=== PATIENT | male | born 1975 | race Caucasian/White ===

== ENCOUNTER → 2020-07-28 08:23 | Outpatient (BNVA) | payer OTHER, SELFPAY | PROVIDERS: Visit Provider Physician Assistant | DX: K21.9 Gastro-esophageal reflux disease without esophagitis (principal) | CPT/HCPCS: Q3014 ==

== ENCOUNTER → 2020-09-01 10:16 | Outpatient (BNVA) | payer OTHER, SELFPAY | PROVIDERS: Visit Provider Physician Assistant | DX: Z13.89 Encounter for screening for other disorder (principal) | CPT/HCPCS: Q3014 ==

== ENCOUNTER → 2020-11-10 12:40 | Outpatient (BNVA) | payer OTHER, SELFPAY | PROVIDERS: PCP Internal Medicine; Visit Provider Physician Assistant | DX: Z13.89 Encounter for screening for other disorder (principal) | CPT/HCPCS: Q3014 ==

== ENCOUNTER 2021-12-26 11:49 | Emergency (ER) | payer OTHER, SELFPAY ==
--- NOTE | ~2021-12-26 | CT_ITS ---
EXAMINATION: CT CHEST, ABDOMEN AND PELVIS WITH CONTRAST CLINICAL INFORMATION: Reason for Exam rib fx with lung contusion?? s/p fall COMPARISON: No pertinent prior studies are available for comparison TECHNIQUE: Multidetector volumetric imaging was performed from the thoracic inlet through the pubic symphysis following the administration of: Oral contrast: No Intravenous contrast: 85 mL Omnipaque 350 No contrast reaction reported Sagittal and coronal reformatted images were obtained on the technologist workstation. This CT examination was performed using dose optimization techniques as appropriate, variously including the following: *Automated exposure control. *Adjustment of mA and/or kV according to patient size (this includes techniques or standardized protocols for targeted exams where dose is matched to indication/reason for exam; i.e. extremities or head). *Use of iterative reconstruction technique. Total exam dose-length product 688 mGy-cm FINDINGS: LUNG: There are 3 sub-5 mm lung nodules identified within the right hemithorax, at right lung apex, right upper lobe posteromedially and at the Olga-fissural region (see the fontanez images). The remainder of the lung hernandez bilaterally appear clear. The tracheobronchial tree is patent. No evidence of any lung contusion present. PLEURA: No pleural effusion or pneumothorax. MEDIASTINUM: Normal heart size. No pericardial effusion. No hilar or mediastinal lymphadenopathy. VASCULAR: No thoracic aortic aneurysm or dissection. CHEST WALL/AXILLA: Solitary 1.2 cm left axillary lymph node is present (1:30: 7), of indeterminate etiology. Morphologically normal-appearing intramammary and right axillary lymph nodes are noted. LIVER, GALLBLADDER, AND BILIARY TREE: The liver is enlarged, measures 22 cm at its maximum craniocaudal dimension, shows diffuse hepatic hypodensity consistent with hepatic steatosis, and without any superimposed focal liver lesion. The gallbladder is unremarkable with no evidence of radiopaque gallstones, gallbladder wall thickening, or obvious pericholecystic inflammatory changes. PANCREAS: Normal; no mass or surrounding fluid. SPLEEN: Normal size. No focal lesion. ADRENAL GLANDS: Normal; no mass. KIDNEYS AND URETERS: The kidneys are normal in size, shape, and attenuation. No hydronephrosis, hydroureter, or calculi. GASTROINTESTINAL TRACT: Stomach and small bowel non-dilated. No colonic wall thickening or pericolonic inflammatory changes. Normal appendix. ABDOMINAL WALL: No significant hernia is appreciated. LYMPHOVASCULAR STRUCTURES: No lymphadenopathy. The aorta is unremarkable. BLADDER: Suboptimally distended, shows apparent diffuse wall thickening, may represent changes secondary to physiologic suboptimal distention versus outlet obstruction, superimposed infection, or combination thereof. PELVIC VISCERA: There is no pelvic mass present. No evidence of any free fluid and/or free air. OSSEOUS STRUCTURES: No acute or suspicious osseous abnormality. CT/CT abdomen pelvis w con IMPRESSION: 1. No CT evidence of any acute intrathoracic and intra-abdominal and/or intrapelvic pathology is present. 2. Incidental note is made of 3 sub-5 mm lung nodules within the right hemithorax. There are no prior studies available for comparison. 3. Note is also made of 1.2 cm left axillary lymph node, of indeterminate etiology. 4. Hepatomegaly with underlying diffuse hepatic steatosis. 5. Apparent mural thickening is present involving the bladder, may represent changes secondary to physiologic suboptimal distention versus outlet obstruction, superimposed infection, or combination thereof. 6. No CT evidence of any displaced rib fracture identified.
[2021-12-26 12:12] VITALS: BP 155/94; PULSE 76; O2SAT 95
[2021-12-26 12:13] VITALS: BP 163/103; PULSE 70; RESP 18; TEMP 36.6; O2SAT 97; BMI 31.9
--- NOTE | 2021-12-26 12:28 | ED_ITS ---
HPI - General Adult General Chief complaint: General Medical Stated complaint: RIB PAIN S/P SLIP&FALL SAT,FROM URGENT CARE Time Seen by Provider: 12/26/21 12:28 Source: patient Mode of arrival: ambulatory Limitations: no limitations History of Present Illness HPI narrative: History of depression anxiety psychotic disorder apparently slipped and fell in the bathroom hitting his left lower ribs to the edge of the bathtub 2 days ago since then having pain while taking deep breath since yesterday patient been coughing blood right feels increased short of breath when taking a deep breath and with pain also has some bruising on the abdomen no other injuries patient is saturating 95% at room air Related Data Home Medications Medication Instructions Recorded Confirmed albuterol sulfate 90 mcg/actuation 2 puff INHALATION Q6H PRN 07/28/20 07/28/20 aerosol inhaler cariprazine 3 mg capsule (Vraylar) 3 mg PO DAILY 07/28/20 09/01/20 hydroxyzine HCl 50 mg tablet 50 mg PO BID 07/28/20 07/28/20 lorazepam 0.5 mg tablet 0.5 mg PO BID PRN 07/28/20 09/01/20 omeprazole 20 mg capsule,delayed 20 mg PO DAILY 07/28/20 09/01/20 release Previous Rx's Medication Instructions Recorded omeprazole 20 mg capsule,delayed 20 mg PO BID #60 cap 07/28/20 release sucralfate 100 mg/mL oral 10 ml PO BID #420 ml 07/28/20 suspension (Carafate) benzonatate 200 mg capsule 200 mg PO TID PRN #30 cap 12/26/21 oxycodone-acetaminophen 5 mg-325 1 tab PO Q6H PRN #20 tab 12/26/21 mg tablet (Percocet) Allergies Allergy/AdvReac Type Severity Reaction Status Date / Time No Known Allergies Allergy Verified 11/10/20 12:40 Review of Systems Review of Systems: Yes all other systems are reviewed and are negative FOR[facility]LY [facility] Past Medical History Medical History Acid reflux Alcoholic liver disease Anxiety Depression Schizo affective schizophrenia Family History Family History Mother No problems noted. Father No problems noted. Mother No problems noted. 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 Oriented X3. In moderate distress Eyes: No pallor or icterus ENT: Pharynx normal. Oral Mucosa moist Neck: Normal inspection. Neck supple. CVS: Normal heart rate and rhythm. Pulses normal. Respiratory: No respiratory distress. Equal air entry bilateral, no whe ezing/rales/rhonchi no crepitus tender to touch left lower ribs in the front Abdomen: Soft and nontender. Bowel sounds are present, no mass palpable, no CVA tenderness Skin: Skin warm and dry. Normal skin color. Normal skin turgor. Extremities: No lower extremity edema. No calf tenderness Neuro: Oriented X 3. No motor deficit. Medical Decision Making MDM Narrative Medical decision making narrative: Patient's CT chest and abdomen negative for any rib fracture or lung contusion no hemoptysis seen in the ER will discharge patient home on tests lawn and pain medication Lab Data Lab results reviewed: Yes I reviewed the patient's lab results. Result diagrams: 12/26/21 12:48 12/26/21 12:48 Labs: Lab Results 12/26/21 12/26/21 12/26/21 Range/Units 12:48 12:48 12:48 WBC 13.6 H (4.8-10.8) X10*3/uL RBC 4.19 L (4.60-5.80) X10*6/uL Hgb 13.3 L (14.0-18.0) g/dl Hct 39.1 L (42.0-52.0) % MCV 93.3 (80.0-98.0) fL MCH 31.7 (27.0-33.0) pg MCHC 34.0 (31.0-36.0) g/dl RDW 13.0 (11.0-16.0) % Plt Count 276 (160-400) X10*3/uL MPV 10.2 (9.4-12.4) fL Immature Gran % (Auto) 0.3 (0.0-0.4) % Neut % (Auto) 84.9 H (45-73) % Lymph % (Auto) 9.2 L (20-40) % Christian % (Auto) 4.5 (2-11) % Eos % (Auto) 0.6 (0-4) % Baso % (Auto) 0.5 (0-2) % Lymph # (Auto) 1.3 (1.2-4.9) X10*3/uL Christian # (Auto) 0.6 (0.1-1.2) X10*3/uL Eos # (Auto) 0.1 (0.0-0.4) X10*3/uL Baso # (Auto) 0.1 (0.0-0.2) X10*3/uL Abs Immat Gran (auto) 0.04 H (0.00-0.03) X10*3/uL Absolute Neuts (auto) 11.6 H (2.0-8.3) x10*3/uL Absolute Nucleated RBC 0.000 (0.0-0.012) X10*3/uL Nucleated RBC % (auto) 0.0 (0.0-0.2) /100WBC PT 14.9 H (9.9-13.0) SEC INR 1.3 H (0.9-1.1) APTT 34.5 (24.1-38.0) SEC Sodium 139 (135-145) mmol/L Potassium 3.7 (3.3-5.1) mmol/L Chloride 100 (96-108) mmol/L Carbon Dioxide 27 (22-29) mmol/L Anion Gap 16 (12-20) BUN 5 L (9-16) mg/dL Creatinine 0.66 (0.5-1.4) mg/dL Estim Creat Clear Calc 168.3 Estimated GFR > 60 Random Glucose 89 (60-115) mg/dL Calcium 9.0 (8.4-10.2) mg/dL Magnesium 1.3 L* (1.6-2.6) mg/dL Total Bilirubin 1.1 H (0.0-1.0) mg/dL AST 108 H (5-37) U/L ALT 99 H (0-40) U/L Alkaline Phosphatase 121 H (39-117) U/L Total Protein 7.8 (6.5-8.0) g/dL Albumin 4.1 (3.5-5.0) g/dL COVID-19 (NIKOLAS) (Negative) COVID-19 Clin Com 12/26/21 Range/Units 12:48 WBC (4.8-10.8) X10*3/uL RBC (4.60-5.80) X10*6/uL Hgb (14.0-18.0) g/dl Hct (42.0-52.0) % MCV (80.0-98.0) fL MCH (27.0-33.0) pg MCHC (31.0-36.0) g/dl RDW (11.0-16.0) % Plt Count (160-400) X10*3/uL MPV (9.4-12.4) fL Immature Gran % (Auto) (0.0-0.4) % Neut % (Auto) (45-73) % Lymph % (Auto) (20-40) % Christian % (Auto) (2-11) % Eos % (Auto) (0-4) % Baso % (Auto) (0-2) % Lymph # (Auto) (1.2-4.9) X10*3/uL Christian # (Auto) (0.1-1.2) X10*3/uL Eos # (Auto) (0.0-0.4) X10*3/uL Baso # (Auto) (0.0-0.2) X10*3/uL Abs Immat Gran (auto) (0.00-0.03) X10*3/uL Absolute Neuts (auto) (2.0-8.3) x10*3/uL Absolute Nucleated RBC (0.0-0.012) X10*3/uL Nucleated RBC % (auto) (0.0-0.2) /100WBC PT (9.9-13.0) SEC INR (0.9-1.1) APTT (24.1-38.0) SEC Sodium (135-145) mmol/L Potassium (3.3-5.1) mmol/L Chloride (96-108) mmol/L Carbon Dioxide (22-29) mmol/L Anion Gap (12-20) BUN (9-16) mg/dL Creatinine (0.5-1.4) mg/dL Estim Creat Clear Calc Estimated GFR Random Glucose (60-115) mg/dL Calcium (8.4-10.2) mg/dL Magnesium (1.6-2.6) mg/dL Total Bilirubin (0.0-1.0) mg/dL AST (5-37) U/L ALT (0-40) U/L Alkaline Phosphatase (39-117) U/L Total Protein (6.5-8.0) g/dL Albumin (3.5-5.0) g/dL COVID-19 (NIKOLAS) Negative (Negative) COVID-19 Clin Com See Note Discharge Plan Discharge Clinical Impression: Contusion of rib on left side Patient Disposition: Home, Self-Care Instructions: Rib Contusion (ED) Additional Instructions: No clear-cut rib fracture was seen Take pain medication and cough suppressant as advised Follow with PCP if any concerns Prescriptions: New benzonatate 200 mg capsule 200 mg PO TID PRN (Reason: cough) Qty: 30 0RF oxycodone-acetaminophen [Percocet] 5-325 mg tablet 1 tab PO Q6H PRN (Reason: pain) Qty: 20 0RF No Action Vraylar 3 mg capsule 3 mg PO DAILY 0RF omeprazole 20 mg capsule,delayed release(DR/EC) 20 mg PO DAILY 0RF lorazepam 0.5 mg tablet 0.5 mg PO BID PRN0RF hydroxyzine HCl 50 mg tablet 50 mg PO BID 0RF albuterol sulfate 90 mcg/actuation HFA aerosol inhaler 2 puff inhalation Q6H PRN0RF omeprazole 20 mg capsule,delayed release(DR/EC) 20 mg PO BID Qty: 60 5RF sucralfate [Carafate] 100 mg/mL suspension 10 ml PO BID Qty: 420 0RF
[2021-12-26 12:54] LABS: MANUAL DIFF FLAG NO
[2021-12-26] MEDS: ondansetron HCL 4 MG/2 ML VIAL IVPUSH (12:56)
[2021-12-26] MEDS: Morphine Sulfate 4 MG/ML CARTRIDGE IVPUSH (12:56)
[2021-12-26] MEDS: guaiFEN/Codeine SF 200/20/10ML 10 ML LIQUID PO (12:56)
[2021-12-26 12:57] VITALS: BP 152/89; PULSE 76; PULSE 77; RESP 18; O2SAT 97
--- NOTE | 2021-12-26 13:01 | PC.NURSE ---
Mechanical fall with worsening pain today. Painful to move, deep breathing. Unable to fully assess LS d/t pain with inhalation. Breathing is non labored, sat 97% on room air. Skin flushed, warm to touch. VSS. Medicated as charted
[2021-12-26 13:04] LABS: Basophils Absolute Auto 0.1 X10*3/uL (0.0-0.2); Basophils Percent Auto 0.5 % (0-2); Eosinophils Absolute Auto 0.1 X10*3/uL (0.0-0.4); Eosinophils Percent Auto 0.6 % (0-4); Hematocrit 39.1 % (42.0-52.0); Hemoglobin 13.3 g/dl (14.0-18.0); Imm Gran Abs Auto 0.04 X10*3/uL (0.00-0.03); Imm Gran Pct Auto 0.3 % (0.0-0.4); Lymphocytes Absolute Auto 1.3 X10*3/uL (1.2-4.9); Lymphocytes Percent Auto 9.2 % (20-40); Mean Corpuscular Hemoglobin 31.7 pg (27.0-33.0); Mean Corpuscular Volume 93.3 fL (80.0-98.0); Mean Platelet Volume 10.2 fL (9.4-12.4); Monocytes Absolute Auto 0.6 X10*3/uL (0.1-1.2); Monocytes Percent Auto 4.5 % (2-11); Neutrophils Absolute Auto 11.6 x10*3/uL (2.0-8.3); Neutrophils Percent Auto 84.9 % (45-73); Platelet Count 276 X10*3/uL (160-400); Red Blood Count 4.19 X10*6/uL (4.60-5.80); White Blood Count 13.6 X10*3/uL (4.8-10.8)
[2021-12-26 13:10] LABS: INTERNATIONAL NORM RATIO 1.3 (0.9-1.1); Prothrombin Time 14.9 SEC (9.9-13.0)
[2021-12-26 13:13] LABS: Partial Thromboplastin Time 34.5 SEC (24.1-38.0)
[2021-12-26 13:24] LABS: Alanine Aminotransferase 99 U/L (0-40); Albumin Level 4.1 g/dL (3.5-5.0); Alkaline Phosphatase 121 U/L (39-117); Anion Gap 16 (12-20); Aspartate Amino Transferase 108 U/L (5-37); Bilirubin Total 1.1 mg/dL (0.0-1.0); Blood Urea Nitrogen 5 mg/dL (9-16); Carbon Dioxide 27 mmol/L (22-29); Chloride 100 mmol/L (96-108); Creatinine Clr Calc Pharmacy 168.3; Estimated Glomerular Filt Rate > 60; Glucose Random 89 mg/dL (60-115); Magnesium 1.3 mg/dL (1.6-2.6); Potassium 3.7 mmol/L (3.3-5.1); Sodium 139 mmol/L (135-145); Total Protein 7.8 g/dL (6.5-8.0)
[2021-12-26 13:39] LABS: COVID-19 Test Negative (Negative); IDNOW Serial# 16C4AD1C
[2021-12-26] MEDS: iohexoL 350 MG/ML 100 ML INFUS..BTL IV (13:43)
[2021-12-26] MEDS: Magnesium Sulfate/H2O 2 GM/50 ML PIGGYBACK IV (14:06)
[2021-12-26 14:09] VITALS: BP 156/93; PULSE 69; RESP 16; O2SAT 96
[2021-12-26] MEDS: oxyCODONE HCl Immed Release 5 MG TABLET 10 MG PO (15:14)
[2021-12-26] MEDS: Benzonatate 100 MG CAPSULE 200 MG PO (15:14)
== END 2021-12-26 15:21 | disposition home or self-care (01) ==
PROVIDERS: Emergency Provider Internal Medicine; PCP Internal Medicine
DX: S20.212A Contusion of left front wall of thorax, initial encounter (principal); R07.89 Other chest pain; R04.2 Hemoptysis; M54.6 Pain in thoracic spine; R06.02 Shortness of breath; R10.2 Pelvic and perineal pain; W01.0XXA Fall on same level from slipping, tripping and stumbling without subsequent striking against object, initial encounter; Y93.9 Activity, unspecified; Y92.002 Bathroom of unspecified non-institutional (private) residence as the place of occurrence of the external cause; Y99.9 Unspecified external cause status; Z20.822 Contact with and (suspected) exposure to COVID-19; Z79.899 Other long term (current) drug therapy
CPT/HCPCS: 71260; 74177; 80053; 83735; 85025; 85610; 85730; 87635; 96365; 96375; 99285; J2270; J2405; J3475; Q9967

== ENCOUNTER 2022-06-27 09:34 | Emergency (ER) | payer OTHER, SELFPAY ==
--- NOTE | ~2022-06-27 | CT_ITS ---
EXAMINATION: CT HEAD WITHOUT CONTRAST CLINICAL INFORMATION: Status post fall, rule out intracranial abnormality. COMPARISON: None TECHNIQUE: Contiguous axial imaging was performed from the skull base to vertex without intravenous administration of contrast. Coronal and sagittal reformatted images were obtained. This CT examination was performed using dose optimization techniques as appropriate, variously including the following: *Automated exposure control *Adjustment of mA and/or kV according to patient size (this includes techniques or standardized protocols for targeted exams where dose is matched to indication/reason for exam; i.e. extremities or head) *Use of iterative reconstruction technique DLP: 872 mGy-cm FINDINGS: There is mild widening of the cortical sulci and associated ventriculomegaly. The lateral ventricles are symmetrical. The third and fourth ventricles are in their normal midline position. The basilar and prepontine cisterns are unremarkable. There is no acute intra or extracerebral abnormality. There is no mass effect or midline shift. Sections through the bony calvarium are unremarkable. The orbits are intact. The paranasal sinuses are clear. The mastoid air cells are clear. CT/CT head/brain wo IV con IMPRESSION: No acute intracranial pathology.
[2022-06-27 09:37] VITALS: BP 136/82; BP 140/100; PULSE 67; PULSE 70; RESP 18; TEMP 36.8; O2SAT 97; BMI 36.1
--- NOTE | 2022-06-27 09:50 | ECG_ITS ---
Test Reason : vomiting Blood Pressure : / mmHG Vent. Rate : 061 BPM Atrial Rate : 061 BPM P-R Int : 162 ms QRS Dur : 090 ms QT Int : 466 ms P-R-T Axes : 022 044 011 degrees QTc Int : 469 ms Normal sinus rhythm Normal ECG No previous ECGs available Referred By: Demi Heredia Electronically Signed By:VERNA BOWDEN MD
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
--- OUTSIDE RECORDS SUMMARY | 2022-06-27 10:00 | XMS_ITS | Continuity of Care Document ---
:1975 Author Organization [facility] Address [address] [place] [id number]- Care Team Providers Name Role Phone Pastor CHANG, Cody Primary Care Physician Encounter [facility] [place] Date(s): 03/31/21 - 04/02/[address] [address] Discharge Disposition: A-D/C Home Attending Physician: Daija Ayala MD Admitting Physician: Temo Alexander MD Referring Physician: Not on Staff, Referring MD Allergies, Adverse Reactions, Alerts Substance Reaction Severity Status NKA Active Immunizations Given and Recorded Vaccine Date Status Refusal Reason tetanus/diphtheria/pertussis, acel(Tdap) 01/05/19 Given Medications Acetaminophen Tablet 650 mg, Tablet, By Mouth, Every 4 hours, PRN for Pain , Mild, Temperature Greater than 100.5, Routine, 03/31/21 19:12:00 EDT Start Date: 03/31/21 Stop Date: 04/02/21 Status: DiscontinuedclonazePAM 0.5 mg oral tablet 1 tablet = 0.5 mg, By Mouth, Every 12 hours, # 15 tablet, 0 Refills, Maintenance, 04/02/21 8:44:00 EDT, Tablet, [email or web address] #[id number], Partial fill upon patient request if the prescription is fora schedule II opioid drug., 176, cm, 04/01/21 15:... Start Date: 04/02/21 Status: Orderedfolic acid 1 mg oral tablet 1 mg, 1, tablet, By Mouth, Daily, # 30 tablet, Refills 0, Tot. Refills 0, Maintenance, 04/02/21 8:44:00 EDT, Route to Pharmacy Electronically, [email or web address] #[id number], Partial fill upon patient request if the prescription is for a schedule II opio... Start Date: 04/02/21 Status: Orderedthiamine 100 mg oral tablet 100 mg, 1, tablet, By Mouth, Daily, # 30 tablet, Refills 0, Tot. Refills 0, Acute 04/03/21 8:44:00 EDT, 04/02/21 8:44:00 EDT, Route to Pharmacy Electronically, [email or web address] #[id number], Partial fillupon patient request if the prescription is for a... Start Date: 04/02/21 Stop Date: 04/03/21 Status: OrderedVraylar 4.5 mg oral capsule TAKE 1 CAPSULE BY MOUTH EVERY DAY Start Date: 03/31/21 Status: Ordered Results Radiology Reports Exam Date Time Procedure Performing Provider Status 03/31/21 7:11 PM Chest Portable Terry Carbajal; Marvel (Verified) Notes:(Chest Portable) Reason For Exam: Shortness of BreathRESULT: Chest Portable Examination: Portable chest performed on 03/31/2021. History: Shortness of breath. Findings: A frontal view of the chest is compared to a prior study dated 11/19/2020. The cardiac and mediastinal silhouettes are within normal limits. The lungs are clear. The osseous and soft tissue structures are unremarkable. IMPRESSION: There is no acute cardiopulmonary disease. WSN: [id number] Ordering Physician: Anna Powers Dictated By: Krystal James MD Dictated Date/Time: 03/31/21 7:14 pm Reviewed By: Krystal James MD Signed By: Krystal James MD Signed Date/Time: 03/31/21 7:14 pm Transcribed By: KARI Transcribed Date/Time: 03/31/21 7:13 pm Vital Signs Most recent to oldest [Reference 1 2 3 Range]: Height 176 cm 176 cm 176 cm (04/01/21 3:46 PM) (04/01/21 2:48 PM) (04/01/21 4:44 A M) Weight 95 kg 94.5 kg (03/31/21 10:47 PM) (03/31/21 9:54 PM) Oxygen Saturation [94-100 %] 96 % 96 % 95 % (04/02/21 5:00 AM) (04/01/21 8:00 PM) (04/01/21 2:48 P M) Pulse Rate [55-90 bpm] 70 bpm 58 bpm 42 bpm (04/02/21 5:00 AM) (04/01/21 8:00 PM) *L* (04/01/21 3:46 PM) Body Mass Index [18.5-24.99] 30.67 30.51 *>HHI* *>HHI* (03/31/21 10:47 PM) (03/31/21 9:54 PM) Blood Pressure [90-138/55-84 mm 139/94 mm Hg 134/89 mm Hg 140/88 mm Hg Hg] *H* (04/01/21 8:00 PM) *H* (04/02/21 5:00 AM) (04/01/21 3:46 PM ) Respiratory Rate [16-30 br/min] 18 br/min 16 br/min 18 br/min (04/02/21 5:00 AM) (04/01/21 8:00 PM) (04/01/21 7:34 P M) Temperature [96.8-100.4 DegF] 99.1 DegF 99.4 DegF 98 .5 DegF (04/02/21 5:00 AM) (04/01/21 8:00 PM) (04/01/21 2:48 P M) Mode of Delivery (Oxygen) Room air Room air Room a ir (04/02/21 5:00 AM) (04/01/21 8:00 PM) (04/01/21 2:48 P M) Blood pressure sites Arm, right Arm, right Arm, right (04/02/21 5:00 AM) (04/01/21 8:00 PM) (04/01/21 3:46 P M) Temperature Route Oral Oral Oral (04/02/21 5:00 AM) (04/01/21 8:00 PM) (04/01/21 2:48 P M) Dry Weight 95 kg (03/31/21 10:47 PM) Weight Obtained Via Bed scale (03/31/21 9:54 PM) Social History Social History Type Response Smoking Status Never (less than 100 in life time) entered on: 01/05/19 Sex
--- OUTSIDE RECORDS SUMMARY | 2022-06-27 10:00 | XMS_ITS | Continuity of Care Document ---
:1975 Author Organization [facility] Address [address] [place] [id number]- Care Team Providers Name Role Phone Pastor CHANG, Cody Primary Care Physician Encounter [facility] [place] Date(s): 04/20/21 - 04/22/[address] [address] Discharge Disposition: A-D/C Home Attending Physician: Echo Mckeon MD Admitting Physician: Ishmael CHANG, Maribeth Jasso Referring Physician: Not on Staff, Referring MD Allergies, Adverse Reactions, Alerts Substance Reaction Severity Status NKA Active Immunizations Given and Recorded Vaccine Date Status Refusal Reason tetanus/diphtheria/pertussis, acel(Tdap) 01/05/19 Given Medications baclofen 10 mg oral tablet TAKE 1 OR 2 TABLETS BY MOUTH AT BEDTIME Start Date: 04/20/21 Status: OrderedclonazePAM 0.5 mg oral tablet 1 tablet = 0.5 mg, By Mouth, Every 12 hours, # 15 tablet, 0 Refills, Maintenance, 04/02/21 8:44:00 EDT, Tablet, [facility] #[id number], Partial fill upon patient request if the prescription is fora schedule II opioid drug., 176, cm, 04/01/21 15:... Start Date: 04/02/21 Status: Orderedfolic acid 1 mg oral tablet 1 mg, 1, tablet, By Mouth, Daily, # 30 tablet, Refills 0, Tot. Refills 0, Maintenance, 04/02/21 8:44:00 EDT, Route to Pharmacy Electronically, [facility] #[id number], Partial fill upon patient request if the prescription is for a schedule II opio... Start Date: 04/02/21 Status: Orderedpantoprazole 40 mg oral delayed release tablet 1 tablet = 40 mg, By Mouth, Daily, # 30 tablet, 0 Refills, Maintenance, 04/22/21 9:48:00 EDT, EC Tablet, 175, cm, 04/22/21 4:44:00 EDT, Height, 95, kg, 03/31/21 22:47:00 EDT, Dry Weight Start Date: 04/22/21 Stop Date: 05/22/21 Status: OrderedVraylar 4.5 mg oral capsule TAKE 1 CAPSULE BY MOUTH EVERY DAY Start Date: 03/31/21 Status: Ordered Problem List Condition Effective Dates Status Health Status Informant Bipolar disorder(Confirmed) Active Chronic alcohol use(Confirmed) Active Hepatic steatosis(Confirmed) Active Results Radiology Reports Exam Date Time Procedure Performing Provider Status 04/19/21 9:01 PM Chest Portable Jorje Hankins; Auth (Verified) Notes:(Chest Portable) Reason For Exam: AnginaRESULT: Chest Portable Chest Portable Hx of Present Illness: patient comes in after being exposed to Covid + person and having si thoughtsafter being exposed to Covid + person and having this pain and breathing issues; Reason: Angina; Clinical Question(s): CHF COMPARISON: 03/31/2021. FINDINGS: LINES AND TUBES: None. LUNGS AND PLEURA: Clear lungs. Normal pulmonary vascularity. No pleural effusion. No pneumothorax. HEART, MEDIASTINUM AND ADEOLA: Heart is normal in size. Normal upper mediastinal and hilar contour. BONES AND SOFT TISSUES: No acute abnormality. IMPRESSION: No acute abnormality. WSN: [id number] Ordering Physician: Regina Walls Dictated By: Ethel John MD Dictated Date/Time: 04/19/21 9:16 pm Reviewed By: Ethel John MD Signed By: Ethel John MD Signed Date/Time: 04/19/21 9:16 pm Transcribed By: KARI Transcribed Date/Time: 04/19/21 9:15 pm Vital Signs Most recent to oldest 1 2 3 [Reference Range]: Height 175 cm 175 cm 175 cm (04/22/21 4:44 AM) (04/21/21 9:15 PM) (04/21/21 4:5 0 AM) Weight 84.5 kg (04/20/21 7:29 PM) Oxygen Saturation [94-100 %] 96 % 96 % 95 % (04/22/21 4:44 AM) (04/21/21 9:15 PM) (04/21/21 2:0 0 PM) Pulse Rate [55-90 bpm] 81 bpm 80 bpm 90 bpm (04/22/21 4:44 AM) (04/21/21 9:15 PM) (04/21/21 4:0 8 PM) Body Mass Index [18.5-24.99] 27.59 *H* (04/20/21 7:29 PM) Blood Pressure [90-138/55-84 mm 144/96 mm Hg 144/96 mm Hg 130/80 mm Hg Hg] *H* *H* (04/21/21 4:08 PM ) (04/22/21 4:44 AM) (04/21/21 9:15 PM) Respiratory Rate [16-30 br/min] 18 br/min 18 br/min 22 br/min (04/22/21 4:44 AM) (04/21/21 9:15 PM) (04/21/21 4:0 8 PM) Temperature [96.8-100.4 DegF] 97.9 DegF 98.7 DegF 98 .1 DegF (04/22/21 4:44 AM) (04/21/21 9:15 PM) (04/21/21 2:0 0 PM) Mode of Delivery (Oxygen) Room air Room air Room a ir (04/22/21 4:44 AM) (04/21/21 9:15 PM) (04/21/21 2:0 0 PM) Blood pressure sites Arm, left Arm, left Arm, right (04/22/21 4:44 AM) (04/21/21 9:15 PM) (04/21/21 2:0 0 PM) Temperature Route Oral Oral Oral (04/22/21 4:44 AM) (04/21/21 9:15 PM) (04/21/21 2:0 0 PM) Weight Obtained Via Bed scale (04/20/21 7:29 PM) Social History Social History Type Response Smoking Status Never (less than 100 in life time) entered on: 01/05/19 Sex
--- OUTSIDE RECORDS SUMMARY | 2022-06-27 10:00 | XMS_ITS | Continuity of Care Document ---
:1975 Author Organization [facility] Address [address] [place] [id number]- Care Team Providers Name Role Phone Lorraine Moseley MD Primary Care Physician Encounter [facility] [place] Date(s): 02/10/22 - 02/10/[address] [address]- Encounter Diagnosis Alcohol intoxication (Final) - 02/10/22 Discharge Disposition: A-D/C Home Attending Physician: Isac Ruelas MD Admitting Physician: Isac Ruelas MD Referring Physician: Not on Staff, Referring MD Allergies, Adverse Reactions, Alerts No Known Allergies Immunizations Given and Recorded Vaccine Date Status Refusal Reason tetanus/diphtheria/pertussis, acel(Tdap) 01/05/19 Given Medications acamprosate 333 mg oral delayed release tablet 1 tablet = 333 mg, By Mouth, 3 times a day, # 270 tablet, 0 Refills, Maintenance, 01/11/22 8:09:00 EDT, EC Tablet, Partial fill upon patient request if the prescription is for a schedule II opioid drug. Start Date: 01/11/22 Status: OrderedclonazePAM 0.5 mg oral tablet 1 tablet = 0.5 mg, By Mouth, Every 12 hours, # 15 tablet, 0 Refills, Maintenance, 04/02/21 8:44:00 EDT, Tablet, [facility] #[id number], Partial fill upon patient request if the prescription is fora schedule II opioid drug., 176, cm, 04/01/21 15:... Start Date: 04/02/21 Status: OrderedDaily Tiffanie oral tablet 1 tablet, By Mouth, Daily Start Date: 07/14/21 Status: Orderedfolic acid 1 mg oral tablet 1 mg, 1, tablet, By Mouth, Daily, # 30 tablet, Refills 0, Tot. Refills 0, Maintenance, 04/02/21 8:44:00 EDT, Route to Pharmacy Electronically, [facility][id number], Partial fill upon patient request if the prescription is for a schedule II opio... Start Date: 04/02/21 Status: OrderedVraylar 6 mg oral capsule 1 capsule = 6 mg, By Mouth, Daily, 0 Refills, Maintenance, 07/14/21 17:43:00 EST, Partial fill upon patient request if the prescription is for a schedule II opioid drug. Start Date: 07/14/21 Status: OrderedZofran 4 mg oral tablet 1 tablet = 4 mg, By Mouth, Every 8 hours, 0 Refills, Maintenance, 01/04/22 9:39:00 EDT, Partial fillupon patient request if the prescription is for a schedule II opioid drug. Start Date: 01/04/22 Status: Ordered Problem List Condition Effective Dates Status Health Status Informant Bipolar disorder(Confirmed) Active Chronic alcohol use(Confirmed) Active Obese class I(Confirmed) Active Hepatic steatosis(Confirmed) Active Results Radiology Reports Exam Date Time Procedure Performing Provider Status 02/10/22 2:37 PM Chest Portable Marilyn Cruz (Verif ied) Notes:(Chest Portable) Reason For Exam: Shortness of BreathRESULT: Chest Portable Chest Portable HX OF PRESENT ILLNESS: ETOH abuse - found on side of the road; Reason: Shortness of Breath; Clinical Question(s): CHF COMPARISON: 01/11/2022 and multiple priors. FINDINGS: LINES AND TUBES: None. LUNGS AND PLEURA: Low lung volumes with mild basilar atelectasis. Lungs are otherwise clear with no consolidation. No pleural effusion. No pneumothorax. HEART, MEDIASTINUM AND ADEOLA: Heart is normal in size. Normal upper mediastinal and hilar contour. BONES AND SOFT TISSUES: No acute abnormality. IMPRESSION: Low lung volumes but no acute cardiopulmonary process. I have personally reviewed the images and I agree with this report. WSN: [id number] Ordering Physician: Jack Davila MD Dictated By: Ronald Godlen MD Dictated Date/Time: 02/10/22 2:52 pm Reviewed By: Zia Silva MD Signed By: Zia Silva MD Signed Date/Time: 02/10/22 2:57 pm Transcribed By: KARI Transcribed Date/Time: 02/10/22 2:45 pm Vital Signs Most recent to oldest 1 2 3 [Reference Range]: Oxygen Saturation [94-100 %] 98 % 95 % 96 % (02/10/22 6:04 PM) (02/10/22 3:33 PM) (02/10/22 1:1 9 PM) Pulse Rate [55-90 bpm] 80 bpm 85 bpm 90 bpm (02/10/22 6:04 PM) (02/10/22 3:33 PM) (02/10/22 2:1 0 PM) Blood Pressure [90-138/55-84 mm 136/86 mm Hg 100/48 mm Hg 113/58 mm Hg Hg] (02/10/22 6:04 PM) (02/10/22 3:33 PM) (02/10/22 1:1 9 PM) Respiratory Rate [16-30 br/min] 16 br/min 16 br/min 18 br/min (02/10/22 6:04 PM) (02/10/22 3:33 PM) (02/10/22 2:1 0 PM) Temperature [96.8-100.4 DegF] 97.6 DegF (02/10/22 1:19 PM) Mode of Delivery (Oxygen) Room air Room air Room a ir (02/10/22 6:04 PM) (02/10/22 3:33 PM) (02/10/22 1:1 9 PM) Blood pressure sites Arm, left Arm, left Arm, right (02/10/22 6:04 PM) (02/10/22 3:33 PM) (02/10/22 1:1 9 PM) Temperature Route Oral (02/10/22 1:19 PM) Social History Social History Type Response Smoking Status Never (less than 100 in life time) entered on: 01/28/22 Sex
--- OUTSIDE RECORDS SUMMARY | 2022-06-27 10:00 | XMS_ITS | Continuity of Care Document ---
:1975 Author Organization [address], [address] [place] [address]- Care Team Providers Name Role Phone Lorraine Moseley MD Primary Care Physician Encounter [facility] [place] Date(s): 07/25/21 - 08/24/[address], [address] [place] [address]- Allergies, Adverse Reactions, Alerts Substance Reaction Severity Status NKA Active Immunizations Given and Recorded Vaccine Date Status Refusal Reason tetanus/diphtheria/pertussis, acel(Tdap) 01/05/19 Given Medications acamprosate 333 mg oral delayed release tablet TAKE 1 TABLET BY MOUTH TWICE DAILY ON DAY 1 THEN 1 TABLET THREE TIMES DAILY FOR 2 TO 3 DAYS THEN 2 TABLETS THREE TIMES DAILY Start Date: 07/14/21 Status: OrderedclonazePAM 0.5 mg oral tablet 1 tablet = 0.5 mg, By Mouth, Every 12 hours, # 15 tablet, 0 Refills, Maintenance, 04/02/21 8:44:00 EDT, Tablet, [facility] #[id number], Partial fill upon patient request if the prescription is fora schedule II opioid drug., 176, cm, 04/01/21 15:... Start Date: 04/02/21 Status: OrderedDaily Tiffanie oral tablet TAKE 1 TABLET BY MOUTH EVERY DAY WITH FOOD (( VITAMIN)) Start Date: 07/14/21 Status: Orderedfolic acid 1 mg oral tablet 1 mg, 1, tablet, By Mouth, Daily, # 30 tablet, Refills 0, Tot. Refills 0, Maintenance, 04/02/21 8:44:00 EDT, Route to Pharmacy Electronically, [facility] #[id number], Partial fill upon patient request if the [...] Start Date: 04/22/21 Stop Date: 05/22/21 Status: OrderedVitamin B1 100 mg oral tablet TAKE 1 TABLET BY MOUTH EVERY DAY Start Date: 07/14/21 Status: OrderedVraylar 6 mg oral capsule 0 Refills, Maintenance, 07/14/21 17:43:00 EST, Partial fill upon patient request if the prescriptionis for a schedule II opioid drug. Start Date: 07/14/21 Status: Ordered Problem List Condition Effective Dates Status Health Status Informant Bipolar disorder(Confirmed) Active Chronic alcohol use(Confirmed) Active Hepatic steatosis(Confirmed) Active Social History Social History Type Response Smoking Status Never (less than 100 in life time) entered on: 01/05/19 Sex
--- OUTSIDE RECORDS SUMMARY | 2022-06-27 10:00 | XMS_ITS | Continuity of Care Document ---
:1975 Author Organization [facility] Address [address] [place] [address]- Care Team Providers Name Role Phone Lorraine Moseley MD Primary Care Physician Encounter [facility] [place] Date(s): 11/18/20 - 11/19/[address] [address]- Encounter Diagnosis ETOH abuse (Final) - 11/19/20 Discharge Disposition: A-D/C Home Attending Physician: Yo Felix MD Admitting Physician: Yo Felix MD Referring Physician: Not on Staff, Referring MD Allergies, Adverse Reactions, Alerts Substance Reaction Severity Status NKA Active Immunizations Given and Recorded Vaccine Date Status Refusal Reason tetanus/diphtheria/pertussis, acel(Tdap) 01/05/19 Given Medications MorPHINE Inj 4 mg, Injection, IV Push Slowly, Once, STAT, 11/19/20 2:01:00 EDT, Stop date 11/19/20 2:01:00 EDT Start Date: 11/19/20 Stop Date: 11/19/20 Status: Completed Results Radiology Reports Exam Date Time Procedure Performing Provider Status 11/19/20 1:47 AM Chest Portable Rebecca Rivas; Marvel ([facility] ed) Notes:(Chest Portable) Reason For Exam: Chest Pain;Other:RESULT: Chest Portable Chest Portable HX OF PRESENT ILLNESS: Presents to the ER with EMS for cp for last 3 days. Pt also reports drinking today. A and O x4. Pt VSS.; Reason: Chest Pain; Clinical Question(s): CHF / CHF COMPARISON: 11/08/2020 FINDINGS: LINES AND TUBES: None. LUNGS AND PLEURA: Clear lungs. Normal pulmonary vascularity. No pleural effusion. No pneumothorax. HEART, MEDIASTINUM AND ADEOLA: Heart is normal in size. Normal mediastinal and hilar contour. BONES AND SOFT TISSUES: No acute abnormality. IMPRESSION: No evidence of acute abnormality. WSN: [id number] Ordering Physician: Alfredo Webster Dictated By: Temo Zaidi MD Dictated Date/Time: 11/19/20 8:02 am Reviewed By: Temo Zaidi MD Signed By: Temo Zaidi MD Signed Date/Time: 11/19/20 8:02 am Transcribed By: KARI Transcribed Date/Time: 11/19/20 8:01 am Vital Signs Most recent to oldest 1 2 3 [Reference Range]: Oxygen Saturation [94-100 %] 99 % 97 % 94 % (11/19/20 9:04 AM) (11/19/20 6:36 AM) (11/19/20 1:1 1 AM) Pulse Rate [55-90 bpm] 64 bpm 55 bpm 70 bpm (11/19/20 9:04 AM) (11/19/20 6:36 AM) (11/19/20 1:0 6 AM) Blood Pressure [90-138/55-84 133/90 mm Hg 121/79 mm Hg 108 /61 mm Hg mm Hg] (11/19/20 9:04 AM) (11/19/20 6:36 AM) (11/19/20 1:1 1 AM) Respiratory Rate [16-30 18 br/min 20 br/min 20 br/mi n br/min] (11/19/20 9:04 AM) (11/19/20 6:36 AM) (11/19/20 2:3 6 AM) Temperature [96.8-100.4 DegF] 98.1 DegF (11/19/20 1:06 AM) Liters per Minute 2 L/min 2 L/min 2 L/min (11/19/20 6:36 AM) (11/19/20 1:11 AM) (11/19/20 12: 00 AM) Mode of Delivery (Oxygen) Nasal cannula Nasal cannula Room a ir (11/19/20 6:36 AM) (11/19/20 1:11 AM) (11/19/20 12: 07 AM) Temperature Route Oral (11/19/20 1:06 AM) Social History Social History Type Response Smoking Status Never (less than 100 in life time) entered on: 01/05/19 Sex
--- OUTSIDE RECORDS SUMMARY | 2022-06-27 10:00 | XMS_ITS | Continuity of Care Document ---
:1975 Author Organization [address], [address] [place] [address]- Care Team Providers Name Role Phone Lorraine Moseley MD Primary Care Physician Encounter [facility] [place] Date(s): 08/22/21 - 08/29/[address], [address] [place] [address]- Attending Physician: Boo Carter MD Referring Physician: Martha Ayala Allergies, Adverse Reactions, Alerts Substance Reaction Severity [...] 0 Refills, Maintenance, 04/02/21 8:44:00 EDT, Tablet, [facility] #[id number], Partial fill upon patient request if the [...] 04/02/21 8:44:00 EDT, Route to Pharmacy Electronically, [facility] #[id number], Partial fill upon patient request if the [...] Chronic alcohol use(Confirmed) Active Hepatic steatosis(Confirmed) Active Vital Signs Most recent to oldest [Reference Range]: 1 Height 175 cm (08/22/21 3:20 PM) Weight 90.1 kg (08/22/21 3:20 PM) Body Mass Index [18.5-24.99] 29.42 *H* (08/22/21 3:20 PM) Social History Social History Type Response Smoking Status Never (less than 100 in life time) entered on: 01/05/19 Sex
--- OUTSIDE RECORDS SUMMARY | 2022-06-27 10:00 | XMS_ITS | Continuity of Care Document ---
:1975 Author Organization [facility] Address [address] [place] [address]- Care Team Providers Name Role Phone Lorraine Moseley MD Primary Care Physician Encounter [facility] [place] Date(s): 01/30/22 - 01/31/[address] [address]- Encounter Diagnosis Alcohol intoxication (Final) - 01/31/22 Alcohol addiction (Final) - 01/31/22 Discharge Disposition: Disch/Trans to IP Rehab or unit w/in Hos Attending Physician: David Cifuentes MD Admitting Physician: David Cifuentes MD Referring Physician: Not on Staff, Referring [...] II opioid drug. Start Date: 01/11/22 Status: OrderedAcetaminophen Tablet 975 mg, Tablet, By Mouth, Once, STAT, 01/31/22 8:30:00 EDT, Stop date 01/31/22 8:30:00 EDT Start Date: 01/31/22 Stop Date: 01/31/22 Status: CompletedclonazePAM 0.5 mg oral tablet 1 tablet = 0.5 mg, By Mouth, Every 12 hours, # 15 tablet, 0 Refills, Maintenance, 04/02/21 8:44:00 EDT, Tablet, [facility] #[id number], Partial fill upon patient request if the [...] 04/02/21 8:44:00 EDT, Route to Pharmacy Electronically, [facility] #[id number], Partial fill upon patient request if the prescription is for a schedule II opio... Start Date: 04/02/21 Status: OrderedMotrin Tablet 600 mg, Tablet, By Mouth, Once, STAT, 01/31/22 8:30:00 EDT, Stop date 01/31/22 8:30:00 EDT Start Date: 01/31/22 Stop Date: 01/31/22 Status: CompletedVraylar 6 mg oral capsule 1 capsule = [...] Obese class I(Confirmed) Active Hepatic steatosis(Confirmed) Active Vital Signs Most recent to oldest 1 2 3 4 [Reference Range]: Oxygen Saturation 97 % 97 % 97 % [94-100 %] (01/31/22 2:53 PM) (01/31/22 12:21 PM) (01/31/22 8:11 AM) Pulse Rate [55-90 bpm] 80 bpm 80 bpm 90 bpm (01/31/22 2:53 PM) (01/31/22 12:21 PM) (01/31/22 8:11 AM) Blood Pressure 157/100 mm Hg 149/99 mm Hg 141/82 mm Hg [90-138/55-84 mm Hg] *H* *H* *H* (01/31/22 2:53 PM) (01/31/22 12:21 PM) (01/31/22 8:11 AM) Respiratory Rate [16-30 20 br/min 20 br/min 18 br/min 18 b r/min br/min] (01/31/22 2:53 PM) (01/31/22 12:21 PM) (01/31/22 9:38 AM) ( 9:38 AM) Temperature [96.8-100.4 98.2 DegF 97.9 DegF 98.6 DegF DegF] (01/31/22 2:53 PM) (01/31/22 8:11 AM) (01/31/22 1:08 AM) Mode of Delivery Room air Room air Room air (Oxygen) (01/31/22 2:53 PM) (01/31/22 12:21 PM) (01/31/22 8:11 AM) Blood pressure sites Arm, right Arm, right Arm, right (01/31/22 2:53 PM) (01/31/22 12:21 PM) (01/31/22 8:11 AM) Temperature Route Oral Oral Oral (01/31/22 2:53 PM) (01/31/22 8:11 AM) (01/31/22 1:08 AM) Social History Social History Type Response Smoking Status Never (less than 100 in life time) entered on: 01/28/22 Sex
--- OUTSIDE RECORDS SUMMARY | 2022-06-27 10:01 | XMS_ITS | Continuity of Care Document ---
:1975 Author Organization [address], [address] [place] [address]- Care Team Providers Name Role Phone Lorraine Moseley MD Primary Care Physician [place] [facility] [place] [id number] Date(s): 08/22/21 - 09/21/[address], [address] [place], [place] [address] Attending Physician: Juany Whitlock Admitting Physician: AdmtrJuany Referring Physician: AdmtrJuany Allergies, Adverse Reactions, Alerts No Known Allergies [...] 0 Refills, Maintenance, 04/02/21 8:44:00 EDT, Tablet, [facility] #[id number], Partial fill upon patient request if the prescription is fora schedule II opioid drug., 176, cm, 04/01/21 15:... Start Date: 04/02/21 Status: OrderedDaily Itffanie oral tablet TAKE 1 TABLET BY MOUTH EVERY DAY WITH FOOD (( VITAMIN)) Start Date: 07/14/21 Status: Orderedfolic acid 1 mg oral tablet 1 mg, 1, tablet, By Mouth, Daily, # 30 tablet, Refills 0, Tot. Refills 0, Maintenance, 04/02/21 8:44:00 EDT, Route to Pharmacy Electronically, [facility] #[id number], Partial fill upon patient request if the [...]
--- OUTSIDE RECORDS SUMMARY | 2022-06-27 10:01 | XMS_ITS | Continuity of Care Document ---
:1975 Author Organization [facility] Address [address] [place] [phone]- Care Team Providers Name Role Phone Cody Baumann MD Primary Care Phys[id number] Date(s): 05/03/21 - 05/04/[address] [address]- Discharge Disposition: A-D/C Home Attending Physician: Rafita Wade MD Admitting Physician: Rafita Wade MD Referring Physician: Not on Staff, Referring [...] 0 Refills, Maintenance, 04/02/21 8:44:00 EDT, Tablet, [id number], Partial fill upon patient request if the prescription is fora schedule II opioid drug., 176, cm, 04/01/21 15:... Start Date: 04/02/21 Status: Orderedfolic acid 1 mg oral tablet 1 mg, 1, tablet, By Mouth, Daily, # 30 tablet, Refills 0, Tot. Refills 0, Maintenance, 04/02/21 8:44:00 EDT, Route to Pharmacy Electronically, [facility] #[id number], Partial fill upon patient request if the [...] Most recent to oldest [Reference Range]: 1 2 Oxygen Saturation [94-100 %] 95 % 96 % (05/04/21 1:01 AM) (05/03/21 7:38 PM) Pulse Rate [55-90 bpm] 79 bpm 71 bpm (05/04/21 1:01 AM) (05/03/21 7:38 PM) Blood Pressure [90-138/55-84 mm Hg] 125/83 mm Hg 119/ 71 mm Hg (05/04/21 1:01 AM) (05/03/21 7:38 PM) Respiratory Rate [16-30 br/min] 16 br/min 18 br/mi n (05/04/21 1:01 AM) (05/03/21 7:38 PM) Temperature [96.8-100.4 DegF] 98.6 DegF 98.3 DegF (05/04/21 1:01 AM) (05/03/21 7:38 PM) Mode of Delivery (Oxygen) Room air Room air (05/04/21 1:01 AM) (05/03/21 7:38 PM) Blood pressure sites Arm, right Arm, right (05/04/21 1:01 AM) (05/03/21 7:38 PM) Temperature Route Oral Oral (05/04/21 1:01 AM) (05/03/21 7:38 PM) Social History Social History Type Response Smoking Status Never (less than 100 in life time) entered on: 01/05/19 Sex
--- OUTSIDE RECORDS SUMMARY | 2022-06-27 10:01 | XMS_ITS | Continuity of Care Document ---
:1975 Author Organization [facility] Address [address] [place] [phone]- Care Team Providers Name Role Phone Lorraine Moseley MD Primary Care Physician [place] [facility] [place] 12/06/[address] [address]- Encounter Diagnosis Abdominal pain (Final) - 12/05/21 Benzodiazepine withdrawal (Final) - 12/05/21 Paranoia (Final) - 12/05/21 Hematemesis (Final) - 12/06/21 Discharge Disposition: A-D/C AMA Attending Physician: Jean Coronado MD Admitting Physician: Dayo Funez MD Referring Physician: Not on Staff, Referring [...] 0 Refills, Maintenance, 04/02/21 8:44:00 EDT, Tablet, [facility] #[id number], Partial fill upon patient request if the [...] 04/02/21 8:44:00 EDT, Route to Pharmacy Electronically, [facility] #[id number], Partial fill upon patient request if the [...] Exam Date Time Procedure Performing Provider Status 12/05/21 8:47 AM Chest 2 Views Frontal and Lat Alex , Nicky; Au th (Verified) Notes:(Chest 2 Views Frontal and Lat) Reason For Exam: Abdominal PainRESULT: Chest 2 Views Frontal and Lat Examination: Chest performed on 12/05/2021. History: Abdominal pain. Evaluate for free air. Findings: Frontal and lateral views of the chest are compared to a prior study dated 12/04/2021. The cardiac and mediastinal silhouettes are within normal limits. The lungs are clear. The osseous and soft tissue structures are unremarkable. No free air is seen beneath the hemidiaphragms. Impression: There is no acute cardiopulmonary disease. WSN: [id number] Ordering Physician: Maynor Osman Dictated By: Krystal James MD Dictated Date/Time: 12/05/21 8:56 am Reviewed By: Krystal James MD Signed By: Krystal James MD Signed Date/Time: 12/05/21 8:56 am Transcribed By: KARI Transcribed Date/Time: 12/05/21 8:55 am Vital Signs Most recent to oldest 1 2 3 [Reference Range]: Oxygen Saturation [94-100 %] 98 % 99 % 96 % (12/06/21 11:33 AM) (12/06/21 9:41 AM) (12/06/21 7: 51 AM) Pulse Rate [55-90 bpm] 82 bpm 88 bpm 60 bpm (12/06/21 11:54 AM) (12/06/21 11:33 AM) (12/06/21 9 :41 AM) Blood Pressure [90-138/55-84 136/98 mm Hg 142/102 mm Hg 130 /84 mm Hg mm Hg] (12/06/21 11:54 AM) *H* (12/06/21 9:41 AM) (12/06/21 11:33 AM) Respiratory Rate [16-30 18 br/min 18 br/min 18 br/mi n br/min] (12/06/21 11:54 AM) (12/06/21 11:33 AM) (12/06/21 9 :41 AM) Temperature [96.8-100.4 DegF] 98.0 DegF 98.3 DegF 98 .8 DegF (12/06/21 11:54 AM) (12/06/21 7:51 AM) (12/06/21 4: 44 AM) Mode of Delivery (Oxygen) Room air Room air Room a ir (12/06/21 11:33 AM) (12/06/21 9:41 AM) (12/06/21 7: 51 AM) Blood pressure sites Arm, right Arm, right Leg, right (12/06/21 11:54 AM) (12/06/21 11:33 AM) (12/06/21 9 :41 AM) Temperature Route Oral Oral Oral (12/06/21 11:54 AM) (12/06/21 7:51 AM) (12/06/21 4: 44 AM) Social History Social History Type Response Smoking Status Never (less than 100 in life time) entered on: 01/05/19 Sex
--- OUTSIDE RECORDS SUMMARY | 2022-06-27 10:01 | XMS_ITS | Continuity of Care Document ---
:1975 Author Organization [facility] Address [address] [place] [address]- Care Team Providers Name Role Phone Lorraine Moseley MD Primary Care Physician Encounter [facility] [place] Date(s): 12/11/21 - 12/16/[address] [address] Discharge Disposition: A-D/C Home Attending Physician: Steve CHANG, Alie Kumar Admitting Physician: Yoana Florian MD Referring Physician: Not on Staff, Referring MD Allergies, Adverse Reactions, Alerts No Known Allergies Immunizations Given and Recorded Vaccine Date Status Refusal Reason tetanus/diphtheria/pertussis, acel(Tdap) 01/05/19 Given Medications clonazePAM 0.5 mg oral tablet 1 tablet = 0.5 mg, By Mouth, Every 12 hours, # 15 tablet, 0 Refills, Maintenance, 04/02/21 8:44:00 EDT, Tablet, [facility] #[id number], Partial fill upon patient request if the [...] 04/02/21 8:44:00 EDT, Route to Pharmacy Electronically, [facility] #[id number], Partial fill upon patient request if the prescription is for a schedule II opio... Start Date: 04/02/21 Status: OrderedoxyCODONE 5 mg oral tablet 5 mg, Tablet, By Mouth, Once, PRN for Pain , Moderate, MICHELLE, 12/16/21 0:15:00 EDT Start Date: 12/16/21 Stop Date: 12/16/21 Status: Completedpantoprazole 40 mg oral delayed release tablet 1 tablet = 40 mg, By Mouth, Daily, # 30 tablet, 0 Refills, Maintenance, 04/22/21 9:48:00 EDT, EC Tablet, 175, cm, 04/22/21 4:44:00 EDT, Height, 95, kg, 03/31/21 22:47:00 EDT, Dry Weight Start Date: 04/22/21 Stop Date: 05/22/21 Status: Orderedthiamine 100 mg oral tablet 100 mg, 1, tablet, By Mouth, Daily, for 30 days, # 30 tablet, Refills 0, Tot. Refills 0, Acute 01/15/22 11:41:00 EDT, 12/16/21 11:41:00 EDT, Route to Pharmacy Electronically, [facility], Partial fill upon patient request if the prescript... Start Date: 12/16/21 Stop Date: 01/15/22 Status: OrderedVitamin B1 100 mg oral tablet 100 mg, 1, tablet, By Mouth, Daily Start Date: 07/14/21 Status: OrderedVraylar 6 mg oral capsule 1 [...] Exam Date Time Procedure Performing Provider Status 12/11/21 11:07 AM Chest Portable Yuki Slade; Auth (Dale hernandez) Notes:(Chest Portable) Reason For Exam: Shortness of BreathRESULT: Chest Portable Chest Portable Hx of Present Illness: wtihdrawal; Reason: Shortness of Breath; Clinical Question(s): CHF COMPARISON: 12/04/2021 FINDINGS: LINES AND TUBES: None. LUNGS AND PLEURA: Clear lungs. Normal pulmonary vascularity. No pleural effusion. No large pneumothorax. HEART, MEDIASTINUM AND ADEOLA: Heart is normal in size. Normal upper mediastinal and hilar contour. BONES AND SOFT TISSUES: No acute abnormality. IMPRESSION: No radiographic evidence of acute cardiopulmonary process. WSN: [id number] Ordering Physician: Jae Aden Dictated By: Barrie Mahajan MD Dictated Date/Time: 12/11/21 11:32 a Reviewed By: Barrie Mahajan MD Signed By: Barrie Mahajan MD Signed Date/Time: 12/11/21 11:32 am Transcribed By: KARI Transcribed Date/Time: 12/11/21 11:32 am Vital Signs Most recent to oldest 1 2 3 [Reference Range]: Height 175 cm 175 cm 175 cm (12/16/21 5:31 AM) (12/16/21 1:33 AM) (12/16/21 1:0 7 AM) Weight 94.3 kg (12/12/21 5:09 PM) Oxygen Saturation [94-100 %] 100 % 98 % 98 % (12/16/21 5:31 AM) (12/16/21 1:33 AM) (12/16/21 1:0 7 AM) Pulse Rate [55-90 bpm] 57 bpm 61 bpm 63 bpm (12/16/21 5:31 AM) (12/16/21 1:33 AM) (12/16/21 1:0 7 AM) Body Mass Index [18.5-24.99] 30.79 *>HHI* (12/12/21 5:09 PM) Blood Pressure [90-138/55-84 mm 126/80 mm Hg 144/92 mm Hg 134/85 mm Hg Hg] (12/16/21 5:31 AM) *H* (12/16/21 1:07 AM) (12/16/21 1:33 AM) Respiratory Rate [16-30 br/min] 18 br/min 18 br/min 20 br/min (12/16/21 5:31 AM) (12/16/21 1:34 AM) (12/16/21 1:3 3 AM) Temperature [96.8-100.4 DegF] 98.3 DegF 98.8 DegF 98 .8 DegF (12/16/21 5:31 AM) (12/16/21 1:33 AM) (12/16/21 1:0 7 AM) Mode of Delivery (Oxygen) Room air Room air Room a ir (12/16/21 5:31 AM) (12/16/21 1:33 AM) (12/16/21 1:0 7 AM) Blood pressure sites Arm, right Arm, left Arm, left (12/16/21 5:31 AM) (12/16/21 1:33 AM) (12/16/21 1:0 7 AM) Temperature Route Oral Oral Oral (12/16/21 5:31 AM) (12/16/21 1:33 AM) (12/16/21 1:0 7 AM) Dry Weight 91 kg (12/12/21 5:09 PM) Social History Social History Type Response Smoking Status Never (less than 100 in life time) entered on: 01/05/19 Sex
--- OUTSIDE RECORDS SUMMARY | 2022-06-27 10:01 | XMS_ITS | Continuity of Care Document ---
:1975 Author Organization [facility] Address [address] [place] [address]- Care Team Providers Name Role Phone Lorraine Moseley MD Primary Care Physician [place] [facility] [place](s): 12/04/21 - 12/04/[address] [address]- Discharge Disposition: A-D/C Home Attending Physician: Shea Coleman MD Admitting Physician: Shea Coleman MD Referring Physician: Not on Staff, Referring [...] 0 Refills, Maintenance, 04/02/21 8:44:00 EDT, Tablet, [facility] #[id number], Partial fill upon patient request if the [...] 04/02/21 8:44:00 EDT, Route to Pharmacy Electronically, [facility][id number], Partial fill upon patient request if the [...] Exam Date Time Procedure Performing Provider Status 12/04/21 7:11 AM Chest Portable Balnk Guerrero (Verified ) Notes:(Chest Portable) Reason For Exam: Shortness of BreathRESULT: Chest Portable Chest Portable HX OF PRESENT ILLNESS: Multi-complaint; Reason: Shortness of Breath; Clinical Question(s): CHF / CHF COMPARISON: 04/19/2021 FINDINGS: LINES AND TUBES: None. LUNGS AND PLEURA: Clear lungs. Normal pulmonary vascularity. No pleural effusion. No pneumothorax. HEART, MEDIASTINUM AND ADEOLA: Heart is normal in size. Normal mediastinal and hilar contour. BONES AND SOFT TISSUES: No acute abnormality. IMPRESSION: No evidence of acute abnormality. WSN: [id number] Ordering Physician: Dick Wiley Dictated By: Temo Zaidi MD Dictated Date/Time: 12/04/21 7:27 am Reviewed By: Temo Zaidi MD Signed By: Temo Zaidi MD Signed Date/Time: 12/04/21 7:27 am Transcribed By: KARI Transcribed Date/Time: 12/04/21 7:26 am Vital Signs Most recent to oldest [Reference Range]: 1 2 Oxygen Saturation [94-100 %] 98 % 98 % (12/04/21 8:25 AM) (12/04/21 5:01 AM) Pulse Rate [55-90 bpm] 88 bpm 86 bpm (12/04/21 8:25 AM) (12/04/21 5:01 AM) Blood Pressure [90-138/55-84 mm Hg] 132/98 mm Hg 163/ 107 mm Hg (12/04/21 8:25 AM) *H* (12/04/21 5:01 AM) Respiratory Rate [16-30 br/min] 16 br/min (12/04/21 5:01 AM) Temperature [96.8-100.4 DegF] 97.6 DegF 98.1 DegF (12/04/21 8:25 AM) (12/04/21 5:01 AM) Mode of Delivery (Oxygen) Room air Room air (12/04/21 8:25 AM) (12/04/21 5:01 AM) Temperature Route Oral Oral (12/04/21 8:25 AM) (12/04/21 5:01 AM) Social History Social History Type Response Smoking Status Never (less than 100 in life time) entered on: 01/05/19 Sex
--- OUTSIDE RECORDS SUMMARY | 2022-06-27 10:01 | XMS_ITS | Continuity of Care Document ---
:1975 Author Organization [facility] Address Unavailable , Care Team Providers Name Role Phone Lorraine Moseley MD Primary Care Physician En[place] [facility] [place] Date(s): 01/09/22 - 02/08/22 [facility] Attending Physician: Juany Whitlock Admitting Physician: Juany Whitlock Referring Physician: Juany Whitlock Allergies, Adverse Reactions, Alerts No Known Allergies [...] 0 Refills, Maintenance, 04/02/21 8:44:00 EDT, Tablet, [facility] #[id number], Partial fill upon patient request if the [...] 04/02/21 8:44:00 EDT, Route to Pharmacy Electronically, [facility] #[id number], Partial fill upon patient request if the [...] Obese class I(Confirmed) Active Hepatic steatosis(Confirmed) Active Social History Social History Type Response Smoking Status Never (less than 100 in life time) entered on: 01/28/22 Sex
--- OUTSIDE RECORDS SUMMARY | 2022-06-27 10:01 | XMS_ITS | Continuity of Care Document ---
:1975 Author Organization [facility] Address Unavailable , Care Team Providers Name Role Phone Lorraine Moseley MD Primary Care Physician [place] [facility] [place]22 [facility] Attending Physician: Lorraine Moseley MD Admitting Physician: Lorraine Moseley MD Allergies, Adverse Reactions, Alerts No Known [...] 0 Refills, Maintenance, 04/02/21 8:44:00 EDT, Tablet, [facility] #[id number], Partial fill upon patient request if the [...] 04/02/21 8:44:00 EDT, Route to Pharmacy Electronically, [facility] #[id number], Partial fill upon patient request if the [...]
--- OUTSIDE RECORDS SUMMARY | 2022-06-27 10:01 | XMS_ITS | Continuity of Care Document ---
:1975 Author Organization [facility] Address [address] [place] [address]- Care Team Providers Name Role Phone Lorraine Moseley MD Primary Care Physician [place] [facility] [place] - 12/31/[address] [address]- Encounter Diagnosis Alcohol intoxication (Final) - 12/31/21 Rib fracture (Final) - 12/31/21 Rib fracture (Final) - 12/31/21 Alcohol intoxication (Final) - 12/31/21 Discharge Disposition: A-D/C Home Attending Physician: Kay Molina MD Admitting Physician: Kay Molina MD Referring Physician: Not on Staff, Referring MD Allergies, Adverse Reactions, Alerts No Known Allergies Immunizations Given and Recorded Vaccine Date Status Refusal Reason tetanus/diphtheria/pertussis, acel(Tdap) 01/05/19 Given Medications clonazePAM 0.5 mg oral tablet 1 tablet = 0.5 mg, By Mouth, Every 12 hours, # 15 tablet, 0 Refills, Maintenance, 04/02/21 8:44:00 EDT, Tablet, [facility] #[id number], Partial fill upon patient request if the [...] 04/02/21 8:44:00 EDT, Route to Pharmacy Electronically, [facility] #[id number], Partial fill upon patient request if the [...] 12/16/21 11:41:00 EDT, Route to Pharmacy Electronically, [facility], Partial fill upon patient request if [...] Exam Date Time Procedure Performing Provider Status 12/31/21 1:53 PM Chest 2 Views Frontal and Lat Casandra Schilling [facility] (Verified) Notes:(Chest 2 Views Frontal and Lat) Reason For Exam: CoughRESULT: Chest 2 Views Frontal and Lat AP and lateral chest x-ray dated January 10, 2022. Comparison films are from December 11, 2021. HISTORY: Cough. FINDINGS: The cardiac silhouette is at the upper limits of normal limits for size. Hilar and mediastinal structures are unremarkable. No airspace infiltrate or pleural effusion is identified. Visualized osseous structures are unremarkable. IMPRESSION: No evidence of acute pulmonary disease. No significant interval change. Examination [address]. Thank you for allowing me to participate in the care of this patient. WSN: [id number] Ordering Physician: Armaan Crooks Dictated By: Manjeet Sullivan MD Dictated Date/Time: 12/31/21 1:55 pm Reviewed By: Manjeet Sullivan MD Signed By: Manjeet Sullivan MD Signed Date/Time: 12/31/21 1:55 pm Transcribed By: KARI Transcribed Date/Time: 12/31/21 1:55 pm Vital Signs Most recent to oldest [Reference 1 2 3 Range]: Oxygen Saturation [94-100 %] 97 % 97 % 95 % (12/31/21:59 PM) (12/31/21 4:50 PM) (12/31/21 2:23 P M) Pulse Rate [55-90 bpm] 68 bpm 70 bpm 67 bpm (12/31/21 6:59 PM) (12/31/21 4:50 PM) (12/31/21 2:23 P M) Blood Pressure [90-138/55-84 mm 122/70 mm Hg 112/64 mm Hg 109/68 mm Hg Hg] (12/31/21 6:59 PM) (12/31/21 4:50 PM) (12/31/21 2:23 P M) Respiratory Rate [16-30 br/min] 18 br/min 18 br/min 17 br/min (12/31/21 6:59 PM) (12/31/21 4:50 PM) (12/31/21 2:23 P M) Temperature [96.8-100.4 DegF] 98.1 DegF 98.2 DegF 98 .4 DegF (12/31/21 6:59 PM) (12/31/21 4:50 PM) (12/31/21 2:23 P M) Mode of Delivery (Oxygen) Room air Room air Room a ir (12/31/21 6:59 PM) (12/31/21 4:50 PM) (12/31/21 2:23 P M) Temperature Route Oral Oral Oral (12/31/21 6:59 PM) (12/31/21 4:50 PM) (12/31/21 2:23 P M) Social History Social History Type Response Smoking Status Never (less than 100 in life time) entered on: 01/05/19 Sex
--- OUTSIDE RECORDS SUMMARY | 2022-06-27 10:01 | XMS_ITS | Continuity of Care Document ---
:1975 Author Organization [address], [address] [place] [address]- Care Team Providers Name Role Phone Lorraine Moseley MD Primary Care Physician Encounter [facility] [place] [facility] [id number] Date(s): 07/25/21 - 09/09/[address], [address] [place] [address]- Attending Physician: Boo Carter MD Referring Physician: Martha Ayala Allergies, Adverse Reactions, Alerts No Known Allergies [...] 0 Refills, Maintenance, 04/02/21 8:44:00 EDT, Tablet, [facility] #[id number], Partial fill upon patient request if the [...] 04/02/21 8:44:00 EDT, Route to Pharmacy Electronically, [facility] #[id number], Partial fill upon patient request if the [...]
[2022-06-27] MEDS: ondansetron HCL 4 MG/2 ML VIAL IVPUSH (10:03)
[2022-06-27] MEDS: Pantoprazole Sodium 40 MG/10 ML VIAL IVPUSH (10:03)
[2022-06-27] MEDS: 0.9 % Sodium Chloride 1,000 ML 999 ML IVCONT ×2 (10:04→11:28)
[2022-06-27 10:05] LABS: MANUAL DIFF FLAG NO
[2022-06-27] MEDS: Thiamine HCL 200 MG in 0.9 % Sodium Chloride 100 ML 204 MG IV (10:06)
[2022-06-27 10:07] LABS: Basophils Absolute Auto 0.1 X10*3/uL (0.0-0.2); Basophils Percent Auto 0.7 % (0-2); Eosinophils Percent Auto 0.4 % (0-4); Hematocrit 44.1 % (42.0-52.0); Hemoglobin 15.1 g/dl (14.0-18.0); Imm Gran Abs Auto 0.03 X10*3/uL (0.00-0.03); Imm Gran Pct Auto 0.3 % (0.0-0.4); Lymphocytes Absolute Auto 1.1 X10*3/uL (1.2-4.9); Lymphocytes Percent Auto 12.5 % (20-40); Mean Corpuscular HGB Conc 34.2 g/dl (31.0-36.0); Mean Corpuscular Hemoglobin 30.8 pg (27.0-33.0); Mean Corpuscular Volume 89.8 fL (80.0-98.0); Mean Platelet Volume 10.3 fL (9.4-12.4); Monocytes Absolute Auto 0.7 X10*3/uL (0.1-1.2); Monocytes Percent Auto 7.6 % (2-11); Neutrophils Absolute Auto 7.1 x10*3/uL (2.0-8.3); Neutrophils Percent Auto 78.5 % (45-73); Platelet Count 162 X10*3/uL (160-400); Red Blood Count 4.91 X10*6/uL (4.60-5.80); Red Cell Distribution Width 12.7 % (11.0-16.0)
[2022-06-27 10:21] LABS: INTERNATIONAL NORM RATIO 1.2 (0.9-1.1); Prothrombin Time 13.4 SEC (10.0-13.1)
[2022-06-27 10:22] LABS: COVID-19 Test Negative (Negative); IDNOW Serial# 16C4AD1C
[2022-06-27 10:23] LABS: Partial Thromboplastin Time 29.5 SEC (26.0-36.4)
[2022-06-27 10:43] LABS: Troponin-I High Sensitivity 39.2 ng/L (<3.5-35.0)
[2022-06-27 10:44] LABS: Alanine Aminotransferase 106 U/L (0-40); Albumin Level 4.7 g/dL (3.5-5.0); Alkaline Phosphatase 99 U/L (39-117); Anion Gap 21 (12-20); Aspartate Amino Transferase 182 U/L (5-37); Bilirubin Direct 0.8 mg/dL (0.0-0.5); Bilirubin Total 1.8 mg/dL (0.0-1.0); Blood Urea Nitrogen 9 mg/dL (9-16); Calcium 9.7 mg/dL (8.4-10.2); Carbon Dioxide 25 mmol/L (22-29); Chloride 98 mmol/L (96-108); Creatinine Clr Calc Pharmacy 150.9; Estimated Glomerular Filt Rate > 60; Glucose Random 99 mg/dL (60-115); Lipase 21 U/L (8-78); Magnesium 1.5 mg/dL (1.6-2.6); Sodium 140 mmol/L (135-145); Total Protein 8.4 g/dL (6.5-8.0)
[2022-06-27 11:08] VITALS: BP 151/98; PULSE 77; RESP 18; TEMP 37.2; O2SAT 95
[2022-06-27] MEDS: Magnesium Sulfate/H2O 2 GM/50 ML PIGGYBACK IV (11:30)
[2022-06-27] MEDS: PHENobarbitaL sodium 130 MG/ML VIAL IM (11:31)
[2022-06-27 11:32] LABS: Ethanol < 10 mg/dL
[2022-06-27 13:03] LABS: Troponin-I High Sensitivity 37.8 ng/L (<3.5-35.0)
[2022-06-27 15:26] LABS: Appearance Urine Clear; Color Urine Yellow; Glucose Urine UA Negative (Negative); Leukocyte Esterase Urine Negative (Negative); Nitrite Urine Negative (Negative); Specific Gravity - Urine 1.015 (1.005-1.025); Urine Blood Negative (Negative); Urine Ketones 15 mg/dL (Negative); Urine Protein Negative (Neg-Trace)
[2022-06-27 15:58] LABS: Amphetamine Screen Urine Not Detected (Not Detect); Barbiturates, Urine POSITIVE (Not Detect); Benzodiazepines Screen Urine Not Detected (Not Detect); Cannabinoid Screen Urine POSITIVE (Not Detect); Cocaine Screen Urine Not Detected (Not Detect); Fentanyl, urine Not Detected (Not Detect); Opiate Screen Urine Not Detected (Not Detect); Phencyclidine Screen Urine Not Detected (Not Detect)
[2022-06-27 17:10] VITALS: BP 164/92; PULSE 76; RESP 20; TEMP 36.8; O2SAT 96
[2022-06-27] MEDS: chlordiazePOXIDE HCl 25 MG CAPSULE 50 MG PO (17:22)
--- NOTE | 2022-06-27 19:41 | PC.NURSE ---
report received from jorge MCCABE. assumed care of patient at 1900. CARE team in room assessing patient now.
--- NOTE | 2022-06-28 06:12 | PC.NURSE ---
pt slept comfortably throughout the night - respirations even and unlabored. no apparent distress.
[2022-06-28 06:44] VITALS: BP 137/105; PULSE 79; RESP 16; TEMP 36.8; O2SAT 96
[2022-06-28 09:56] VITALS: BP 108/66; PULSE 65; RESP 14; TEMP 36.6; O2SAT 96
--- NOTE | 2022-06-28 11:28 | PHA.MEDREC ---
Pharmacy Consult ? Medication Reconciliation Pharmacy has completed the medication reconciliation.
[2022-06-28 11:43] VITALS: PULSE 65
--- NOTE | 2022-06-28 15:06 | MHC.RECOVRN ---
Met with pt in [facility] to discuss alcohol use. Pt awake, alert, sitting in bed, does not appear to be experiencing withdrawal. Pt reports drinking 1 beer plus 3 shots daily x 1 month, last drink over 1 week ago. Pt reports increased use in the past but has been trying to taper. Reports 1 [facility] admission, however, left prior to completing detox in order to pay rent. Pt has many outpatient supports including friends, recovery room nurse, and providers. Pt is currently prescribed Campral but has not been taking it. Pt plans to resume once discharged from the hospital. Pt quite tangential during conversation, however, is not looking for other recovery supports at this time. Pt very focused on paying bills that are due tomorrow. 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 Discussed with CARE Team as well as provider.
== END 2022-06-28 17:08 | disposition home or self-care (01) ==
PROVIDERS: Emergency Provider Emergency Medicine; PCP Internal Medicine Geriatric Medicine
DX: E83.42 Hypomagnesemia (principal); F60.0 Paranoid personality disorder; R79.89 Other specified abnormal findings of blood chemistry; Z79.899 Other long term (current) drug therapy; Z20.822 Contact with and (suspected) exposure to COVID-19
CPT/HCPCS: 36415; 70450; 80048; 80076; 80307; 81003; 82077; 82550; 83690; 83735; 84484; 85025; 85610; 85730; 87635; 93005; 96361; 96372; 96374; 96375; 99285; J2405; J2560; J3411; J3475

== ENCOUNTER 2023-05-24 15:33 | Emergency (ER) | payer OTHER, SELFPAY ==
--- NOTE | ~2023-05-24 | CT_ITS ---
EXAMINATION: CT ABDOMEN AND PELVIS WITH CONTRAST CLINICAL INFORMATION: Abdominal pain. COMPARISON: None available. TECHNIQUE: Multidetector volumetric images were obtained from the superior aspect of the liver through the pubic symphysis following administration 85 mL of Omnipaque 350 intravenous contrast. Sagittal and coronal reformatted images were obtained on the technologist's workstation. Oral contrast: No This CT examination was performed using dose optimization techniques as appropriate, variously including the following: *Automated exposure control *Adjustment of mA and/or kV according to patient size (this includes techniques or standardized protocols for targeted exams where dose is matched to indication/reason for exam; i.e. extremities or head) *Use of iterative reconstruction technique DLP: 851 mGy-cm FINDINGS: LUNG BASES: The visualized lung bases are unremarkable. LIVER, GALLBLADDER, AND BILIARY TREE: The liver is normal in size, shape, and attenuation. No focal hepatic lesion or biliary ductal dilatation is present. The gallbladder is unremarkable with no evidence of radiopaque gallstones, gallbladder wall thickening, or obvious pericholecystic inflammatory changes. PANCREAS: Unremarkable. SPLEEN: Unremarkable. ADRENAL GLANDS: Unremarkable. KIDNEYS AND URETERS: The kidneys are normal in size, shape, and attenuation. No hydronephrosis, hydroureter, or calculi seen. No perinephric stranding. BLADDER: Unremarkable. GASTROINTESTINAL TRACT: The small and large bowel are unremarkable. There are multiple small radiopaque structures within distal small bowel measuring up to 1 cm probably ingested material. The appendix is unremarkable. ABDOMINAL WALL: There is minimal umbilical hernia containing fat. LYMPH NODES: Normal. VASCULAR: Unremarkable. PELVIC VISCERA: Unremarkable. OSSEOUS STRUCTURES: Unremarkable. CT/CT abdomen pelvis w IV con IMPRESSION: No acute intra-abdominal process. Small radiopaque structures within distal small bowel probably ingested material. Fleischner guidelines were followed.
--- NOTE | ~2023-05-24 | XR_ITS ---
EXAMINATION: XR CHEST CLINICAL INFORMATION: Chest pain. COMPARISON: None available. TECHNIQUE: Frontal view of the chest was obtained. FINDINGS: The lung volumes are low. The cardiomediastinal silhouette is within normal limits. There is no focal lung consolidation or pleural effusion. The bony structures and soft tissues are unremarkable. XR/XR chest 1V IMPRESSION: Low lung volumes and AP portable technique limits evaluation. There is no evidence for active cardiopulmonary disease.
--- NOTE | ~2023-05-24 | CT_ITS ---
EXAMINATION: CT cervical spine wo IV con, CT head/brain wo IV con INDICATION INFORMATION: Altered mental status, fall COMPARISON: CT head without contrast 06/27/2022 TECHNIQUE: Separate noncontrast CT examinations of the head and cervical spine were performed. Coronal and sagittal images were created for each examination at the technologist workstation. This CT examination was performed using dose optimization techniques as appropriate, variously including the following: *Automated exposure control *Adjustment of mA and/or kV according to patient size (this includes techniques or standardized protocols for targeted exams where dose is matched to indication/reason for exam; i.e. extremities or head) *Use of iterative reconstruction technique DLP: 2126.64 mGy-cm FINDINGS: Head: No acute osseous or soft tissue abnormality. The mastoids are clear. Mild ethmoid and maxillary sinus mucosal thickening. There is no evidence of acute intracranial hemorrhage or territorial infarction. No abnormal mass effect or midline shift is seen. Herbert to white matter differentiation is well preserved. No extra-axial fluid collections are identified. No hydrocephalus. Proportional prominence of the ventricles and sulcal spaces is consistent with mild volume loss. There is no abnormal attenuation within the brain parenchyma. Cervical spine: There is no evidence of acute cervical spine fracture. Vertebral bodies remain normal in height. Cervical straightening. Degenerative disc disease and endplate spurring at C6-C7. No pre- or paravertebral soft tissue abnormality is identified. Visualized portions of the lung apices are unremarkable. The thyroid gland is unremarkable. CT/CT cervical spine wo IV con IMPRESSION: 1. No acute intracranial abnormality. 2. No cervical spine fracture or traumatic malalignment.
--- NOTE | ~2023-05-24 | CT_ITS ---
EXAMINATION: CT cervical spine wo IV con, CT head/brain wo IV con INDICATION INFORMATION: Altered mental status, fall COMPARISON: CT head without contrast 06/27/2022 TECHNIQUE: Separate noncontrast CT examinations of the head and cervical spine were performed. Coronal and sagittal images were created for each examination at the technologist workstation. This CT examination was performed using dose optimization techniques as appropriate, variously including the following: *Automated exposure control *Adjustment of mA and/or kV according to patient size (this includes techniques or standardized protocols for targeted exams where dose is matched to indication/reason for exam; i.e. extremities or head) *Use of iterative reconstruction technique DLP: 2126.64 mGy-cm FINDINGS: Head: No acute osseous or soft tissue abnormality. The mastoids are clear. Mild ethmoid and maxillary sinus mucosal thickening. There is no evidence of acute intracranial hemorrhage or territorial infarction. No abnormal mass effect or midline shift is seen. Herbert to white matter differentiation is well preserved. No extra-axial fluid collections are identified. No hydrocephalus. Proportional prominence of the ventricles and sulcal spaces is consistent with mild volume loss. There is no abnormal attenuation within the brain parenchyma. Cervical spine: There is no evidence of acute cervical spine fracture. Vertebral bodies remain normal in height. Cervical straightening. Degenerative disc disease and endplate spurring at C6-C7. No pre- or paravertebral soft tissue abnormality is identified. Visualized portions of the lung apices are unremarkable. The thyroid gland is unremarkable. CT/CT head/brain wo IV con IMPRESSION: 1. No acute intracranial abnormality. 2. No cervical spine fracture or traumatic malalignment.
[2023-05-24 15:39] VITALS: BP 111/65; PULSE 85; O2SAT 99
[2023-05-24 15:41] VITALS: BMI 31.7
[2023-05-24 16:08] VITALS: BP 115/66; PULSE 75; RESP 14; O2SAT 94
--- NOTE | 2023-05-24 16:12 | PC.NURSE ---
Patient alma has been trying to cut back on his drinking and took ativan and zofran this morning. States had a little to drink this morning- nable to say what a little is. Alma was on his way to the [facility] to see his dr when he dropped. Per patient has seizure disorder but doesn't take any medication. reports last seizure was about a week ago. Reports his friend about a week ago and he has been sad every since. Denies SI/HI. Repeatedly stating he doesnt know why he dropped. reports had a vaccine awhole ago and his arm still hurtsd.
[2023-05-24 16:17] VITALS: BP 115/66; PULSE 81; RESP 16; TEMP 36.8; O2SAT 98
--- NOTE | 2023-05-24 16:38 | ECG_ITS ---
Test Reason : cp Blood Pressure : / mmHG Vent. Rate : 067 BPM Atrial Rate : 067 BPM P-R Int : 176 ms QRS Dur : 100 ms QT Int : 450 ms P-R-T Axes : 009 012 009 degrees QTc Int : 475 ms Normal sinus rhythm Normal ECG When compared with ECG of 27-JUN-2022 10:10, No significant change was found Referred By: Hien Hicks Electronically Signed By:ADRIANA THRASHER
--- NOTE | 2023-05-24 16:42 | ED.GENADULT ---
HPI - General Adult General Chief complaint: Seizure Stated complaint: found confused, post ictal hx of seizures, per ems Time Seen by Provider: 05/24/23 15:35 History of Present Illness HPI narrative: Patient is a 47-year-old male with a long history of alcohol abuse. History of seizures in the past. Patient admits to drinking alcohol this morning and also 2 days ago. Was [place] next to the [employer] on all fours trying to crawl on the street. As no evidence for hypoglycemia. Claims he is in withdrawal from alcohol. Was sent in by EMS for further evaluation. He denies any chest pain. Feels weakness generalized. Claims he had not had large amount alcohol for 2 days. No chest pain. Positive abdominal pain. No neck pain. Question fall. Patient unable to give details. Denies any new medications. History of being on medications for depression and anxiety. Question compliance. Denies any cocaine or heroin use. Related Data Home Medications Medication Instructions Recorded Confirmed cariprazine 6 mg capsule (Vraylar) 1 cap PO DAILY 06/28/22 06/28/22 clonazepam 0.5 mg tablet 0.5 tab PO Q12H PRN Anxiety 06/28/22 06/28/22 folic acid 1 mg tablet 1 tab PO DAILY 06/28/22 06/28/22 multivitamin 1 tab PO DAILY 06/28/22 06/28/22 ondansetron 4 mg disintegrating 8 mg PO Q12H PRN Nausea And 06/28/22 06/28/22 tablet Vomiting thiamine HCl (vitamin B1) 100 mg 1 tab PO DAILY 06/28/22 06/28/22 tablet Allergies Allergy/AdvReac Type Severity Reaction Status Date / Time No Known Allergies Allergy Verified 11/10/20 12:40 Review of Systems Review of Systems: Positive generalized malaise Yes all other systems are reviewed and are negative PMFSH Past Medical History Attestation statement: The following information was validated with the patient. Medical History Alcoholic liver disease Schizo affective schizophrenia Anxiety Acid reflux Depression Family History Family History Mother No problems noted. Father No problems noted. Mother No problems noted. 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 Oriented X3. No acute distress. Eyes: Pupils equal, round and reactive to light. ENT: Pharynx normal. Neck: Normal inspection. Neck supple. No lymph nodes noted. No crepitus CVS: Normal heart rate and rhythm. Pulses normal. Normal S1 and S2 Respiratory: No respiratory distress. Breath sounds normal. No Wheezing. No rales Abdomen: Soft and nontender. No rigidity. No distention. good BS x4 Skin: Skin warm and dry. Normal skin color. Normal skin turgor. Extremities: No lower extremity edema. Neurovascular intact to all extremities. No Lacerations. No Rash Neuro: Oriented X 3. No motor deficit. No sensory deficit. Moving all extermities. No slurred speech Medications Administered Discontinued Medications Generic Name Dose Route Start Last Admin Trade Name Freq PRN Reason Stop Dose Admin Sodium Chloride 1,000 mls @ 999 mls/hr 05/24/23 16:45 05/24/23 20:06 Ns IV 05/24/23 17:45 Infused .Q1H1M RACHEL Infusion Iohexol 100 ml 05/24/23 18:40 05/24/23 18:41 Iohexol 350 Mg/Ml 100 Ml Infus..Btl IV 05/24/23 18:41 85 ml ONCE ONE Administration Medical Decision Making Medical Decision Making MDM Narrative: Patient grossly neurologically intact. Moving all extremity without any distress. Patient was crawling to the fire station on all fours. With nonspecific complaints. Generalized malaise weakness. Claiming that he is in alcohol withdrawal. Patient claims he last drink was this morning but only a small amount but drank heavily 2 days ago. It turns out patient's alcohol level is over 300. IV fluid was given. My interpretation of patient's EKG showed a sinus rhythm heart rate is 70 AL QRS QTC within normal limits is no acute ST segment elevation. My review of patient's CT scan of the head was grossly negative for any acute evidence of bleeding. I review radiology's reading of the CT scan head, cervical spine, abdominal pelvis. They were all grossly negative. I reviewed patient's chest x-ray which was grossly negative for any acute infiltrate. Patient over the next 4-5 hours patient became more awake alert. Now clinically sober. Awake alert ambulatory. In no distress. Patient wants to leave. In stable condition will discharge patient home. Differential Diagnosis Differential Diagnoses: The differential diagnosis associated with the presentation includes Intracranial bleed, mass Admission/Observation Consideration of admission/observation: Escalation of care including admission/observation considered Lab Data [facility] Lab Attestation statement: I reviewed the patient's lab results. 05/24/23 17:31 05/24/23 17:31 Labs: Lab Results 05/24/23 05/24/23 05/24/23 Range/Units 17:10 17:31 19:04 WBC 8.0 (4.8-10.8) X10*3/uL RBC 4.05 L (4.60-5.80) X10*6/uL Hgb 12.9 L (14.0-18.0) g/dl Hct 38.2 L (42.0-52.0) % MCV 94.3 (80.0-98.0) fL MCH 31.9 (27.0-33.0) pg MCHC 33.8 (31.0-36.0) g/dl RDW 12.6 (11.0-16.0) % Plt Count 309 D (160-400) X10*3/uL MPV 9.8 (9.4-12.4) fL Immature Gran % (Auto) 0.4 (0.0-0.4) % Neut % (Auto) 54.5 (45-73) % Lymph % (Auto) 34.7 (20-40) % Lamar % (Auto) 7.5 (2-11) % Eos % (Auto) 1.9 (0-4) % Baso % (Auto) 1.0 (0-2) % Lymph # (Auto) 2.8 (1.2-4.9) X10*3/uL Lamar # (Auto) 0.6 (0.1-1.2) X10*3/uL Eos # (Auto) 0.2 (0.0-0.4) X10*3/uL Baso # (Auto) 0.1 (0.0-0.2) X10*3/uL Abs Immat Gran (auto) 0.03 (0.00-0.03) X10*3/uL Absolute Neuts (auto) 4.4 (2.0-8.3) x10*3/uL Absolute Nucleated RBC 0.000 (0.0-0.012) X10*3/uL Nucleated RBC % (auto) 0.0 (0.0-0.2) /100WBC Sodium 147 H (135-145) mmol/L Potassium 3.3 (3.3-5.1) mmol/L Chloride 111 H (96-108) mmol/L Carbon Dioxide 22 (22-29) mmol/L Anion Gap 17 (12-20) BUN 12 (9-16) mg/dL Creatinine 0.72 (0.5-1.4) mg/dL Estim Creat Clear Calc 147.6 Estimated GFR > 60 Random Glucose 115 (60-115) mg/dL Calcium 8.3 L D 8.1 L (8.4-10.2) mg/dL Magnesium 1.8 (1.6-2.6) mg/dL Total Bilirubin 0.2 (0.0-1.0) mg/dL Direct Bilirubin < 0.2 (0.0-0.5) mg/dL AST 64 H (5-37) U/L ALT 40 (0-40) U/L Alkaline Phosphatase 102 (39-117) U/L Troponin I High Sens 31.5 (<3.5-35.0) ng/L Total Protein 7.5 (6.5-8.0) g/dL Albumin 3.8 (3.5-5.0) g/dL Urine Color Yellow Urine Appearance Clear Urine pH 6.0 (5.0-9.0) Ur Specific [place] >= 1.030 H (1.005-1.025) Urine Protein Trace (Neg-Trace) mg/dL Urine Glucose (UA) Negative (Negative) mg/dL Urine Ketones Trace (Negative) mg/dL Urine Blood Negative (Negative) Urine Nitrite Negative (Negative) Ur Leukocyte Esterase Negative (Negative) Urine RBC 0-2 (0-2) /HPF Urine WBC 0-5 (0-5) /HPF Ur Squamous Epith Cells 0-2 (0-2) /HPF Urine Bacteria None Seen (None Seen) Hyaline Casts 0-2 (0-2) /LPF Urine Opiates Screen Not Detected (Not Detect) Urine Fentanyl Screen Not Detected (Not Detect) Ur Barbiturates Screen POSITIVE H (Not Detect) Ur Phencyclidine Scrn Not Detected (Not Detect) Ur Amphetamines Screen Not Detected (Not Detect) U Benzodiazepines Scrn POSITIVE H (Not Detect) Urine Cocaine Screen Not Detected (Not Detect) U Marijuana (THC) Screen POSITIVE H (Not Detect) Ethyl Alcohol 322 H* mg/dL COVID-19 (NIKOLAS) Negative (Negative) COVID-19 Clin Com See Note Independent Interpretation I performed an independent interpretation of an: EKG (Sinus heart rate is 60 AL QRS QTC within normal limits is no acute ST segment elevation.) and CT Scan (CT scan of the head was grossly negative for any acute evidence of bleeding) Radiology Impression Discussion of test interpretation with radiology: I have reviewed the radiologist's reading. Independent Historian Clinical information obtained from an independent historian. History obtained from or confirmed by: EMS Social Determinants Patient?s care significantly limited by Social Determinants of Health including: Alcoholism and drug addiction in family Discharge Plan Discharge Clinical Impression: Alcohol abuse Patient Disposition: Home, Self-Care Instructions: Abuse of Alcohol (DC) Prescriptions: No Action multivitamin Tablet 1 tab PO DAILY clonazepam 0.5 mg tablet 0.5 tab PO Q12H PRN (Reason: Anxiety) thiamine HCl (vitamin B1) 100 mg tablet 1 tab PO DAILY folic acid 1 mg tablet 1 tab PO DAILY ondansetron 4 mg tablet,disintegrating 8 mg PO Q12H PRN (Reason: Nausea And Vomiting) Vraylar 6 mg capsule 1 cap PO DAILY Referrals: Name,MD Harman [Primary Care Provider] - 05/28/23 (Please go to detox. Please stop drinking alcohol.)
[2023-05-24] MEDS: 0.9 % Sodium Chloride 1,000 ML 999 ML IV (16:49)
[2023-05-24 17:28] LABS: Calcium 8.3 mg/dL (8.4-10.2); Ethanol 322 mg/dL
[2023-05-24 17:30] LABS: COVID-19 Test Negative (Negative); IDNOW Serial# BCCEAD1C
[2023-05-24 17:35] LABS: Troponin-I High Sensitivity 31.5 ng/L (<3.5-35.0)
--- NOTE | 2023-05-24 17:35 | PC.NURSE ---
Patient alert but difficult to obtain information from. Repeatedly stating I can`t believe I dropped, I was going to my Dr`s. apt . Fluids running per order.
[2023-05-24 17:38] LABS: MANUAL DIFF FLAG NO
[2023-05-24 17:40] LABS: Basophils Absolute Auto 0.1 X10*3/uL (0.0-0.2); Eosinophils Absolute Auto 0.2 X10*3/uL (0.0-0.4); Eosinophils Percent Auto 1.9 % (0-4); Hematocrit 38.2 % (42.0-52.0); Hemoglobin 12.9 g/dl (14.0-18.0); Imm Gran Abs Auto 0.03 X10*3/uL (0.00-0.03); Imm Gran Pct Auto 0.4 % (0.0-0.4); Lymphocytes Absolute Auto 2.8 X10*3/uL (1.2-4.9); Lymphocytes Percent Auto 34.7 % (20-40); Mean Corpuscular HGB Conc 33.8 g/dl (31.0-36.0); Mean Corpuscular Hemoglobin 31.9 pg (27.0-33.0); Mean Corpuscular Volume 94.3 fL (80.0-98.0); Mean Platelet Volume 9.8 fL (9.4-12.4); Monocytes Absolute Auto 0.6 X10*3/uL (0.1-1.2); Monocytes Percent Auto 7.5 % (2-11); Neutrophils Absolute Auto 4.4 x10*3/uL (2.0-8.3); Neutrophils Percent Auto 54.5 % (45-73); Platelet Count 309 X10*3/uL (160-400); Red Blood Count 4.05 X10*6/uL (4.60-5.80); Red Cell Distribution Width 12.6 % (11.0-16.0)
--- NOTE | 2023-05-24 17:58 | PC.NURSE ---
Patient removed ring and two silver bracelets, per patient request placed in velcro pants in tacticle pants pockets
[2023-05-24 18:00] VITALS: BP 115/66; PULSE 75; RESP 18; O2SAT 97
[2023-05-24 18:03] LABS: Alanine Aminotransferase 40 U/L (0-40); Albumin Level 3.8 g/dL (3.5-5.0); Alkaline Phosphatase 102 U/L (39-117); Anion Gap 17 (12-20); Aspartate Amino Transferase 64 U/L (5-37); Bilirubin Direct < 0.2 mg/dL (0.0-0.5); Bilirubin Total 0.2 mg/dL (0.0-1.0); Blood Urea Nitrogen 12 mg/dL (9-16); Calcium 8.1 mg/dL (8.4-10.2); Carbon Dioxide 22 mmol/L (22-29); Chloride 111 mmol/L (96-108); Creatinine Clr Calc Pharmacy 147.6; Estimated Glomerular Filt Rate > 60; Glucose Random 115 mg/dL (60-115); Magnesium 1.8 mg/dL (1.6-2.6); Potassium 3.3 mmol/L (3.3-5.1); Sodium 147 mmol/L (135-145); Total Protein 7.5 g/dL (6.5-8.0)
--- NOTE | 2023-05-24 18:31 | PC.NURSE ---
Patient at CT at this time
[2023-05-24] MEDS: iohexoL 350 MG/ML 100 ML INFUS..BTL IV (18:41)
[2023-05-24 19:17] LABS: Appearance Urine Clear; Color Urine Yellow; Glucose Urine UA Negative (Negative); Leukocyte Esterase Urine Negative (Negative); Nitrite Urine Negative (Negative); Specific Gravity - Urine >= 1.030 (1.005-1.025); Urine Blood Negative (Negative); Urine Ketones Trace mg/dL (Negative); Urine Protein Trace mg/dL (Neg-Trace)
[2023-05-24 19:22] LABS: Bacteria Urine None Seen (None Seen); Hyaline Casts Urine 0-2 /LPF (0-2); RBC Urine 0-2 /HPF (0-2); Squamous Epithelial Cell Urine 0-2 /HPF (0-2); WBC Urine 0-5 /HPF (0-5)
[2023-05-24 19:30] LABS: Amphetamine Screen Urine Not Detected (Not Detect); Barbiturates, Urine POSITIVE (Not Detect); Benzodiazepines Screen Urine POSITIVE (Not Detect); Cannabinoid Screen Urine POSITIVE (Not Detect); Cocaine Screen Urine Not Detected (Not Detect); Fentanyl, urine Not Detected (Not Detect); Opiate Screen Urine Not Detected (Not Detect); Phencyclidine Screen Urine Not Detected (Not Detect)
--- NOTE | 2023-05-24 20:06 | PC.NURSE ---
Assumed care of pt. Pt sitting in chair in room, requesting to leave. Pt AxO x4, speech clear, articulating clear thoughts. States has appt tomorrow with PCP prescriber, plan to adjust home medications for withdrawal. Trial ambulation, pt demonstrating steady gait, no listing. Notified provider of pt desire to leave, provider to assess.
[2023-05-24 20:37] VITALS: BP 138/93; PULSE 75; RESP 17; TEMP 37; O2SAT 95
--- NOTE | 2023-05-24 21:23 | PC.NURSE ---
Pt continuing to demonstrate steady gait and AxO x4. Initially refusing discharge questioning possible withdrawal seizures. per MD at bedside, pt safe for DC with plan to return home and take home medications.
== END 2023-05-24 21:25 | disposition home or self-care (01) ==
PROVIDERS: Emergency Provider Emergency Medicine Emergency Medical Services; PCP Internal Medicine Geriatric Medicine
DX: F10.120 Alcohol abuse with intoxication, uncomplicated (principal); Y90.8 Blood alcohol level of 240 mg/100 ml or more; Z20.822 Contact with and (suspected) exposure to COVID-19; F32.A Depression, unspecified; F41.9 Anxiety disorder, unspecified; F25.9 Schizoaffective disorder, unspecified; F12.90 Cannabis use, unspecified, uncomplicated; Z79.899 Other long term (current) drug therapy
CPT/HCPCS: 36415; 70450; 71045; 72125; 74177; 80048; 80076; 80307; 81001; 82310; 83735; 84484; 85025; 87635; 93005; 96360; 96361; 99285; Q9967

== ENCOUNTER 2023-07-02 13:53 | Emergency (ER) | payer OTHER, SELFPAY ==
[2023-07-02 14:06] VITALS: BP 140/90; PULSE 83; O2SAT 94
[2023-07-02 14:14] VITALS: BP 114/71; PULSE 74; RESP 20; TEMP 36.7; O2SAT 94
[2023-07-02 14:21] VITALS: BMI 31.7
[2023-07-02 15:15] LABS: MANUAL DIFF FLAG NO
[2023-07-02 15:16] LABS: Basophils Absolute Auto 0.1 X10*3/uL (0.0-0.2); Basophils Percent Auto 1.5 % (0-2); Eosinophils Absolute Auto 0.1 X10*3/uL (0.0-0.4); Eosinophils Percent Auto 1.8 % (0-4); Hematocrit 36.3 % (42.0-52.0); Hemoglobin 12.7 g/dl (14.0-18.0); Imm Gran Abs Auto 0.01 X10*3/uL (0.00-0.03); Imm Gran Pct Auto 0.1 % (0.0-0.4); Lymphocytes Absolute Auto 3.1 X10*3/uL (1.2-4.9); Lymphocytes Percent Auto 42.9 % (20-40); Mean Corpuscular Hemoglobin 32.3 pg (27.0-33.0); Mean Corpuscular Volume 92.4 fL (80.0-98.0); Mean Platelet Volume 9.3 fL (9.4-12.4); Monocytes Absolute Auto 0.5 X10*3/uL (0.1-1.2); Monocytes Percent Auto 7.3 % (2-11); Neutrophils Absolute Auto 3.4 x10*3/uL (2.0-8.3); Neutrophils Percent Auto 46.4 % (45-73); Platelet Count 257 X10*3/uL (160-400); Red Blood Count 3.93 X10*6/uL (4.60-5.80); Red Cell Distribution Width 12.9 % (11.0-16.0); White Blood Count 7.2 X10*3/uL (4.8-10.8)
--- NOTE | 2023-07-02 15:18 | ED.ALCOHOL ---
HPI - Alcohol General Chief Complaint: ETOH/Substance Use Stated Complaint: ETOH WITHDRAWAL,DIFF BREATHING Time Seen by Provider: 07/02/23 14:39 Source: patient Mode of arrival: EMS History of Present Illness HPI narrative: 47-year-old male known alcohol dependency is brought in by EMS with reports of difficulty breathing, patient states that he has been trying to avoid drinking alcohol and so states that he took several of his a camper state tablet but was unsuccessful in deterring his urge and had a in couple of nips and states that he does have a history of seizure. There is no triage note listed Related Data Home Medications Medication Instructions Recorded Confirmed cariprazine 6 mg capsule (Vraylar) 1 cap PO DAILY 06/28/22 07/02/23 clonazepam 0.5 mg tablet 0.5 tab PO Q12H PRN Anxiety 06/28/22 07/02/23 folic acid 1 mg tablet 1 tab PO DAILY 06/28/22 07/02/23 ondansetron 4 mg disintegrating 8 mg PO Q12H PRN Nausea And 06/28/22 07/02/23 tablet Vomiting acamprosate 333 mg tablet,delayed 666 mg PO TID 07/02/23 07/02/23 release ascorbic acid (vitamin C) 500 mg 500 mg PO DAILY 07/02/23 07/02/23 tablet (Vitamin C) multivitamin-iron 9 mg-folic acid 1 tab PO DAILY 07/02/23 07/02/23 400 mcg-calcium and minerals tablet (High Potency Multivitamin (w-iron)) Allergies Allergy/AdvReac Type Severity Reaction Status Date / Time No Known Allergies Allergy Verified 11/10/20 12:40 Review of Systems Review of Systems: Pertinent positives and negatives as stated in HPI PMFSH Past Medical History Source: nursing notes reviewed Medical History Alcoholic liver disease Schizo affective schizophrenia Anxiety Acid reflux Depression Family History Family History Mother No problems noted. Father No problems noted. Mother No problems noted. 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 GENERAL: Well developed, well nourished, in no acute distress, smells of alcohol. HEAD: Normocephalic/atraumatic EYES: PERRLA, EOMI EARS: Ext canals without abnormality NOSE: Nares patent bilateral OROPHARYNX: no oral lesions noted, posterior pharynx clear NECK: Supple, no adenopathy LUNGS: Normal breath sounds. No adventitious sounds or accessory muscle use. SpO2<96> CARDIOVASCULAR: Regular rate and rhythm without noted murmurs ABDOMEN: Soft, non-tender, non-distended with bowel sounds. MUSCULOSKELETAL: No tenderness, deformities, or effusions noted on gross inspection. EXTREMITIES: No cyanosis, clubbing or edema. SKIN: Inspection of the skin reveals no rashes NEUROLOGIC: Drowsy but easily aroused and oriented x 3. Strength and sensation to light touch were grossly intact x 4. Medical Decision Making Medical Decision Making MDM Narrative: 47-year-old male with history and clinical presentation, DDX: Alcohol intoxication but concerns regarding alcohol withdrawal as nursing has determined the CIWA-26. Patient placed on CIWA, started on a phenobarbital protocol. I reviewed all investigations and hematologic indices are stable without evidence of leukocytosis or left shift and no thrombocytopenia but a stable normocytic anemia. Chemistry indices do not demonstrate an JANES and otherwise electrolytes and liver enzymes are grossly within normal limits, lipase is within normal limits. Urinalysis is likely false positives with the exception of the marijuana. [id number] Patient received initial dose of phenobarb and will otherwise be monitored for alcohol withdrawal. Patient was evaluated by the swimming coach or instructor. Patient will remain on a CIWA protocol and be observed overnight and re-evaluated in the morning by the swimming coach or instructor for possible inpatient placement. Although patient reports significant withdrawal symptoms, none have been observed at this time. Patient is medically cleared for placement in an inpatient alcohol detox facility. Patient placed in physician observation because the patient needed more time for clinical sobriety and likely inpatient placement for alcohol detox. At the time observation was started the patient's vital signs were stable, patient is alert and oriented, neuro: Nonfocal, CV RRR, lungs clear Differential Diagnosis Differential Diagnoses: The differential diagnosis associated with the presentation includes Please see the discussion above Admission/Observation Consideration of admission/observation: Escalation of care including admission/observation considered Please see the discussion above Lab Data MDM Lab Attestation statement: I reviewed the patient's lab results. Please see the discussion above 07/02/23 15:08 07/02/23 15:08 Labs: Lab Results 07/02/23 Range/Units 15:08 WBC 7.2 (4.8-10.8) X10*3/uL RBC 3.93 L (4.60-5.80) X10*6/uL Hgb 12.7 L (14.0-18.0) g/dl Hct 36.3 L (42.0-52.0) % MCV 92.4 (80.0-98.0) fL MCH 32.3 (27.0-33.0) pg MCHC 35.0 (31.0-36.0) g/dl RDW 12.9 (11.0-16.0) % Plt Count 257 (160-400) X10*3/uL MPV 9.3 L (9.4-12.4) fL Immature Gran % (Auto) 0.1 (0.0-0.4) % Neut % (Auto) 46.4 (45-73) % Lymph % (Auto) 42.9 H (20-40) % [place] % (Auto) 7.3 (2-11) % Eos % (Auto) 1.8 (0-4) % Baso % (Auto) 1.5 (0-2) % Lymph # (Auto) 3.1 (1.2-4.9) X10*3/uL [place] # (Auto) 0.5 (0.1-1.2) X10*3/uL Eos # (Auto) 0.1 (0.0-0.4) X10*3/uL Baso # (Auto) 0.1 (0.0-0.2) X10*3/uL Abs Immat Gran (auto) 0.01 (0.00-0.03) X10*3/uL Absolute Neuts (auto) 3.4 (2.0-8.3) x10*3/uL Absolute Nucleated RBC 0.000 (0.0-0.012) X10*3/uL Nucleated RBC % (auto) 0.0 (0.0-0.2) /100WBC Sodium 144 (135-145) mmol/L Potassium 3.3 (3.3-5.1) mmol/L Chloride 105 (96-108) mmol/L Carbon Dioxide 31 H (22-29) mmol/L Anion Gap 11 L (12-20) BUN 7 L (9-16) mg/dL Creatinine 0.77 (0.5-1.4) mg/dL Estim Creat Clear Calc 138.0 Estimated GFR > 60 Random Glucose 102 (60-115) mg/dL Calcium 8.5 (8.4-10.2) mg/dL Total Bilirubin 0.4 (0.0-1.0) mg/dL AST 40 H (5-37) U/L ALT 33 (0-40) U/L Alkaline Phosphatase 88 (39-117) U/L Total Protein 7.5 (6.5-8.0) g/dL Albumin 4.1 (3.5-5.0) g/dL Lipase 37 (8-78) U/L Urine Opiates Screen Not Detected (Not Detect) Urine Fentanyl Screen Not Detected (Not Detect) Ur Barbiturates Screen POSITIVE H (Not Detect) Ur Phencyclidine Scrn Not Detected (Not Detect) Ur Amphetamines Screen Not Detected (Not Detect) U Benzodiazepines Scrn Not Detected (Not Detect) Urine Cocaine Screen Not Detected (Not Detect) U Marijuana (THC) Screen POSITIVE H (Not Detect) Ethyl Alcohol 361 H* mg/dL External Record Review External record reviewed: Outpatient record, Prior outpatient labs and Prior outpatient radiology Chronic Conditions Patient?s care impacted by: Other Alcohol abuse disorder Medications Administered Discontinued Medications Generic Name Dose Route Start Last Admin Trade Name Freq PRN Reason Stop Dose Admin Sodium Chloride 1,000 mls @ 999 mls/hr 07/02/23 20:00 07/02/23 21:04 Ns IV 07/02/23 21:00 Infused .Q1H1M RACHEL Infusion Ondansetron HCl 4 mg 07/02/23 19:56 07/02/23 20:03 Ondansetron Hcl 4 Mg/2 Ml Vial IVPUSH 07/02/23 19:57 4 mg ONCE ONE Administration Phenobarbital Sodium 425.1 mg 07/02/23 15:30 07/02/23 15:33 Phenobarbital Sodium 130 Mg/Ml Im Once IM 07/02/23 15:31 425.1 mg ONCE ONE Administration Protocol Phenobarbital Sodium 315.9 mg 07/02/23 18:30 07/02/23 19:11 Phenobarbital Sodium 130 Mg/Ml Vial Im Q3hx2 IM 07/02/23 21:31 315.9 mg Q3H RACHEL Administration Protocol Critical Care Time Critical Care Time Critical Care Time: Yes Total Critical Care Time: 30 Attestation: I personally attest to this time spent taking care of the patient. Discharge Plan Discharge Clinical Impression: Alcohol intoxication, Polysubstance use disorder Patient Disposition: Still a Patient Prescriptions: No Action clonazepam 0.5 mg tablet 0.5 tab PO Q12H PRN (Reason: Anxiety) folic acid 1 mg tablet 1 tab PO DAILY ondansetron 4 mg tablet,disintegrating 8 mg PO Q12H PRN (Reason: Nausea And Vomiting) Vraylar 6 mg capsule 1 cap PO DAILY ascorbic acid (vitamin C) [Vitamin C] 500 mg tablet 500 mg PO DAILY acamprosate 333 mg tablet,delayed release (DR/EC) 666 mg PO TID High Potency Multivit (w-iron) 9 mg iron-400 mcg tablet 1 tab PO DAILY
--- NOTE | 2023-07-02 15:24 | PC.NURSE ---
pt alert but not oriented. cannot tell me his name or birthday but when stated him he sts I think I know that lloyd . pt hx of alcohol withdrawal with seizure. seizure pads in place for pt safety. pt changed over to hospital attire. placed on monitor. 20G IV placed to LAC, labs drawn. U tox obtained and sent. CIWA score 26. Dr. Chacon aware. pt vague SI. sts he just wants to but has no plan and has never attempted. pt currently resting quietly on stretcher. rr even/unlabored. plan of care ongoing.
[2023-07-02 15:27] LABS: Amphetamine Screen Urine Not Detected (Not Detect); Barbiturates, Urine POSITIVE (Not Detect); Benzodiazepines Screen Urine Not Detected (Not Detect); Cannabinoid Screen Urine POSITIVE (Not Detect); Cocaine Screen Urine Not Detected (Not Detect); Fentanyl, urine Not Detected (Not Detect); Opiate Screen Urine Not Detected (Not Detect); Phencyclidine Screen Urine Not Detected (Not Detect)
--- NOTE | 2023-07-02 15:30 | PHA.MEDREC ---
Pharmacy Consult ? Medication Reconciliation Pharmacy has completed the medication reconciliation. Patient is alerted, unable to answer questions. Med rec completed by claim history. Minal Guillermo, AlfredD
[2023-07-02] MEDS: PHENobarbitaL sodium 130 MG/ML IM ONCE 425.1 MG IM (15:33)
[2023-07-02 15:36] LABS: Ethanol 361 mg/dL
[2023-07-02 15:39] LABS: Alanine Aminotransferase 33 U/L (0-40); Albumin Level 4.1 g/dL (3.5-5.0); Alkaline Phosphatase 88 U/L (39-117); Anion Gap 11 (12-20); Aspartate Amino Transferase 40 U/L (5-37); Bilirubin Total 0.4 mg/dL (0.0-1.0); Blood Urea Nitrogen 7 mg/dL (9-16); Calcium 8.5 mg/dL (8.4-10.2); Carbon Dioxide 31 mmol/L (22-29); Chloride 105 mmol/L (96-108); Estimated Glomerular Filt Rate > 60; Glucose Random 102 mg/dL (60-115); Lipase 37 U/L (8-78); Potassium 3.3 mmol/L (3.3-5.1); Sodium 144 mmol/L (135-145); Total Protein 7.5 g/dL (6.5-8.0)
--- OUTSIDE RECORDS SUMMARY | 2023-07-02 16:07 | XMS_ITS | Continuity of Care Document ---
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 Name Role Phone Name Harman CHANG Primary Care Physician Encounter [facility] [place] Date(s): 05/31/23 - 05/31/23 [facility] [address] [place] [id number] Encounter Diagnosis Trauma(Final) - 05/31/23 Fall(Final) - 05/31/23 Laceration of head(Final) - 05/31/23 Alcohol intoxication(Final) - 05/31/23 Discharge Disposition: A-D/C Home Attending Physician: Ej Sethi MD Admitting Physician: Ej Sethi MD Referring Physician: Not on Staff, Referring MD Problem List Condition Confirmation Course Effective Dates Status [facility] Informant COVID-19 1 Confirmed 05/31/23 Active 1Problem added by Discern Expert Results Radiology Reports * Exam Date Time Procedure Performing Provider Status 05/31/23 4:[address] Cervical Spine W/O Contrast Gayla Engel; Marvel (Verified) Notes: (CT Cervical Spine W/O Contrast) Reason For Exam: Neck trauma, dangerous injury mechanism;Other: RESULT: CT Cervical Spine W/O Contrast CT Head/Brain W/O Contrast, CT Cervical Spine W/O Contrast INDICATION: Reason: Other:; Head trauma, mod-severe; Clinical Question(s): Hematoma TECHNIQUE: Noncontrast head CT using axial technique was reconstructed in axial and coronal planes.Noncontrast spiral CT through the cervical spine was formatted in 3 planes. Automatic tube modulation was used for the cervical spine and iterative dose reconstruction was used for both the head and cervical spine to optimize scan parameters and image quality. COMPARISON: None. FINDINGS: Master Planner View Findings, Lines and Tubes: None. BRAIN AND EXTRA-AXIAL SPACES: Subtle, scattered linear hyperdensities in bilateral occipital region (302, 77), is most likely related to artifact from the overlying surgical ce. No evidence of subarachnoid hemorrhage. No parenchymal hemorrhage, midline shift, or mass effect. Herbert-white matter differentiation is wellpreserved. No acute infarct. Negative insular ribbon and hyperdense vessel signs. Ventricles, sulci, and basilar cisterns are normal. No white matter lesions. No subdural or epidural collection. CALVARIUM, SKULL BASE, AND SOFT TISSUES: No fractures or suspicious bony lesions. Mucosal thickening of bilateral maxillary and ethmoidal sinuses. Visualized orbits and globes are intact. Laceration, contusion and a 1 cm hematoma at the right occipital region. CERVICAL SPINE: No fracture. No acute osseous abnormalities. Normal alignment. No locked or perched facet. Intervertebral disc spaces and vertebral body heightsare preserved. OTHER BONES: No acute abnormality. CERVICAL SOFT TISSUES AND LUNG APICES: Normal soft tissues. Visualized lung apices are clear. Normal thyroid. IMPRESSION: Laceration, contusion and a 1 cm scalp hematoma at the right occipital region. No acute hemorrhage identified. I have personally reviewed the images and I agree with this report. WSN: [id number] Ordering Physician: Oscar Ramirez Dictated By: Jamal Rousseau MD Dictated Date/Time: 05/31/23 5:27 pm Reviewed By: Quintin Delgado MD Signed By: Quintin Delgado MD Signed Date/Time: 05/31/23 5:32 pm Transcribed By: KARI Transcribed Date/Time: 05/31/23 5:10 pm * Exam Date Time Procedure Performing Provider Status 05/31/23 4:[address] Head/Brain W/O Contrast Jaydon Engel; Marvel (Verified) Notes: (CT Head/Brain W/O Contrast) Reason For Exam: Head trauma, mod-severe;Other: RESULT: CT Head/Brain W/O Contrast CT Head/Brain W/O Contrast, CT Cervical Spine W/O Contrast INDICATION: Reason: Other:; Head trauma, mod-severe; Clinical Question(s): Hematoma TECHNIQUE: Noncontrast head CT using axial technique was reconstructed in axial and coronal planes.Noncontrast spiral CT through the cervical spine was formatted in 3 planes. Automatic tube modulation was used for the cervical spine and iterative dose reconstruction was used for both the head and cervical spine to optimize scan parameters and image quality. COMPARISON: None. FINDINGS: Master Planner View Findings, Lines and Tubes: None. BRAIN AND EXTRA-AXIAL SPACES: Subtle, scattered linear hyperdensities in bilateral occipital region (302, 77), is most likely related to artifact from the overlying surgical ce. No evidence of subarachnoid hemorrhage. No parenchymal hemorrhage, midline shift, or mass effect. Herbert-white matter differentiation is wellpreserved. No acute infarct. Negative insular ribbon and hyperdense vessel signs. Ventricles, sulci, and basilar cisterns are normal. No white matter lesions. No subdural or epidural collection. CALVARIUM, SKULL BASE, AND SOFT TISSUES: No fractures or suspicious bony lesions. Mucosal thickening of bilateral maxillary and ethmoidal sinuses. Visualized orbits and globes are intact. Laceration, contusion and a 1 cm hematoma at the right occipital region. CERVICAL SPINE: No fracture. No acute osseous abnormalities. Normal alignment. No locked or perched facet. Intervertebral disc spaces and vertebral body heightsare preserved. OTHER BONES: No acute abnormality. CERVICAL SOFT TISSUES AND LUNG APICES: Normal soft tissues. Visualized lung apices are clear. Normal thyroid. IMPRESSION: Laceration, contusion and a 1 cm scalp hematoma at the right occipital region. No acute hemorrhage identified. I have personally reviewed the images and I agree with this report. WSN: [id number] Ordering Physician: Oscar Ramirez Dictated By: Jamal Rousseau MD Dictated Date/Time: 05/31/23 5:27 pm Reviewed By: Quintin Delgado MD Signed By: Quintin Delgado MD Signed Date/Time: 05/31/23 5:32 pm Transcribed By: KARI Transcribed Date/Time: 05/31/23 5:10 pm * Exam Date Time Procedure Performing Provider Status 05/31/23 4:[address] Abd/Pelvis W/ IV Contrast Only Mate o , Gayla; Auth (Verified) Notes: (CT Abd/Pelvis W/ IV Contrast Only) Reason For Exam: Abd trauma, blunt;Other: RESULT: CT Abd/Pelvis W/ IV Contrast Only CT Chest W/ Contrast, CT Abd/Pelvis W/ IV Contrast Only INDICATION: Reason: Other:; Chest trauma, blunt; Clinical Question(s): Other:; Aortic hilar injury TECHNIQUE: Helical CT scan of the chest, abdomen, and pelvis with IV contrast, formatted in 3 planes. 100 cc of Omnipaque 300 was administered intravenously. This study was performed without oral contrast. Weight-based protocol was performed using automatic exposure control. COMPARISON: None. FINDINGS: Master Planner view findings, lines and tubes: None. Trachea and airways: Patent without evidence of tracheal or endobronchial lesion. Lungs and pleura: Mild dependent atelectasis. Clear lungs. No effusion or pneumothorax. Mediastinum and chito: No mass or hematoma. No mediastinal or hilar lymphadenopathy. No esophageal abnormality. Normal thyroid. Heart: Heart is normal in size. No pericardial effusion. Mild coronary artery calcification. Aorta: No aortic aneurysm. Common origin of the brachiocephalic and left common carotid artery. Pulmonary arteries: Normal caliber. No evidence of pulmonary embolism on this study performed without angiographic technique. Chest wall soft tissues: No acute abnormality. Diaphragm: Intact. Liver: Normal in attenuation and morphology. No suspicious lesion. Gallbladder: No CT evidence of gallbladder pathology. Bile ducts: No biliary ductal dilation. Spleen: Normal in size. Pancreas: No suspicious lesion or ductal dilatation. Adrenal glands: No nodule. Kidneys and ureters: No hydronephrosis, stone, or suspicious lesion. Bladder: No wall thickening or surrounding stranding. Reproductive organs: Unremarkable. Stomach, small bowel, and large bowel: Normal caliber stomach and bowel loops. No surrounding inflammatory changes. Appendix: Not seen, but no evidence of acute appendicitis. Peritoneum and retroperitoneum: No ascites or pneumoperitoneum. No omental or mesenteric lesions. Lymph nodes: No enlarged lymph nodes. Blood vessels: No vascular calcifications or aneurysm. No evidence of venous thrombosis. Abdominal and pelvic wall soft tissues: Small fat-containing bilateral inguinal and umbilical hernia. Bones: No acute abnormality. Multiple likely chronic bilateral anterior rib fractures. IMPRESSION: No acute traumatic injury in the chest, abdomen and pelvis. I have personally reviewed the images and I agree with this report. WSN: [id number] Ordering Physician: Oscar Ramirez Dictated By: Jamal Rousseau MD Dictated Date/Time: 05/31/23 5:24 pm Reviewed By: Quintin Delgado MD Signed By: Quintin Delgado MD Signed Date/Time: 05/31/23 5:29 pm Transcribed By: KARI Transcribed Date/Time: 05/31/23 5:00 pm * Exam Date Time Procedure Performing Provider Status 05/31/23 4:[address] Chest W/ Contrast Gayla Engel; Auth (Verified) Notes: (CT Chest W/ Contrast) Reason For Exam: Chest trauma, blunt;Other: RESULT: CT Chest W/ Contrast CT Chest W/ Contrast, CT Abd/Pelvis W/ IV Contrast Only INDICATION: Reason: Other:; Chest trauma, blunt; Clinical Question(s): Other:; Aortic hilar injury TECHNIQUE: Helical CT scan of the chest, abdomen, and pelvis with IV contrast, formatted in 3 planes. 100 cc of Omnipaque 300 was administered intravenously. This study was performed without oral contrast. Weight-based protocol was performed using automatic exposure control. COMPARISON: None. FINDINGS: Master Planner view findings, lines and tubes: None. Trachea and airways: Patent without evidence of tracheal or endobronchial lesion. Lungs and pleura: Mild dependent atelectasis. Clear lungs. No effusion or pneumothorax. Mediastinum and chito: No mass or hematoma. No mediastinal or hilar lymphadenopathy. No esophageal abnormality. Normal thyroid. Heart: Heart is normal in size. No pericardial effusion. Mild coronary artery calcification. Aorta: No aortic aneurysm. Common origin of the brachiocephalic and left common carotid artery. Pulmonary arteries: Normal caliber. No evidence of pulmonary embolism on this study performed without angiographic technique. Chest wall soft tissues: No acute abnormality. Diaphragm: Intact. Liver: Normal in attenuation and morphology. No suspicious lesion. Gallbladder: No CT evidence of gallbladder pathology. Bile ducts: No biliary ductal dilation. Spleen: Normal in size. Pancreas: No suspicious lesion or ductal dilatation. Adrenal glands: No nodule. Kidneys and ureters: No hydronephrosis, stone, or suspicious lesion. Bladder: No wall thickening or surrounding stranding. Reproductive organs: Unremarkable. Stomach, small bowel, and large bowel: Normal caliber stomach and bowel loops. No surrounding inflammatory changes. Appendix: Not seen, but no evidence of acute appendicitis. Peritoneum and retroperitoneum: No ascites or pneumoperitoneum. No omental or mesenteric lesions. Lymph nodes: No enlarged lymph nodes. Blood vessels: No vascular calcifications or aneurysm. No evidence of venous thrombosis. Abdominal and pelvic wall soft tissues: Small fat-containing bilateral inguinal and umbilical hernia. Bones: No acute abnormality. Multiple likely chronic bilateral anterior rib fractures. IMPRESSION: No acute traumatic injury in the chest, abdomen and pelvis. I have personally reviewed the images and I agree with this report. WSN: [id number] Ordering Physician: Oscar Ramirez Dictated By: Jamal Rousseau MD Dictated Date/Time: 05/31/23 5:24 pm Reviewed By: Quintin Delgado MD Signed By: Quintin Delgado MD Signed Date/Time: 05/31/23 5:29 pm Transcribed By: KARI Transcribed Date/Time: 05/31/23 5:00 pm * Exam Date Time Procedure Performing Provider Status 05/31/23 4:26 PM Chest Portable Andria Rivas; Aut h (Verified) Notes: (Chest Portable) Reason For Exam: Other: RESULT: Chest Portable Chest Portable REASON: Trauma COMPARISON: None. FINDINGS: LINES AND TUBES: None. LUNGS AND PLEURA: Clear lungs. Normal pulmonary vascularity. No pleural effusion. No pneumothorax. HEART, MEDIASTINUM AND CHITO: Heart is normal in size. Normal mediastinal and hilar contour. BONES AND SOFT TISSUES: No acute abnormality. Cervical collar in place. IMPRESSION: No acute abnormality. I have personally reviewed the images and I agree with this report. WSN: [id number] Ordering Physician: Oscar Ramirez Dictated By: Roshan Atkinson MD Dictated Date/Time: 05/31/23 4:42 pm Reviewed By: Manjeet Sullivan MD Signed By: Manjeet Sullivan MD Signed Date/Time: 05/31/23 4:47 pm Transcribed By: KARI Transcribed Date/Time: 05/31/23 4:28 pm Vital Signs Most recent to oldest [Reference Range]: 1 2 Oxygen Saturation [94-100 %] 94 % (05/31/23 5:05 PM) Pulse Rate [55-90 bpm] 90 bpm (05/31/23 5:05 PM) Blood Pressure [90-138/55-84 mm Hg] 114/ 62mm Hg (05/31/23 5:05 PM) Respiratory Rate [16-30 br/min] 18 br/mi n (05/31/23 10:58 PM) 15 br/min *L* (05/31/23 5:05 PM) Temperature [96.8-100.4 DegF] 98.3 DegF (05/31/23 5:05 PM) Mode of Delivery (Oxygen) Room air (05/31/23 5:05 PM) Blood pressure sites Arm, right (05/31/23 5:05 PM) Temperature Route Oral (05/31/23 5:05 PM) Note * Roula Felix MD: PERFORM Event Display: Patient Education Leaflets Authored Date: [id number] After a Fall ?? [id number] After a Fall You have had a fall today. That means that you slipped, tripped, or lost your balance. If your fallwas because of fainting or a seizure,??you might need other??tests. It is normal to feel sore and tight in your muscles and back the next day, and not just the musclesyou injured. Remember, all the parts of your body are connected, so while one area hurts now, the next day another may hurt. Also, when you injure yourself, it causes inflammation. This then causes the muscles to tighten up and hurt more. After the initial worsening symptoms, they should slowly improve over the next few days. Tell your healthcare provider if you have more severe pain. Even without a definite head injury, you can still get a concussion from your head suddenly jerkingforward, backward, or sideways when you fall. This is especially true if you have had concussions in the past. Concussions and even bleeding can still happen, especially if you had a recent injury ortake blood thinner medicine. It is not unusual to have a mild headache and feel tired and even nauseous or dizzy.?? Home care ??? Rest today and return to your normal activities when you are feeling back to normal. ??? If you were injured during the fall, follow the advice from your healthcare provider about how to care for your injury. ??? At first, don't try to stretch out the sore spots. If there is a strain,stretching may make it worse. Massage may help relax the muscles without stretching them. ??? Use an ice pack or cold compress on and off at the sore spots for 10 to 20 minutes at a time, as often asyou feel comfortable. This may help reduce the inflammation, swelling, and pain. ??? Know that if you have any scrapes (abrasions), they often heal within??10 days. Keep the scrapes clean while they start to heal. But an infection may happen even with correct care. So watch for early signs of infection (such as warmth, redness, or swelling). ?? Medicines ??? Talk with your healthcare provider before taking new medicines, especially if you have other health problems or are taking other medicines. ??? If you need anything for pain, use acetaminophen or ibuprofen, unless you were given a different pain medicine to use.??Talk with your healthcare provider before using these medicines if you: o Have chronic liver or kidney disease o Ever hada stomach ulcer or??gastrointestinal bleeding o Are taking blood-thinner medicines ??? Be careful if you are given prescription pain medicines, narcotics, or medicine for muscle spasms. They can makeyou sleepy and dizzy. And they can affect your coordination, reflexes, and judgment. Don't drive ordo work where you can hurt yourself when taking them. ?? Fall prevention ??? Fix, remove, or replace anything that caused your fall. ??? Make your home safeby keeping walkways clear of objects you could trip over. ??? Use nonslip pads under rugs. Don't use small??area rugs or throw rugs. ??? Don't walk in poorly lit areas. ??? Don't stand on chairs or wobbly ladders. ??? Be careful when reaching overhead or looking upward. This position can cause a loss of balance. ??? Be sure your shoes fit correctly, have nonslip bottoms, and are in good condition. ??? Be careful when going up and down curbs, and walking on uneven sidewalks. ??? If your balance is poor, think about using a cane or walker. ??? Stay as active as you can. Balance, flexibility, strength, and endurance all come from exercise. They all play a role in preventing falls. ??? If you have pets, know where they are before you stand up or walk so you don't trip over them. ??? Limit alcohol intake. Alcohol can cause balance problems and increase the risk for falls. ??? Use night-lights. ??? Have your eyes tested to be sure you are seeing well, even if you already wear glasses.? Follow-up Follow up with your healthcare provider, or as advised. If X-rays or CT scans were done, you will be told if there is a change in the reading, especially if it affects treatment. ?? Call 911 Call 911 if any of these happen: ??? Trouble breathing ??? Confusion ??? Trouble waking up ??? Fainting or loss of consciousness ??? Fast or very slow heart rate ??? Seizure ??? Trouble with speech or vision, weakness of an arm or leg ??? Trouble walking or talking, loss of balance, numbness or weakness on one side of your body, or facial droop ?? When to get medical advice Call your healthcare provider right away if any of these happen: ??? Repeated falls, including falls that seem to happen for no reason ??? Dizziness ??? Severe headache ??? Blood in vomit or stools (look black or red in color) ?? Last Reviewed Date: 2022 ?? [id number] [employer]. All rights reserved. This information is not intended as a substitute for professional medical care. Always follow your healthcare professional's instructions. ?? Patient Care team information Care Team Personnel Name: Harman Vang MD Position: [facility] Outreach Member Role: PCP Address: Address: [address] [place] [address]- Name: *[facility], Trauma Attending Position: [facility] ED Attendings Patient Name: Kay Rod RN Position: [facility] ED RN W/OE and Tasks Member Role: Patient Care Provider
--- OUTSIDE RECORDS SUMMARY | 2023-07-02 16:08 | XMS_ITS | Continuity of Care Document ---
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 Name Role Phone Name Harman CHANG Primary Care Physician En[place] [facility] [place](s): 06/04/23 - 06/07/[address] [id number] Encounter Diagnosis Alcohol use with withdrawal(Final) - 06/05/23 COVID(Final) - 06/05/23 Discharge Disposition: A-D/C Home Attending Physician: Jose Draper MD Admitting Physician: Ronald Ryder MD Referring Physician: Not on Staff, Referring MD Allergies, Adverse Reactions, Alerts No Known Allergies Immunizations Given and Recorded Vaccine Date Status Refusal Reason [id number] 12y+ bivalent booster vax 06/13/22 Recorded SARS-CoV-2 (COVID-19) mRNA-1273 vaccine 08/02/21 R ecorded SARS-CoV-2 (COVID-19) mRNA-1273 vaccine 01/26/21 R ecorded SARS-CoV-2 (COVID-19) mRNA-1273 vaccine 12/28/20 R ecorded tetanus/diphtheria/pertussis, acel(Tdap) 01/05/19 Given Medications acamprosate 333 mg oral delayed release tablet 2 tablet = 666 mg, By Mouth, 3 times a day, PCP will provide Refills, # 180 tablet, 0 Refills, Maintenance, 04/18/23 8:20:00 EDT, Tablet, [facility], Partial fill upon patient request if the prescription is for a schedule II opioid drug.... Start Date: 04/18/23 Status: Ordered Acetaminophen Tablet 650 mg, Tablet, By Mouth, Every 4 hours, PRN for Pain , Mild, Temperature Greater than 100.5, Routine, 06/04/23 23:59:00 EDT Start Date: 06/04/23 Stop Date: 06/07/23 Status: Discontinued cholecalciferol 400 intl units oral capsule 1 capsule = 10 mcg, By Mouth, Daily, # 30 capsule, 0 Refills, Maintenance, 07/31/22 8:07:00 EST, Capsule, [facility], Partial fill upon patient request if the prescription is for a schedule II opioid drug., 176, cm, 07/30/22 18:22:... Start Date: 07/31/22 Status: Ordered clonazePAM 0.5 mg oral tablet 1 tablet = 0.5 mg, By Mouth, Every 12 hours, PRN Anxiety, # 14 tablet, 0 Refills, Maintenance, 04/18/23 9:59:00 EDT, Tablet, [facility], Partial fill upon patient request if the prescription is for a schedule II opioid drug., 176, cm, 08... Start Date: 04/18/23 Stop Date: 04/25/23 Status: Ordered folic acid 1 mg oral tablet 1 mg, 1, tablet, By Mouth, Daily, # 30 tablet, Refills 0, Tot. Refills 0, Maintenance, 04/04/23 19:05:00 EDT, Route to Pharmacy Electronically, [facility], Partial fill upon patient request if the prescription is for a schedule II... Start Date: 04/04/23 Status: Ordered multivitamin Multiple Vitamins oral tablet 1 tablet, By Mouth, Daily, # 30 tablet, 0 Refills, Maintenance, 04/18/23 10:01:00 EDT, Tablet, [facility], Partial fill upon patient request if the prescription is for a schedule II opioid drug., 1 tablet By Mouth Daily, 176, cm, ... Start Date: 04/18/23 Status: Ordered Outpatient Physical Therapy. Outpatient Physical Therapy., See Instructions, # 1 each, Refills 0, Tot. Refills 0, Maintenance, Outpatient Physical Therapy., 03/05/23 8:29:00 EDT, Supply Start Date: 03/05/23 Status: Ordered pantoprazole 40 mg oral delayed release tablet 1 tablet = 40 mg, By Mouth, Daily, # 30 tablet, 1 Refills, Maintenance, 04/18/23 8:20:00 EDT, EC Tablet, 176, cm, 04/17/23 7:46:00 EDT, Height, 97.5, kg, 04/12/23 11:57:00 EDT, Dry Weight Start Date: 04/18/23 Status: Ordered pyridoxine 50 mg oral tablet 50 mg, By Mouth, Daily, for 90 days, # 90 tablet, Refills 0, Tot. Refills 0, Acute 08/14/23 11:12:00 EST, 05/16/23 11:12:00 EDT, Route to Pharmacy Electronically, [facility], Partial fill upon patient request if the prescription is... Start Date: 05/16/23 Stop Date: 08/14/23 Status: Ordered sucralfate 1 gm oral tablet 1 Gm, 1, tablet, By Mouth, 4 times a day, # 120 tablet, Refills 1, Tot. Refills 1, Maintenance, 04/18/23 10:00:00 EDT, Route to Pharmacy Electronically, [facility], Partial fill upon patient request if the prescription is for a schedule... Start Date: 04/18/23 Status: Ordered thiamine 100 mg oral tablet 100 mg, By Mouth, 2 times a day, for 90 days, # 90 tablet, Refills 0, Tot. Refills 0, Acute 08/14/23 11:11:00 EST, 05/16/23 11:11:00 EDT, Route to Pharmacy Electronically, [facility], Partial fill upon patient request if the prescr... Start Date: 05/16/23 Stop Date: 08/14/23 Status: Ordered Vitamin C 500 mg oral tablet 1 tablet = 500 mg, By Mouth, Daily, # 30 tablet, 0 Refills, Maintenance, 07/31/22 8:10:00 EST, Tablet, [facility], Partial fill upon patient request if the prescription is for a schedule II opioid drug., 176, cm, 07/30/22 18:22:00... Start Date: 07/31/22 Status: Ordered Vraylar 6 mg oral capsule 1 capsule = 6 mg, By Mouth, Daily, 0 Refills, Maintenance, 07/14/21 17:43:00 EST, Partial fill uponpatient request if the prescription is for a schedule II opioid drug. Start Date: 07/14/21 Status: Ordered Zofran ODT 4 mg oral tablet, disintegrating 1 tablet, By Mouth, Every 8 hours, PRN as needed for nausea/vomiting, 0 Refills, Maintenance, 04/03/23 13:00:00 EDT, DIS Tablet, Partial fill upon patient request if the prescription is for a schedule II opioid drug. Start Date: 04/03/23 Status: Ordered Problem List Condition Confirmation Course Effective Dates Status Health St [facility] Informant Alcohol dependence Confirmed Active Alcohol withdrawal seizure Confirmed Active Anxiety Confirmed Active Bipolar disorder Confirmed Active COVID-19 1 Confirmed 05/16/23 Active COVID-19 2 Confirmed 05/31/23 Active Gastritis Confirmed Active History of seizure due to alcohol withdrawal Confirmed Active Hepatic steatosis Confirmed Active Intractable vomiting Confirmed Active 1Problem added by Discern Expert 2Problem added by Discern Expert Results Radiology Reports * Exam Date Time Procedure Performing Provider Status 06/05/23 9:[address] Head/Brain W/O Contrast Maci Flores; Auth (Verified) Notes: (CT Head/Brain W/O Contrast) Reason For Exam: Headache(s) RESULT: CT Head/Brain W/O Contrast CT Head/Brain W/O Contrast INDICATION: Reason: Headache(s); Clinical Question(s): Hematoma TECHNIQUE: Noncontrast head CT using axial technique and reconstructed in axial and coronal planes.Iterative reconstruction techniques are used to optimize dose and image quality. COMPARISON: 05/31/2023 FINDINGS: Conveyor Loader view findings, lines and tubes: None. BRAIN AND EXTRA-AXIAL SPACES: No parenchymal hemorrhage, midline shift, or mass effect. Herbert-white matter differentiation is wellpreserved. No acute infarct. Ventricles, sulci, and basilar cisterns are normal. No white matter lesions. No subarachnoid hemorrhage. No subdural or epidural collection. CALVARIUM, SKULL BASE, AND SOFT TISSUES: No fractures or suspicious bony lesions. Mild mucosal thickening of the maxillary sinuses. Visualized orbits and globes are intact. Right parieto-occipital scalp laceration with overlying skin ce. IMPRESSION: No evidence of acute intracranial abnormality. WSN: [id number] Ordering Physician: Jose Mccartney Dictated By: Temo Zaidi MD Dictated Date/Time: 06/05/23 10:12 a Reviewed By: Temo Zaidi MD Signed By: Temo Zaidi MD Signed Date/Time: 06/05/23 10:12 am Transcribed By: KARI Transcribed Date/Time: 06/05/23 10:09 am * Exam Date Time Procedure Performing Provider Status 06/04/23 9:07 PM Chest Portable Andria Rivas; Auth (Verified) Notes: (Chest Portable) Reason For Exam: Shortness of Breath RESULT: Chest Portable Chest Portable Hx of Present Illness: pt coming in looking for alcohol withdrawal treatment and rehab placement, +COVID, pt states he normally drinks 1 beer and 4 shots whiskey a day, last drink right before comingin, hx withdrawal seizures, c o hallucinations headache SOB; Reason: Shortness of Breath; Clinical Question(s): Pneumonia COMPARISON: Chest CT dated May 31, 2023. FINDINGS: LINES AND TUBES: None. LUNGS AND PLEURA: Clear lungs. Normal pulmonary vascularity. No pleural effusion. No pneumothorax. HEART, MEDIASTINUM AND ADEOLA: Heart is normal in size. Normal mediastinal and hilar contour. BONES AND SOFT TISSUES: No acute abnormality. IMPRESSION: No acute abnormality. WSN: [id number] Ordering Physician: Janusz Lozano Dictated By: Jakub Cook MD Dictated Date/Time: 06/04/23 9:09 pm Reviewed By: Jakub Cook MD Signed By: Jakub Cook MD Signed Date/Time: 06/04/23 9:09 pm Transcribed By: KARI Transcribed Date/Time: 06/04/23 9:09 pm Vital Signs Most recent to oldest [Reference Range]: 1 2 3 Height 175 cm (06/07/23 7:34 AM) 175 cm (06/07/23 3:41 AM) 175 cm (06/06/23 7:18 PM) Weight 103.8 kg (06/05/23 12:52 AM) Oxygen Saturation [94-100 %] 96 % (06/07/23 7:34 AM) 97 % (06/07/23 3:41 AM) 95 % (06/06/23 7:18 PM) Pulse Rate [55-90 bpm] 62 bpm (06/07/23 7:34 AM) 56 bpm (06/07/23 3:41 AM) 68 bpm (06/06/23 7:18 PM) Body Mass Index [18.5-24.99 kg/m2] 33.89 kg/m2 *>HHI* (06/05/23 12:52 AM) Blood Pressure [90-138/55-84 mm Hg] 130/90mm Hg (06/07/23 7:34 AM) 137/91mm Hg (06/07/23 3:41 AM) 132/84mm Hg (06/06/23 7:18 PM) Respiratory Rate [16-30 br/min] 20 br/min (06/07/23 7:34 AM) 18 br/min (06/07/23 3:41 AM) 18 br/min (06/06/23 9:49 PM) Temperature [96.8-100.4 DegF] 98.1 DegF (06/07/23 7:34 AM) 97.5 DegF (06/07/23 3:41 AM) 98.3 DegF (06/06/23 7:18 PM) Mode of Delivery (Oxygen) Room air (06/07/23 7:34 AM) Room air (06/07/23 3:41 AM) Room air (06/06/23 7:18 PM) Blood pressure sites Arm, left (06/07/23 7:34 AM) Arm, left (06/07/23 3:41 AM) Arm, left (06/06/23 7:18 PM) Temperature Route Oral (06/07/23 7:34 AM) Oral (06/07/23 3:41 AM) Oral (06/06/23 7:18 PM) Dry Weight 103.8 kg (06/05/23 12:52 AM) Weight Obtained Via Bed scale (06/05/23 12:52 AM) Dry Weight Obtained Via Bed scale (06/05/23 12:52 AM) Social History Social History Type Response Smoking Status Never (less than 100 in lifetime) entered on: 01/28/22 Sex History and physical note * Jose Mccartney MD: PERFORM Event Display: [facility] Physical [facility] Authored Date: [id number] Patient: ??LENKA RUVALCABA ? Age:??47 Years?Sex:??Male?:??1975?? Chief Complaint/Reason for Consultation from [facility], per ems going to [facility], drank, then had some sob, has bandage to back of headfrom ? head injury, covid + 4 days, has some sob History of Present Illness 47-year-old male??presents to the emergency room for??concerns for alcohol withdrawal.?? The patient was admitted??on 05/11 - 05/24 with??alcohol withdrawal and was found to be COVID-positive on 05/11.?? He was subsequently discharged home and unfortunately returned again on 05/31 after??a fall??felt to be secondary to intoxication.?? He was subsequently discharged??and now returns with multiple complaints.?? He states that he has been very anxious and has been drinking heavily recently??however heexpresses the desire??to stop drinking and pursue detox.?? It appears he was somewhat inebriated oninitial presentation??to the ER.?? He also??explains that after his fall he has been having??headaches with poor balance issues, myalgias??and even some auditory and visual hallucinations. ??He has aslight cough and??some shortness of breath.?? He complains of abdominal discomfort off and on. ??Hedenies any vomiting, diarrhea, rectal bleeding, melena or urinary symptoms.?? In the emergency roomhe was once again found to be COVID-positive??and felt to be symptomatic so he was placed in isolation??he has a notable??laceration on the back of his head from his previous fall on 05/31. ?? EKG: Sinus rhythm 82 bpm T wave version V3 ? RESULT: Chest Portable Chest Portable?? FINDINGS: IMPRESSION: No acute abnormality. Review of Systems Constitutional:??Fatigue Eyes:??No visual loss, blurred vision, double vision or yellow sclera ENT:??No hearing loss, sneezing, congestion, runny nose or sore throat. Respiratory:??Mild shortness of breath and cough Cardiovascular:??No chest pain Gastrointestinal:??No anorexia, nausea, vomiting or diarrhea. No abdominal pain or blood in stool. Genitourinary:??No burning micturition. No urinary frequency or incontinence. Neurologic:??Headache Musculoskeletal:??Myalgias Skin:??No rash or itching. Endocrine:??No reports of sweating. No cold or heat intolerance. No polyuria or polydipsia. Psychiatric:??Anxiety ?? Objective Measurements?? Height: 175 cm (06/05/23) Weight: 103.8 kg (06/05/23) Dry Weight: 103.8 kg (06/05/23) Body Mass Index:??33.89 kg/m2??Critical (06/05/23) ? Vital Signs?? Temperature: 98.2 DegF (06/05/23 04:27:00) Temperature Route: Oral (06/05/23 04:27:00) Pulse Rate: 67 bpm (06/05/23 04:27:00) Respiratory Rate: 20 br/min (06/05/23 04:27:00) Systolic Blood Pressure: 108 mm Hg (06/05/23 04:27:00) Diastolic Blood Pressure: 68 mm Hg (06/05/23 04:27:00) Blood pressure sites: Arm, left (06/05/23 04:27:00) Mean Arterial Pressure: 81 mm Hg (06/05/23 04:27:00) Pulse Pressure: 40 mm Hg (06/05/23 04:27:00) Oxygen Saturation: 97 % (06/05/23 04:27:00) Mode of Delivery (Oxygen): Room air (06/05/23 04:27:00) Early Warning Score: 0 (06/05/23 05:34:08) ? Physical Exam Constitutional: Alert, in no distress. Mental Status: Oriented to person, place and time. Head: Normocephalic.?? Wound??right posterior??skull??with??ce Eyes: Pupils are equal, round and reactive to light. Extraocular muscles intact. Ear, Nose and Throat: Oropharynx clear, mucous membranes moist. Neck: Supple, Full range of motion. Respiratory: Scattered rhonchi. Cardiovascular: S1 S2 regular. No murmurs, rubs or gallops. Gastrointestinal: Abdomen soft, non-tender, non-distended. Normal bowel sounds. Neurologic: Cranial nerves II-XII grossly intact. ??Power 5/5 x 4 Skin: No rashes or lesions. No petechiae or purpura.?? Musculoskeletal: No cyanosis or clubbing. No gross deformities. Normal range of motion. Psychiatric: Normal mood and affect Assessment/Plan 47-year-old male??admitted??with alcohol intoxication and concerns for imminent??withdrawal, headaches, poor balance, recent fall with head injury,??COVID-19 positive ? Alcohol use disorder, severe, dependence (F10.20):??. As noted above he has been drinking heavily recently His alcohol level was elevated on arrival to the ER??but is starting to show signs of withdrawal Continue CIWA scale Phenobarbital as needed Thiamine Addiction medicine consult ? Anxiety and depression (F41.9):??. Psychiatry consult??in [facility] ? Fall (W19.XXXA):??. Presumably secondary to intoxication although??history is unclear as the patient has little memory of the event He now has some ongoing headache and poor balance??concerning for possible recent concussion??when he fell on 05/[address] head today to rule out underlying subdural ? COVID (U07.1):??. Initial diagnosis on 05/11 Placed in isolation as patient was symptomatic with cough and myalgias Continue supportive care ? VTE Prophylaxis:??. Lovenox subcu ? Code Status:??. Full code Confirmed patient at the bedside ? Patient seen 06/05/2023 ? Histories Allergies Allergies ?(Active and Proposed Allergies Only) NKA? (Severity: Unknown severity, Onset: Unknown) ? Past Medical History/Problem List Active Problems??(10) Alcohol dependence Alcohol withdrawal seizure Anxiety Bipolar disorder COVID-19 COVID-19 Gastritis Hepatic steatosis History of seizure due to alcohol withdrawal Intractable vomiting ? Past Surgical History No surgery history documented. ? Social History Lives alone Non-smoker Drinking heavily???unclear quantity ? Family History Mother hypertension ? Medications Home Medications Acamprosate (acamprosate 333 mg oral delayed release tablet)?2?tab(s)?666?Milligram?By Mouth?3 times a day?PCP will provide Refills cariprazine (Vraylar 6 mg oral capsule)?1?capsule?6?Milligram?By Mouth?Daily Clonazepam (clonazePAM 0.5 mg oral tablet)?1?tab(s)?0.5?Milligram?By Mouth?Every 12 hours?as needed?Anxiety?for 7?Days ? Results Recent Labs BLOOD COUNT & DIFF WBC 6.5 k/mm3 ()?? 06/04/2023 18:49 RBC 3.87 m/mm3 (Low)?? 06/04/2023 18:49 Hgb 12.3 Gm/dL (Low)?? 06/04/2023 18:49 Hct 36.2 % (Low)?? 06/04/2023 18:49 MCV 93.5 femtoliters ()?? 06/04/2023 18:49 MCH 31.8 pg ()?? 06/04/2023 18:49 MCHC 34.0 g/dL ()?? 06/04/2023 18:49 Platelet Count 197 k/mm3 ()?? 06/04/2023 18:49 RDW-SD 45.1 femtoliters ()?? 06/04/2023 18:49 MPV 10.1 femtoliters ()?? 06/04/2023 18:49 Nucleated RBC (Automated) 0.0 #/100 WBC'S ()?? 06/04/2023 18:49 Abs. NRBC 0.0 k/mm3 ()?? 06/04/2023 18:49 Abs. Neut 3.2 k/mm3 ()?? 06/04/2023 18:49 Abs. Lymph 2.4 k/mm3 ()?? 06/04/2023 18:49 Abs. [place]he 0.6 k/mm3 ()?? 06/04/2023 18:49 Abs. Eo 0.2 k/mm3 ()?? 06/04/2023 18:49 Abs. Baso 0.1 k/mm3 ()?? 06/04/2023 18:49 Neut % 49.9 % ()?? 06/04/2023 18:49 Lymph % 36.2 % ()?? 06/04/2023 18:49 [place]he % 9.6 % ()?? 06/04/2023 18:49 Eos % 2.9 % ()?? 06/04/2023 18:49 Baso % 0.9 % ()?? 06/04/2023 18:49 Imm Gran 0.5 % ()?? 06/04/2023 18:49 Abs. Imm Gran 0.0 k/mm3 ()?? 06/04/2023 18:49 ?? CHEM GENERAL Sodium 145 mmol/L ()?? 06/04/2023 18:49 Potassium 3.3 mmol/L (Low)?? 06/04/2023 18:49 Chloride 103 mmol/L ()?? 06/04/2023 18:49 Bicarbonate Level 26 mmol/L ()?? 06/04/2023 18:49 Anion Gap 16 ()?? 06/04/2023 18:49 Glucose Level 127 mg/dL (High)?? 06/04/2023 18:49 BUN 9 mg/dL ()?? 06/04/2023 18:49 Creatinine-Blood 0.8 mg/dL ()?? 06/04/2023 18:49 Estimated GFR Creatinine 112 ML/MIN/1.73 M2 ()?? 06/04/2023 18:49 Calcium 8.4 mg/dL (Low)?? 06/04/2023 18:49 Magnesium 1.8 mg/dL ()?? 06/04/2023 18:49 Protein, Total 6.9 Gm/dL ()?? 06/04/2023 18:49 Albumin 4.1 Gm/dL ()?? 06/04/2023 18:49 Alkaline Phosphatase 114 units/L ()?? 06/04/2023 18:49 AST (SGOT) 47 units/L (High)?? 06/04/2023 18:49 ALT (SGPT) 30 units/L ()?? 06/04/2023 18:49 Bilirubin, Total 0.3 mg/dL ()?? 06/04/2023 18:49 Bilirubin, Direct <0.2 mg/dL ()?? 06/04/2023 18:49 Bilirubin, Indirect Direct bilirubin is less than the measureable limit. Therefore, indirect mg/dL ()?? 06/04/2023 18:49 ?? ENDOCRINE/TUMOR MARKER TSH 2.30 uIU/mL ()?? 06/04/2023 18:49 ?? TOXICOLOGY/TDM Ethanol, Serum or Plasma 298 mg/dL (Abnormal)?? 06/04/2023 18:49 ?? URINE OTHER Est Creatinine Clearance 114.99 mL/min ()?? 06/05/2023 01:14 ? EKG study * Event Display: ECG 12-Lead Authored Date: Please click on pdf link to open report * Event Display: ECG 12-Lead Authored Date: Ventricular Rate: 82 BPM Atrial Rate: 82 BPM P-R Interval: 158 ms QRS Duration: 96 ms Q-T Interval: 420 ms QTC Calculation(Bazett): 490 ms P [place]: 2 degrees R [place]: 29 degrees T [place]: 14 degrees Normal sinus rhythm Normal ECG When compared with ECG of 11-MAY-2023 15:49, No significant change was found Confirmed by CRYSTAL CHANG [facility] ([id number]) on 06/05/2023 7:55:16 AM [place] * Anna Almanzar LPN: PERFORM, SIGN, VERIFY Event Display: [facility] Authored Date: Patient: LENKA RUVALCABA Age: 47 years Sex: Male : 1975 Associated Diagnoses: None Author: Anna Almanzar LPN Findings Problem Related to Alteration in Psychosocial : Alteration in Psychosocial Function/new 06/07/2023 4:00 EDT Alteration in Psychosocial Related to Acute Alcohol Withdrawal Goals & Outcomes, Psychosocial Pt will be free from withdrawal symptoms Interventions, Psychosocial Identify complications of chronic alcohol use, Assess for complicationsrelated to acute alcohol withdrawal, Determine pt's stage of withdrawal as per CIWA scale, Encourage pt to continue to detox, Initiate & maintain Seizure Precautions, Minimize stimulation, Minimize stressors, Offer clergy, AA sponsor, counselor support, Offer support to pt/S.O. during acute alcohol withdrawal, Transfer pt to monitored area if advances to Stage 3 CIWA Goals/Interventions, Psychosocial Yes Psychosocial, Problem Start 06/05/2023 6:29 Reviewed Plan with, Psychosocial Patient Patient Progression, Psychosocial Pt progressing according to plan . Alteration in Safety : Alteration in Safety/new 06/07/2023 4:00 EDT Alteration in Safety Related to Trauma, Other: Fall prior to admission Goals & Outcomes, Safety Pt/caregiver will state understanding of plan/goals of care, Pt will remain safe & injury free Interventions, Safety Provide info on community resources for education, support, Provide teaching as needed, Resolved problem, Interventions no longer in effect, Identify psychosocial issues r/t trauma Goals/Interventions, Safety Yes Safety, Problem Start 06/05/2023 6:28 Reviewed plan with, Safety Patient Patient Progression, Safety Pt progressing according to plan . Nursing Data Vital Signs : VITAL SIGNS SECTION 06/07/2023 3:41 EDT Temperature 97.5 DegF Temperature Route Oral Pulse Rate 56 bpm Respiratory Rate 18 br/min Systolic Blood Pressure 137 mm Hg Diastolic Blood Pressure 91 mm Hg H Blood pressure sites Arm, left Mean Arterial Pressure 106 mm Hg Pulse Pressure 46 mm Hg Oxygen Saturation 97 % Mode of Delivery (Oxygen) Room air 06/06/2023 23:23 EDT Early Warning Score 2.00 06/06/2023 21:49 EDT Respiratory Rate 18 br/min 06/06/2023 19:31 EDT Early Warning Score 2.00 06/06/2023 19:18 EDT Temperature 98.3 DegF Temperature Route Oral Pulse Rate 68 bpm Respiratory Rate 20 br/min Systolic Blood Pressure 132 mm Hg Diastolic Blood Pressure 84 mm Hg Blood pressure sites Arm, left Mean Arterial Pressure 100 mm Hg Pulse Pressure 48 mm Hg Oxygen Saturation 95 % Mode of Delivery (Oxygen) Room air . Evaluation Assumed care for @1900. A/Ox4. VSS overnight. Pt compliant w/ care and able to make needsknown. LSCTA on RA. ABD SNT w/ +BS in all four quadrants. Pt continent of bowel and bladder. Dressing on posterior scalp clean dry and intact. No c/o pain, c/p, nausea, vomiting, headache or dizziness. Pt resting comfortably in bed. All appropriate safety measures remain in place. Pt expresses no other concerns or needs at this time. Will continue to frequently round. Plan of care ongoing. See [facility] for biophysical and further assessments.... Discharge Information Case Management Discharge Plan : Case Management Discharge Plan Data 05/31/2023 23:16 EDT Discharge Level of Care at Discharge Home/Skilled Nursing/Foster Care Rehabilitation Discharge : Rehab Discharge Index 06/05/2023 8:12 EDT Comments on treatment indicated 47 y/o M admitted with alcohol intoxication andconcerns for imminent withdrawal, headaches, poor balance, recent fall with head injury, COVID-19 positive. WBAT SKilled PT for therex, transfers, amb c RW, stairs. rec Rehab pending progress Distance pt will ambulate >100 ftc RW Full chart review completed Yes Hospital course see comment Other findings Pt is a moderate complexity evaluation as circumstances leading to hospitalization impact POC and functional mobility. Plan of care PT Gait training, Transfer training, Therapeutic exercise, Functional Activities, Balance training, Neuromuscular education * Bonny CHANG, Jose Cotto: PERFORM Event Display: Progress Note Hospital Authored Date: Patient: ??LENKA RUVALCABA ? Age:??47 Years?Sex:??Male?:??1975?? Subjective ? -Seen and examined at bedside -No symptoms to suggest COVID infection, therefore COVID antigen checked and was negative, COVID isolation discontinued ?? -Patient with high CIWA scores and withdrawal, started on scheduled phenobarbital while we continuesupportive therapy -Addiction team agrees with management, recommend initiation of Campral at discharge and they will connect him with the recovery manager, addiction manufacturing team leader will follow up on if patient can be admitted to [facility] in [place] down the line. ?? -Anticipate discharge 06/08 once withdrawal management complete -Also very anxious at baseline, home clonazepam reinitiated ?? -PT recommended rehab for now but this is in setting of patient's intoxication, anticipate??improvement??with reevaluation ?? Review of Systems Other than those positives as noted above, the remaining comprehensive 14-point review of systems is negative. Objective Vital Signs?? Temperature: 98.3 DegF (06/06/23 15:23:00) Temperature Route: Oral (06/06/23 15:23:00) Pulse Rate: 58 bpm (06/06/23 15:23:00) Respiratory Rate: 18 br/min (06/06/23 15:23:00) Systolic Blood Pressure:??139 mm Hg??High (06/06/23 15:23:00) Diastolic Blood Pressure:??92 mm Hg??High (06/06/23 15:23:00) Blood pressure sites: Arm, left (06/06/23 15:23:00) Mean Arterial Pressure: 108 mm Hg (06/06/23 15:23:00) Pulse Pressure: 47 mm Hg (06/06/23 15:23:00) Oxygen Saturation: 97 % (06/06/23 15:23:00) Mode of Delivery (Oxygen): Room air (06/06/23 15:23:00) Early Warning Score: 0 (06/06/23 15:24:35) ? Intake/Output? 06/04 23:29 06/06 07:00 06/05 07:00 06/04 07:00 06/03 07:00 ?? 06/06 15:46 06/06 15:46 06/06 06:59 06/05 06:59 06/04 06:59 Intake ?360 ?0 ?360 ?0 ?0 Output ?650 ?0 ?650 ?0 ?0 Net Total ? -290 ?0 ? -290 ?0 ?0 ? Urine Count ?5 ?0 ?5 ?0 ?0 ? Physical Exam Constitutional: Alert, in no acute distress. Anxious Mental Status: Oriented to person, place and time. Respiratory: Clear to auscultation and percussion. No wheezing, rales or rhonchi. Cardiovascular: S1 S2 regular. No murmurs, rubs or gallops. Gastrointestinal: Abdomen soft, non-tender, non-distended. Normal bowel sounds. No pulsatile mass. No hepatosplenomegaly. Genitourinary: No costovertebral angle tenderness. Neurologic: Cranial nerves II-XII grossly intact. No focal neurological deficits. Flexor plantar response.? _ Home Medications Acamprosate (acamprosate 333 mg oral delayed release tablet)?2?tab(s)?666?Milligram?By Mouth?3 times a day?PCP will provide Refills Ascorbic Acid (Vitamin C 500 mg oral tablet)?1?tab(s)?500?Milligram?By Mouth?Daily cariprazine (Vraylar 6 mg oral capsule)?1?capsule?6?Milligram?By Mouth?Daily Cholecalciferol (cholecalciferol 400 intl units oral capsule)?1?capsule?10?Microgram?By Mouth?Daily Clonazepam (clonazePAM 0.5 mg oral tablet)?1?tab(s)?0.5?Milligram?By Mouth?Every 12 hours?as needed?Anxiety?for 7?Days Durable Medical Equipment (Outpatient Physical Therapy.)?See Instructions?Outpatient PhysicalTherapy. Folic Acid (folic acid 1 mg oral tablet)?1?Milligram?1?tablet?By Mouth?Daily Multivitamin (multivitamin Multiple Vitamins oral tablet)?1?tab(s)?By Mouth?Daily Ondansetron (Zofran ODT 4 mg oral tablet, disintegrating)?1?tab(s)?By Mouth?Every 8 hours?as needed?as needed for nausea/vomiting Pantoprazole (pantoprazole 40 mg oral delayed release tablet)?1?tab(s)?40?Milligram?By Mouth?Daily Pyridoxine (pyridoxine 50 mg oral tablet)?50?Milligram?By Mouth?Daily?for 90?Days Sucralfate (sucralfate 1 gm oral tablet)?1?gram?1?tablet?By Mouth?4 times a day Thiamine (thiamine 100 mg oral tablet)?100?Milligram?By Mouth?2 times a day?for 90?Days ? Inpatient Medications Medications (17) Active SCHEDULED: (8) Enoxaparin 40 mg Inj (Enoxaparin Inj) ??40 mg 0.4 mL, Subcutaneous Injection, Daily Folic Acid 1 mg Tablet (Folic Acid Tablet) ??1 mg, By Mouth, Daily Multivitamin Tablet ??1 tablet, By Mouth, Daily NaCl 0.9% Flush 3ml (NaCL 0.9% Flush) ??3 mL, IV Push, Every 8 hours Pantoprazole 40 mg EC Tablet (pantoprazole 40 mg oral delayed release tablet) ??40 mg, By Mouth, Daily Phenobarbital 30 mg Tablet (Phenobarbital Tablet) ??30 mg, By Mouth, 2 times a day Pyridoxine 50 mg Tablet (Pyridoxine Tablet) ??50 mg, By Mouth, Daily Thiamine 100 mg Tablet (Thiamine Tablet) ??100 mg, By Mouth, 2 times a day CONTINUOUS: (0) PRN: (9) Acetaminophen 325 mg Tablet (Acetaminophen Tablet) ??650 mg, By Mouth, Every 4 hours Clonazepam 0.5 mg Tablet (clonazePAM 0.5 mg oral tablet) ??0.5 mg, By Mouth, Every 12 hours Dextromethorphan-Guaifenesin 20 mg-200 mg/10 mL Liqu UD (GuaiFENEsin /Dextromethorphan Liquid) ??10mL, By Mouth, 4 times a day Docusate Sodium 100 mg Capsule (Docusate Sodium Capsule) ??100 mg 1 capsule, By Mouth, 2 times a day Melatonin 3 mg Tablet (Melatonin Tablet) ??3 mg, By Mouth, Daily at bedtime NaCl 0.9% Flush 3ml (NaCL 0.9% Flush) ??3 mL, IV Push, Every 8 hours Phenobarbital 30 mg Tablet (PHENobarbital 30 mg oral tablet) ??15 mg, By Mouth, 2 times a day Polyethylene Glycol 17 Gm Powder (MiraLax Powder) ??17 Gm 1 pack/packet, By Mouth, Daily Senna Tablet ??8.6 mg 1 tablet, By Mouth, 2 times a day ? Results Abnormal Labs ?? BLOOD COUNT & DIFF ??Abs. Imm Gran ??0.0 k/mm3 () ??06/06/2023 08:40 ??Abs. NRBC ??0.0 k/mm3 () ??06/06/2023 08:40 ??Imm Gran ??0.2 % () ??06/06/2023 08:40 ??Nucleated RBC (Automated) ??0.0 #/100 WBC'S () ??06/06/2023 08:40 ??RBC ??4.45 m/mm3 (Low) ??06/06/2023 08:40 ??RDW-SD ??41.7 femtoliters () ??06/06/2023 08:40 ? CHEM GENERAL ??AST (SGOT) ??45 units/L (High) ??06/06/2023 08:40 ??BUN ??4 mg/dL (Low) ??06/06/2023 08:40 ??Chloride ??97 mmol/L (Low) ??06/06/2023 08:40 ??Creatinine-Blood ??0.6 mg/dL (Low) ??06/06/2023 08:40 ??Estimated GFR Creatinine ??119 ML/MIN/1.73 M2 () ??06/06/2023 08:40 ? TOXICOLOGY/TDM ??Amphetamine Screen, Urine ??NONE DETECTED () ??06/05/2023 18:35 ??Barbiturate Screen, Urine ??POSITIVE (Abnormal) ??06/05/2023 18:35 ??Benzodiazepine Screen, Urine ??POSITIVE (Abnormal) ??06/05/2023 18:35 ??Cannabinoid Screen, Urine ??POSITIVE (Abnormal) ??06/05/2023 18:35 ??Cocaine Metabolite Screen, Urine ??NONE DETECTED () ??06/05/2023 18:35 ??Fentanyl Screen, Urine Result ??NONE DETECTED () ??06/05/2023 18:35 ??Opiate Screen, Urine ??NONE DETECTED () ??06/05/2023 18:35 ? UA/URINALYSIS ??Albumin, Urine ??NEGATIVE () ??06/05/2023 18:35 ??Appear/Color, Urine ??LIGHT YELLOW () ??06/05/2023 18:35 ??Bilirubin, Urine ??NEGATIVE () ??06/05/2023 18:35 ??Glucose, Urine ??NEGATIVE () ??06/05/2023 18:35 ??Hemoglobin, Urine ??NEGATIVE () ??06/05/2023 18:35 ??Ketones, Urine ??NEGATIVE () ??06/05/2023 18:35 ??Leukocyte, Urine ??1+ (Abnormal) ??06/05/2023 18:35 ??Nitrite, Urine ??NEGATIVE () ??06/05/2023 18:35 ??Urobilinogen ??NORMAL mg/dL () ??06/05/2023 18:35 ? VIROLOGY ??COVID-19 Antigen POC Result ??NEGATIVE (N) ??06/06/2023 11:00 ? Note: Critical results are displayed in red. ? Assessment/Plan ? 47-year-old male recent covid infection??admitted??with alcohol intoxication and concerns for imminent??withdrawal, headaches, poor balance, recent fall with head injury,? -No symptoms to suggest COVID infection, therefore COVID antigen checked and was negative, COVID isolation discontinued ?? -Patient with high CIWA scores and withdrawal, started on scheduled phenobarbital while we continuesupportive therapy -Addiction team agrees with management, recommend initiation of Campral at discharge and they will connect him with the recovery manager, addiction manufacturing team leader will follow up on if patient can be admitted to [facility] in [place] down the line. ?? -Anticipate discharge 06/08 once withdrawal management complete -Also very anxious at baseline, home clonazepam reinitiated ?? -PT recommended rehab for now but this is in setting of patient's intoxication, anticipate??improvement??with reevaluation ? Alcohol use disorder, severe, dependence (F10.20):??. As noted above he has been drinking heavily recently His alcohol level was elevated on arrival to the ER??but is starting to show signs of withdrawal Continue CIWA scale Phenobarbital Thiamine Addiction medicine consulted ? Anxiety and depression (F41.9):??. Psychiatry consult??in [facility], they have cleared him for discharge Klonopin resumed for anxiety management ? Fall (W19.XXXA):??. Presumably secondary to intoxication although??history is unclear as the patient has little memory of the event He now has some ongoing headache and poor balance??concerning for possible recent concussion??when he fell on 05/31 ?? -PT recommended rehab for now but this is in setting of patient's intoxication, anticipate??improvement??with reevaluation ? COVID (U07.1):??. Initial diagnosis on 05/11 COVID antigen 06/06 negative, does not need isolation ?? VTE Prophylaxis:??. Lovenox subcu ? Code Status:??. Full code ? Discharge planning by 10/13 when??alcohol withdrawal managed. PT re-eval needed * Farhana Cruz MD: VERIFY, MODIFY, SIGN, PERFORM, SIGN Event Display: Progress Note Hospital Authored Date: [id number] Patient: LENKA RUVALCABA Age: 47 years Sex: Male : 1975 Associated Diagnoses: None Author: Farhana Cruz MD Admitted earlier today. Non billabloe note fo 06/05/23 admitted for alcohol withdrawal. BAL elevated yesterday , starting to have withdrawal symptoms today. recent fall, repeat ct head was ordered negtv for bleed. concern for SI but psych evaluated and recommended dc sitter. covid positive last month and now on repat, complaing of some congestion cough but on room air. Farhana Cruz MD Hospitalist ?? 06/05/2023 Consult note * Guera Cota: PERFORM Event Display: Consultation Note Authored Date: [id number] Patient: ??LENKA RUVALCABA ? Age:??47 Years?Sex:??Male?:??1975?? Reason for Consultation Addiction Med Consult - AUD Requested by??Dr Mccartney History of Present Illness Lenka Ruvalcaba is a 47 yo male with a PMHx of alcohol use disorder w/ hx of ETOH w/d seizure, anxiety/depression, bipolar, hx of SI. He was admitted 06/05 after presenting with ETOH withdrawal. He was in the ED 4 days prior s/p a fall with some head trauma. Pt was found to be COVID + this admission - he was previously positive last month,??but pt with slight cough and SOB, so was placed on isolationprecautions.??Pt is on??CIWA scoring and scheduled phenobarbital. ?? Spoke with pt this morning. Interview was conducted??via phone due to pts isolation status. Pt reporting that he has only been drinking ETOH lately - consuming one 24 oz can of beer??+ 1 nip through the day. Says he drinks this slowly to spread it out best he can. In the past, he would drink a 30 pack of beer + 1 gal of liquor in a day. Pt has has multiple seizures in the past that he feels were due to ETOH withdrawal. Pt has been on campral at home, as well as vraylar and PRN klonopin. He feels this regimen has beenhelpful for him so far, and would like to continue with the campral. He does have a few bottles at home still. He says he never takes the klonopin if he has been drinking at all, as a family member of his from doing the same. He is currently connected with a recovery manager, and has information for an office to reach out to regarding psychiatry and therapy services. He will pursue those on his own. He is interested in going to [facility] out in [place] if possible, and was told that if [facility] submitted a referral, they would accept him. He does not endorse use of any other substances such as opioids, cocaine or other stimulants, illicit pills. Review of Systems Reporting some headache, nausea, body aches, tremor, sweats/chills. Some visual hallucinations at times of stars/lights in his vision. Physical Exam Vitals & Measurements T:??98.3?F?? TMIN:??97.8?F?? TMAX:??98.3?F?? HR:??62??(Peripheral)?? RR:??18?? BP:??135/95?? SpO2:??99%?? Visual exam components excluded, interview conducted via phone. Mental Status Exam: Attitude:??cooperative? Mood:??euthymic? Affect:??congruent? Speech:??fluent, unimpaired? Judgment:??appears intact? Insight:??appears intact? Thought process:??linear? Reliability:??likely reliable source? Delusions or hallucinations:??denies Fund of knowledge:??intact Assessment/Plan Alcohol use disorder, severe, dependence (F10.20):??. Patient was counseled on consequences of halfway excessive ETOH consumption such as damage to thecardiovascular system, memory loss/dementia, falls/injury, cirrhosis, higher risk??for HCC,??liver failure, . ?? Pt has been on campral at home and would like to continue this.?? Once ETOH w/d is complete, can resume pt on campral 666mg PO TID. Pt reporting he has bottles at home, so likely do not need to prescribe on d/c. ?? Pt is connected with a recovery manager, and will be following on contacts he has for psychiatric care. Pt was interested in getting into [facility] in [place], citing that someone told him he would be accepted with a referral from [facility]. Though in recent history, [facility] has usually declined pts admitted here. Addiction manufacturing team leader is aware and will follow up - if able to refer pt, this will be completed and will notify primary team about any bed availability. ?? Continue with CIWA scoring and scheduled phenobarbital, taper as tolerated as symptoms improve. Would not recommend continuing beyond 5th day of admission. ?? Sent update via??[employer] to Dr Draper. Addiction??Service will sign off at this time. Thank you for allowing us to participate in the careof this patient. Please contact me with any questions or concerns. Problem List/Past Medical History Ongoing Alcohol dependence Alcohol withdrawal seizure Anxiety Bipolar disorder COVID-19 COVID-19 Gastritis Hepatic steatosis History of seizure due to alcohol withdrawal Intractable vomiting Obese class I Obese class I Medications Inpatient Acetaminophen Tablet, 650 mg, By Mouth, Every 4 hours, PRN clonazePAM 0.5 mg oral tablet, 0.5 mg, By Mouth, Every 12 hours, PRN Docusate Sodium Capsule, 100 mg= 1 capsule, By Mouth, 2 times a day, PRN Enoxaparin Inj, 40 mg= 0.4 mL, Subcutaneous Injection, Daily Folic Acid Tablet, 1 mg, By Mouth, Daily GuaiFENEsin /Dextromethorphan Liquid, 10 mL, By Mouth, 4 times a day, PRN Melatonin Tablet, 3 mg, By Mouth, Daily at bedtime, PRN MiraLax Powder, 17 Gm= 1 pack/packet, By Mouth, Daily, PRN Multivitamin Tablet, 1 tablet, By Mouth, Daily NaCL 0.9% Flush, 3 mL, IV Push, Every 8 hours NaCL 0.9% Flush, 3 mL, IV Push, Every 8 hours, PRN pantoprazole 40 mg oral delayed release tablet, 40 mg, By Mouth, Daily Phenobarbital Tablet, 30 mg, By Mouth, 2 times a day Pyridoxine Tablet, 50 mg, By Mouth, Daily Senna Tablet, 8.6 mg= 1 tablet, By Mouth, 2 times a day, PRN Thiamine Tablet, 100 mg, By Mouth, 2 times a day Home acamprosate 333 mg oral delayed release tablet, 666 mg= 2 tablet, By Mouth, 3 times a day cholecalciferol 400 intl units oral capsule, 10 mcg= 1 capsule, By Mouth, Daily clonazePAM 0.5 mg oral tablet, 0.5 mg= 1 tablet, By Mouth, Every 12 hours, PRN folic acid 1 mg oral tablet, 1 mg= 1 tablet, By Mouth, Daily multivitamin Multiple Vitamins oral tablet, 1 tablet, By Mouth, Daily Outpatient Physical Therapy., See Instructions pantoprazole 40 mg oral delayed release tablet, 40 mg= 1 tablet, By Mouth, Daily, 1 refills pyridoxine 50 mg oral tablet, 50 mg, By Mouth, Daily sucralfate 1 gm oral tablet, 1 Gm= 1 tablet, By Mouth, 4 times a day, 1 refills thiamine 100 mg oral tablet, 100 mg, By Mouth, 2 times a day Vitamin C 500 mg oral tablet, 500 mg= 1 tablet, By Mouth, Daily Vraylar 6 mg oral capsule, 6 mg= 1 capsule, By Mouth, Daily Zofran ODT 4 mg oral tablet, disintegrating, 1 tablet, By Mouth, Every 8 hours, PRN Allergies NKA Social History Alcohol Use: Current. Frequency: Daily. Type: Beer. Electronic Cigarette/Vaping Electronic Cigarette Use: Never. Exercise Self assessment: Excellent condition. Regular exercise: Yes. Exercise frequency: Daily. Exercise type: walking. Substance Abuse Use: Past. Type: Marijuana. Substance abuse in household: No. Frequency: 1-2 times per month. Started at age: 47 Years. Tobacco Use: Never (less than 100 in lifetime). Immunizations Vaccine Date Status [id number] 12y+ bivalent booster vax 06/13/2022 Recorded SARS-CoV-2 (COVID-19) mRNA-1273 vaccine 08/02/2021 Recorded SARS-CoV-2 (COVID-19) mRNA-1273 vaccine 01/26/2021 Recorded SARS-CoV-2 (COVID-19) mRNA-1273 vaccine 12/28/2020 Recorded tetanus/diphtheria/pertussis, acel(Tdap) 01/05/2019 Given * Alvarado CHANG, Bonnie: PERFORM, MODIFY, MODIFY Event Display: Consultation Note Authored Date: Patient: ??LENKA RUVALCABA ? Age:??47 Years?Sex:??Male?:??1975?? Chief Complaint/Reason for Consultation Screened for SI History of Present Illness Lenka is a 47yo male with history of alcohol abuse, fatty liver, thrombocytopenia, ?bipolar disorder, unspecified psychosis, anxiety who presented to the emergency room for??concerns for alcohol withdrawal, found to be COVID positive. ?? Pt known to this service through previous assessments. As per records, the patient was admitted??on05/11 - 05/24 with??alcohol withdrawal and was found to be COVID-positive on 05/11.?? He was subsequently discharged home and unfortunately returned again on 05/31 after??a fall??felt to be secondary to intoxication.?? He was subsequently discharged??and now returns with multiple complaints.?? He states that he has been very anxious and has been drinking heavily recently??however he expresses the desire??to stop drinking and pursue detox.?? It appears he was somewhat inebriated on initial presentation??to the ER.?? He also??explains that after his fall he has been having??headaches with poor estrada ce issues, myalgias??and even some auditory and visual hallucinations. ?? Pt seen in his room this afternoon, reports he is struggling today with both withdrawal symptoms (feels unwell, shakes, worried about seizures, nauseous) and also feels severe weakness and dizziness from his COVID he believes. Pt does endorse worsening alcohol use over the last several months and is looking for addiction treatment. He does endorse recent low mood, recent SI but none currently andpoor sleep. Pt reports he has psychiatric providers through [facility] and has been taking his medications. He reports he feels safe in the hospital. ? Past Psychiatric History Dx ?bipolar disorder, unspecified psychosis,??depression, anxiety, alcohol use disorder. Remote hx of suicide attempt by overdose on Tylenol PM in adolescence. Prescriber hx??Geoffrey Quigley. Currently on Vraylar 6mg, Klonopin 0.5m BID anxiety. Seen by psych consult in 11/2021 for paranoia, was felt to be either baseline paranoia or alcohol-related, did not meet criteria for IPLOC at that time. He was IPLOC at [facility] from 07/25 to 07/31, for similar presentation. Review of Systems 10 point review of systems negative except Pertinent positives as above noted.?? Objective Vital Signs?? Temperature: 98.2 DegF (06/05/23 08:02:00) Temperature Route: Oral (06/05/23 08:02:00) Pulse Rate: 67 bpm (06/05/23 09:37:00) Respiratory Rate: 20 br/min (06/05/23 09:37:00) Systolic Blood Pressure: 123 mm Hg (06/05/23 09:37:00) Diastolic Blood Pressure: 77 mm Hg (06/05/23 09:37:00) Blood pressure sites: Arm, right (06/05/23 08:02:00) Mean Arterial Pressure: 92 mm Hg (06/05/23 08:02:00) Pulse Pressure: 46 mm Hg (06/05/23 08:02:00) Oxygen Saturation: 98 % (06/05/23 08:02:00) Mode of Delivery (Oxygen): Room air (06/05/23 08:02:00) Early Warning Score: 0 (06/05/23 09:37:55) ? Physical Exam ?? Mental Status Exam: Appearance: hospital garb, looks unwell Attitude: cooperative. ? Motor activity: calm. ? Mood: anxious. ? Affect: appropriate. ? Speech: fluent, unimpaired. ? Perception: no impairment. ? Orientation: intact. ? Memory: intact. ? Judgment: intact. ? Insight: intact. ? Thought process: goal-directed. ? Reliability: fair Suicidality/self-destructive behavior: none. ? Homicidality/violence: none. ? Group Detail Date Value w/Units Flags Normal Range Normal Reference Text Comment Ind BLOOD COUNT & DIFF WBC 06/05/2023 06:42:00 EDT 5.9 k/mm3 ?? 4.0-11.0 ? BLOOD COUNT & DIFF RBC 06/05/2023 06:42:00 EDT 3.91 m/mm3 L 4.70-6.10 ? BLOOD COUNT & DIFF Hgb 06/05/2023 06:42:00 EDT 12.5 Gm/dL L 13.7-17.1 ? BLOOD COUNT & DIFF Hct 06/05/2023 06:42:00 EDT 37.0 % L 40.5-50.0 ? CHEM GENERAL Sodium 06/05/2023 06:42:00 EDT 140 mmol/L ?? 133-145 ? CHEM GENERAL Potassium 06/05/2023 06:42:00 EDT 3.4 mmol/L L 3.6-5.2 ? CHEM GENERAL Chloride 06/05/2023 06:42:00 EDT 101 mmol/L ?? 98-107 ? CHEM GENERAL Bicarbonate Level 06/05/2023 06:42:00 EDT 26 mmol/L ?? 22-29 ? CHEM GENERAL Anion Gap 06/05/2023 06:42:00 EDT 13? 4-17 ? CHEM GENERAL BUN 06/05/2023 06:42:00 EDT 6 mg/dL ?? 6-20 ? CHEM GENERAL Creatinine-Blood 06/05/2023 06:42:00 EDT 0.5 mg/dL L 0.7-1.2 ? CHEM GENERAL Estimated GFR Creatinine 06/05/2023 06:42:00 EDT 124 ML/MIN/1.73 M2 ? Y ENDOCRINE/TUMOR MARKER TSH 06/04/2023 18:49:00 EDT 2.30 uIU/mL ?? 0.4-4.2 ? TOXICOLOGY/TDM Ethanol, Serum or Plasma 06/04/2023 18:49:00 EDT 298 mg/dL ABN ? Y VIROLOGY COVID-19 PCR Result 05/31/2023 16:16:00 EDT POSITIVE?? ABN ? Y ? [id number] Ventricular Rate: 82 ??BPM Atrial Rate: 82 ??BPM P-R Interval: 158 ??ms QRS Duration: 96 ??ms Q-T Interval: 420 ??ms QTC Calculation(Bazett): 490 ??ms P [place]: 2 ??degrees R [place]: 29 ??degrees T [place]: 14 ??degrees Normal sinus rhythm Normal ECG ?? Assessment/Plan Lenka is a 47yo male with history of alcohol abuse, fatty liver, thrombocytopenia, ?bipolar disorder, unspecified psychosis, anxiety who presented to the emergency room for??concerns for alcohol withdrawal, found to be COVID positive. ?? Pt presenting with ongoing physical symptoms of likely withdrawal and malaise/fatigue likely 2/2 toCOVID. Pt endorses worsening alcohol??intake over the last few weeks??and came to the hospital for detox and possible rehab treatment. Pt endorses hx of alcohol withdrawals as well. Pt does endorse recent worsening on low mood and??anxiety, reports has been medicating with alcohol. Reports recent SI but none currently, endorses I am scared to . Feels safe in the hospital. Would recommend to restart home Klonopin as Pt does take it regularly. Unfortunately we do not haveVraylar on formulary and given Qtc want to avoid antipsychotics for now. Pt does not need a 1:1 for SI, awaiting addiction consult. ? Dx: Alcohol use hx of Bipolar vs Unspecified??Schizophrenia Spectrum and Other??Psychotic??Disorder ? Recommendations: -Restart home Klonopin -Can offer prn Abilify 2mg TID for hallucinations/agitation/anxiety -Continue??to monitor Alcohol withdrawal -Does not need a 1:1 for SI or Psychiatric admission at this time ? Histories Allergies Allergies ?(Active and Proposed Allergies Only) NKA? (Severity: Unknown severity, Onset: Unknown) ? Past Medical History/Problem List Active Problems??(10) Alcohol dependence Alcohol withdrawal seizure Anxiety Bipolar disorder COVID-19 COVID-19 Gastritis Hepatic steatosis History of seizure due to alcohol withdrawal Intractable vomiting ? Past Surgical History No surgery history documented. ? Social History Alcohol Details:??Use: Current. ??Frequency: Daily. ??Type: Beer. Details:??Use: Current. ??Frequency: Daily. ??Type: Liquor. Details:??Use: Current. ??Frequency: Daily. ??Type: Beer. ??Other: Daily reportedly 2-24oz. Exercise Details:??Self assessment: Excellent condition. ??Regular exercise: Yes. ??Exercise frequency: Daily. ??Exercise type: walking. Substance Abuse Details:??Use: Never. Details:??Use: Never. Details:??Use: Past. ??Type: Marijuana. ??Substance abuse in household: No. ??Frequency: 1-2 times per month. ??Started at age: 47 Years. Tobacco Details:??Use: Never (less than 100 in lifetime). Details:??Use: Never (less than 100 in lifetime). Electronic Cigarette/Vaping Details:??Electronic Cigarette Use: Never. ? Psychosocial History ?Born and raised locally. Lives alone in [place]. Family lives nearby but his parents andbrother struggle with substance use which is a big stressor for him. Has [facility]NA support. Never , no children, no current relationship. Christian. Some college. 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 Receives SSDI and other gov't assistance. No known legal hx, trauma hx, hx. ? Family History Mother, father, brother with opiate abuse; mother has been psychiatrically hospitalized denies FHx of known suicide attempt or completion ? Medications Home Medications Acamprosate (acamprosate 333 mg oral delayed release tablet)?2?tab(s)?666?Milligram?By Mouth?3 times a day?PCP will provide Refills Ascorbic Acid (Vitamin C 500 mg oral tablet)?1?tab(s)?500?Milligram?By Mouth?Daily cariprazine (Vraylar 6 mg oral capsule)?1?capsule?6?Milligram?By Mouth?Daily Cholecalciferol (cholecalciferol 400 intl units oral capsule)?1?capsule?10?Microgram?By Mouth?Daily Clonazepam (clonazePAM 0.5 mg oral tablet)?1?tab(s)?0.5?Milligram?By Mouth?Every 12 hours?as needed?Anxiety?for 7?Days Durable Medical Equipment (Outpatient Physical Therapy.)?See Instructions?Outpatient PhysicalTherapy. Folic Acid (folic acid 1 mg oral tablet)?1?Milligram?1?tablet?By Mouth?Daily Multivitamin (multivitamin Multiple Vitamins oral tablet)?1?tab(s)?By Mouth?Daily Ondansetron (Zofran ODT 4 mg oral tablet, disintegrating)?1?tab(s)?By Mouth?Every 8 hours?as needed?as needed for nausea/vomiting Pantoprazole (pantoprazole 40 mg oral delayed release tablet)?1?tab(s)?40?Milligram?By Mouth?Daily Pyridoxine (pyridoxine 50 mg oral tablet)?50?Milligram?By Mouth?Daily?for 90?Days Sucralfate (sucralfate 1 gm oral tablet)?1?gram?1?tablet?By Mouth?4 times a day Thiamine (thiamine 100 mg oral tablet)?100?Milligram?By Mouth?2 times a day?for 90?Days ? Inpatient Medications Medications (15) Active SCHEDULED: (6) Folic Acid 1 mg Tablet (Folic Acid Tablet) ??1 mg, By Mouth, Daily Multivitamin Tablet ??1 tablet, By Mouth, Daily NaCl 0.9% Flush 3ml (NaCL 0.9% Flush) ??3 mL, IV Push, Every 8 hours Pantoprazole 40 mg EC Tablet (pantoprazole 40 mg oral delayed release tablet) ??40 mg, By Mouth, Daily Pyridoxine 50 mg Tablet (Pyridoxine Tablet) ??50 mg, By Mouth, Daily Thiamine 100 mg Tablet (Thiamine Tablet) ??100 mg, By Mouth, 2 times a day CONTINUOUS: (0) PRN: (9) Acetaminophen 325 mg Tablet (Acetaminophen Tablet) ??650 mg, By Mouth, Every 4 hours Docusate Sodium 100 mg Capsule (Docusate Sodium Capsule) ??100 mg 1 capsule, By Mouth, 2 times a day Melatonin 3 mg Tablet (Melatonin Tablet) ??3 mg, By Mouth, Daily at bedtime NaCl 0.9% Flush 3ml (NaCL 0.9% Flush) ??3 mL, IV Push, Every 8 hours Ondansetron 2mg/mL Inj (2mL Vial) (Ondansetron Inj) ??4 mg, IV Push Slowly, Every 30 minutes Phenobarbital 130 mg/mL Inj (Phenobarbital Inj) ??260 mg 2 mL, IV Push, Once Phenobarbital 130 mg/mL Inj (Phenobarbital Inj) ??130 mg 1 mL, IV Push, Every 2 hours Polyethylene Glycol 17 Gm Powder (MiraLax Powder) ??17 Gm 1 pack/packet, By Mouth, Daily Senna Tablet ??8.6 mg 1 tablet, By Mouth, 2 times a day ? Results ? Blood Glucose Trend Glucose Level:??127 mg/dL??High (06/04/23 18:49:00) ? CBC, CBC w/Diff?? CBC?? Differential?? WBC: 5.9 k/mm3 (06:42) Abs. Neut: 3.2 k/mm3 (18:49) RBC:??3.91 m/mm3??Low (06:42) Abs. Lymph: 2.4 k/mm3 (18:49) Hct:??37 %??Low (06:42) Abs. Ashe: 0.6 k/mm3 (18:49) RDW-SD: 44.9 femtoliters (06:42) Abs. Eo: 0.2 k/mm3 (18:49) Nucleated RBC (Automated): 0 #/100 WBC'S (06:42) Abs. Baso: 0.1 k/mm3 (18:49) Abs. NRBC: 0 k/mm3 (06:42) Neut %: 49.9 % (18:49) ?? Lymph %: 36.2 % (18:49) ?? Ashe %: 9.6 % (18:49) ?? Eos %: 2.9 % (18:49) ?? Baso %: 0.9 % (18:49) ?? Imm Gran: 0.5 % (18:49) ?? Abs. Imm Gran: 0 k/mm3 (18:49) ? LFT Albumin: 4.1 Gm/dL (18:49) Alkaline Phosphatase: 114 units/L (18:49) ALT (SGPT): 30 units/L (18:49) AST (SGOT):??47 units/L??High (18:49) Bilirubin, Direct: <0.2 (18:49) Bilirubin, Indirect: Direct bilirubin is less than the measureable limit. Therefore, indirect (18:49) Bilirubin, Total: 0.3 mg/dL (18:49) ?? Urinalysis Est Creatinine Clearance: 183.99 mL/min (07:17) Est Creatinine Clearance: 114.99 mL/min (01:14) ? Note * Sisi Ness RN: PERFORM Event Display: Discharge/Transfer Note Hospital Authored Date: [id number] Nursing Discharge Note Entered On: 06/07/2023 10:55 EDT Performed On: 06/07/2023 10:54 EDT by Sisi Ness RN Nursing Discharge Note 2 Discharge Time : 06/07/2023 10:54 EDT Discharge Level of Care at Discharge : Home/Skilled Nursing/Foster Care Patient Left Unit Via : Ambulatory Patient Accompanied Off Unit with : Other: self DC Instructions Provided & Signed by Pt : Yes Patient Understands D/C Instructions : Yes Patient Instructions Discharge Signed : Yes Did Pt have Specialty Bed or Wound Vac : No Sisi Ness RN - 06/07/2023 10:54 EDT * Bonny CHANG, Jose H: PERFORM, MODIFY Event Display: Discharge/Transfer Note Hospital Authored Date: Patient: ??LENKA RUVALCABA ? Age:??47 Years?Sex:??Male?:??1975?? Patient Information Discharge Location: Primary Care Physician: Harman Vang MD Admit Date/Time: 06/04/23 23:29 Discharge Disposition Discharge Disposition: Home: No Services Discharge Diagnosis Alcohol use disorder, severe, dependence (F10.20) Alcohol use with withdrawal (F10.939) Anxiety and depression (F41.9) Fall (W19.XXXA) Bipolar disorder Hepatic steatosis ?? _ Discharge Medications Acamprosate (acamprosate 333 mg oral delayed release tablet)?2?tab(s)?666?Milligram?By Mouth?3 times a day?PCP will provide Refills Ascorbic Acid (Vitamin C 500 mg oral tablet)?1?tab(s)?500?Milligram?By Mouth?Daily cariprazine (Vraylar 6 mg oral capsule)?1?capsule?6?Milligram?By Mouth?Daily Cholecalciferol (cholecalciferol 400 intl units oral capsule)?1?capsule?10?Microgram?By Mouth?Daily Clonazepam (clonazePAM 0.5 mg oral tablet)?1?tab(s)?0.5?Milligram?By Mouth?Every 12 hours?as needed?Anxiety?for 7?Days Durable Medical Equipment (Outpatient Physical Therapy.)?See Instructions?Outpatient PhysicalTherapy. Folic Acid (folic acid 1 mg oral tablet)?1?Milligram?1?tablet?By Mouth?Daily Multivitamin (multivitamin Multiple Vitamins oral tablet)?1?tab(s)?By Mouth?Daily Ondansetron (Zofran ODT 4 mg oral tablet, disintegrating)?1?tab(s)?By Mouth?Every 8 hours?as needed?as needed for nausea/vomiting Pantoprazole (pantoprazole 40 mg oral delayed release tablet)?1?tab(s)?40?Milligram?By Mouth?Daily Pyridoxine (pyridoxine 50 mg oral tablet)?50?Milligram?By Mouth?Daily?for 90?Days Sucralfate (sucralfate 1 gm oral tablet)?1?gram?1?tablet?By Mouth?4 times a day Thiamine (thiamine 100 mg oral tablet)?100?Milligram?By Mouth?2 times a day?for 90?Days ? Hospital Course ?? 47-year-old male recent covid infection??admitted??with alcohol intoxication and concerns for imminent??withdrawal, headaches, poor balance, recent fall with head injury. Alcohol withdrawal successfully managed and patient discharged per his wishes. ?? -No symptoms to suggest COVID infection, therefore COVID antigen checked and was negative, COVID isolation discontinued ?? -Patient with high CIWA scores and withdrawal, started on scheduled phenobarbital with good response and patient dc'ed per his wishes -Addiction team agrees with management, recommend initiation of Campral at discharge and they will connect him with the recovery manager, addiction manufacturing team leader will follow up on if patient can be admitted to [facility] in [place] down the line. ? Alcohol use disorder, severe, dependence (F10.20):??. As noted above he has been drinking heavily recently His alcohol level was elevated on arrival to the ER??showed signs of withdrawal Managed with phenobarbital Wanted to be discharged 06/07, CIWA not scoring at time of dc, just base anxiety, dc;ed in [place] condition ? Anxiety and depression (F41.9):??. Psychiatry consult??in [facility], they have cleared him for discharge Klonopin at home will be resumed for anxiety management ? Fall (W19.XXXA):??. Presumably secondary to intoxication although??history is unclear as the patient has little memory of the event -PT recommended rehab for now but this is in setting of patient's intoxication, ambulating well on 06/07, showered, normal gate, discharged home Has head ce in laceration from 05/31 ED visit, spoke with trauma surgery and they statespatientcan have these removed by PCP 06/11, patient is aware ? COVID (U07.1):??. Initial diagnosis on 05/11 COVID antigen 06/06 negative, does not need isolation ? Objective Measurements?? Height: 175 cm (06/07/23) Weight: 103.8 kg (06/05/23) Dry Weight: 103.8 kg (06/05/23) Body Mass Index:??33.89 kg/m2??Critical (06/05/23) ? Vital Signs?? Temperature: 98.1 DegF (06/07/23 07:34:00) Temperature Route: Oral (06/07/23 07:34:00) Pulse Rate: 62 bpm (06/07/23 07:34:00) Respiratory Rate: 20 br/min (06/07/23 07:34:00) Systolic Blood Pressure: 130 mm Hg (06/07/23 07:34:00) Diastolic Blood Pressure:??90 mm Hg??High (06/07/23 07:34:00) Blood pressure sites: Arm, left (06/07/23 07:34:00) Mean Arterial Pressure: 103 mm Hg (06/07/23 07:34:00) Pulse Pressure: 40 mm Hg (06/07/23 07:34:00) Oxygen Saturation: 96 % (06/07/23 07:34:00) Mode of Delivery (Oxygen): Room air (06/07/23 07:34:00) Early Warning Score: 0 (06/07/23 07:34:57) ? . Physical Exam ?? Constitutional: Alert, in no acute distress. Anxious. Normal gait walking around room Mental Status: Oriented to person, place and time. Respiratory: Clear to auscultation and percussion. No wheezing, rales or rhonchi. Cardiovascular: S1 S2 regular. No murmurs, rubs or gallops. Gastrointestinal: Abdomen soft, non-tender, non-distended. Normal bowel sounds. No pulsatile mass. No hepatosplenomegaly. Genitourinary: No costovertebral angle tenderness. Neurologic: Cranial nerves II-XII grossly intact. No focal neurological deficits. Flexor plantar response.? Pending Results Add On Lab Order ordered on 06/04/2023 Add On Lab Order ordered on 06/05/2023 Patient Education Titles Alcohol Addiction?? Follow-Up Appointments Added Follow Up ?Time Frame ?Comments Name Harman CHANG?1 week: call to discuss follow up visit Patient Instructions ?? -You were admitted due to alcohol intoxication and withdrawal was managed with medications -You felt in stable enough condition to return home and were discharged per your wishes -Your COVID updated test was negative -Please follow-up with your primary care physician and alcohol recovery manager ?? Post Discharge Care Diet: ??Regular Diet ?? Activity: ??As tolerated ?? Code Status: ??Full Resuscitation ?? Condition: ??Stable ?? Prognosis: ??Fair ?? Discharge ?06/07/23 9:03:00 EDT Discharge Prescriptions ?ePrescribed, 06/07/23 9:04:00 EDT Home Health Face to Face ^HomeHealthFTF Results Discharge Labs BLOOD COUNT & DIFF WBC 8.4 k/mm3 ()?? 06/06/2023 08:40 RBC 4.45 m/mm3 (Low)?? 06/06/2023 08:40 Hgb 14.1 Gm/dL ()?? 06/06/2023 08:40 Hct 40.8 % ()?? 06/06/2023 08:40 MCV 91.7 femtoliters ()?? 06/06/2023 08:40 MCH 31.7 pg ()?? 06/06/2023 08:40 MCHC 34.6 g/dL ()?? 06/06/2023 08:40 Platelet Count 198 k/mm3 ()?? 06/06/2023 08:40 RDW-SD 41.7 femtoliters ()?? 06/06/2023 08:40 MPV 10.5 femtoliters ()?? 06/06/2023 08:40 Nucleated RBC (Automated) 0.0 #/100 WBC'S ()?? 06/06/2023 08:40 Abs. NRBC 0.0 k/mm3 ()?? 06/06/2023 08:40 Abs. Neut 5.7 k/mm3 ()?? 06/06/2023 08:40 Abs. Lymph 1.8 k/mm3 ()?? 06/06/2023 08:40 Abs. Ashe 0.7 k/mm3 ()?? 06/06/2023 08:40 Abs. Eo 0.2 k/mm3 ()?? 06/06/2023 08:40 Abs. Baso 0.1 k/mm3 ()?? 06/06/2023 08:40 Neut % 67.6 % ()?? 06/06/2023 08:40 Lymph % 21.0 % ()?? 06/06/2023 08:40 Ashe % 8.1 % ()?? 06/06/2023 08:40 Eos % 2.4 % ()?? 06/06/2023 08:40 Baso % 0.7 % ()?? 06/06/2023 08:40 Imm Gran 0.2 % ()?? 06/06/2023 08:40 Abs. Imm Gran 0.0 k/mm3 ()?? 06/06/2023 08:40 ?? CARDIAC High Sensitivity Troponin (HSTnT) 8 ng/L ()?? 06/05/2023 06:42 ? CHEM GENERAL Sodium 136 mmol/L ()?? 06/06/2023 08:40 Potassium 4.2 mmol/L ()?? 06/06/2023 08:40 Chloride 97 mmol/L (Low)?? 06/06/2023 08:40 Bicarbonate Level 26 mmol/L ()?? 06/06/2023 08:40 Anion Gap 13 ()?? 06/06/2023 08:40 Glucose Level 97 mg/dL ()?? 06/06/2023 08:40 BUN 4 mg/dL (Low)?? 06/06/2023 08:40 Creatinine-Blood 0.6 mg/dL (Low)?? 06/06/2023 08:40 Estimated GFR Creatinine 119 ML/MIN/1.73 M2 ()?? 06/06/2023 08:40 Calcium 8.4 mg/dL (Low)?? 06/04/2023 18:49 Calcium, Ionized pH Corrected 1.21 mmol/L ()?? 06/06/2023 08:40 Phosphorus 3.2 mg/dL ()?? 06/06/2023 08:40 Magnesium 1.8 mg/dL ()?? 06/06/2023 08:40 Protein, Total 6.9 Gm/dL ()?? 06/04/2023 18:49 Albumin 4.1 Gm/dL ()?? 06/04/2023 18:49 Alkaline Phosphatase 106 units/L ()?? 06/06/2023 08:40 AST (SGOT) 45 units/L (High)?? 06/06/2023 08:40 ALT (SGPT) 29 units/L ()?? 06/06/2023 08:40 Bilirubin, Total 0.9 mg/dL ()?? 06/06/2023 08:40 Bilirubin, Direct 0.3 mg/dL ()?? 06/06/2023 08:40 Bilirubin, Indirect 0.6 mg/dL ()?? 06/06/2023 08:40 ? ENDOCRINE/TUMOR MARKER TSH 2.30 uIU/mL ()?? 06/04/2023 18:49 ? TOXICOLOGY/TDM Ethanol, Serum or Plasma 298 mg/dL (Abnormal)?? 06/04/2023 18:49 Barbiturate Screen, Urine POSITIVE (Abnormal)?? 06/05/2023 18:35 Cannabinoid Screen, Urine POSITIVE (Abnormal)?? 06/05/2023 18:35 Cocaine Metabolite Screen, Urine NONE DETECTED ()?? 06/05/2023 18:35 Benzodiazepine Screen, Urine POSITIVE (Abnormal)?? 06/05/2023 18:35 Amphetamine Screen, Urine NONE DETECTED ()?? 06/05/2023 18:35 Opiate Screen, Urine NONE DETECTED ()?? 06/05/2023 18:35 Fentanyl Screen, Urine Result NONE DETECTED ()?? 06/05/2023 18:35 ?? UA/URINALYSIS Appear/Color, Urine LIGHT YELLOW ()?? 06/05/2023 18:35 Specific Putnam, Urine 1.012 ()?? 06/05/2023 18:35 pH, Urine 7.5 ()?? 06/05/2023 18:35 Albumin, Urine NEGATIVE ()?? 06/05/2023 18:35 Glucose, Urine NEGATIVE ()?? 06/05/2023 18:35 Ketones, Urine NEGATIVE ()?? 06/05/2023 18:35 Bilirubin, Urine NEGATIVE ()?? 06/05/2023 18:35 Hemoglobin, Urine NEGATIVE ()?? 06/05/2023 18:35 Nitrite, Urine NEGATIVE ()?? 06/05/2023 18:35 Leukocyte, Urine 1+ (Abnormal)?? 06/05/2023 18:35 Urobilinogen NORMAL mg/dL ()?? 06/05/2023 18:35 WBC's, Urine 3 /HPF ()?? 06/05/2023 18:35 RBC's, Urine <1 /HPF ()?? 06/05/2023 18:35 ? URINE OTHER Est Creatinine Clearance 153.33 mL/min ()?? 06/06/2023 10:20 ? VIROLOGY COVID-19 Antigen POC Result NEGATIVE (N)?? 06/06/2023 11:00 ? Imaging(s) ?CT Head/Brain W/O Contrast ?? 06/05/2023 09:59??by Temo Zaidi MD ?No evidence of acute intracranial abnormality. ? 42_ minutes spent on discharge * Thi MCCABE, Sisi: PERFORM Event Display: Patient Education/Instruction Authored Date: [id number] Inpatient Adult Discharge Instructions [address] [address] Name: LENKA RUVALCABA : 1975 Visit: 06/04/2023 23:29:00 Current Date: 06/07/2023 10:40 Account: [id number] Inpatient Adult Discharge Instructions We would like to thank you for allowing us to assist you with your healthcare needs. The following includes patient education materials and information regarding your injury/illness. Our entire staffstrives to provide an excellent experience for our patients and their families. PLEASE ENSURE YOU FOLLOW-UP PER THE INSTRUCTIONS BELOW! ?? YOUR OPINION IS IMPORTANT TO US! Please complete the survey you may receive by mail or email. Your feedback will be used to make improvements to the healthcare experiences of our patients and their families. Surveys are administered by [employer] ?? If further treatment with your primary care physician or another doctor is recommended, it is important for you to keep the appointment. Call your primary care physician or return to the Emergency Department immediately if your condition worsens, fails to improve, or new symptoms develop. If you need to find a doctor, you can call [facility] for a referral at [phone] or toll free at [phone]) or log in to [email or web address].. ?? [facility], in keeping with [facility] guidance, no longer requires face masks for staff, patientsor visitors in most situations. Similiar to time spent indoors at other locations, there is the chance that you were exposed to repiratory viruses during your time with us (such as flu or COVID-19). If you develop symptoms concerning for a viral respiratory infection, please seek testing (and treatment if indicated) from your medical provider or home test kit. ?? You can view and manage your care through the patient portal or by using a health care eulogio of your choosing. [employer] is a website that allows you to securely view your medical information including your hospital discharge summary, office visit summaries, medications and follow-up visits. You can also request appointments, renew medications, and request access to your medical information using a health care eulogio of your choosing, or just ask a question. You can enroll at [email or web address] or register during your next office visit. You have been discharged from [facility], Patient Care Unit: W4. If you have any questions regarding these instructions after you leave, please call us and we will be happy to assist you. 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 head injury, covid + 4 days, has some sob Your Diagnosis Alcohol use with withdrawal COVID COVID Alcohol use disorder, severe, dependence Anxiety and depression Fall Tests Performed Below is a partial list of the tests performed during your hospitalization. You may have had other tests and procedures not included in this list. Please discuss all test results with your provider. Alk Phos ALT Amphetamine Urine Screen AST Barbiturate Urine Screen Basic Metabolic Panel Benzodiazepine Urine Screen Bilirubin Total + Direct BUN Cannabinoid Urine Screen CBC CBC w/ Differential Cocaine Urine Screen COVID-19 ANTIGEN POC Creatinine Electrolytes ETHANOL Fentanyl Screen, Urine Glucose Level HEPATIC FUNCTION PANEL Ionized Calcium Magnesium Level Opiate Screen Urine Phosphorus Level Troponin T, High Sensitivity TSH UA CT Head/Brain W/O Contrast XR Chest Portable Primary Care Provider Name Harman CHANG Advance Directive Health Care Proxy on File Yes - Health Care Proxy Discharge Vitals Temperature: 98.1 DegF Height: 175 cm Pulse Rate: 62 bpm Weight: 103.8 kg Respiratory Rate: 20 br/min Body Mass Index:??33.89 kg/m2??Critical Systolic Blood Pressure: 130 mm Hg Body surface area: 2.25 Diastolic Blood Pressure:??90 mm Hg??High ?? Oxygen Saturation: 96 % ?? Studies Pending All tests and labs ordered during this hospital stay have been completed unless listed below. Please discuss all pending results with your provider listed above in these instructions. ?? Add On Lab Order What to do next Instructions From Your Doctor ?? -You were admitted due to alcohol intoxication and withdrawal was managed with medications -You felt in stable enough condition to return home and were discharged per your wishes -Your COVID updated test was negative -Please follow-up with your primary care physician and alcohol recovery manager ?? Discharge Orders Diet:??Regular Diet Activity:??As tolerated Code Status:?? Full Resuscitation Condition:??Stable Prognosis:??Fair You Need to Schedule the Following Appointments Follow Up with??Name Harman CHANG When:??Within 1 week: call to discuss follow up visit Where: ?? Discharge Medications LENKA RUVALCABA :1975 Visit Date:06/04/2023 Medications: Please continue your medications until treatment is completed or stopped by your provider. Medications not listed below should be discontinued. Discuss any questions related to medications with your provider. What How Much When Instructions Next Dose Unchanged Acamprosate (acamprosate 333 mg oral delayed release tablet) 2 tab(s) Oral 3 times a day PCP will provide Refills ?? Tomorrow morning 06/08 Unchanged Ascorbic Acid (Vitamin C 500 mg oral tablet) 1 tab(s) Oral Daily Tomorrow morning 06/08 Unchanged cariprazine (Vraylar 6 mg oral capsule) 1 capsule Oral Daily Tomorrow morning 06/08 Unchanged Cholecalciferol (cholecalciferol 400 intl units oral capsule) 1 capsule Oral Daily Tomorrow morning 06/08 Unchanged Clonazepam (clonazePAM 0.5 mg oral tablet) 1 tab(s) Oral Every 12 hours as needed for Anxiety Duration: 7 Days Every 12 hours as needed for Anxiety Durable Medical Equipment (Outpatient Physical Therapy.) See instructions Outpatient Physical Therapy. ?? Unchanged Folic Acid (folic acid 1 mg oral tablet) 1 tab(s) Oral Daily Tomorrow morning 06/08 Unchanged Multivitamin (multivitamin Multiple Vitamins oral tablet) 1 tab(s) Oral Daily Tomorrow morning 06/08 Unchanged Ondansetron (Zofran ODT 4 mg oral tablet, disintegrating) 1 tab(s) Oral Every 8 hours as needed for as needed for nausea/vomiting Every 8 hours as needed for as needed for nausea/vomiting Unchanged Pantoprazole (pantoprazole 40 mg oral delayed release tablet) 1 tab(s) Oral Daily Tomorrow morning 06/08 Unchanged Pyridoxine (pyridoxine 50 mg oral tablet) 50 Milligram Oral Daily Duration: 90 Days Tomorrow morning 06/08 Unchanged Sucralfate (sucralfate 1 gm oral tablet) 1 tab(s) Oral 4 times a day Tonight 06/07 Unchanged Thiamine (thiamine 100 mg oral tablet) 100 Milligram Oral Twice a day Duration: 90 Days Tonight 06/07 Test Results Below is a partial list of the most recent Laboratory test results done prior to this discharge. You may have had other tests and procedures not included in this list. Please discuss all test resultswith your provider. Est Creatinine Clearance - 153.33 mL/min (06/06/2023) Alk Phos (06/06/2023) ???Alkaline Phosphatase - 106 units/L ALT (06/06/2023) ???ALT (SGPT) - 29 units/L Amphetamine Urine Screen (06/05/2023) ???Amphetamine Screen, Urine - NONE DETECTED AST (06/06/2023) ???AST (SGOT) - 45 units/L Barbiturate Urine Screen (06/05/2023) ???Barbiturate Screen, Urine - POSITIVE Basic Metabolic Panel (06/04/2023) ???Sodium - 145 mmol/L???Potassium - 3.3 mmol/L???Chloride - 103 mmol/L???Bicarbonate Level - 26 mmol/L???Anion Gap - 16???Glucose Level - 127 mg/dL???BUN - 9 mg/dL???Creatinine-Blood - 0.8 mg/dL???Estimated GFR Creatinine - 112 ML/MIN/1.73 M2???Calcium - 8.4 mg/dL Benzodiazepine Urine Screen (06/05/2023) ???Benzodiazepine Screen, Urine - POSITIVE Bilirubin Total + Direct (06/06/2023) ???Bilirubin, Total - 0.9 mg/dL???Bilirubin, Direct - 0.3 mg/dL???Bilirubin, Indirect - 0.6 mg/dL BUN (06/06/2023) ???BUN - 4 mg/dL Cannabinoid Urine Screen (06/05/2023) ???Cannabinoid Screen, Urine - POSITIVE CBC (06/05/2023) ???WBC - 5.9 k/mm3???RBC - 3.91 m/mm3???Hgb - 12.5 Gm/dL???Hct - 37.0 %???MCV - 94.6 femtoliters???MCH - 32.0 pg???MCHC - 33.8 g/dL???Platelet Count - 177 k/mm3???RDW-SD - 44.9 femtoliters???MPV - 10.2 femtoliters???Nucleated RBC (Automated) - 0.0 #/100 WBC'S???Abs. NRBC - 0.0 k/mm3 CBC w/ Differential (06/06/2023) ???WBC - 8.4 k/mm3???RBC - 4.45 m/mm3???Hgb - 14.1 Gm/dL???Hct - 40.8 %???MCV - 91.7 femtoliters???MCH - 31.7 pg???MCHC - 34.6 g/dL???Platelet Count - 198 k/mm3???RDW-SD - 41.7 femtoliters???MPV - 10.5 femtoliters???Nucleated RBC (Automated) - 0.0 #/100 WBC'S???Abs. NRBC - 0.0 k/mm3???Abs. Neut - 5.7 k/mm3???Abs. Lymph - 1.8 k/mm3???Abs. Ashe - 0.7 k/mm3???Abs. Eo - 0.2 k/mm3???Abs. Baso - 0.1 k/mm3???Neut % - 67.6 %???Lymph % - 21.0 %???Ashe % - 8.1 %???Eos % - 2.4 %???Baso % - 0.7 %???Imm Gran - 0.2 %???Abs. Imm Gran - 0.0 k/mm3 Cocaine Urine Screen (06/05/2023) ???Cocaine Metabolite Screen, Urine - NONE DETECTED COVID-19 ANTIGEN POC (06/06/2023) ???COVID-19 Antigen POC Result - NEGATIVE Creatinine (06/06/2023) ???Creatinine-Blood - 0.6 mg/dL???Estimated GFR Creatinine - 119 ML/MIN/1.73 M2 Electrolytes (06/06/2023) ???Sodium - 136 mmol/L???Potassium - 4.2 mmol/L???Chloride - 97 mmol/L???Bicarbonate Level - 26 mmol/L???Anion Gap - 13 ETHANOL (06/04/2023) ???Ethanol, Serum or Plasma - 298 mg/dL Fentanyl Screen, Urine (06/05/2023) ???Fentanyl Screen, Urine Result - NONE DETECTED Glucose Level (06/06/2023) ???Glucose Level - 97 mg/dL HEPATIC FUNCTION PANEL (06/04/2023) ???Protein, Total - 6.9 Gm/dL???Albumin - 4.1 Gm/dL???Alkaline Phosphatase - 114 units/L???AST (SGOT) - 47 units/L? ?ALT (SGPT) - 30 units/L? ?Bilirubin, Total - 0.3 mg/dL? ?Bilirubin, Direct - <0.2 mg/dL???Bilirubin, Indirect - Direct bilirubin is less than the measureable limit. Therefore, indirect Ionized Calcium (06/06/2023) ???Calcium, Ionized pH Corrected - 1.21 mmol/L Magnesium Level (06/06/2023) ???Magnesium - 1.8 mg/dL Opiate Screen Urine (06/05/2023) ???Opiate Screen, Urine - NONE DETECTED Phosphorus Level (06/06/2023) ???Phosphorus - 3.2 mg/dL Troponin T, High Sensitivity (06/05/2023) ???High Sensitivity Troponin (HSTnT) - 8 ng/L TSH (06/04/2023) ???TSH - 2.30 uIU/mL UA (06/05/2023) ???Appear/Color, Urine - LIGHT YELLOW???Specific Putnam, Urine - 1.012???pH, Urine - 7.5???Albumin, Urine - NEGATIVE???Glucose, Urine - NEGATIVE???Ketones, Urine - NEGATIVE???Bilirubin, Urine - NEGATIVE???Hemoglobin, Urine - NEGATIVE???Nitrite, Urine - NEGATIVE???Leukocyte, Urine - 1+???Urobilinogen - NORMAL? ?WBC's, Urine - 3 /HPF? ?RBC's, Urine - <1 /HPF Allergies (NKA means No Known Allergies) NKA Problems Active Problems??(10) Alcohol dependence?? Alcohol withdrawal seizure?? Anxiety?? Bipolar disorder?? COVID-19?? COVID-19?? Gastritis?? Hepatic steatosis?? History of seizure due to alcohol withdrawal?? Intractable vomiting?? Education Materials Below is the list of Educational Leaflet Providered with your Discharge Instructions. Alcohol Addiction?? Valuables and Belongings I fully understand and agree that [facility] accepts no responsibility for all my personal property including clothing, toilet articles, radios, jewelry, dentures, hearing aids, rings, money, or any other property that is in my possession or is brought to me after admission. I understand certain valuables may be placed in a hospital safe for a short period of time. I understand that the hospital is not liable for loss or damage due to accident, fire, or other natural occurrence while said property is in the safe. I accept full responsibility for any personal property that I keep with me, and will not hold the hospital responsible in case of loss or disappearance. I acknowledge that i have been encouraged to send valuables and belongings home. ?? Review of Valuable and Belonging List: With patient, With witness Date for Pt to Sign Valuables/Belongings: 06/06/23 16:30:00 ?? Other Discharge Information ?? Wound Assessment?? Wound Assessment?? Wound Location I: Occipital Wound Type I: Other: Laceration/Hematoma Wound I, Present on Admission: Yes ? Pulmonary Rehab Status?? Pulmonary Rehab Discharge Status?? Respiratory Rate: 20 br/min ? Common Emergency Awareness Tips IS IT A STROKE? Act FAST and Check for these signs: FACE Does the face look uneven? ARM Does one arm drift down? SPEECH Does their speech sound strange? TIME Call at any sign of stroke ?? Heart Attack Signs Chest discomfort: Most heart attacks involve discomfort in the center of the chest and lasts more than a few minutes, or goes away and comes back. It can feel like uncomfortable pressure, squeezing, fullness or pain. Discomfort in upper body: Symptoms can include pain or discomfort in one or both arms, back, neck, jaw or stomach. Shortness of breath: With or without discomfort. Other signs: Breaking out in a cold sweat, nausea, or lightheaded. Remember, MINUTES DO MATTER. If you experience any of these heart attack warning signs, call to get immediate medical attention! ?? Smoking can increase your chances of developing chronic health problems and can cause harmful effects to other family members in your house. If you smoke, you are strongly encouraged to quit. Please call [facility] Link at [phone] or [phone] ([phone]) or log in to [email or web address] for referrals to smoking cessation programs. ?? 107 Suicide & Crisis Lifeline is available 19/03 if you or someone you know needs to find a reason to keep living. By calling 797 you'll be connected to a skilled, trained counselor at a crisis center in your area. INPATIENT DISCHARGE INSTRUCTIONS SIGNATURE PAGE LENKA RUVALCABA Location:[facility] Registration Date and Time:06/04/2023 23:29 EDT Primary Care Physician: Harman Vang MD, Attending Physician: Bonny CHANG, Jose Cotto, I LENKA RUVALCABA, have received the above patient education materials/instructions and have verbalized understanding. If ambulance or transport services are being used I further acknowledge being givena choice of service. ?? If you need to contact me, please call me at this number: . Patient/Mobile Sales Technician Name: Patient/Mobile Sales Technician Signature: Relationship to Patient: Witness Name/Signature: Date: * Jose Draper MD H: PERFORM Event Display: Patient Education Leaflets Authored Date: [id number] Alcohol Addiction ?? 17314 Alcohol Addiction How many times in the past year have you had 5 drinks in a day (men) or 4 drinks in a day (women)? Does your drinking harm yourself or others? Or has it led to other problems with your daily life? Ifso, you may be addicted to alcohol. You may have what's called an alcohol use disorder. Your healthcare provider may make this diagnosis if you have had at least 2 of these problems in a year: ??? You drink alcohol in larger amounts orfor a longer period than you planned. ??? You often want to cut down or control how much you drink.Or you have often failed to do so. ??? You spend a lot of time getting alcohol, using it, or recovering from its use. ??? You crave or have a strong desire or urge to drink. ??? Your drinking makes it hard for you to be responsible at work, school, or home. ??? You keep on drinking even though you have had problems in relationships or social settings because of it. ??? You give up or miss importan t social, work, or other activities because of your drinking. ??? You drink alcohol at times when it's not physically safe, such as drinking then driving. ??? You keep on drinking even though you know it has caused physical or emotional problems. ??? You need more and more alcohol to get the same effects. ??? You hide how much you drink from family and friends. ??? You have withdrawal symptoms oruse alcohol to prevent such symptoms. ??? You have a drink the first thing in the morning to get rid of a hangover or calm yourself. ?? Last Reviewed Date: 2022 ?? [employer]. All rights reserved. This information is not intended as a substitute for professional medical care. Always follow your healthcare professional's instructions. ?? Patient Care team information Care Team Personnel Name: Flory Zapata RN Position: [facility] RN Member Role: Primary Care Nurse Name: Yayo Gamboa RN Position: [facility] RN Member Role: Primary Care Nurse Name: Lilly Van RN Position: [facility] RN Member Role: Primary Care Nurse Name: Rissa Yadav RN Position: [facility] SN RN Member Role: Primary Care Nurse Name: Saul Fernandez RN Position: [facility] RN Member Role: Primary Care Nurse Name: Adilson Tyler RN Position: [facility] RN Supv Member Role: Primary Care Nurse Name: Gely Puentes RN Position: [facility] RN Member Role: Primary Care Nurse Name: Francis Ritter RN Position: [facility] RN Member Role: Primary Care Nurse Name: Misael Carty RN Position: S RN Member Role: Primary Care Nurse Name: Maurice Pathak RN Position: [facility] RN Member Role: Primary Care Nurse Name: Elinor Iglesias Position: [facility] HMO Reviewer Member Role: Primary Care Nurse Name: Caitlin Melendez RN Position: [facility] RN Supv Member Role: Primary Care Nurse Name: Bozena Lora LPN Position: [facility] RN Member Role: Primary Care Nurse Name: Reggie Jackson RN Position: S RN Member Role: Primary Care Nurse Name: Rhonda De La O RN Position: S RN Member Role: Primary Care Nurse Name: Sugey Oreilly RN Position: [facility] RN Member Role: Primary Care Nurse Name: Harman Vang MD Position: [facility] Outreach Member Role: PCP Address: Address: [address] [place] [address]- Name: Uriel Reese RN Position: [facility] RN Member Role: Primary Care Nurse Name: Neris Lewis RN Position: [facility] RN Member Role: Primary Care Nurse Name: Darrell Parra RN Position: [facility] RN Member Role: Primary Care Nurse Name: Rissa Baker RN Position: [facility] RN Supv Member Role: Primary Care Nurse Name: Veronica Howell RN Position: [facility] RN Member Role: Primary Care Nurse Name: Natalia Harris RN Position: [facility] RN Member Role: Primary Care Nurse Name: Abiola CONTE Attending Position: [facility] ED Medicine MD Name: Monica Gale RN Position: [facility] ED RN W/OE and Tasks Member Role: Patient Care Provider Name: Chante Hooker Position: [facility] ED TA [facility] Member Role: Patient Care Provider Care Team Related Persons Name: DONOVAN RUVALCABA Address: home [place] [address] Name: KELLY RIVERA Address: home [facility] [address]
--- OUTSIDE RECORDS SUMMARY | 2023-07-02 16:08 | XMS_ITS | Continuity of Care Document ---
Author Name Unknown Organization [facility] Address [address] [place] [address]- Care Team Providers Care Behavioral Modification Assistant Name Role Phone Name Harman CHANG Primary Care Physician Encounter [facility] Date(s): 05/08/23 - 05/09/[address] [address]- Discharge Disposition: A-D/C Home Attending Physician: Alexus Han MD Admitting Physician: Alexus Han MD Referring Physician: Not on Staff, Referring MD Allergies, Adverse Reactions, Alerts No Known Allergies Immunizations Given and Recorded Vaccine Date Status Refusal Reason [id number] 12y+ bivalent booster vax 06/13/22 Recorded SARS-CoV-2 [...] 0 Refills, Maintenance, 04/18/23 8:20:00 EDT, Tablet, [facility], Partial fill upon patient request if the prescription is for a schedule II opioid drug.... Start Date: 04/18/23 Status: Ordered cholecalciferol 400 intl units oral capsule 1 capsule = 10 mcg, By Mouth, Daily, # 30 capsule, 0 Refills, Maintenance, 07/31/22 8:07:00 EST, Capsule, [facility], Partial fill upon patient request if the prescription is for a schedule II opioid drug., 176, cm, 07/30/22 18:22:... Start Date: 07/31/22 Status: Ordered clonazePAM 0.5 mg oral tablet 1 tablet = 0.5 mg, By Mouth, Every 12 hours, PRN Anxiety, # 14 tablet, 0 Refills, Maintenance, 04/18/23 9:59:00 EDT, Tablet, [facility], Partial fill upon patient request if the prescription is for a schedule II opioid drug., 176, cm, 08... Start Date: 04/18/23 Stop Date: 04/25/23 Status: Ordered folic acid 1 mg oral tablet 1 mg, 1, tablet, By Mouth, Daily, # 30 tablet, Refills 0, Tot. Refills 0, Maintenance, 04/04/23 19:05:00 EDT, Route to Pharmacy Electronically, [facility], Partial fill upon patient request if the prescription is for a schedule II... Start Date: 04/04/23 Status: Ordered multivitamin Multiple Vitamins oral tablet 1 tablet, By Mouth, Daily, # 30 tablet, 0 Refills, Maintenance, 04/18/23 10:01:00 EDT, Tablet, [facility], Partial fill upon patient request [...] Dry Weight Start Date: 04/18/23 Status: Ordered sucralfate 1 gm oral tablet 1 Gm, 1, tablet, By Mouth, 4 times a day, # 120 tablet, Refills 1, Tot. Refills 1, Maintenance, 04/18/23 10:00:00 EDT, Route to Pharmacy Electronically, [facility], Partial fill upon patient request if the prescription is for a schedule... Start Date: 04/18/23 Status: Ordered Vitamin C 500 mg oral tablet 1 tablet = 500 mg, By Mouth, Daily, # 30 tablet, 0 Refills, Maintenance, 07/31/22 8:10:00 EST, Tablet, 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 Confirmed Active Hepatic steatosis Confirmed Active Vital Signs Most recent to oldest [Reference Range]: 1 2 3 Oxygen Saturation [94-100 %] 97 % (05/09/23 1:38 PM) 95 % (05/09/23 12:09 PM) 94 % (05/09/23 12:09 PM) Pulse Rate [55-90 bpm] 67 bpm (05/09/23 1:38 PM) 58 bpm (05/09/23 12:09 PM) 72 bpm (05/09/23 12:09 PM) Blood Pressure [90-138/55-84 mm Hg] 154/105mm Hg *H* (05/09/23 1:38 PM) 166/111mm Hg *H* (05/09/23 12:09 PM) 148/103mm Hg *H* (05/09/23 12:09 PM) Respiratory Rate [16-30 br/min] 15 br/min *L* (05/09/23 1:38 PM) 19 br/min (05/09/23 12:09 PM) 22 br/min (05/09/23 12:09 PM) Temperature [96.8-100.4 DegF] 98.4 DegF (05/09/23 2:09 AM) 98.2 DegF (05/08/23 7:55 PM) 97.7 DegF (05/08/23 6:34 PM) Mode of Delivery (Oxygen) Room air (05/09/23 1:38 PM) Room air (05/09/23 12:09 PM) Room air (05/09/23 12:09 PM) Blood pressure sites Arm, right (05/09/23 1:38 PM) Arm, right (05/09/23 12:09 PM) Temperature Route Oral (05/09/23 2:09 AM) Oral (05/08/23 7:55 PM) Oral (05/08/23 6:34 PM) Social History Social History Type Response Smoking Status Never (less than 100 in lifetime) entered on: 01/28/22 Sex Patient Care team information Care Team Personnel Name: Yayo Gamboa RN Position: [facility] RN Member Role: Primary Care Nurse Name: Lilly Van RN Position: [facility] RN Member Role: Primary Care Nurse Name: Rissa Yadav RN Position: [facility] SN RN Member Role: Primary Care Nurse Name: Saul Fernandez RN Position: [facility] RN Member Role: Primary Care Nurse Name: Adilson Tyler RN Position: [facility] RN Supv Member Role: Primary Care Nurse Name: Gely Ceja RN Position: [facility] RN Member Role: Primary Care Nurse Name: Francis Ritter RN Position: [facility] RN Member Role: Primary Care Nurse Name: Misael Carty RN Position: [facility] RN Member Role: Primary Care Nurse Name: Maurice Pathak RN Position: [facility] RN Member Role: Primary Care Nurse Name: Elinor Iglesias [facility] Review[facility] Member Role: Primary Care Nurse Name: Caitlin Melendez RN Position: [facility] RN Supv Member Role: Primary Care Nurse Name: Bozena Lora LPN Position: [facility] RN Member Role: Primary Care Nurse Name: Reggie Jackson RN Position: [facility] RN Member Role: Primary Care Nurse Name: Rhonda De La O RN Position: [facility] RN Member Role: Primary Care Nurse Name: Sugey Oreilly RN Position: [facility] RN Member Role: Primary Care Nurse Name: Harman Vang MD Position: [facility] Outreach Member Role: PCP Address: Address: [address] [place] [id number]- [place] Name: Uriel Reese RN Position: [facility] RN Member Role: Primary Care Nurse Name: Neris Lewis RN Position: [facility] RN Member Role: Primary Care Nurse Name: Darrell Parra RN Position: [facility] RN Member Role: Primary Care Nurse Name: Veronica Howell RN Position: [facility] RN Member Role: Primary Care Nurse Name: Natalia Harris RN Position: [facility] RN Member Role: Primary Care Nurse Name: Rhiannon Peña RN Position: [facility] RN Member Role: Primary Care Nurse Name: [facility] Attending Position: [facility] ED Attendings Patient Name: El Smith RN Position: [facility] ED RN W/OE and Tasks Member Role: Patient Care Provider Name: Alexus Han MD Position: [facility] ED Medicine MD Member Role: Admitting Physician Address: Address: [address] [facility] [place] [address]- [place] Name: Jennifer Quintanilla Position: [facility] ED TA [facility] Member Role: Patient Care Provider Care Team Related Persons Name: DONOVAN RUVALCABA Address: [place] [address] Name: KELLY RIVERA Address: home [address] [address]
--- OUTSIDE RECORDS SUMMARY | 2023-07-02 16:08 | XMS_ITS | Continuity of Care Document ---
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 Name Role Phone Name Harman CHANG Primary Care Physician Encounter [facility] ACCT R [id number] Date(s): 11/27/22 - 11/28/[address] [address]- Discharge Disposition: A-D/C Home Attending Physician: Tena Humphries MD Admitting Physician: Darby CHANG, Susan Referring Physician: Not on Staff, Referring MD Allergies, Adverse Reactions, Alerts No Known Allergies Immunizations Given and Recorded Vaccine Date Status Refusal Reason [id number] 12y+ bivalent booster vax 06/13/22 Recorded SARS-CoV-2 (COVID-19) mRNA-1273 vaccine 08/02/21 R ecorded SARS-CoV-2 (COVID-19) mRNA-1273 vaccine 01/26/21 R ecorded SARS-CoV-2 (COVID-19) mRNA-1273 vaccine 12/28/20 R ecorded tetanus/diphtheria/pertussis, acel(Tdap) 01/05/19 Given Medications Abilify 10 mg oral tablet 5 mg, By Mouth, Daily at bedtime, # 30 tablet, Refills 1, Tot. Refills 1, Maintenance, 09/01/22 11:30:00 EST, Route to Pharmacy Electronically, [facility], Partial fill upon patient request if the prescription is for a schedule II... Start Date: 09/01/22 Status: Ordered acamprosate 333 mg oral delayed release tablet 2 tablet = 666 mg, By Mouth, 3 times a day, # 180 tablet, 1 Refills, Maintenance, 11/28/22 15:31:00EDT, Tablet, [id number], Partial fill upon patient request if the prescription is for a schedule II opioid drug., 175, cm, 11/27/22 10... Start Date: 11/28/22 Status: Ordered buPROPion 150 mg/24 hours (XL) oral tablet, extended release 1 tablet = 150 mg, By Mouth, Daily in AM, # 30 tablet, 1 Refills, Maintenance, 09/01/22 11:30:00 EST, XL Tablet, [facility], Partial fill upon patient request if the prescription is for a schedule II opioid drug., 1 tablet By Mouth... Start Date: 09/01/22 Status: Ordered cholecalciferol 400 intl units oral capsule 1 capsule = 10 mcg, By Mouth, Daily, # 30 capsule, 0 Refills, Maintenance, 07/31/22 8:07:00 EST, Capsule, [facility], Partial fill upon patient request if the prescription is for a schedule II opioid drug., 176, cm, 07/30/22 18:22:... Start Date: 07/31/22 Status: Ordered clonazePAM 0.5 mg oral tablet 1 tablet = 0.5 mg, By Mouth, Every 12 hours, PRN Anxiety, 0 Refills, Maintenance, 08/28/22 14:15:00EST, Tablet, Partial fill upon patient request if the prescription is for a schedule II opioid drug. Start Date: 08/28/22 Status: Ordered folic acid 1 mg oral tablet 1 mg, 1, tablet, By Mouth, Daily, # 30 tablet, Refills 0, Tot. Refills 0, Maintenance, 07/31/22 8:04:00 EST, Route to Pharmacy Electronically, [facility], Partial fill upon patient request if the prescription is for a schedule II o... Start Date: 07/31/22 Status: Ordered multivitamin Multiple Vitamins oral tablet 1 tablet, By Mouth, Daily, # 30 tablet, 0 Refills, Maintenance, 07/31/22 8:05:00 EST, Tablet, [facility], Partial fill upon patient request if the prescription is for a schedule II opioid drug., 1 tablet By Mouth Daily, 176, cm, 12... Start Date: 07/31/22 Status: Ordered pantoprazole 40 mg oral delayed release tablet 1 tablet = 40 mg, By Mouth, Daily, # 30 tablet, 1 Refills, Maintenance, 07/31/22 8:05:00 EST, EC Tablet, 176, cm, 07/30/22 18:22:00 EST, Height, 91, kg, 07/24/22 18:05:00 EST, Dry Weight Start Date: 07/31/22 Status: Ordered sucralfate 1 gm oral tablet 1 Gm, 1, tablet, By Mouth, 4 times a day, # 120 tablet, Refills 1, Tot. Refills 1, Maintenance, 07/31/22 8:05:00 EST, Route to Pharmacy Electronically, [facility], Partial fill upon patient request if the prescription is for a sche... Start Date: 07/31/22 Status: Ordered traZODone 50 mg oral tablet 50 mg, 1, tablet, By Mouth, Daily at bedtime, # 30 tablet, Refills 1, Tot. Refills 1, Maintenance, 07/31/22 8:07:00 EST, Route to Pharmacy Electronically, [facility], Partial fillupon patient request if the prescription is for a s... Start Date: 07/31/22 Status: Ordered Vitamin C 500 mg oral tablet 1 tablet = 500 mg, By Mouth, Daily, # 30 tablet, 0 Refills, Maintenance, 07/31/22 8:10:00 EST, Tablet, [facility], Partial fill upon patient request if [...] Date: 07/14/21 Status: Ordered Problem List Condition Confirmation Course Effective Dates Status Health St atus Informant Alcohol withdrawal Confirmed Active Bipolar disorder Confirmed Active Chronic alcohol use Confirmed Active Hepatic steatosis Confirmed Active Vital Signs Most recent to oldest [Reference Range]: 1 2 3 Height 175 cm (11/27/22 10:18 AM) 175 cm (11/27/22 7:42 AM) 175 cm (11/27/22 5:07 AM) Weight 102.3 kg (11/27/22 10:18 AM) 102.3 kg (11/27/22 7:42 AM) 102.3 kg (11/27/22 5:07 AM) Oxygen Saturation [94-100 %] 97 % (11/28/22 4:38 PM) 96 % (11/28/22 1:53 PM) 97 % (11/28/22 11:51 AM) Pulse Rate [55-90 bpm] 68 bpm (11/28/22 4:38 PM) 60 bpm (11/28/22 1:53 PM) 70 bpm (11/28/22 11:51 AM) Body Mass Index [18.5-24.99 kg/m2] 33.4 kg/m2 *>HHI* (11/27/22 10:18 AM) 33.4 kg/m2 *>HHI* (11/27/22 7:42 AM) Blood Pressure [90-138/55-84 mm Hg] 174/105mm Hg *H* (11/28/22 4:38 PM) 102/62mm Hg (11/28/22 1:53 PM) 173/44mm Hg *H* (11/28/22 11:51 AM) Respiratory Rate [16-30 br/min] 18 br/min (11/28/22 4:38 PM) 16 br/min (11/28/22 1:53 PM) 18 br/min (11/28/22 11:51 AM) Temperature [96.8-100.4 DegF] 98.5 DegF (11/28/22 4:38 PM) 98.5 DegF (11/28/22 8:12 AM) 98.3 DegF (11/28/22 2:39 AM) Liters per Minute 2 L/min (11/27/22 6:35 AM) Mode of Delivery (Oxygen) Room air (11/28/22 4:38 PM) Room air (11/28/22 1:53 PM) Room air (11/28/22 11:51 AM) Blood pressure sites Arm, right (11/28/22 4:38 PM) Arm, right (11/28/22 1:53 PM) Arm, right (11/28/22 11:51 AM) Temperature Route Oral (11/28/22 4:38 PM) Oral (11/28/22 2:39 AM) Oral (11/27/22 7:36 PM) Dry Weight 102.3 kg (11/27/22 10:18 AM) 102.3 kg (11/27/22 7:42 AM) 102.3 kg (11/27/22 5:07 AM) Weight Obtained Via Patient/family state d (11/27/22 5:07 AM) Dry Weight Obtained Via Patient/family s tated (11/27/22 5:07 AM) Social History Social History Type Response Smoking Status Never (less than 100 in lifetime) entered on: 01/28/22 Sex Admission evaluation note * Tana Garcia DO: MODIFY, MODIFY, MODIFY, PERFORM, MODIFY, MODIFY, MODIFY, MODIFY Event Display: Admission Note Authored Date: Patient: ??LENKA RUVALCABA ? Age:??47 Years?Sex:??Male?:??1975?? Chief Complaint/Reason for Consultation ETOH withdrawal/vomit blood History of Present Illness This is a 47-year-old??man with a past medical history significant for Alcohol use disorder, frequent admissions for alcohol withdrawal, anxiety/depression, prior Hx of SI who presents via EMS for alcohol intoxication.??Upon EMS arrival patient was actively vomiting into a trash bin inside of his apartment it was noted to be clear.?? Patient reports he has been quite motivated to quit alcohol andreduced his intake??to almost nothing??recently.?? Prior to this he reports drinking 1 rack and I would corby this with a gallon of anything.. could be whisky. He reports his sx from decreasing alcohol intake to few??nips and beers started at 12 AM 11/27 with blurry vision, confusion, vomiting, dry heaving, CHRISTINE. He reports he has even passed out a few times and woke up with soiled pants this past week.??Also,??reports earlier he was vomiting bright red blood and unsure if he had a seizure yesterday. He reports when trying to cut back you experience withdrawal symptoms. His last drink was 3/2unknown time. ?? [facility] ED Course Vitals afebrile, HR 70s???80s, RR 16???18, BP 120s???140s/90s, saturating 98% on room air Physical Exam Alert. Tongue fasciculations. Tremulous. Labs CBC WNL.?? PT slightly elevated at 11.5.?? Hypernatremia NA level 149.?? Bicarb 31.?? Glucose level 110.?? BUN/creatinine WNL.?? Hypomagnesemia 1.4.?? ALP 113.?? Lipase 69.?? AST/ALT elevated 82/46.?? T. bili WNL.?? Serum ethanol 166. Treatment phenobarbital load 260, ativan 2, ??folic acid/B6/B1, IV magnesium 2 gm ?? Currently, Patient reports diffuse burning chest pain and abdominal pain. Review of Systems A full review of systems was completed and is otherwise negative except as mentioned in history of present illness. Objective Vital Signs?? Temperature: 98 DegF (11/27/22 05:07:00) Temperature Route: Oral (11/27/22 05:07:00) Pulse Rate: 83 bpm (11/27/22 07:42:00) Respiratory Rate: 18 br/min (11/27/22 07:42:00) Systolic Blood Pressure:??145 mm Hg??High (11/27/22 07:42:00) Diastolic Blood Pressure:??95 mm Hg??High (11/27/22 07:42:00) Blood pressure sites: Arm, left (11/27/22 07:42:00) Mean Arterial Pressure: 112 mm Hg (11/27/22 07:42:00) Pulse Pressure: 50 mm Hg (11/27/22 07:42:00) Oxygen Saturation: 98 % (11/27/22 07:42:00) Liters per Minute: 2 L/min (11/27/22 06:35:00) Mode of Delivery (Oxygen): Room air (11/27/22 07:42:00) Early Warning Score: 6 (11/27/22 07:43:00) ? Physical Exam General:??No acute distress Neck:??Supple, Respiratory:??Clear to auscultation bilaterally, no increased work of breathing, no wheezes/crackles, good aeration to lung bases Cardiovascular:??Normal rate, regular rhythm, no murmurs, peripheral pulses intact Abdomen:??Normal active bowel sounds, soft, non-tender, non-distended, no hepatosplenomegaly Musculoskeletal:??No LE edema Neurologic:??Alert & Oriented. Mild tremulous on exam Skin:??Diaphoretic Psychiatric:??Normal mood/affect, normal cognition, normal judgement Assessment/Plan This is a 47-year-old??man with a past medical history significant for Alcohol use disorder, frequent admissions for alcohol withdrawal, anxiety/depression, prior Hx of SI who presents via EMS for alcohol intoxication.? Alcohol Use Disorder Concern for Alcohol Withdrawal Presented via EMS for alcohol intoxication. Last drink / unknown time. OF note frequent admissionfor alcohol withdrawal most recent 11/05-11/07. work up: Serum alcohol 166 TX: phenobarbital load 260, ativan 2, ??folic acid/B6/B1, IV magnesium 2 gm ON exam- tremulous ?? Plan: CIWA protocol ordered Symptom triggered Ativan in place + scheduled Diazepam 5 TID Continue thiamine, folic acid, B6 Patient would like to start acamprosate at time of DC. 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 Social work consult ?? Alcoholic hepatitis/steatosis Prior work up: Ct A/P 10/2022 Diffuse low-attenuation throughout the liver parenchyma consistent with hepatic steatosis.?? No biliary ductal dilation. ?? Plan: Continue to trend LFTs IF LFTS trending up Counseled patient on alcohol cessation - At this time motivated to quit. ?? Hypernatremia Na level 149 ?? Plan: LR 1L 125cc ? Chronic Medical??Conditions GERD: Continue pantoprazole Depression/anxiety: Continue bupropion 150, trazodone 50, Abilify 5 nightly. Vraylar??6- non formulary. Held home dose Klonopin. ? Quality Measures Code status: FULL DVT prophylaxis: lovenox Diet:??Regular ?? Tana Garcia D.O. Internal Medicine PGY3 Pager: [phone]? Patient seen and management discussed??with attending physician,??Dr. Clark ? Histories Allergies Allergies ?(Active and Proposed Allergies Only) NKA? (Severity: Unknown severity, Onset: Unknown) ? Past Medical History/Problem List Active Problems??(4) Alcohol withdrawal Bipolar disorder Chronic alcohol use Hepatic steatosis ? Past Surgical History No surgery history [...] Details:??Electronic Cigarette Use: Never. ? Psychosocial History ? Family History No family history recorded. ? Medications Home Medications Acamprosate (acamprosate 333 mg oral delayed release tablet)?2?tab(s)?666?Milligram?By Mouth?3 times a day Aripiprazole (Abilify 10 mg oral tablet)?5?Milligram?By Mouth?Daily at bedtime Ascorbic Acid (Vitamin C 500 mg oral tablet)?1?tab(s)?500?Milligram?By Mouth?Daily BuPROpion (buPROPion 150 mg/24 hours (XL) oral tablet, extended release)?1?tab(s)?150?Milligram?By Mouth?Daily in AM cariprazine (Vraylar 6 mg oral capsule)?1?capsule?6?Milligram?By Mouth?Daily Cholecalciferol (cholecalciferol 400 intl units oral capsule)?1?capsule?10?Microgram?By Mouth?Daily Clonazepam (clonazePAM 0.5 mg oral tablet)?1?tab(s)?0.5?Milligram?By Mouth?Every 12 hours?as needed?Anxiety Folic Acid (folic acid 1 mg oral tablet)?1?Milligram?1?tablet?By Mouth?Daily Multivitamin (multivitamin Multiple Vitamins oral tablet)?1?tab(s)?By Mouth?Daily Pantoprazole (pantoprazole 40 mg oral delayed release tablet)?1?tab(s)?40?Milligram?By Mouth?Daily Sucralfate (sucralfate 1 gm oral tablet)?1?gram?1?tablet?By Mouth?4 times a day Trazodone (traZODone 50 mg oral tablet)?50?Milligram?1?tablet?By Mouth?Daily at bedtime ? Inpatient Medications Medications (16) Active SCHEDULED: (6) Al hydroxide/Mg hydroxide/simethicone 200 mg-200 mg-20 mg/5 mL Susp UD (Maalox Plus Liquid) ??15 mL, By Mouth, 4 times a day Folic Acid 1 mg Tablet (Folic Acid Tablet) ??1 mg, By Mouth, Daily Multivitamin Tablet ??1 tablet, By Mouth, Daily NaCl 0.9% Flush 3ml (NaCL 0.9% Flush) ??3 mL, IV Push, Every 8 hours Pyridoxine 50 mg Tablet (Pyridoxine Tablet) ??50 mg, By Mouth, Daily Thiamine 100 mg Tablet (Thiamine Tablet) ??100 mg, By Mouth, 2 times a day CONTINUOUS: (0) PRN: (10) Acetaminophen 325 mg Tablet (Acetaminophen Tablet) ??650 mg, By Mouth, Every 4 hours Dextromethorphan-Guaifenesin 20 mg-200 mg/10 mL Liqu UD (Robitussin DM Liquid) ??10 mL, By Mouth, Every 4 hours Lorazepam 2 mg Inj Syringe (Ativan Inj) ??1 mg, IV Push Slowly, Every 2 hours Lorazepam 2 mg Inj Syringe (Ativan Inj) ??2 mg, IV Push Slowly, Every 2 hours Lorazepam 2 mg Inj Syringe (Ativan Inj) ??2 mg, IV Push Slowly, Every hour Melatonin 3 mg Tablet (Melatonin Tablet) ??3 mg, By Mouth, Daily at bedtime NaCl 0.9% Flush 3ml (NaCL 0.9% Flush) ??3 mL, IV Push, Every 8 hours Polyethylene Glycol 17 Gm Powder (MiraLax Powder) ??17 Gm 1 pack/packet, By Mouth, Daily Senna 8.6 mg / Docusate 50 mg tablet (Docusate/Senna Tablet) ??1 tablet, By Mouth, 2 times a day Simethicone 80 mg Chewable Tablet (Simethicone Tablet) ??80 mg, Chew, 3 times a day ? Results Recent Labs BLOOD COUNT & DIFF WBC 5.6 k/mm3 ()?? 11/27/2022 05:18 RBC 4.47 m/mm3 (Low)?? 11/27/2022 05:18 Hgb 14.2 Gm/dL ()?? 11/27/2022 05:18 Hct 41.2 % ()?? 11/27/2022 05:18 MCV 92.2 femtoliters ()?? 11/27/2022 05:18 MCH 31.8 pg ()?? 11/27/2022 05:18 MCHC 34.5 g/dL ()?? 11/27/2022 05:18 Platelet Count 137 k/mm3 (Low)?? 11/27/2022 05:18 RDW-SD 45.9 femtoliters ()?? 11/27/2022 05:18 MPV 10.1 femtoliters ()?? 11/27/2022 05:18 Nucleated RBC (Automated) 0.0 #/100 WBC'S ()?? 11/27/2022 05:18 Abs. NRBC 0.0 k/mm3 ()?? 11/27/2022 05:18 Abs. Neut 3.7 k/mm3 ()?? 11/27/2022 05:18 Abs. Lymph 1.2 k/mm3 ()?? 11/27/2022 05:18 Abs. [place] 0.6 k/mm3 ()?? 11/27/2022 05:18 Abs. Eo 0.1 k/mm3 ()?? 11/27/2022 05:18 Abs. Baso 0.1 k/mm3 ()?? 11/27/2022 05:18 Neut % 65.9 % ()?? 11/27/2022 05:18 Lymph % 20.4 % ()?? 11/27/2022 05:18 [place] % 11.2 % (High)?? 11/27/2022 05:18 Eos % 1.1 % ()?? 11/27/2022 05:18 Baso % 1.2 % ()?? 11/27/2022 05:18 Imm Gran 0.2 % ()?? 11/27/2022 05:18 Abs. Imm Gran 0.0 k/mm3 ()?? 11/27/2022 05:18 ?? CHEM GENERAL Sodium 149 mmol/L (High)?? 11/27/2022 05:18 Potassium 3.6 mmol/L ()?? 11/27/2022 05:18 Chloride 103 mmol/L ()?? 11/27/2022 05:18 Bicarbonate Level 31 mmol/L (High)?? 11/27/2022 05:18 Anion Gap 15 ()?? 11/27/2022 05:18 Glucose Level 110 mg/dL (High)?? 11/27/2022 05:18 BUN 10 mg/dL ()?? 11/27/2022 05:18 Creatinine-Blood 0.6 mg/dL (Low)?? 11/27/2022 05:18 Estimated GFR Creatinine 120 ML/MIN/1.73 M2 ()?? 11/27/2022 05:18 Calcium 9.0 mg/dL ()?? 11/27/2022 05:18 Magnesium 1.4 mg/dL (Low)?? 11/27/2022 05:18 Protein, Total 7.5 Gm/dL ()?? 11/27/2022 05:18 Albumin 4.6 Gm/dL ()?? 11/27/2022 05:18 AG Ratio 1.6 ()?? 11/27/2022 05:18 Alkaline Phosphatase 103 units/L ()?? 11/27/2022 05:18 Lipase 69 units/L (High)?? 11/27/2022 05:18 AST (SGOT) 82 units/L (High)?? 11/27/2022 05:18 ALT (SGPT) 46 units/L (High)?? 11/27/2022 05:18 Bilirubin, Total 0.6 mg/dL ()?? 11/27/2022 05:18 ?? COAG INR 1.1 ()?? 11/27/2022 05:18 Protime (PT) 11.5 seconds (High)?? 11/27/2022 05:18 APTT 25.7 seconds ()?? 11/27/2022 05:18 ?? TOXICOLOGY/TDM Ethanol, Serum or Plasma 166 mg/dL (Abnormal)?? 11/27/2022 05:18 ?? VIROLOGY COVID-19 by RT-PCR NEGATIVE ()?? 11/27/2022 05:44 ? * Melvin Clark MD: PERFORM Event Display: Admission Note Authored Date: Patient seen and assessed this morning with resident physician. I agree with the history, physical examination, assessment and plan. ?? Melvin Clark MD Note * Tena Humphries MD: PERFORM Event Display: Discharge/Transfer Note Hospital Authored Date: Patient: ??LENKA RUVALCABA ? Age:??47 Years?Sex:??Male?:??1975?? Patient Information Discharge Location: [facility] Primary Care Physician: Harman Vang MD Admit Date/Time: 11/27/22 06:32 Discharge Disposition Discharge Disposition: Home: No Services Discharge Diagnosis Alcohol withdrawal Bipolar disorder Chronic alcohol use Hepatic steatosis Hypomagensemia HYpophophatemia Alcohol gastritis Anxiety with depression _ Discharge Medications Acamprosate (acamprosate 333 mg oral delayed release tablet)?2?tab(s)?666?Milligram?By Mouth?3 times a day Aripiprazole (Abilify 10 mg oral tablet)?5?Milligram?By Mouth?Daily at bedtime Ascorbic Acid (Vitamin C 500 mg oral tablet)?1?tab(s)?500?Milligram?By Mouth?Daily BuPROpion (buPROPion 150 mg/24 hours (XL) oral tablet, extended release)?1?tab(s)?150?Milligram?By Mouth?Daily in AM cariprazine (Vraylar 6 mg oral capsule)?1?capsule?6?Milligram?By Mouth?Daily Cholecalciferol (cholecalciferol 400 intl units oral capsule)?1?capsule?10?Microgram?By Mouth?Daily Clonazepam (clonazePAM 0.5 mg oral tablet)?1?tab(s)?0.5?Milligram?By Mouth?Every 12 hours?as needed?Anxiety Folic Acid (folic acid 1 mg oral tablet)?1?Milligram?1?tablet?By Mouth?Daily Multivitamin (multivitamin Multiple Vitamins oral tablet)?1?tab(s)?By Mouth?Daily Pantoprazole (pantoprazole 40 mg oral delayed release tablet)?1?tab(s)?40?Milligram?By Mouth?Daily Sucralfate (sucralfate 1 gm oral tablet)?1?gram?1?tablet?By Mouth?4 times a day Trazodone (traZODone 50 mg oral tablet)?50?Milligram?1?tablet?By Mouth?Daily at bedtime ? Vaccinations and Immunoprophylaxis SARS-CoV-2 (COVID-19) mRNA-1273 vaccine: 0.25 Unknown (08/02/21 07:00:00) SARS-CoV-2 (COVID-19) mRNA-1273 vaccine: 0.5 Unknown (01/26/21 08:00:00) SARS-CoV-2 (COVID-19) mRNA-1273 vaccine: 0.5 Unknown (12/28/20 08:00:00) [id number] 12y+ bivalent booster vax: 0.3 Unknown (06/13/22 08:00:00) tetanus/diphtheria/pertussis, acel(Tdap): 0.5 mL (01/05/19 18:10:00) ? Durable Medical Equipment Discharge recommendations: Home with outpatient sevices (07/11/22) Ambulatory devices needed: None (11/27/22) ? Medications Started N/A Medications Discontinued N/A Doses Changed N/A Allergies Allergies ?(Active and Proposed Allergies Only) NKA? (Severity: Unknown severity, Onset: Unknown) ? PCP Follow-Up/Heads-Up ETOH use disorder Liver disease and thrombocytopenia workup and monitoring Hospital Course Patient is with known ETOH use disorder with history of withdrawal and seizure came to ER for nausea/vomiting and self-reported withdrawal symptoms, his ETOH level was 166 at admission, there was self-reported hematemesis but his H/H has been stable despite IVF administration. He received Ativan based on CIWA protocol with significant improvement, I assessed him several times today and he appearsto be well enough with resolution of ETOH withdrawal symptoms, he was able to tolerate regular tray, ambulate in the ER without assistance, and resolution of headache, there is no tongue fasciculation or hand tremor, fully alert and oriented and conversant normally,??there is some reported anxiety s uspected related anxiety disorder from ETOH and life distress that is chronic and should not be accounted in CIWA score, and without tachycardia or tachypnea or hypertension. He agreed to start acamprosate a prescription is given, SW is also consulted and will provide community resources again. He still feel acid reflux symptoms related to alcohol gastritis and I advised to advance diet slowly and keep rehydrated. No other acute events in hospital, patient will be discharged with close outpatient follow up. Objective Assessment and Plan ?? ETOH use??disorder, severe, with mild withdrawal?? -CIWA score is out of proportion to self-reported symptoms, likely some of the anxiety symptoms andtactile disturbance are related to chronic anxiety disease related to ETOH use or life stress, on clinical exam patient is calm and stable without agitation, tremor or other evidence of withdrawal, likely mild withdrawal now resolved -SW to provide community resources before discharge -acamprosate prescribed ?? Hypophosphatemia, replaced with PO Hypomagnesemia, replaced with IV ?? Alcohol fatty liver disease -given high FIB-4 score patient may benefit from elastography following at least one week of sober outpatient to evaluate advanced liver fibrosis/cirrhosis ?? Alcohol gastritis -able to tolerate regular food, continue PPI ?? Anxiety/depression -continue home medications, IMPORT EXPORT MANAGER reviewed ?? Mild thrombocytopenia -in the setting of fluid dilution, can be related to ETOH bone marrow toxicity, advanced liver disease is possibly contributing, suggested outpatient evaluation with PCP ?? Discussed with RN/CM; Tele reviewed: NSR. ? Measurements?? Height: 175 cm (11/27/22) Weight: 102.3 kg (11/27/22) Dry Weight: 102.3 kg (11/27/22) Body Mass Index:??33.4 kg/m2??Critical (11/27/22) ? Vital Signs?? Temperature: 98.5 DegF (11/28/22 08:12:00) Temperature Route: Oral (11/28/22 02:39:00) Pulse Rate: 60 bpm (11/28/22 13:53:00) Respiratory Rate: 16 br/min (11/28/22 13:53:00) Systolic Blood Pressure: 102 mm Hg (11/28/22 13:53:00) Diastolic Blood Pressure: 62 mm Hg (11/28/22 13:53:00) Blood pressure sites: Arm, right (11/28/22 13:53:00) Pulse Pressure: 66 mm Hg (11/28/22 04:25:00) Oxygen Saturation: 96 % (11/28/22 13:53:00) Mode of Delivery (Oxygen): Room air (11/28/22 13:53:00) Early Warning Score: 3 (11/28/22 13:53:48) ? Perfusion Assessment Capillary Refill: < 3 seconds (11/28/22 08:12:00) Cardiac Rhythm: Normal sinus rhythm (11/28/22 04:25:00) Cardiovascular Assessment Status: Unchanged from recorder's assessment (11/28/22 04:12:00) Cardiovascular Comment: pt reports L sided chest pain. nonradiating nonreproducable (11/28/22 08:12:00) Cardiovascular Symptoms: Chest pain (11/28/22 08:12:00) Nail Bed Color, Fingers: [place] (11/28/22 08:12:00) Skin Temperature Lower Extremities: Warm (11/28/22 08:12:00) Skin Temperature Upper Extremities: Warm (11/28/22 08:12:00) ? Pain Scores?? No qualifying data available. ? Ventilator Settings?? No qualifying data available. ? Intake/Output? 11/27 06:32 11/28 07:00 11/27 07:00 11/26 07:00 04 07:00 ?? 11/28 15:16 11/28 15:16 11/28 06:59 11/27 06:59 11/26 06:59 Intake ? 50 ?0 ? 36.2 ? 13.8 ?0 Output ?0 ?0 ?0 ?0 ?0 Net Total ? 50 ?0 ? 36.2 ? 13.8 ?0 ? Precautions Seizure Precautions ? Wharton Coma Scale Wharton Coma Score: 15 (11/27/22 05:07:00) Motor Response-Adult: Obeys commands (11/27/22 05:07:00) Response Eye Opening: Spontaneously (11/27/22 05:07:00) Verbal Response-Adult: Oriented and converses (11/27/22 05:07:00) ?? Basic ADLs Ambulatory devices needed: None (11/27/22) ? Mobility & Ambulation Level Mobility & Ambulation Level Ambulatory devices needed: None (11/27/22) ?? Therapeutic Activity Therapeutic Activities/Mobility/Balance?? No qualifying data available. ?? . Physical Exam Constitutional: Alert, in no acute distress. Head EENT: Extraocular muscle movement intact.??Moist mucous membranes.?? Respiratory: Clear to auscultation. No wheezing or crackles. No use of accessory muscles. Cardiovascular: S1S2 regular. No murmurs, rubs or gallops. Gastrointestinal: Abdomen soft, non-tender, non-distended. Normal bowel sounds. Extremities: No lower extremity pitting??edema. No cyanosis or clubbing. Neurologic: AAOx3, Speech normal. No focal neurological deficits. Psychiatric: Normal mood and affect Pending Results Hold Lavender Tube (BB) ordered on 11/27/2022 Patient Education Titles Understanding Alcohol Use Disorder (AUD)?? Follow-Up Appointments Added Follow Up ?Time Frame ?Comments Name Harman CHANG?2 to 3 weeks Patient Instructions Please utilize community resources to help achieve alcohol abstinence. Post Discharge Care Diet: Cardiac diet Activity: Ambulate with assistance ??3 times a day ??unless otherwise specified Code Status: ?? Full Resuscitation Condition: Stable Prognosis: Fair Results Discharge Labs BLOOD COUNT & DIFF WBC 5.8 k/mm3 ()?? 11/28/2022 05:26 RBC 4.49 m/mm3 (Low)?? 11/28/2022 05:26 Hgb 14.2 Gm/dL ()?? 11/28/2022 05:26 Hct 41.2 % ()?? 11/28/2022 05:26 MCV 91.8 femtoliters ()?? 11/28/2022 05:26 MCH 31.6 pg ()?? 11/28/2022 05:26 MCHC 34.5 g/dL ()?? 11/28/2022 05:26 Platelet Count 109 k/mm3 (Low)?? 11/28/2022 05:26 RDW-SD 44.0 femtoliters ()?? 11/28/2022 05:26 MPV 10.8 femtoliters ()?? 11/28/2022 05:26 Nucleated RBC (Automated) 0.0 #/100 WBC'S ()?? 11/28/2022 05:26 Abs. NRBC 0.0 k/mm3 ()?? 11/28/2022 05:26 Abs. Neut 3.7 k/mm3 ()?? 11/27/2022 05:18 Abs. Lymph 1.2 k/mm3 ()?? 11/27/2022 05:18 Abs. [place] 0.6 k/mm3 ()?? 11/27/2022 05:18 Abs. Eo 0.1 k/mm3 ()?? 11/27/2022 05:18 Abs. Baso 0.1 k/mm3 ()?? 11/27/2022 05:18 Neut % 65.9 % ()?? 11/27/2022 05:18 Lymph % 20.4 % ()?? 11/27/2022 05:18 [place] % 11.2 % (High)?? 11/27/2022 05:18 Eos % 1.1 % ()?? 11/27/2022 05:18 Baso % 1.2 % ()?? 11/27/2022 05:18 Imm Gran 0.2 % ()?? 11/27/2022 05:18 Abs. Imm Gran 0.0 k/mm3 ()?? 11/27/2022 05:18 ?? CHEM GENERAL Sodium 137 mmol/L ()?? 11/28/2022 05:26 Potassium 3.6 mmol/L ()?? 11/28/2022 05:26 Chloride 97 mmol/L (Low)?? 11/28/2022 05:26 Bicarbonate Level 29 mmol/L ()?? 11/28/2022 05:26 Anion Gap 11 ()?? 11/28/2022 05:26 Glucose Level 110 mg/dL (High)?? 11/27/2022 05:18 BUN 6 mg/dL ()?? 11/28/2022 05:26 Creatinine-Blood 0.5 mg/dL (Low)?? 11/28/2022 05:26 Estimated GFR Creatinine 126 ML/MIN/1.73 M2 ()?? 11/28/2022 05:26 Calcium 9.0 mg/dL ()?? 11/27/2022 05:18 Phosphorus 2.3 mg/dL (Low)?? 11/28/2022 05:26 Magnesium 1.8 mg/dL ()?? 11/28/2022 05:26 Protein, Total 7.5 Gm/dL ()?? 11/27/2022 05:18 Albumin 4.6 Gm/dL ()?? 11/27/2022 05:18 AG Ratio 1.6 ()?? 11/27/2022 05:18 Alkaline Phosphatase 103 units/L ()?? 11/27/2022 05:18 Lipase 69 units/L (High)?? 11/27/2022 05:18 AST (SGOT) 82 units/L (High)?? 11/27/2022 05:18 ALT (SGPT) 46 units/L (High)?? 11/27/2022 05:18 Bilirubin, Total 0.6 mg/dL ()?? 11/27/2022 05:18 ?? COAG INR 1.1 ()?? 11/27/2022 05:18 Protime (PT) 11.5 seconds (High)?? 11/27/2022 05:18 APTT 25.7 seconds ()?? 11/27/2022 05:18 ? TOXICOLOGY/TDM Ethanol, Serum or Plasma 166 mg/dL (Abnormal)?? 11/27/2022 05:18 ? VIROLOGY COVID-19 by RT-PCR NEGATIVE ()?? 11/27/2022 05:44 ? 35??minutes spent on discharge * Tena Humphries MD: PERFORM Event Display: Patient Education Leaflets Authored Date: [id number] Understanding Alcohol Use Disorder (AUD) ?? 61874 Understanding Alcohol Use Disorder (AUD) Alcohol use disorder (AUD) is a pattern of alcohol use that includes: ??? Problems controlling drinking ??? Always thinking about drinking ??? Continuing to use alcohol even when it causes physical, emotional, social, and money problems ??? Needing to drink more alcohol to get the same effect ??? Having withdrawal symptoms when drinking is stopped It's a disease in which a person is dependent on a drug???alcohol. AUD also includes a level of abuse called alcoholism. The disease can harm the person???s physical and mental health. It can also affect their behavior. AUD isn't a character flaw. It's not a moral failure. Untreated, it's a diseasethat gets worse over time. Untreated, it can also lead to brain damage and . Recovery is possible if drinking is stopped. Effects of AUD Behavioral effects Drinking is the main behavior of people with AUD. They develop a private relationship with drinking. They guard it. They give it their time, money, and attention. This may happen at the expense of family and friends. They lie for it and think about it all the time. They may risk losing their families for it. They may risk their lives for it. Despite the harm it causes, they can???t control the drinking. Health risks People with AUD are at high risk for health problems. These include heart disease and cancer. They also include mental illness. People with the disease may not heal from illness normally. Unless drinking is stopped, it can cause . may result from organ failure, cancer, or common viruses. may also result from accidents or suicide. Physical effects Alcohol can be like a poison to the body. It kills cells. Heavy drinking over a long time can greatly harm the body???s organs. These can include the brain, heart, liver, and pancreas. Chronic drinking also harms the digestive tract. It can make the blood thin and unable to clot. This causes bruising and even fatal bleeding.??It harms the immune system as well. This leaves the body at risk for serious disease. Psychological effects AUD can lead to a type of distorted thinking. One of the most common forms of this is denial. This is when the person denies that drinking is a problem. They may deny that any of the problems in their life are caused by drinking. They may blame others for problems they have. ?? Last Reviewed Date: 2021 ?? [id number] [employer]. All rights reserved. This information is not intended as a substitute for professional medical care. Always follow your healthcare professional's instructions. ?? Patient Care team information Care Team Personnel Name: Yayo Gamboa RN Position: [facility] RN Member Role: Primary Care Nurse Name: Lilly Van RN Position: [facility] RN Member Role: Primary Care Nurse Name: Jose Mills RN Position: [facility] RN Supv Member Role: Primary Care Nurse Name: Adilson Tyler RN Position: [facility] RN Supv Member Role: Primary Care Nurse Name: Francis Ritter RN Position: [facility] RN Member Role: Primary Care Nurse Name: Misael Carty RN Position: S RN Member Role: Primary Care Nurse Name: Maurice Pathak RN Position: S RN Member Role: Primary Care Nurse Name: Caitlin Melendez RN Position: [facility] RN Supv Member Role: Primary Care Nurse Name: Che Aguero RN Position: S RN Member Role: Primary Care Nurse Name: Reggie Jackson RN Position: S RN Member Role: Primary Care Nurse Name: Rhonda De La O RN Position: S RN Member Role: Primary Care Nurse Name: Harman Vang MD Position: S Outreach Member Role: PCP Address: Address: [address] [place] [id number] Name: Rissa Chen RN Position: [facility] SN Internet Sales Associate Member Role: Primary Care Nurse Name: Neris Lewis RN Position: [facility] RN Member Role: Primary Care Nurse Name: Veronica Howell RN Position: [facility] RN Member Role: Primary Care Nurse Name: Natalia Harris RN Position: [facility] RN Member Role: Primary Care Nurse Name: DenisAbiola Lopez Attending Position: [facility] ED Medicine MD Name: Alfredo Tello Position: [facility] ED [facility] Care Team Related Persons Name: DONOVAN RUVALCABA Address: [facility] [place] [address] Name: KELLY RIVERA Address: home [address] [place] [id number]
--- OUTSIDE RECORDS SUMMARY | 2023-07-02 16:08 | XMS_ITS | Continuity of Care Document ---
Author Name Unknown Organization [facility] ter Address [address] [place] [id number]- Care Team Providers Care Cook Frozen Dessert Name Role Phone Name Harman CHANG Primary Care Physician Encounter [facility] [place] Date(s): 06/19/23 - 06/20/[address] [address]- Encounter Diagnosis Alcohol intoxication(Final) - 06/20/23 Discharge Disposition: A-D/C Home Attending Physician: Rock Britt MD Admitting Physician: Rock Britt MD Referring Physician: Not on Staff, Referring MD Allergies, Adverse Reactions, Alerts No Known Allergies Immunizations Given and Recorded Vaccine Date Status Refusal Reason [id number] 12y+ bivalent booster vax 06/13/22 Recorded SARS-CoV-2 [...] 0 Refills, Maintenance, 04/18/23 8:20:00 EDT, Tablet, [facility], Partial fill upon patient request if the prescription is for a schedule II opioid drug.... Start Date: 04/18/23 Status: Ordered cholecalciferol 400 intl units oral capsule 1 capsule = 10 mcg, By Mouth, Daily, # 30 capsule, 0 Refills, Maintenance, 07/31/22 8:07:00 EST, Capsule, [facility], Partial fill upon patient request if the prescription is for a schedule II opioid drug., 176, cm, 07/30/22 18:22:... Start Date: 07/31/22 Status: Ordered clonazePAM 0.5 mg oral tablet 1 tablet = 0.5 mg, By Mouth, Every 12 hours, PRN Anxiety, # 14 tablet, 0 Refills, Maintenance, 04/18/23 9:59:00 EDT, Tablet, [facility], Partial fill upon patient request if the prescription is for a schedule II opioid drug., 176, cm, 08... Start Date: 04/18/23 Stop Date: 04/25/23 Status: Ordered folic acid 1 mg oral tablet 1 mg, 1, tablet, By Mouth, Daily, # 30 tablet, Refills 0, Tot. Refills 0, Maintenance, 04/04/23 19:05:00 EDT, Route to Pharmacy Electronically, [facility], Partial fill upon patient request if the prescription is for a schedule II... Start Date: 04/04/23 Status: Ordered multivitamin Multiple Vitamins oral tablet 1 tablet, By Mouth, Daily, # 30 tablet, 0 Refills, Maintenance, 04/18/23 10:01:00 EDT, Tablet, [facility], Partial fill upon patient request if [...] 05/16/23 11:12:00 EDT, Route to Pharmacy Electronically, [facility], Partial fill upon patient request if the prescription is... Start Date: 05/16/23 Stop Date: 08/14/23 Status: Ordered sucralfate 1 gm oral tablet 1 Gm, 1, tablet, By Mouth, 4 times a day, # 120 tablet, Refills 1, Tot. Refills 1, Maintenance, 04/18/23 10:00:00 EDT, Route to Pharmacy Electronically, [facility], Partial fill upon patient request if the prescription is for a schedule... Start Date: 04/18/23 Status: Ordered thiamine 100 mg oral tablet 100 mg, By Mouth, 2 times a day, for 90 days, # 90 tablet, Refills 0, Tot. Refills 0, Acute 08/14/23 11:11:00 EST, 05/16/23 11:11:00 EDT, Route to Pharmacy Electronically, [facility], Partial fill upon patient request if the prescr... Start Date: 05/16/23 Stop Date: 08/14/23 Status: Ordered Vitamin C 500 mg oral tablet 1 tablet = 500 mg, By Mouth, Daily, # 30 tablet, 0 Refills, Maintenance, 07/31/22 8:10:00 EST, Tablet, [facility], Partial fill upon patient request [...] Exam Date Time Procedure Performing Provider Status 06/20/23 1:[address] Head/Brain W/O Contrast Stupak , O leg; Auth (Verified) Notes: (CT Head/Brain W/O Contrast) Reason For Exam: Trauma RESULT: CT Head/Brain W/O Contrast CT Head/Brain W/O Contrast Hx of Present Illness: +ETOH; Reason: Trauma; Clinical Question(s): Subarachnoid Hemorrhage; Order Comment:. TECHNIQUE: Noncontrast head CT using axial technique and reconstructed in axial and coronal planes.Weight-based protocol using automatic tube modulation was used to optimize exposure parameters. CTDIvol Head: 47.10 mGy, DLP Head: 773 mGy*cm. COMPARISON: 06/05/2023, 05/31/2023. FINDINGS: BRAIN and EXTRA-AXIAL SPACES: No parenchymal hemorrhage, midline shift or mass effect. Herbert-white matter differentiation is well preserved. No acute infarct. Negative insular ribbon and hyperdense vessel signs. Ventricles, sulci and basilar cisterns are normal. No white matter lesions. No subarachnoid hemorrhage, subdural or epidural collections. CALVARIUM, SKULL BASE AND SOFT TISSUES: No fractures or suspicious bony lesions. Mild mucosal thickening of the ethmoid air cells. The maxillary sinuses are clear. The sphenoid sinuses are clear. The mastoid air cells are clear. Visualized orbits and globes are intact. The extracranial soft tissues are unremarkable. IMPRESSION: No acute intracranial abnormality. Results were relayed by [employer] by Dr. Gaines to Rafita Wade MD on 06/20/2023 2:01 AM. I have personally reviewed the images and I agree with this report. WSN: [id number] Ordering Physician: Rafita Wade Dictated By: Edgar Gaines MD Dictated Date/Time: 06/20/23 5:20 am Reviewed By: Lilian Alejandre MD Signed By: Lilian Alejandre MD Signed Date/Time: 06/20/23 5:25 am Transcribed By: KARI Transcribed Date/Time: 06/20/23 5:11 am Vital Signs Most recent to oldest [Reference Range]: 1 2 3 Height 178 cm (06/20/23 6:31 AM) 178 cm (06/19/23 7:18 PM) Weight 96 kg (06/20/23:31 AM) 96 kg (06/19/23 7:18 PM) Oxygen Saturation [94-100 %] 95 % (06/20/23:31 AM) 96 % (06/19/23 8:40 PM) 95 % (06/19/23 6:49 PM) Pulse Rate [55-90 bpm] 65 bpm (06/20/23 6:31 AM) 67 bpm (06/19/23 8:40 PM) 71 bpm (06/19/23 6:49 PM) Body Mass Index [18.5-24.99 kg/m2] 30.3 kg/m2 *>HHI* (06/20/23 6:31 AM) Blood Pressure [90-138/55-84 mm Hg] 133/99mm Hg (06/20/23 6:31 AM) 116/67mm Hg (06/19/23 8:40 PM) 113/71mm Hg (06/19/23 6:49 PM) Respiratory Rate [16-30 br/min] 18 br/min (06/20/23:31 AM) 16 br/min (06/19/23 8:40 PM) 18 br/min (06/19/23 6:49 PM) Temperature [96.8-100.4 DegF] 98.2 DegF (06/19/23 8:40 PM) 98.1 DegF (06/19/23 6:49 PM) Liters per Minute 2 L/min (06/20/23:31 AM) Mode of Delivery (Oxygen) Nasal cannula (06/20/23 6:31 AM) Room air (06/19/23 8:40 PM) Room air (06/19/23 6:49 PM) Blood pressure sites Arm, left (06/20/23 6:31 AM) Temperature Route Oral (06/19/23 8:40 PM) Oral (06/19/23 6:49 PM) Dry Weight 96 kg (06/20/23 6:31 AM) 96 kg (06/19/23 7:18 PM) Weight Obtained Via Patient/family state d (06/19/23 7:18 PM) Dry Weight Obtained Via Patient/family s tated (06/19/23 7:18 PM) Social History Social History Type Response Smoking Status Never (less than 100 in lifetime) entered on: 01/28/22 Sex Note * Sheri CHANG, Rafita Kumar: PERFORM Event Display: Patient Education Leaflets Authored Date: [id number] Alcohol Abuse ?? [id number] Alcohol Abuse Alcoholic drinks harm you when you have too many of them. No set number of drinks means too much. Drinking that affects your life or your health is called alcohol abuse. Alcohol abuse can hurt your relationships with others. You may lose friends, a spouse, or even your job. You may be abusing alcohol if any of the following are true for you: ??? Duties at home or with early childhood associate teacher suffer because of drinking. ??? Duties at work or in school suffer because of drinking. ??? You have missed work or school because of drinking. ??? You use alcohol while driving or using machinery. ??? You have legal problems such as arrests because of drinking. ??? You keep drinking even though it causes serious problems in your life. Health problems Alcohol abuse causes many health problems.??Sometimes this can happen after only drinking a ???little. ??The effects depend on how much you drink at one time and how often you drink. The effects also depend on how long you drink. For example, months, years, or decades.??Alcohol affects all parts of your body Brain Alcohol affects the central nervous system. It can damage parts of the brain that control your balance and gait, memory, thinking, and emotions. It can cause: ??? Memory loss ??? Blackouts ??? Depression ??? Agitation ??? Sleep problems ??? Seizures These changes may be buttermaker continuous churn (permanent). Heart and blood vessels Alcohol can damage heart muscle (cardiomyopathy). This can lead to: ??? Trouble breathing ??? Irregular heartbeat ??? Atrial fibrillation ??? Leg swelling ??? Heart failure Alcohol also makes the blood vessels stiff. This causes high blood pressure. All of these problems raise your risk of having a heart attack or stroke. Liver Alcohol causes fat to build up in the liver. This affects how the liver works. Alcohol also raises the risk for hepatitis. It can cause: ??? Belly (abdominal) pain ??? Belly swelling ??? Loss of appetite ??? Yellowed eyes or skin (jaundice) ??? Bleeding problems ??? Cirrhosis This can make it harder for you to fight off infections. The liver changes keep it from removing toxins in your blood that can cause brain disease (encephalopathy). This condition cause: ??? Confusion ??? Changed level of consciousness ??? Personality changes ??? Memory loss ??? Seizures, coma, and The liver changes can also cause the veins in your esophagus and stomach to become thin and swollenwith blood (varices). This can cause bleeding and vomiting of blood. Pancreas Alcohol can cause swelling (inflammation) of the pancreas (pancreatitis). This can cause belly pain, fever, and diabetes. Immune system Alcohol weakens your immune system. This makes it harder for you to fight infections and colds. It also makes it more likely for you to get pneumonia and tuberculosis. Cancer Alcohol raises the risk for several types of cancer. These include cancer of the mouth, esophagus, pharynx, larynx, liver, and breast. Sexual function Alcohol can lead to sexual problems. ?? Home care These guidelines will help you deal with alcohol abuse: ??? Admit you have a problem with alcohol. ??? Ask for help from your healthcare provider. Also ask for help from trusted family members or close friends. ??? Get help from people trained in dealing with alcohol abuse. This may be one-on-one counseling or group therapy. Or it may be an alcohol treatment program. ??? Join a self-help group for alcohol abuse such as Alcoholics Anonymous. ??? Stay away from people who abuse alcohol or tempt you to drink. ?? Follow-up care Follow up with your healthcare provider, or as advised. Contact these groups to get help: ??? Alcoholics Anonymous (AA) at www.aa.org. Or check the phone book for meetings near you. ??? National Alcohol and Substance Abuse Information Center (NASAIC) at www.addictioncareinTarvo.GraphOn or 766-651-1863 ??? National [place] on Alcoholism and Drug Dependence (NCADD) at www.ncadd.org or 980-BUH-UJSQ (574-552-7748) ?? Call 911 Call 911 if any of these occur: ??? Trouble breathing or slow, irregular breathing ??? Chest pain ??? Sudden weakness on one side of your body or sudden trouble speaking ??? Heavy bleeding or vomiting blood ??? Very drowsy or trouble awakening ??? Fainting or loss of consciousness ??? Rapid heart rate ??? Seizure ?? When to seek medical care Call your healthcare provider right away if any of these occur:? Confusion ??? Seeing, hearing, or feeling things that aren???t there (hallucinations) ??? Pain in your upper belly that gets worse ??? Vomiting that continues, vomiting with blood, or black or tarry stools ??? Severe shakiness ?? Last Reviewed Date: 2021 ?? [id number] [employer]. All rights reserved. This information is not intended as a substitute for professional medical care. Always follow your healthcare professional's instructions. ?? Patient Care team information Care Team Personnel Name: Flory Zapata RN Position: [facility] RN Member Role: Primary Care Nurse Name: Yayo Gamboa RN Position: [facility] RN Member Role: Primary Care Nurse Name: Lilly Van RN Position: [facility] RN Member Role: Primary Care Nurse Name: Rissa Yadav RN Position: [facility] SN RN Member Role: Primary Care Nurse Name: Saul Fernandez RN Position: [facility] RN Member Role: Primary Care Nurse Name: Adilson Tyler RN Position: [facility] RN Supv Member Role: Primary Care Nurse Name: Gely Puentes RN Position: [facility] RN Member Role: Primary Care Nurse Name: Francis Ritter RN Position: S RN Member Role: Primary Care Nurse Name: Misael Carty RN Position: [facility] RN Member Role: Primary Care Nurse Name: Maurice Pathak RN Position: [facility] RN Member Role: Primary Care Nurse Name: Elinor Iglesias Position: [facility] [employer] Reviewer Member Role: Primary Care Nurse Name: Caitlin Melendez RN Position: [facility] RN Supv Member Role: Primary Care Nurse Name: Bozena Lora LPN Position: [facility] RN Member Role: Primary Care Nurse Name: Reggie Jackson RN Position: [facility] RN Member Role: Primary Care Nurse Name: Rhonda De La O RN Position: [facility] RN Member Role: Primary Care Nurse Name: Sugey Oreilly RN Position: [facility] RN Member Role: Primary Care Nurse Name: Harman Vang MD Position: [facility] Outreach Member Role: PCP Address: Address: [address] [place] [address]- [place] Name: Uriel Reese RN Position: [facility] RN Member Role: Primary Care Nurse Name: Neris Lewis RN Position: [facility] RN Member Role: Primary Care Nurse Name: Darrell Parra RN Position: [facility] RN Member Role: Primary Care Nurse Name: Rissa Baker RN Position: [facility] RN Supv Member Role: Primary Care Nurse Name: Veronica Howell RN Position: [facility] RN Member Role: Primary Care Nurse Name: Natalia Harris RN Position: [facility] RN Member Role: Primary Care [facility] Attending Position: [facility] ED Attendings Patient Name: Carol Hurt RN Position: [facility] ED RN W/OE and Tasks Member Role: Patient Care Provider Name: Jennifer Quintanilla Position: [facility] Member Role: Patient Care Provider Name: Rock Britt MD Position: [facility] Resident Member Role: Admitting Physician Address: Address: [address] [facility] [place] [address]- Care Team Related Persons Name: DONOVAN RUVALCABA Address: [facility] [place] [address] Name: KELLY RIVERA Address: home [address] [place] [id number]
--- OUTSIDE RECORDS SUMMARY | 2023-07-02 16:08 | XMS_ITS | Continuity of Care Document ---
Author Name Unknown Organization [facility] ter Address [address] [place] [id number] Care Team Providers Care Social Media Developer Name Role Phone Name Harman CHANG Primary Care Physician [place] [facility] [place] 02/26/23 - 03/05/[address] [address]- Encounter Diagnosis Alcohol withdrawal(Final) - 02/26/23 Discharge Disposition: A-D/C Home Attending Physician: Daija Ayala MD Admitting Physician: John Cali MD Referring Physician: Not on Staff, Referring MD Allergies, Adverse Reactions, Alerts No Known Allergies Immunizations Given and Recorded Vaccine Date Status Refusal Reason [id number] 12y+ bivalent booster vax 06/13/22 Recorded SARS-CoV-2 (COVID-19) mRNA-1273 vaccine 08/02/21 R ecorded SARS-CoV-2 (COVID-19) mRNA-1273 vaccine 01/26/21 R ecorded SARS-CoV-2 (COVID-19) mRNA-1273 vaccine 12/28/20 R ecorded tetanus/diphtheria/pertussis, acel(Tdap) 01/05/19 Given Medications acamprosate 333 mg oral delayed release tablet 2 tablet = 666 mg, By Mouth, 3 times a day, # 180 tablet, 1 Refills, Maintenance, 11/28/22 15:31:00EDT, Tablet, [id number], Partial fill upon patient request if the prescription is for a schedule II opioid drug., 175, cm, 11/27/22 10... Start Date: 11/28/22 Status: Ordered cholecalciferol 400 intl units oral capsule 1 capsule = 10 mcg, By Mouth, Daily, # 30 capsule, 0 Refills, Maintenance, 07/31/22 8:07:00 EST, Capsule, [facility], Partial fill upon patient request [...] 07/31/22 8:04:00 EST, Route to Pharmacy Electronically, [facility], Partial fill upon patient request if the prescription is for a schedule II o... Start Date: 07/31/22 Status: Ordered multivitamin Multiple Vitamins oral tablet 1 tablet, By Mouth, Daily, # 30 tablet, 0 Refills, Maintenance, 07/31/22 8:05:00 EST, Tablet, [facility], Partial fill upon patient request if the prescription is for a schedule II opioid drug., 1 tablet By Mouth Daily, 176, cm, 12... Start Date: 07/31/22 Status: Ordered Outpatient Physical Therapy. Outpatient Physical [...] 07/31/22 8:05:00 EST, Route to Pharmacy Electronically, [facility], Partial fill upon patient request if the prescription is for a sche... Start Date: 07/31/22 Status: Ordered thiamine 100 mg oral tablet 100 mg, 1, tablet, By Mouth, Daily, for 30 days, # 30 tablet, Refills 0, Tot. Refills 0, Acute 04/04/23 8:28:00 EDT, 03/05/23 8:28:00 EDT, Route to Pharmacy Electronically, [facility], Partial fill upon patient request if the prescriptio... Start Date: 03/05/23 Stop Date: 04/04/23 Status: Ordered Vitamin C 500 mg oral tablet 1 tablet = 500 mg, By Mouth, Daily, # 30 tablet, 0 Refills, Maintenance, 07/31/22 8:10:00 EST, Tablet, [facility], Partial fill upon patient request [...] use Confirmed Active Hepatic steatosis Confirmed Active Results Orders for Microbiology Reports Name Date Blood Culture 02/26/23 Blood Culture #2 02/26/23 Microbiology Reports TEST:Blood Culture, Second Order STATUS:Auth (Verified) BODY SITE: SOURCE:Blood COLLECTED DATE/TIME:02/26/23 4:35 PM Blood Culture, Second Order SPECIMEN DESCRIPTION : BLOOD LHAND SPECIAL REQUESTS : NONE CULTURE : NO GROWTH 5 DAYS. REPORT STATUS : FINAL 03/03/2023 TEST:Blood Culture STATUS:Auth (Verified) BODY SITE: SOURCE:Blood COLLECTED DATE/TIME:02/26/23 4:30 PM Blood Culture SPECIMEN DESCRIPTION : BLOOD R HAND SPECIAL REQUESTS : NONE CULTURE : NO GROWTH 5 DAYS. REPORT STATUS : FINAL 03/03/2023 Radiology Reports * Exam Date Time Procedure Performing Provider Status 02/27/23 1:37 AM Chest Portable Bakari George (Carlito phillips) Notes: (Chest Portable) Reason For Exam: Cough RESULT: Chest Portable Chest Portable Reason: Cough; Clinical Question(s): Pneumonia COMPARISON: 08/25/2022 FINDINGS: LINES AND TUBES: None. LUNGS AND PLEURA: Clear lungs. Normal pulmonary vascularity. No pleural effusion. No pneumothorax. HEART, MEDIASTINUM AND ADEOLA: Heart is normal in size. Normal mediastinal and hilar contour. BONES AND SOFT TISSUES: No acute abnormality. Mild thoracic spondylosis. IMPRESSION: No acute abnormality. WSN: [id number] Ordering Physician: Ronald Ryder Dictated By: Temo Schilling MD Dictated Date/Time: 02/27/23 9:36 am Reviewed By: Temo Schilling MD Signed By: Temo Schilling MD Signed Date/Time: 02/27/23 9:36 am Transcribed By: KARI Transcribed Date/Time: 02/27/23 9:35 am * Exam Date Time Procedure Performing Provider Status 02/26/23 8:[address] Abd/Pelvis W/ IV Contrast Only Sugey Freitas; Marvel (Verified) Notes: (CT Abd/Pelvis W/ IV Contrast Only) Reason For Exam: abdominal pain, fever;Other: RESULT: CT Abd/Pelvis W/ IV Contrast Only CT Abd/Pelvis W/ IV Contrast Only Hx of Present Illness: Last drink around 2300 last night- awoke at 0430 this morning and began vomiting- pt reports he has had etoh withdrawel seizures in the past- very tremulous- unable to hold hismeds down- now just vomiting bile.; Reason: Other:; abdominal pain, fever; Clinical Question(s): Pancreatitis; Order Comment: TECHNIQUE: Spiral CT through the abdomen and pelvis with IV contrast formatted in 3 planes. 100 cc of Omnipaque 300 was administered intravenously. This study was performed without oral contrast. Weight-based protocol using automatic tube modulation was used to optimize exposure parameters. CTDIvol Body: 15.40 mGy, DLP Body: 845 mGy*cm. COMPARISON: None. FINDINGS: Joist Setter View Findings, Lines and Tubes: None. Visualized Chest: Bibasilar atelectasis. No pleural effusion. The heart is normal in size. No pericardial effusion. Diaphragm: Normal. Liver: Liver is mildly fatty infiltrated.. Gallbladder: No CT evidence of gallbladder pathology. Bile ducts: No biliary ductal dilation. Spleen: Normal. Pancreas: Normal. Adrenal glands: Normal. Kidneys and ureters: No hydronephrosis, stones, or suspicious masses. Bladder: Normal. Reproductive organs: Unremarkable. Stomach, small bowel, and large bowel: Normal. Appendix: Normal. Peritoneum and retroperitoneum: No ascites or pneumoperitoneum. No omental or mesenteric lesions. Lymph nodes: No enlarged lymph nodes. Blood vessels: Normal. No aneurysm. No evidence of venous thrombosis. Abdominal and pelvic wall: Small bilateral inguinal hernias containing omental fat. Bones: No acute abnormality. IMPRESSION: Unremarkable CT of the abdomen and pelvis. Specifically, no small bowel obstruction. No evidence ofpancreatitis. Mild hepatic steatosis. WSN: [id number] Ordering Physician: Carito Marin Dictated By: Alyssa Hinson MD Dictated Date/Time: 02/26/23 8:11 pm Reviewed By: Alyssa Hinson MD Signed By: Alyssa Hinson MD Signed Date/Time: 02/26/23 8:11 pm Transcribed By: KARI Transcribed Date/Time: 02/26/23 8:07 pm Vital Signs Most recent to oldest [Reference Range]: 1 2 3 Height 175 cm (03/05/23 9:34 AM) 175 cm (03/05/23 6:27 AM) 175 cm (03/04/23 9:55 PM) Weight 99.3 kg (02/28/23 1:20 PM) 100 kg (02/26/23 2:10 PM) 100 kg (02/26/23 1:55 PM) Oxygen Saturation [94-100 %] 94 % (03/05/23 9:34 AM) 99 % (03/05/23 6:27 AM) 99 % (03/04/23 9:55 PM) Pulse Rate [55-90 bpm] 72 bpm (03/05/23 9:34 AM) 59 bpm (03/05/23 6:27 AM) 60 bpm (03/04/23 9:55 PM) Body Mass Index [18.5-24.99 kg/m2] 32.42 kg/m2 *>HHI* (02/28/23 1:20 PM) 32.65 kg/m2 *>HHI* (02/26/23 2:10 PM) Blood Pressure [90-138/55-84 mm Hg] 122/82mm Hg (03/05/23 9:34 AM) 116/72mm Hg (03/05/23 6:27 AM) 108/67mm Hg (03/04/23 9:55 PM) Respiratory Rate [16-30 br/min] 18 br/min (03/05/23 9:34 AM) 17 br/min (03/05/23 6:27 AM) 16 br/min (03/04/23 9:55 PM) Temperature [96.8-100.4 DegF] 97.6 DegF (03/05/23 9:34 AM) 97.3 DegF (03/05/23 6:27 AM) 97.5 DegF (03/04/23 9:55 PM) Mode of Delivery (Oxygen) Room air (03/05/23 9:34 AM) Room air (03/05/23 6:27 AM) Room air (03/04/23 9:55 PM) Blood pressure sites Arm, left (03/05/23 9:34 AM) Arm, right (03/05/23 6:27 AM) Arm, right (03/04/23 9:55 PM) Temperature Route Oral (03/05/23 9:34 AM) Oral (03/05/23 6:27 AM) Oral (03/04/23 9:55 PM) Dry Weight 99.3 kg (02/28/23 1:20 PM) 100 kg (02/26/23 2:10 PM) 100 kg (02/26/23 1:55 PM) Weight Obtained Via Bed scale (02/28/23 1:20 PM) Dry Weight Obtained Via Bed scale (02/28/23 1:20 PM) Social History Social History Type Response Smoking Status Never (less than 100 in lifetime) entered on: 01/28/22 Sex History and physical note * Aleksey CHANG, Ronald Hdz: PERFORM Event Display: History and Physical Hospital Authored Date: Patient: ??LENKA RUVALCABA ? Age:??47 Years?Sex:??Male?:??1975?? Chief Complaint/Reason for Consultation etoh w/ drawl and nausea. no tremors, ??hx of etoh withdrawl in past, last drink last pm History of Present Illness 02/26 ?? 47-year-old male with PMH including alcohol use disorder, frequent admission for alcohol withdrawal, history of alcohol withdrawal seizure, anxiety, depression, bipolar disorder, history of suicidal ideation.?? Patient was brought to ER with nausea, vomiting, abdominal pain. ?? The patient says that yesterday afternoon he suddenly became very sick/not feeling well, was seeinga movie but went home, had nausea and vomited multiple times.?? Subsequently he fell asleep or he thinks he might have had a seizure, he does not recall.?? He woke up early in the morning, still feeling sick, nausea, and then vomited multiple times in the morning, no blood.?? 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 Patient also complains of generalized abdominal cramping pain, generalized body ache, soreness all over the chest.?? He also says that he had fever yesterday documented 102.?? He was clammy, and blood pressure was e levated.?? He also is coughing and has some phlegm.?? Had an episode of diarrhea as well. ?? Regarding his alcohol drinking habit, patient is not forthcoming.?? He says that he used to drink alot, but has cut down, but still drinking alcohol, does not tell exactly how much.?? However ER documented that for the past 5 days patient has been binge drinking alcohol.?? The patient states that his last drink was yesterday. ?? In ER patient was afebrile, vitals mostly stable.?? His labs shows leukocytosis 13, INR 1.2, normalBMP, normal calcium and magnesium, normal lipase.?? Bilirubin 1, AST 88, ALT 53, alkaline phosphatase 126.?? Lactate 2.6 that went up to 3.5.?? He was positive for barbiturates and cannabis.?? Alcohol negative.?? EKG shows sinus rhythm with heart rate of 73, QTc 489. ?? CT scan of the abdomen: IMPRESSION: Unremarkable CT of the abdomen and pelvis. Specifically, no small bowel obstruction. No evidence ofpancreatitis. Mild hepatic steatosis. ?? Patient was given 2 L IV fluid and was placed on CIWA protocol, received phenobarbital.?? Patient admitted for further management. Review of Systems All systems reviewed and negative except as in HPI. Objective Measurements?? Height: 175 cm (02/26/23) Weight: 100 kg (02/26/23) Dry Weight: 100 kg (02/26/23) Body Mass Index:??32.65 kg/m2??Critical (02/26/23) ? Vital Signs?? Temperature: 97.7 DegF (02/27/23 00:55:00) Temperature Route: Oral (02/26/23 20:19:00) Pulse Rate:??53 bpm??Low (02/27/23 00:55:00) Respiratory Rate:??12 br/min??Low (02/27/23 00:55:00) Systolic Blood Pressure:??144 mm Hg??High (02/27/23 00:55:00) Diastolic Blood Pressure:??86 mm Hg??High (02/27/23 00:55:00) Blood pressure sites: Arm, right (02/27/23 00:21:00) Mean Arterial Pressure: 113 mm Hg (02/26/23 14:10:00) Pulse Pressure: 55 mm Hg (02/26/23 17:20:00) Oxygen Saturation: 95 % (02/27/23 00:21:00) Mode of Delivery (Oxygen): Room air (02/26/23 22:13:00) Early Warning Score: 4 (02/27/23 00:59:35) ? Physical Exam Constitutional: ??Alert,??no acute distress, co-operative, lying on the bed, saturating well on room air. ??tremulous. Mental state: Oriented Head: ??Normocephalic, atraumatic. ?? Eye:?No discharge. ENT: No discharge. Neck: ??Supple,??no JVD. Cardiovascular: ??S1, S2. Regular rhythm. No MRG. Respiratory: ??Lungs are clear to auscultation b/l, No RRR. ?? Gastrointestinal: ??Soft, mild diffuse tender, no peritoneal sign, Non distended, ??Normal bowel sounds.?? Genitourinary: No costovertebral angle tenderness. Neurological: ??Cranial nerves intact. Motor and sensory intact. Back: ??Nontender. Musculoskeletal: ??Normal ROM.?? No edema Hematology: No lymphadenopathy Skin: ??Warm, dry. Psychiatric: ??Cooperative.?? Assessment/Plan Diagnoses Abdominal pain ??(R10.9) Alcohol abuse ??(F10.10) Alcohol withdrawal ??(F10.939) Elevated INR ??(R79.1) Fever ??(R50.9) Lactic acid acidosis ??(E87.20) Nausea and vomiting ??(R11.2) QT prolongation ??(R94.31) Transaminitis ??(R74.01) ?? Assessment:??47-year-old male with PMH including alcohol use disorder, frequent admission for alcohol withdrawal, history of alcohol withdrawal seizure, anxiety, depression, bipolar disorder, historyof??suicidal ideation. Patient was brought to ER with nausea, vomiting, abdominal pain. ?? Alcohol abuse (F10.10):??. Alcohol withdrawal (F10.939):??. Elevated INR (R79.1):??. Transaminitis (R74.01):??. Nausea and vomiting (R11.2):??. Lactic acid acidosis (E87.20):??. Patient with history of alcohol abuse,??alcohol??withdrawal and seizure??with??frequent admission??for alcohol withdrawal??now comes with??nausea, vomiting,??feeling sick,??abdominal pain. ??Patient is tremulous.?? Presentation consistent with yet another alcohol withdrawal.?? Patient??says that hemight have had a seizure last night as well.?? We will??continue??with [facility] protocol.?? Patient also complains of??fever, chills body ache,??cough with some sputum production,??runny nose, stuffy nose, sore throat.?? We will??evaluate for any??viral/infectious??etiology. ??However patient has been afebrile??in the hospital. ?? Monitor with CIWA protocol. Continue??phenobarbitone as per protocol. Continue thiamine, folic acid,??pyridoxine, multivitamins. Continue iv fluid hydration, monitor I/O and daily weight. Seizure precaution. Supportive care including antiemetics. Social work consult. Resume acamprosate on discharge. Mild elevated INR and mild transaminitis noted,??seems to baseline due to alcohol. Patient also complained of abdominal pain, but abdomen has??mild diffuse tenderness, no peritoneal sign, is soft. ??CT scan??unrevealing. As patient complains of fever,??cough with sputum production, will get a chest x-ray. Hold any antibiotics. Follow-up blood culture. Follow-up lactic acid level. We will keep??on clear liquids for now.?? Advance diet as tolerated. ? QT prolongation (R94.31):??. Avoid QT prolonging medication. Monitor and??replace??potassium and magnesium. ?? Home medication: Anxiety/depression/bipolar: Patient is on??Vraylar??which is nonformulary. ??Patient can??have his own medication. Clonazepam as needed for anxiety. Patient denies any??current suicidal ideation/intent. GERD: Continue??PPI. ?? VTE Prophylaxis:??Per guideline ?VTE Prophylaxis Assessment:??Risk Level documented as Low Risk ?? Code Status:??full code ?Order Code Status:??Code Status Ordered ?? Discharge Planning:? Histories Allergies Allergies ?(Active and Proposed Allergies [...] Electronic Cigarette/Vaping Details:??Electronic Cigarette Use: Never. ? Family History No family history recorded. ? Medications Home Medications Acamprosate (acamprosate 333 mg oral delayed release tablet)?2?tab(s)?666?Milligram?By Mouth?3 times a day Ascorbic Acid (Vitamin C 500 mg oral [...] gm oral tablet)?1?gram?1?tablet?By Mouth?4 times a day ? Inpatient Medications Medications (14) Active SCHEDULED: (7) Folic Acid 1 mg Tablet (Folic Acid Tablet) ??1 mg, By Mouth, Daily Multivitamin Tablet ??1 tablet, By Mouth, Daily NaCl 0.9% Flush 3ml (NaCL 0.9% Flush) ??3 mL, IV Push, Every 8 hours Pantoprazole 40 mg EC Tablet (pantoprazole 40 mg oral delayed release tablet) ??40 mg, By Mouth, Daily Pyridoxine 50 mg Tablet (Pyridoxine Tablet) ??50 mg, By Mouth, Daily Sucralfate 1 Gm Tablet (sucralfate 1 gm oral tablet) ??1 Gm, By Mouth, 4 times a day Thiamine 100 mg Tablet (Thiamine Tablet) ??100 mg, By Mouth, 2 times a day CONTINUOUS: (1) Lactated Ringers (1000 mL) Cont IV 1,000 mL (LR 1,000 mL) ??1,000 mL, IV Infusion, 150 mL/hr PRN: (6) Acetaminophen 325 mg Tablet (Acetaminophen Tablet) ??650 mg, By Mouth, Every 4 hours Clonazepam 0.5 mg Tablet (clonazePAM 0.5 mg oral tablet) ??0.5 mg, By Mouth, Every 12 hours NaCl 0.9% Flush 3ml (NaCL 0.9% Flush) ??3 mL, IV Push, Every 8 hours Ondansetron 2mg/mL Inj (2mL Vial) (Ondansetron Inj) ??4 mg, IV Push Slowly, Every 30 minutes Phenobarbital 130 mg/mL Inj (Phenobarbital Inj) ??130 mg 1 mL, IV Push, Every 2 hours Senna 8.6 mg / Docusate 50 mg tablet (Docusate/Senna Tablet) ??1 tablet, By Mouth, 2 times a day ? Results Recent Labs BLOOD COUNT & DIFF WBC 13.0 k/mm3 (High)?? 02/26/2023 16:30 RBC 4.49 m/mm3 (Low)?? 02/26/2023 16:30 Hgb 14.2 Gm/dL ()?? 02/26/2023 16:30 Hct 42.2 % ()?? 02/26/2023 16:30 MCV 94.0 femtoliters ()?? 02/26/2023 16:30 MCH 31.6 pg ()?? 02/26/2023 16:30 MCHC 33.6 g/dL ()?? 02/26/2023 16:30 Platelet Count 205 k/mm3 ()?? 02/26/2023 16:30 RDW-SD 45.1 femtoliters ()?? 02/26/2023 16:30 MPV 10.4 femtoliters ()?? 02/26/2023 16:30 Nucleated RBC (Automated) 0.0 #/100 WBC'S ()?? 02/26/2023 16:30 Abs. NRBC 0.0 k/mm3 ()?? 02/26/2023 16:30 Abs. Neut 10.3 k/mm3 (High)?? 02/26/2023 16:30 Abs. Lymph 1.3 k/mm3 ()?? 02/26/2023 16:30 Abs. [place] 1.2 k/mm3 ()?? 02/26/2023 16:30 Abs. Eo 0.0 k/mm3 ()?? 02/26/2023 16:30 Abs. Baso 0.1 k/mm3 ()?? 02/26/2023 16:30 Neut % 79.9 % (High)?? 02/26/2023 16:30 Lymph % 9.8 % (Low)?? 02/26/2023 16:30 [place] % 9.1 % ()?? 02/26/2023 16:30 Eos % 0.1 % ()?? 02/26/2023 16:30 Baso % 0.6 % ()?? 02/26/2023 16:30 Imm Gran 0.5 % ()?? 02/26/2023 16:30 Abs. Imm Gran 0.1 k/mm3 ()?? 02/26/2023 16:30 ?? BLOOD GAS pH, Venous 7.44 (High)?? 02/26/2023 16:30 ?? CHEM GENERAL Sodium 141 mmol/L ()?? 02/26/2023 16:30 Potassium 3.8 mmol/L ()?? 02/26/2023 16:30 Chloride 101 mmol/L ()?? 02/26/2023 16:30 Bicarbonate Level 26 mmol/L ()?? 02/26/2023 16:30 Anion Gap 14 ()?? 02/26/2023 16:30 Glucose Level 104 mg/dL (High)?? 02/26/2023 16:30 BUN 10 mg/dL ()?? 02/26/2023 16:30 Creatinine-Blood 0.6 mg/dL (Low)?? 02/26/2023 16:30 Estimated GFR Creatinine 121 ML/MIN/1.73 M2 ()?? 02/26/2023 16:30 Calcium 9.2 mg/dL ()?? 02/26/2023 16:30 Magnesium 1.6 mg/dL ()?? 02/26/2023 16:30 Protein, Total 7.4 Gm/dL ()?? 02/26/2023 16:30 Albumin 4.5 Gm/dL ()?? 02/26/2023 16:30 AG Ratio 1.6 ()?? 02/26/2023 16:30 Alkaline Phosphatase 126 units/L ()?? 02/26/2023 16:30 Lipase 35 units/L ()?? 02/26/2023 16:30 AST (SGOT) 88 units/L (High)?? 02/26/2023 16:30 ALT (SGPT) 53 units/L (High)?? 02/26/2023 16:30 Bilirubin, Total 1.0 mg/dL ()?? 02/26/2023 16:30 Lactate 3.5 mmol/L (High)?? 02/26/2023 21:00 ?? COAG INR 1.2 (High)?? 02/26/2023 16:30 Protime (PT) 12.3 seconds (High)?? 02/26/2023 16:30 ?? MISC. CHEMISTRY Ammonia, Venous 47 ??mole/L ()?? 02/26/2023 16:30 Hold Green Top SPECIMEN DISCARDED AFTER 1 WEEK ()?? 02/26/2023 16:30 ?? TOXICOLOGY/TDM Ethanol, Serum or Plasma NONE DETECTED mg/dL ()?? 02/26/2023 16:30 Barbiturate Screen, Urine POSITIVE (Abnormal)?? 02/26/2023 18:43 Cannabinoid Screen, Urine POSITIVE (Abnormal)?? 02/26/2023 18:43 Cocaine Metabolite Screen, Urine NONE DETECTED ()?? 02/26/2023 18:43 Benzodiazepine Screen, Urine NONE DETECTED ()?? 02/26/2023 18:43 Amphetamine Screen, Urine NONE DETECTED ()?? 02/26/2023 18:43 Opiate Screen, Urine NONE DETECTED ()?? 02/26/2023 18:43 ?? URINE OTHER Est Creatinine Clearance 153.33 mL/min ()?? 02/26/2023 18:04 ?? VIROLOGY COVID-19 by RT-PCR NEGATIVE ()?? 02/26/2023 20:57 ? Microbiology ?? COVID-19 (Novel Coronavirus), Rapid PCR?? Completed?? Source: Nasal Body Site: Nose Collected Dt/Tm: 02/26/2023 20:23 Last Updated Dt/Tm: 02/26/2023 22:07 ? EKG study * Event Display: ECG 12-Lead Authored Date: Please click on pdf link to open report * Event Display: ECG 12-Lead Authored Date: Ventricular Rate: 73 BPM Atrial Rate: 73 BPM P-R Interval: 166 ms QRS Duration: 90 ms Q-T Interval: 444 ms QTC Calculation(Bazett): 489 ms P [place]: 19 degrees R [place]: 40 degrees T [place]: 10 degrees Normal sinus rhythm Prolonged QT Abnormal ECG When compared with ECG of 05-NOV-2022 03:43, No significant change was found Confirmed by SRUTHI GILES MD ([id number]) on 02/27/2023 8:06:51 PM [place]: TISHA CHANG,[facility] * Event Display: Cardiac Rhythm Strips Authored Date: Hospital Progress note * Dwayne Vegas: PERFORM, SIGN, VERIFY Event Display: Progress Note Hospital Authored Date: [id number] Patient: LENKA RUVALCABA Age: 47 years Sex: Male : 1975 Associated Diagnoses: None Author: Dwayne Vegas Findings Problem Related to Alteration in Psychosocial : Alteration in Psychosocial Function/new 03/05/2023 9:42 EDT Alteration in Psychosocial Related to Acute Opioid Withdrawal, Acute Alcohol Withdrawal Goals & Outcomes, Psychosocial Pt successfully withdraws with minimal side effects, Pt will be free from withdrawal symptoms, Pt will detoxify from substance, Pt will show motivation for recovery, Pt will state cue/situation increases risk of drug use Interventions, Psychosocial Resolved problem, Interventions no longer in effect BH Goals/Interventions, Psychosocial Yes Psychosocial, Problem Start 03/02/2023 17:11 Reviewed Plan with, Psychosocial Patient Patient Progression, Psychosocial Resolved problem Psychosocial, Problem Resolved 03/05/2023 9:42 . Nursing Data Vital Signs : VITAL SIGNS SECTION 03/05/2023 9:34 EDT Temperature 97.6 DegF Temperature Route Oral Pulse Rate 72 bpm Respiratory Rate 18 br/min Systolic Blood Pressure 122 mm Hg Diastolic Blood Pressure 82 mm Hg Blood pressure sites Arm, left Mean Arterial Pressure 95 mm Hg Pulse Pressure 40 mm Hg Oxygen Saturation 94 % Mode of Delivery (Oxygen) Room air . Evaluation Pt alert and oriented x3, to be discharged this AM, report giving to S3 discharge unit RN, all questions answered. See CIS for biophysical and other information. * Dwayne Vegas: SIGN, PERFORM, VERIFY Event Display: Progress Note Hospital Authored Date: [id number] Patient: LENKA RUVALCABA Age: 47 years Sex: Male : 1975 Associated Diagnoses: None Author: Dwayne Vegas Findings Problem Related to Alteration in Psychosocial : Alteration in Psychosocial Function/new 03/04/2023 10:07 EDT Alteration in Psychosocial Related to Acute Opioid Withdrawal, Acute Alcohol Withdrawal Goals & Outcomes, Psychosocial Pt successfully withdraws with minimal side effects, Pt will be free from withdrawal symptoms, Pt will detoxify from substance, Pt will show motivation for recovery, Pt will state cue/situation increases risk of drug use Interventions, Psychosocial Assess psychosocial needs, Assess readiness to learn needed lifestyle changes, Assess/monitor level of consciousness, Collaborate with provider for psychiatric consult, Evaluate resources & support system available to pt, Offer support; discuss coping strategies, Provide a calm, supportive environment, Provide chances to express concerns/emotions/expectations, Provide info on community resources for education, support, Provide information about illness and recovery, Provide verbal limits if pt's behavior escalates, Identify complications of chronic alcohol use,Assess for complications related to acute alcohol withdrawal, Determine pt's stage of withdrawal asper CIWA scale, Encourage pt to continue to detox, Initiate & maintain Seizure Precautions, Minimize stimulation, Minimize stressors, Offer clergy, AA sponsor, counselor support, Offer support topt/S.O. during acute alcohol withdrawal, Transfer pt to monitored area if advances to Stage 3 CIWA Goals/Interventions, Psychosocial Yes Psychosocial, Problem Start 03/02/2023 17:11 Reviewed Plan with, Psychosocial Patient Patient Progression, Psychosocial Pt progressing according to plan . Nursing Data Vital Signs : VITAL SIGNS SECTION 03/04/2023 11:15 EDT Early Warning Score 0.00 03/04/2023 11:15 EDT Temperature 98.3 DegF Temperature Route Oral Pulse Rate 71 bpm Respiratory Rate 18 br/min Systolic Blood Pressure 124 mm Hg Diastolic Blood Pressure 79 mm Hg Blood pressure sites Arm, left Mean Arterial Pressure 94 mm Hg Pulse Pressure 45 mm Hg Oxygen Saturation 98 % Mode of Delivery (Oxygen) Room air . Evaluation Head: Normocephalic, atraumatic Eyes: Anicteric, vision grossly intact. Ears: no auricular pain, erythema or exudate observed. Nose: nares patent Throat: Trachea midline. no erythema or exudates observed. Tongue midline, anterioposterior pillarsrise symmetrically, Chest rise symmetrical. Breathing is non-labored. No use of accessory muscles or cyanosis observed.No clubbing observed. Pt lung sounds clear to auscultation, SpO2 96-99% on RA. Pt denies shortness of breath or difficulty breathing. Pt denies cough. Pt on telemetry, NSR, Pt denies chest pain or discomfort. Pt afebrile. S1,S2 heard, on auscultation. Peripheral pulses present and equal bilaterally. No edema observed, pt skin observed to be warm and dry, no JVD observed. Positive bowel sounds x4, pt denies n/v/d. Pt on regular diet tolerating well. Medications taken whole, no swallowing difficulty observed/reported by patient. Pt denies abdominal pain, no tenderness to palpation. ' Pt voiding independently. Pt denies dysuria, urgency, frequency, hesitancy or difficulty urinating,no bladder distension observed. Activity as tolerated. Positive movement and ROM in all 4 extremities. No joint tenderness or swelling observed. Skin in tact, anicteric. Pt repositions independently for decubitus prevention Patient alert and oriented x3, speech clear. CN II-XII grossly intact. Pupils equal round and reactive to light, EOMI, no nystagmus observed. Positive motor function x4 extremities, motor function symmetrical. Sensation intact bilaterally. Pt denies pain Plan of care updated, call kevin within reach, will continue to monitor for comfort and safety. . * Jamie CHANG, Shandraorna: PERFORM Event Display: Progress Note Hospital Authored Date: Patient: ??LENKA RUVALCABA ? Age:??47 Years?Sex:??Male?:??1975?? Subjective Seen and examined at bedside. Overall clinically feeling better. Noneventful overnight. Review of Systems Constitutional:??No fever. RS:??Denies any cough or ??SOB. CVS:??Denies any chest pain, palpitations, orthopnea GI:??Denies any nausea, vomiting, Neuro:??No headache, disorientation or focal muscle weakness. Musculoskeletal:??No joint pain or low back pain Psych:??no depression Objective Vital Signs?? Temperature: 97.8 DegF (03/04/23 05:27:00) Temperature Route: Oral (03/04/23 05:27:00) Pulse Rate: 60 bpm (03/04/23 05:27:00) Respiratory Rate: 18 br/min (03/04/23 05:27:00) Systolic Blood Pressure: 104 mm Hg (03/04/23 05:27:00) Diastolic Blood Pressure: 81 mm Hg (03/04/23 05:27:00) Blood pressure sites: Arm, left (03/04/23 05:27:00) Mean Arterial Pressure: 89 mm Hg (03/04/23 05:27:00) Pulse Pressure: 23 mm Hg (03/04/23 05:27:00) Oxygen Saturation: 97 % (03/04/23 05:27:00) Mode of Delivery (Oxygen): Room air (03/04/23 05:27:00) Early Warning Score: 2 (03/04/23 05:27:52) ? Physical Exam ?? General: Lying comfortably in bed,no evident distress Cardiac: S1 + S2 + 0, no murmurs heard Respiratory: CTA, No wheezes, Rales or crackles heard Abdomen: soft, nondistended, nontender Extremities: No edema or cyanosis present Neurological: AO X3,cranial nerves grossly normal? Assessment/Plan ?? 47-year-old male with PMH including alcohol use disorder, frequent admission for alcohol withdrawal, history of alcohol withdrawal seizure, anxiety, depression, bipolar disorder, history of??suicidalideation. Patient was brought to ER with nausea, vomiting, abdominal pain. ? Diagnoses Abdominal pain ??(R10.9) Alcohol abuse ??(F10.10) Alcohol withdrawal ??(F10.939) Elevated INR ??(R79.1) Fever ??(R50.9) Lactic acid acidosis ??(E87.20) Nausea and vomiting ??(R11.2) QT prolongation ??(R94.31) Transaminitis ??(R74.01) ?? Alcohol abuse (F10.10):??. Alcohol withdrawal (F10.939):??. Elevated INR (R79.1):??. Transaminitis (R74.01):??. Nausea and vomiting (R11.2):??. Lactic acid acidosis (E87.20):??. overall improving??CIWA score??less than 5 Monitor with CIWA protocol. Continue thiamine, folic acid,??pyridoxine, multivitamins. Overall clinically improving??48 hours. Continue with CIWA with as needed Ativan. Decrease Valium 5 mg??2 times a day.Addiction medicine consult appreciated.?? Resume Campral. Pt did endorse some visual hallucinations, did not appear these are particularly bothersome to him,but could consider haldol 1mg TID PRN, or PRN seroquel. If pt ends up with more persistent agitation, could consider addition of depakote 500mg BID, IV or PO. ?? Leukocytosis Lactic acidosis:Resolved. possible dehydration : Leukocytosis likely reactive. We will continue to monitor. ?? Home medication: Anxiety/depression/bipolar: Patient is on??Vraylar??which is nonformulary. ??Patient can??have his own medication. Clonazepam as needed for anxiety. Patient denies any??current suicidal ideation/intent. GERD: Continue??PPI. ?? VTE Prophylaxis:??Subcu??Lovenox Code Status:??full code ?? OMN: Alcohol withdrawal. Disposition: PT recommended home with services when medically??ready.?? Anticipating in 24 hours. ? Consult note * Nadia VAUGHN, Guera Ashley: PERFORM Event Display: Consultation Note Authored Date: [id number] Patient: ??LENKA RUVALCABA ? Age:??47 Years?Sex:??Male?:??1975?? Reason for Consultation Addiction Med Consult - severe alcohol use, withdrawal Requested by??Dr Ayala History of Present Illness Lenka Ruvalcaba is a 47 yo male with a PMHx of alcohol use disorder w/ hx of ETOH w/d seizure, anxiety/depression, bipolar, hx of SI. He was admitted 02/27 after presenting with N/V and abd pain. Pt not particularly forthcoming about alcohol habits on admission. Stated he has cut down on his intake, but still drinking regularly. Reported to other staff he had been binge drinking the 5 days prior to presentation, however. Imaging of the abd/pelvis without any acute findings. Pt was started on a CIWA, has PRN ativan available. ?? Attempted to meet with pt this morning. Nursing present, reporting that he just got a dose of ativan, and that his symptoms seem to be moresevere than yesterday. Pt is sleeping during this conversation, but wakes up to tactile stimulation. He reports that he had stopped drinking 'due to meds.' When asked what medications he is talking about, he mentions campral, vraylar, and some other psychiatric meds. He does not feel that campral was helpful for him. And sounds like he may have taken naltrexone in the past, but this may have produced SI for him. He is currently connected with a PCP. He is not able to tell me where he is currently, or what year it is. He does endorse having some visual hallucinations, but is not able to report specifically what he has been seeing. Review of Systems Reporting visual hallucinations, otherwise difficult to obtain, pt somnolent. Physical Exam Vitals & Measurements T:??98.4?F?? TMIN:??97.9?F?? TMAX:??98.9?F?? HR:??70??(Peripheral)?? RR:??18?? BP:??131/92?? SpO2:??94%?? WT:??99.3??kg?? General:??well developed, well nourished,??appears to be stated age. Appears??comfortable??-??no distress,??no diaphoresis.??No obvious rashes,??no jaundice.??Breathing is??even and unlabored. Mental Status Exam: Appearance:??casual?? Attitude:??cooperative? Eye contact:??eyes closed Motor activity:??calm, no aberrant movements? Mood:??euthymic? Affect:??congruent? Speech:??fluent, unimpaired? Judgment:??appears intact? Insight:??appears intact? Thought process:??linear? Reliability:??uncertain? Delusions or hallucinations:??denies Fund of knowledge:??intact Assessment/Plan Alcohol abuse (F10.10) Alcohol withdrawal (F10.939):??. Not able to gather full history on pt today. It sounds like he??has likely tried some medication options in the??past to help with alcohol cravings, but they were either not effective or caused unwanted side effects. Once pt is more alert/oriented, can discuss??this??with him further and see??what he might be interested in doing moving forward. ?? For the time being, continue with??CIWA and PRN ativan. Primary team can consider addition of diazepam 5mg BID to help??reduce burden of??symptoms overall. This can be adjusted up or down depending on pts response. Pt did endorse some visual hallucinations, did not appear these are particularly bothersome to him,but could consider haldol 1mg TID PRN, or PRN seroquel. If pt ends up with more persistent agitation, could consider addition of depakote 500mg BID, IV or PO. ?? Will follow up with pt once he is more clear and ETOH withdrawal symptoms are tapering down. ?? Recommendations communicated via cortext to Dr Ayala. Addiction??Service will continue to follow with this patient. Thank you for allowing us to participate in the care of this patient. Please contact me with any further questions or concerns. ? Problem List/Past Medical History Ongoing Alcohol withdrawal Bipolar disorder Chronic alcohol use Hepatic steatosis Obese class I Obese class I Medications Inpatient Acetaminophen Tablet, 650 mg, By Mouth, Every 4 hours, PRN Ativan Inj, 1 mg, IV Push Slowly, Every 2 hours, PRN Ativan Inj, 2 mg, IV Push Slowly, Every 2 hours, PRN Ativan Inj, 2 mg, IV Push Slowly, Every hour, PRN clonazePAM 0.5 mg oral tablet, 0.5 mg, By Mouth, Every 12 hours, PRN Docusate/Senna Tablet, 1 tablet, By Mouth, 2 times a day, PRN Folic Acid Tablet, 1 mg, By Mouth, Daily Multivit Therapeutic/Minerals Tablet, 1 tablet, By Mouth, Daily NaCL 0.9% 1,000 mL, 1000 mL, IV Infusion NaCL 0.9% Flush, 3 mL, IV Push, Every 8 hours NaCL 0.9% Flush, 3 mL, IV Push, Every 8 hours, PRN pantoprazole 40 mg oral delayed release tablet, 40 mg, By Mouth, Daily Pyridoxine Tablet, 50 mg, By Mouth, Daily sucralfate 1 gm oral tablet, 1 Gm, By Mouth, 4 times a day Thiamine IVPB Valium 5 mg oral tablet, 5 mg, By Mouth, 3 times a day Zofran Inj, 4 mg, IV Push, Every 6 hours, PRN Home acamprosate 333 mg oral delayed release tablet, 666 mg= 2 tablet, By Mouth, 3 times a day, 1 refills cholecalciferol 400 intl units oral capsule, 10 mcg= 1 capsule, By Mouth, Daily clonazePAM 0.5 mg oral tablet, 0.5 mg= 1 tablet, By Mouth, Every 12 hours, PRN folic acid 1 mg oral tablet, 1 mg= 1 tablet, By Mouth, Daily multivitamin Multiple Vitamins oral tablet, 1 tablet, By Mouth, Daily pantoprazole 40 mg oral delayed release tablet, 40 mg= 1 tablet, By Mouth, Daily, 1 refills sucralfate 1 gm oral tablet, 1 Gm= 1 tablet, By Mouth, 4 times a day, 1 refills Vitamin C 500 mg oral tablet, 500 mg= 1 tablet, By Mouth, Daily Vraylar 6 mg oral capsule, 6 mg= 1 capsule, By Mouth, Daily Allergies NKA Social History Alcohol Use: Current. [...] 100 in lifetime). Immunizations Vaccine Date Status [id number] 12y+ bivalent booster vax 06/13/2022 Recorded SARS-CoV-2 (COVID-19) mRNA-1273 vaccine 08/02/2021 Recorded SARS-CoV-2 (COVID-19) mRNA-1273 vaccine 01/26/2021 Recorded SARS-CoV-2 (COVID-19) mRNA-1273 vaccine 12/28/2020 Recorded tetanus/diphtheria/pertussis, acel(Tdap) 01/05/2019 Given Note * ChaSalma mccray RN: PERFORM Event Display: Discharge/Transfer Note Hospital Authored Date: [id number] Nursing Discharge Note Entered On: 03/05/2023 10:57 EDT Performed On: 03/05/2023 10:56 EDT by Salma Day RN Nursing Discharge Note 2 Discharge Time : 03/05/2023 10:56 EDT Discharge Level of Care at Discharge : Home/Snf/Foster Care Discharge VNA/Hospice/Home Care(v001) : [facility] [phone] Patient Left Unit Via : Ambulatory Patient Accompanied Off Unit with : Other: uber per patient request. Patient to call his own uber or take the bus DC Instructions Provided & Signed by Pt : Yes Patient Understands D/C Instructions : Yes Verbalized Understanding of D/C Plan By : Patient Patient Instructions Discharge Signed : Yes Did Pt have Specialty Bed or Wound Vac : No Salma Day RN - 03/05/2023 10:56 EDT * Daija Ayala MD: PERFORM Event Display: Discharge/Transfer Note Hospital Authored Date: [id number] Patient: ??LENKA RUVALCABA ? Age:??47 Years?Sex:??Male?:??1975?? Patient Information Discharge Location: Primary Care Physician: Harman Vang MD Admit Date/Time: 02/26/23 20:39 Discharge Disposition Discharge Disposition: Home: No Services Discharge Diagnosis Abdominal pain (R10.9) Alcohol abuse (F10.10) Alcohol withdrawal (F10.939) Elevated INR (R79.1) Fever (R50.9) Lactic acid acidosis (E87.20) Nausea and vomiting (R11.2) QT prolongation (R94.31) Transaminitis (R74.01) ?? _ Discharge Medications Acamprosate (acamprosate 333 mg oral delayed release tablet)?2?tab(s)?666?Milligram?By Mouth?3 times a day Ascorbic Acid (Vitamin C 500 mg oral tablet)?1?tab(s)?500?Milligram?By Mouth?Daily cariprazine (Vraylar 6 mg oral capsule)?1?capsule?6?Milligram?By Mouth?Daily Cholecalciferol (cholecalciferol 400 intl units oral capsule)?1?capsule?10?Microgram?By Mouth?Daily Clonazepam (clonazePAM 0.5 mg oral tablet)?1?tab(s)?0.5?Milligram?By Mouth?Every 12 hours?as needed?Anxiety Durable Medical Equipment (Outpatient Physical Therapy.)?See Instructions?Outpatient PhysicalTherapy. Folic Acid (folic acid 1 mg oral tablet)?1?Milligram?1?tablet?By Mouth?Daily Multivitamin (multivitamin Multiple Vitamins oral tablet)?1?tab(s)?By Mouth?Daily Pantoprazole (pantoprazole 40 mg oral delayed release tablet)?1?tab(s)?40?Milligram?By Mouth?Daily Sucralfate (sucralfate 1 gm oral tablet)?1?gram?1?tablet?By Mouth?4 times a day Thiamine (thiamine 100 mg oral tablet)?100?Milligram?1?tablet?By Mouth?Daily?for 30?Days ? Medications Started Thiamine (thiamine 100 mg oral tablet)?100?Milligram?1?tablet?By Mouth?Daily?for 30?Days Medications Discontinued None. Doses Changed None. Allergies Allergies ?(Active and Proposed Allergies Only) NKA? (Severity: Unknown severity, Onset: Unknown) ? Hospital Course 47-year-old male with PMH including alcohol use disorder, frequent admission for alcohol withdrawal, history of alcohol withdrawal seizure, anxiety, depression, bipolar disorder, history of??suicidalideation. Patient was brought to ER with nausea, vomiting, abdominal pain. ? Diagnoses Abdominal pain ??(R10.9) Alcohol abuse ??(F10.10) Alcohol withdrawal ??(F10.939) Elevated INR ??(R79.1) Fever ??(R50.9) Lactic acid acidosis ??(E87.20) Nausea and vomiting ??(R11.2) QT prolongation ??(R94.31) Transaminitis ??(R74.01) ?? Alcohol abuse (F10.10):??. Alcohol withdrawal (F10.939):??. Elevated INR (R79.1):??. Transaminitis (R74.01):??. Nausea and vomiting (R11.2):??. Lactic acid acidosis (E87.20):??. Patient was followed with [place] protocol. ??Currently??not on withdrawal anymore. Continue thiamine, folic acid,??multivitamins.??Resume Campral. Also treated with scheduled Valium in the hospital. ?? Leukocytosis Lactic acidosis:Resolved. possible dehydration : Leukocytosis likely reactive. We will continue to monitor. ?? Home medication: Anxiety/depression/bipolar: Patient is on??Vraylar??which will be continue.Patient can??have his own medication. Clonazepam as needed for anxiety. GERD: Continue??PPI. ? Objective Measurements?? Height: 175 cm (03/05/23) Weight: 99.3 kg (02/28/23) Dry Weight: 99.3 kg (02/28/23) Body Mass Index:??32.42 kg/m2??Critical (02/28/23) ? Vital Signs?? Temperature: 97.3 DegF (03/05/23 06:27:00) Temperature Route: Oral (03/05/23 06:27:00) Pulse Rate: 59 bpm (03/05/23 06:27:00) Respiratory Rate: 17 br/min (03/05/23 06:27:00) Systolic Blood Pressure: 116 mm Hg (03/05/23 06:27:00) Diastolic Blood Pressure: 72 mm Hg (03/05/23 06:27:00) Blood pressure sites: Arm, right (03/05/23 06:27:00) Mean Arterial Pressure: 87 mm Hg (03/05/23 06:27:00) Pulse Pressure: 44 mm Hg (03/05/23 06:27:00) Oxygen Saturation: 99 % (03/05/23 06:27:00) Mode of Delivery (Oxygen): Room air (03/05/23 06:27:00) Early Warning Score: 2 (03/05/23 06:27:48) ? . Physical Exam ?? General: Lying comfortably in bed,no evident distress Cardiac: S1 + S2 + 0, no murmurs heard Respiratory: CTA, No wheezes, Rales or crackles heard Abdomen: soft, nondistended, nontender Extremities: No edema or cyanosis present Neurological: AO X3,cranial nerves grossly normal? Pending Results Magnesium Level ordered on 03/01/2023 Phosphorus Level ordered on 03/01/2023 Potassium Level ordered on 03/01/2023 Follow-Up Appointments Added Follow Up ?Time Frame ?Comments Name Harman CHANG?1 to 2 weeks Post Discharge Care Discharge ?03/05/23 8:30:00 EDT Discharge Prescriptions ?ePrescribed, ??Prescription sent to [address], ??03/05/23 8:30:00 EDT Misc Durable Medical Equipment ?Outpatient Physical Therapy., ??See Instructions, # 1, ??each, Refills 0, Tot. Refills 0, ??Maintenance, ??Outpatient Physical Therapy., ??07/10/23 8:29:00 EDT, ??Supply Home Health Face to Face ^HomeHealthFTF Results Discharge Labs BLOOD COUNT & DIFF WBC 13.0 k/mm3 (High)?? 03/03/2023 00:27 RBC 4.56 m/mm3 (Low)?? 03/03/2023 00:27 Hgb 14.6 Gm/dL ()?? 03/03/2023 00:27 Hct 42.5 % ()?? 03/03/2023 00:27 MCV 93.2 femtoliters ()?? 03/03/2023 00:27 MCH 32.0 pg ()?? 03/03/2023 00:27 MCHC 34.4 g/dL ()?? 03/03/2023 00:27 Platelet Count 192 k/mm3 ()?? 03/03/2023 00:27 RDW-SD 43.0 femtoliters ()?? 03/03/2023 00:27 MPV 10.6 femtoliters ()?? 03/03/2023 00:27 Nucleated RBC (Automated) 0.0 #/100 WBC'S ()?? 03/03/2023 00:27 Abs. NRBC 0.0 k/mm3 ()?? 03/03/2023 00:27 Abs. Neut 8.6 k/mm3 (High)?? 02/28/2023 07:00 Abs. Lymph 1.5 k/mm3 ()?? 02/28/2023 07:00 Abs. [place] 0.9 k/mm3 ()?? 02/28/2023 07:00 Abs. Eo 0.3 k/mm3 ()?? 02/28/2023 07:00 Abs. Baso 0.1 k/mm3 ()?? 02/28/2023 07:00 Neut % 75.2 % ()?? 02/28/2023 07:00 Lymph % 13.3 % (Low)?? 02/28/2023 07:00 [place] % 7.9 % ()?? 02/28/2023 07:00 Eos % 2.6 % ()?? 02/28/2023 07:00 Baso % 0.6 % ()?? 02/28/2023 07:00 Imm Gran 0.4 % ()?? 02/28/2023 07:00 Abs. Imm Gran 0.1 k/mm3 ()?? 02/28/2023 07:00 ?? BLOOD GAS pH, Venous 7.44 (High)?? 02/26/2023 16:30 ? CHEM GENERAL Sodium 136 mmol/L ()?? 03/03/2023 00:27 Potassium 3.8 mmol/L ()?? 03/03/2023 00:27 Chloride 99 mmol/L ()?? 03/03/2023 00:27 Bicarbonate Level 24 mmol/L ()?? 03/03/2023 00:27 Anion Gap 13 ()?? 03/03/2023 00:27 Glucose Level 92 mg/dL ()?? 03/03/2023 00:27 BUN 8 mg/dL ()?? 03/03/2023 00:27 Creatinine-Blood 0.6 mg/dL (Low)?? 03/03/2023 00:27 Estimated GFR Creatinine 118 ML/MIN/1.73 M2 ()?? 03/03/2023 00:27 Calcium 9.0 mg/dL ()?? 03/01/2023 00:15 Phosphorus 4.0 mg/dL ()?? 03/03/2023 00:27 Magnesium 2.0 mg/dL ()?? 03/03/2023 00:27 Protein, Total 6.9 Gm/dL ()?? 02/28/2023 06:11 Albumin 4.2 Gm/dL ()?? 02/28/2023 06:11 AG Ratio 1.6 ()?? 02/26/2023 16:30 Alkaline Phosphatase 122 units/L ()?? 02/28/2023 06:11 Lipase 35 units/L ()?? 02/26/2023 16:30 AST (SGOT) 120 units/L (High)?? 02/28/2023 06:11 ALT (SGPT) 59 units/L (High)?? 02/28/2023 06:11 Bilirubin, Total 1.4 mg/dL (High)?? 02/28/2023 06:11 Bilirubin, Direct 0.5 mg/dL (High)?? 02/28/2023 06:11 Bilirubin, Indirect 0.9 mg/dL (High)?? 02/28/2023 06:11 Vitamin B12 Level 1000 pg/mL ()?? 03/01/2023 00:15 Lactate 1.4 mmol/L ()?? 02/27/2023 01:29 ?? COAG INR 1.2 (High)?? 02/26/2023 16:30 Protime (PT) 12.3 seconds (High)?? 02/26/2023 16:30 ?? ENDOCRINE/TUMOR MARKER TSH 4.16 uIU/mL ()?? 03/01/2023 00:15 ? MISC. CHEMISTRY Ammonia, Venous 47 ??mole/L ()?? 02/26/2023 16:30 Hold Green Top SPECIMEN DISCARDED AFTER 1 WEEK ()?? 02/26/2023 16:30 ?? TOXICOLOGY/TDM Ethanol, Serum or Plasma NONE DETECTED mg/dL ()?? 02/26/2023 16:30 Barbiturate Screen, Urine POSITIVE (Abnormal)?? 02/26/2023 18:43 Cannabinoid Screen, Urine POSITIVE (Abnormal)?? 02/26/2023 18:43 Cocaine Metabolite Screen, Urine NONE DETECTED ()?? 02/26/2023 18:43 Benzodiazepine Screen, Urine NONE DETECTED ()?? 02/26/2023 18:43 Amphetamine Screen, Urine NONE DETECTED ()?? 02/26/2023 18:43 Opiate Screen, Urine NONE DETECTED ()?? 02/26/2023 18:43 ? UA/URINALYSIS Appear/Color, Urine YELLOW ()?? 02/27/2023 06:30 Specific [place], Urine >1.050 (High)?? 02/27/2023 06:30 pH, Urine 8.5 (High)?? 02/27/2023 06:30 Albumin, Urine 1+ (Abnormal)?? 02/27/2023 06:30 Glucose, Urine NEGATIVE ()?? 02/27/2023 06:30 Ketones, Urine NEGATIVE ()?? 02/27/2023 06:30 Bilirubin, Urine NEGATIVE ()?? 02/27/2023 06:30 Hemoglobin, Urine NEGATIVE ()?? 02/27/2023 06:30 Nitrite, Urine NEGATIVE ()?? 02/27/2023 06:30 Leukocyte, Urine NEGATIVE ()?? 02/27/2023 06:30 Urobilinogen 2 mg/dL (Abnormal)?? 02/27/2023 06:30 WBC's, Urine <1 /HPF ()?? 02/27/2023 06:30 RBC's, Urine NONE SEEN /HPF ()?? 02/27/2023 06:30 Mucus SLIGHT /LPF ()?? 02/27/2023 06:30 ?? URINE OTHER Est Creatinine Clearance 153.33 mL/min ()?? 03/03/2023 02:10 ? VIROLOGY COVID-19 by RT-PCR NEGATIVE ()?? 02/26/2023 20:57 ? 35_ minutes spent on discharge * Salma Day RN: PERFORM Event Display: Patient Education/Instruction Authored Date: [id number] Inpatient Adult Discharge Instructions [address] [address] Name: LENKA RUVALCABA : 1975 Visit: 02/26/2023 20:39:00 Current Date: 03/05/2023 09:54 Account: [id number] Inpatient Adult Discharge Instructions We would like [...] and their families. Surveys are administered by [employer] ?? If further treatment with your primary care physician or another doctor is recommended, it is important for you to keep the appointment. Call your primary care physician or return to the Emergency Department immediately if your condition worsens, fails to improve, or new symptoms develop. If you need to find a doctor, you can call [facility] for a referral at [phone] or toll free at [phone] or log in to [email or web address].. ?? You can view and manage your care through the patient portal or by using a health care eulogio of your choosing. [employer] is a website that allows you to securely view your medical information including your hospital discharge summary, office visit summaries, medications and follow-up visits. You can also request appointments, renew medications, and request access to your medical information using a health care eulogio of your choosing, or just ask a question. You can enroll at [email or web address] or register during your next office visit. You have been discharged from [facility], Patient Care Unit: S3. If you have any questions regarding these instructions after you leave, please call us and we will be happy to assist you. [facility] Your Care Team Attending Physician Daija Ayala MD Discharging Providers Daija Ayala MD Reason for Admission etoh w/ drawl and nausea. no tremors, ??hx of etoh withdrawl in past, last drink last pm Your Diagnosis Alcohol withdrawal Alcohol abuse Abdominal pain Nausea and vomiting Fever QT prolongation Lactic acid acidosis Transaminitis Elevated INR Tests Performed Below is a partial list of the tests performed during your hospitalization. You may have had other tests and procedures not included in this list. Please discuss all test results with your provider. Alcohol Level Alk Phos ALT Ammonia Venous Amphetamine Urine Screen AST B12 Vitamin Level Barbiturate Urine Screen Basic Metabolic Panel Benzodiazepine Urine Screen Bilirubin Total + Direct BUN Cannabinoid Urine Screen CBC CBC w/ Differential Cocaine Urine Screen Comprehensive Metabolic Panel COVID-19 (Novel Coronavirus), Rapid PCR Creatinine Electrolytes Glucose Level HOLD GREEN TUBE INR Lactate Level LFT's Lipase Magnesium Level Opiate Screen Urine pH Venous Phosphorus Level TSH UA CT Abd/Pelvis W/ IV Contrast Only CXR Portable Primary Care Provider Name Harman CHANG Advance Directive Health Care Proxy on File Yes - Health Care Proxy Discharge Vitals Temperature: 97.6 DegF Height: 175 cm Pulse Rate: 72 bpm Weight: 99.3 kg Respiratory Rate: 18 br/min Body Mass Index:??32.42 kg/m2??Critical Systolic Blood Pressure: 122 mm Hg Body surface area: 2.2 Diastolic Blood Pressure: 82 mm Hg ?? Oxygen Saturation: 94 % ?? Studies Pending All tests and labs ordered during this hospital stay have been completed unless listed below. Please discuss all pending results with your provider listed above in these instructions. ?? Magnesium Level Phosphorus Level Potassium Level What to do next Instructions From Your Doctor Discharge Orders You Need to Schedule the Following Appointments Follow Up with??Name Harman CHANG When:??Within 1 to 2 weeks Where: ?? Discharge Medications LENKA RUVALCABA :1975 Visit Date:02/26/2023 Medications: Please continue your medications until treatment is completed or stopped by your provider. Medications not listed below should be discontinued. Discuss any questions related to medications with your provider. What How Much When Instructions Next Dose New Durable Medical Equipment (Outpatient Physical Therapy.) See instructions Outpatient Physical Therapy. ?? Printed Prescription New Thiamine (thiamine 100 mg oral tablet) 1 tab(s) Oral Daily Duration: 30 Days Pickup at [facility] 3 as prescribed Unchanged Acamprosate (acamprosate 333 mg oral delayed release tablet) 2 tab(s) Oral 3 times a day 03/05 1200 Unchanged Ascorbic Acid (Vitamin C 500 mg oral tablet) 1 tab(s) Oral Daily as prescribed Unchanged cariprazine (Vraylar 6 mg oral capsule) 1 capsule Oral Daily as prescribed Unchanged Cholecalciferol (cholecalciferol 400 intl units oral capsule) 1 capsule Oral Daily as prescribed Unchanged Clonazepam (clonazePAM 0.5 mg oral tablet) 1 tab(s) Oral Every 12 hours as needed for Anxiety as prescribed Unchanged Folic Acid (folic acid 1 mg oral tablet) 1 tab(s) Oral Daily 03/06?? AM Unchanged Multivitamin (multivitamin Multiple Vitamins oral tablet) 1 tab(s) Oral Daily 03/06?? AM Unchanged Pantoprazole (pantoprazole 40 mg oral delayed release tablet) 1 tab(s) Oral Daily 03/06?? AM Unchanged Sucralfate (sucralfate 1 gm oral tablet) 1 tab(s) Oral 4 times a day 03/05?? 1200 Pharmacy Information [facility] 3: [address] [place] [address] [phone] Test Results Below is a partial list of the most recent Laboratory test results done prior to this discharge. You may have had other tests and procedures not included in this list. Please discuss all test resultswith your provider. Est Creatinine Clearance - 153.33 mL/min (03/03/2023) Alcohol Level (02/26/2023) ???Ethanol, Serum or Plasma - NONE DETECTED Alk Phos (02/27/2023) ???Alkaline Phosphatase - 118 units/L ALT (02/27/2023) ???ALT (SGPT) - 43 units/L Ammonia Venous (02/26/2023) ???Ammonia, Venous - 43 ??mole/L Amphetamine Urine Screen (02/26/2023) ???Amphetamine Screen, Urine - NONE DETECTED AST (02/27/2023) ???AST (SGOT) - 70 units/L B12 Vitamin Level (03/01/2023) ???Vitamin B12 Level - 1000 pg/mL Barbiturate Urine Screen (02/26/2023) ???Barbiturate Screen, Urine - POSITIVE Basic Metabolic Panel (03/01/2023) ???Sodium - 134 mmol/L???Potassium - 3.6 mmol/L???Chloride - 95 mmol/L???Bicarbonate Level - 26 mmol/L???Anion Gap - 13???Glucose Level - 79 mg/dL???BUN - 9 mg/dL???Creatinine-Blood - 0.8 mg/dL???Estimated GFR Creatinine - 112 ML/MIN/1.73 M2???Calcium - 9.0 mg/dL Benzodiazepine Urine Screen (02/26/2023) ???Benzodiazepine Screen, Urine - NONE DETECTED Bilirubin Total + Direct (02/27/2023) ???Bilirubin, Total - 1.4 mg/dL???Bilirubin, Direct - 0.5 mg/dL???Bilirubin, Indirect - 0.9 mg/dL BUN (03/03/2023) ???BUN - 8 mg/dL Cannabinoid Urine Screen (02/26/2023) ???Cannabinoid Screen, Urine - POSITIVE CBC (03/03/2023) ???WBC - 13.0 k/mm3???RBC - 4.56 m/mm3???Hgb - 14.6 Gm/dL???Hct - 42.5 %???MCV - 93.2 femtoliters???MCH - 32.0 pg???MCHC - 34.4 g/dL???Platelet Count - 192 k/mm3???RDW-SD - 43.0 femtoliters???MPV - 10.6 femtoliters???Nucleated RBC (Automated) - 0.0 #/100 WBC'S???Abs. NRBC - 0.0 k/mm3 CBC w/ Differential (02/28/2023) ???WBC - 11.5 k/mm3???RBC - 4.68 m/mm3???Hgb - 14.8 Gm/dL???Hct - 44.0 %???MCV - 94.0 femtoliters???MCH - 31.6 pg???MCHC - 33.6 g/dL???Platelet Count - 175 k/mm3???RDW-SD - 43.6 femtoliters???MPV - 10.8 femtoliters???Nucleated RBC (Automated) - 0.0 #/100 WBC'S???Abs. NRBC - 0.0 k/mm3???Abs. Neut - 8.6 k/mm3???Abs. Lymph - 1.5 k/mm3???Abs. [place] - 0.9 k/mm3???Abs. Eo - 0.3 k/mm3???Abs. Baso - 0.1 k/mm3???Neut % - 75.2 %???Lymph % - 13.3 %???[place] % - 7.9 %???Eos % - 2.6 %???Baso % - 0.6 %???Imm Gran - 0.4 %???Abs. Imm Gran - 0.1 k/mm3 Cocaine Urine Screen (02/26/2023) ???Cocaine Metabolite Screen, Urine - NONE DETECTED Comprehensive Metabolic Panel (02/26/2023) ???Sodium - 141 mmol/L???Potassium - 3.8 mmol/L???Chloride - 101 mmol/L???Bicarbonate Level - 26 mmol/L???Anion Gap - 14???Glucose Level - 104 mg/dL???BUN - 10 mg/dL???Creatinine-Blood - 0.6 mg/dL???Estimated GFR Creatinine - 121 ML/MIN/1.73 M2???Calcium - 9.2 mg/dL???Protein, Total - 7.4 Gm/dL???Al bumin - 4.5 Gm/dL???AG Ratio - 1.6???Alkaline Phosphatase - 126 units/L???AST (SGOT) - 88 units/L???ALT (SGPT) - 53 units/L???Bilirubin, Total - 1.0 mg/dL COVID-19 (Novel Coronavirus), Rapid PCR (02/26/2023) ???COVID-19 by RT-PCR - NEGATIVE Creatinine (03/03/2023) ???Creatinine-Blood - 0.6 mg/dL???Estimated GFR Creatinine - 118 ML/MIN/1.73 M2 Electrolytes (03/03/2023) ???Sodium - 136 mmol/L???Potassium - 3.8 mmol/L???Chloride - 99 mmol/L???Bicarbonate Level - 24 mmol/L???Anion Gap - 13 Glucose Level (03/03/2023) ???Glucose Level - 92 mg/dL HOLD GREEN TUBE (02/26/2023) ???Hold Green Top - SPECIMEN DISCARDED AFTER 1 WEEK INR (02/26/2023) ???INR - 1.2???Protime (PT) - 12.3 seconds Lactate Level (02/27/2023) ???Lactate - 1.4 mmol/L LFT's (02/28/2023) ???Protein, Total - 6.9 Gm/dL???Albumin - 4.2 Gm/dL???Alkaline Phosphatase - 122 units/L???AST (SGOT) - 120 units/L???ALT (SGPT) - 59 units/L???Bilirubin, Total - 1.4 mg/dL???Bilirubin, Direct - 0.5 mg/dL???Bilirubin, Indirect - 0.9 mg/dL Lipase (02/26/2023) ???Lipase - 35 units/L Magnesium Level (03/03/2023) ???Magnesium - 2.0 mg/dL Opiate Screen Urine (02/26/2023) ???Opiate Screen, Urine - NONE DETECTED pH Venous (02/26/2023) ???pH, Venous - 7.44 Phosphorus Level (03/03/2023) ???Phosphorus - 4.0 mg/dL TSH (03/01/2023) ???TSH - 4.16 uIU/mL UA (02/27/2023) ? ?Appear/Color, Urine - YELLOW? ?Specific Teague, Urine - >1.050? ?pH, Urine - 8.5? ?Albumin, Urine - 1+???Glucose, Urine - NEGATIVE???Ketones, Urine - NEGATIVE???Bilirubin, Urine - NEGATIVE???Hemoglobin, Urine - NEGATIVE???Nitrite, Urine - NEGATIVE???Leukocyte, Urine - NEGATIVE???Urobilinogen- 2 mg/dL? ?WBC's, Urine - <1 /HPF? ?RBC's, Urine - NONE SEEN? ?Mucus - SLIGHT Allergies (NKA means No Known Allergies) NKA Problems Active Problems??(4) Alcohol withdrawal?? Bipolar disorder?? Chronic alcohol use?? Hepatic steatosis?? Education Materials Below is the list of Educational Leaflet Providered with your Discharge Instructions. Vitamin B1 (thiamine) Oral Tablet?? Alcohol Withdrawal?? Valuables and Belongings I fully understand and agree that [facility] accepts no responsibility for all my personal [...] to send valuables and belongings home. ?? No Valuables/Belongings: No valuables/belongings present Review of Valuable and Belonging List: With patient, With witness Date for Pt to Sign Valuables/Belongings: 03/05/23 09:34:00 ?? Other Discharge Information ? Case Management Discharge Plan?? Discharge Plan?? Discharge Agency Information?? Discharge Level of Care at Discharge: Home/Snf/Foster Care Name of Agency #1: [facility] Discharge VNA/Hospice/Home Care: [facility] [phone] Service Categories #1: Physical Therapy ?? Service Comments #1: The VNA will call you 1-2 days after d/c to setup your appt. If you do not hear from them, please call them at [phone] ?? Pulmonary Rehab Status?? Pulmonary Rehab Discharge Status?? Respiratory Rate: 18 br/min ? Common Emergency Awareness Tips IS [...] are strongly encouraged to quit. Please call [facility] at [phone] or [phone] ([phone]) or log in to [email or web address] for referrals to smoking cessation programs. ?? 138 Suicide & Crisis Lifeline is available 19/03 if you or someone you know needs to find a reason to keep living. By calling 387 you'll be connected to a skilled, trained counselor at a crisis center in your area. INPATIENT DISCHARGE INSTRUCTIONS SIGNATURE PAGE LENKA RUVALCABA Location:[facility] Registration Date and Time:02/26/2023 20:39 EDT Primary Care Physician: Harman Vang MD, Attending Physician: Daija Ayala MD, I LENKA RUVALCABA, have received the above patient education materials/instructions and have verbalized understanding. If ambulance or transport services are being used I further acknowledge being givena choice of service. ?? If you need to contact me, please call me at this number: . 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 08206-822 Vitamin B1 (thiamine) Oral Tablet Uses For vitamin replacement. ?? Instructions This medicine may be taken with or without food. Store at room temperature away from heat, light, and moisture. Do not keep in the bathroom. Tell your doctor and pharmacist about all your medicines. Include prescription and [id number], vitamins, and herbal medicines. Speak with your doctor or pharmacist before starting any other vitamins. ?? Cautions Tell your doctor and pharmacist if you ever had an allergic reaction to a medicine. Do not use the medication any more than instructed. ?? Side Effects This medicine usually has no side effects. A few people may have an allergic reaction to this medicine. Symptoms can include difficulty breathing, skin rash, itching, swelling, or severe dizziness. If you notice any of these symptoms, seek medical help quickly. ?? Extra Please speak with your doctor, nurse, or pharmacist if you have any questions about this medicine. ?? [email or web address] IMPORTANT NOTE: This document tells you briefly how to take your medicine, but it does not tell youall there is to know about it. Your doctor or pharmacist may give you other documents about your medicine. Please talk to them if you have any questions. Always follow their advice. There is a more complete description of this medicine available in [employer]. Scan this code on your smartphone or tablet or use the web address below. You can also ask your pharmacist for a printout. If you have any questions, please ask your pharmacist. The display and use of this drug information is subject to Terms of Use. Copyright(c) 2022 [employer]. ?? [employer]. All rights reserved. This information is not intended as a substitute for professional medical care. Always follow your healthcare professional's instructions. ?? * Salma Day RN: PERFORM Event Display: Patient Education Leaflets Authored Date: [id number] Alcohol Withdrawal ?? [id number] Alcohol Withdrawal Alcohol withdrawal often starts after prolonged heavy drinking, and then you suddenly stop drinking. Or you cut down on your alcohol use. It is not one thing. It is a complex combination of signs andsymptoms that often occur together and define a certain problem or condition. ??? Alcohol withdrawal is potentially life-threatening. It is a medical emergency. ??? It can startas early as a couple of hours after your last drink. Or it may take 1 to 3 days to develop. ??? It can last from days to a week or more. ??? It can worsen very quickly. Signs and symptoms There are??several stages of alcohol withdrawal. But they overlap, as do their signs and symptoms. In the earlier stages, it most often includes: ??? Anxiety ??? Shakiness ??? Nausea and vomiting ???Sweating ??? Insomnia ??? Headaches ??? Fever ??? Mood swings, irritability, agitation, restlessness ?? Delirium tremens (DTs) DTs are a severe and life-threatening complication. If??DTs happen, they often start about 3 to 5 days after your last drink. They are potentially life threatening, so medical care should be sought. Symptoms of DTs include: ??? Sudden and severe mental or nervous system changes ??? Uncontrollable tremors ??? Severe disorientation, confusion, hallucinations ??? Heart racing, or irregular heartbeat??? High blood pressure ??? Seizures ??? Possible coma and ?? Home care ??? You'll need plenty of rest and fluids over the next several days. Eat regular meals and drink plenty of fluids to prevent dehydration. Don't drink any more alcohol. During this time, itis best that you're not alone. Stay with family or friends who can help and support you. You can also admit yourself to a residential detox program. ??? Don't drive until all symptoms are gone and you are feeling better. If you've had a seizure, don't drive until you've been examined by a healthcare provider. ??? If you were given sedative medicine to reduce your symptoms, don't take it more often than prescribed. Never take it with alcohol. ?? Follow-up care Once you've gone through the withdrawal symptoms, you've fought half of the hebert. To avoid the risk of going back to your past drinking pattern, it's vital that you get follow-up support and treatment. ??? Alcoholics Anonymous (AA) offers support through a self-help fellowship. There are no dues or fees. Search the internet or go to the AA website at www.aa.org to find a local meeting place. ??? [employer]to[employer] offers support to families of alcohol users. Go to the Al-Anon website at www.al-anon.org . ??? Residential alcohol detox programs are available. Search the internet for treatment centers [facility]. ?? Call 911 Call 911 if any of these occur: ??? Seizure ??? Trouble breathing or slow, irregular breathing ??? Chest pain ??? Sudden weakness on a side of the body or sudden trouble speaking ??? Heavy bleeding or vomiting blood ??? Very drowsy or trouble awakening ??? Fainting or loss of consciousness ??? Rapid heart rate ?? When to get medical advice Call your healthcare provider right away??if any of these occur: ??? Severe shakiness ??? Hallucinations ??? Fever over 100.4?? F (38.0?? C) ??? Headache, confusion, extreme drowsiness, inability to awaken ??? Increasing upper abdominal pain ??? Repeated vomiting ?? Last Reviewed Date: 2021 ?? 3039-1854 [employer]. All rights reserved. This information is not intended as a substitute for professional medical care. Always follow your healthcare professional's instructions. ?? * Rob MCCABE, Mallory Marrero: VERIFY, PERFORM, SIGN Event Display: Case Management Discharge Plan Authored Date: [id number] Patient: LENKA RUVALCABA Age: 47 years Sex: Male : 1975 Associated Diagnoses: None Author: Mallory Rivas RN Discharge Plan Case Management Discharge Plan : Case Management Discharge Plan Data 03/02/2023 14:55 EDT Discharge Level of Care at Discharge Homehealth/VNA Discharge VNA/Hospice/Home Care [facility] [phone] Name of Agency #1 [facility] Service Categories #1 Physical Therapy Service Comments #1 The VNA will call you 1-2 days after d/c to setup your appt. If you do not hearfrom them, please call them at [phone] Patient Care team information Care Team Personnel Name: Yayo Gamboa RN Position: [facility] RN Member Role: Primary Care Nurse Name: Lilly Van RN Position: [facility] RN Member Role: Primary Care Nurse Name: Rissa Yadav RN Position: [facility] RN Member Role: Primary Care Nurse Name: Adilson Tyler RN Position: [facility] RN Supv Member Role: Primary Care Nurse Name: Gely Ceja RN Position: [facility] RN Member Role: Primary Care Nurse Name: Francis Ritter RN Position: [facility] RN Member Role: Primary Care Nurse Name: Hay Jose RNMisael Position: [facility] RN Member Role: Primary Care Nurse Name: Maurice Pathak RN Position: [facility] RN Member Role: Primary Care Nurse Name: Caitlin Melendez RN Position: [facility] RN Radames Member Role: Primary Care Nurse Name: Bozena Lora LPN Position: [facility] RN Member Role: Primary Care Nurse Name: Reggie Jackson RN Position: [facility] RN Member Role: Primary Care Nurse Name: Rhonda De La O RN Position: [facility] RN Member Role: Primary Care Nurse Name: Harman Vang MD Position: [facility] Outreach Member Role: PCP Address: Address: [address] [place] [id number] Name: Neris Lewis RN Position: [facility] RN Member Role: Primary Care Nurse Name: Veronica Howell RN Position: [facility] RN Member Role: Primary Care Nurse Name: Natalia Harris RN Position: [facility] RN Member Role: Primary Care Nurse Name: Rhiannon Peña RN Position: [facility] RN Member Role: Primary Care Nurse Name: Abiola CONTE Attending Position: [facility] ED Medicine MD Name: Scarlett Nathan RN Position: [facility] ED RN W/OE and Tasks Member Role: Patient Care Provider Care Team Related Persons Name: PEG DONOVAN Address: [facility] [place] [address] Name: KELLY RIVERA Address: home [address] [place] [id number]
--- OUTSIDE RECORDS SUMMARY | 2023-07-02 16:08 | XMS_ITS | Continuity of Care Document ---
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 repeat CT head with nil acute will need to have ce removed as outpatient ?? Anxiety (F41.9):??continue home clonazepam cariprazine to restart denies any active suicidal ideation has outpatient mental health support ?? Code Status:??Full ?Order Code Status:??Code Status Ordered ? Vital Signs?? Temperature: 98.3 DegF (07/11/22 11:52:00) Temperature Route: Oral (07/11/22 11:52:00) Pulse Rate: 57 bpm (07/11/22 11:52:00) Pulse Rate, Lyin bpm (07/10/22 14:43:00) Systolic Blood Pressure, Lyin mm Hg (07/10/22 14:43:00) Diastolic Blood Pressure, Lyin mm Hg (07/10/22 14:43:00) Pulse Rate, Sittin bpm (07/10/22 14:43:00) Systolic Blood Pressure, Sittin mm Hg (07/10/22 14:43:00) Diastolic Blood Pressure, Sittin mm Hg (07/10/22 14:43:00) Pulse Rate, Standin bpm (07/10/22 14:43:00) Systolic Blood Pressure, Standin mm Hg (07/10/22 14:43:00) Diastolic Blood Pressure, Standin mm Hg (07/10/22 14:43:00) Respiratory Rate: 18 br/min (07/11/22 11:52:00) Systolic Blood Pressure:??148 mm Hg??High (07/11/22 11:52:00) Diastolic Blood Pressure:??97 mm Hg??High (07/11/22 11:52:00) Blood pressure sites: Arm, left (07/11/22 11:52:00) Mean Arterial Pressure: 114 mm Hg (07/11/22 11:52:00) Pulse Pressure: 51 mm Hg (07/11/22 11:52:00) Oxygen Saturation: 95 % (07/11/22 11:52:00) Mode of Delivery (Oxygen): Room air (07/11/22 11:52:00) Early Warning Score: 2 (07/11/22 11:53:10) ? . Physical Exam Gen: comfortable, well: HEENT: head lac s/p ce Chest: CTA, no wheeze/crackles CVS: no M/G/R, no JVD Abdo: soft, non-tender Ext: no oedema, no cyanosis or clubbing Neuro: no deficit. A+Ox3. no tremor Psych: WNL Pending Results Add On Lab Order ordered on 07/10/2022 COVID-19 (2019 Novel Coronavirus) PCR ordered on 07/10/2022 Patient Education Titles Alcoholism: Getting Help?? Follow-Up Appointments Added Follow Up ?Time Frame ?Comments Cody Baumann?1 week Patient Instructions The ce to your head laceration need to be removed 7 days after they were placed. Please go to your primary care office or return to the ED for this. Home Health Face to Face ^HomeHealthFTF Results Discharge Labs BLOOD COUNT & DIFF WBC 10.6 k/mm3 ()?? 07/11/2022 01:22 RBC 4.68 m/mm3 (Low)?? 07/11/2022 01:22 Hgb 14.6 Gm/dL ()?? 07/11/2022 01:22 Hct 43.2 % ()?? 07/11/2022 01:22 MCV 92.3 femtoliters ()?? 07/11/2022 01:22 MCH 31.2 pg ()?? 07/11/2022 01:22 MCHC 33.8 g/dL ()?? 07/11/2022 01:22 Platelet Count 193 k/mm3 ()?? 07/11/2022 01:22 RDW-SD 42.0 femtoliters ()?? 07/11/2022 01:22 MPV 10.8 femtoliters ()?? 07/11/2022 01:22 Nucleated RBC (Automated) 0.0 #/100 WBC'S ()?? 07/11/2022 01:22 Abs. NRBC 0.0 k/mm3 ()?? 07/11/2022 01:22 Abs. Neut 6.5 k/mm3 ()?? 07/10/2022 06:20 Abs. Lymph 1.3 k/mm3 ()?? 07/10/2022 06:20 Abs. Yancey 0.7 k/mm3 ()?? 07/10/2022 06:20 Abs. Eo 0.1 k/mm3 ()?? 07/10/2022 06:20 Abs. Baso 0.1 k/mm3 ()?? 07/10/2022 06:20 Neut % 74.4 % ()?? 07/10/2022 06:20 Lymph % 15.4 % ()?? 07/10/2022 06:20 Yancey % 8.0 % ()?? 07/10/2022 06:20 Eos % 1.4 % ()?? 07/10/2022 06:20 Baso % 0.6 % ()?? 07/10/2022 06:20 Imm Gran 0.2 % ()?? 07/10/2022 06:20 Abs. Imm Gran 0.0 k/mm3 ()?? 07/10/2022 06:20 ?? CARDIAC Troponin T Quant <0.01 ng/mL ()?? 07/09/2022 08:45 ? CHEM GENERAL Sodium 138 mmol/L ()?? 07/11/2022 01:22 Potassium 3.8 mmol/L ()?? 07/11/2022 01:22 Chloride 99 mmol/L ()?? 07/11/2022 01:22 Bicarbonate Level 25 mmol/L ()?? 07/11/2022 01:22 Anion Gap 14 ()?? 07/11/2022 01:22 Glucose Level 115 mg/dL (High)?? 07/09/2022 08:45 Glucose, POC 112 mg/dL (High)?? 07/09/2022 09:00 BUN 5 mg/dL (Low)?? 07/11/2022 01:22 Creatinine-Blood 0.6 mg/dL (Low)?? 07/11/2022 01:22 Estimated GFR Creatinine 121 ML/MIN/1.73 M2 ()?? 07/11/2022 01:22 Calcium 9.3 mg/dL ()?? 07/09/2022 08:45 Phosphorus 2.8 mg/dL ()?? 07/10/2022 06:20 Magnesium 1.7 mg/dL ()?? 07/11/2022 01:22 Protein, Total 6.3 Gm/dL ()?? 07/10/2022 06:20 Albumin 3.8 Gm/dL ()?? 07/10/2022 06:20 AG Ratio 1.6 ()?? 07/09/2022 08:45 Alkaline Phosphatase 98 units/L ()?? 07/10/2022 06:20 Lipase 20 units/L ()?? 07/09/2022 08:45 AST (SGOT) 64 units/L (High)?? 07/10/2022 06:20 ALT (SGPT) 45 units/L (High)?? 07/10/2022 06:20 Bilirubin, Total 1.5 mg/dL (High)?? 07/10/2022 06:20 Bilirubin, Direct 0.4 mg/dL (High)?? 07/10/2022 06:20 Bilirubin, Indirect 1.1 mg/dL (High)?? 07/10/2022 06:20 ? COAG INR 1.4 (High)?? 07/10/2022 06:20 Protime (PT) 14.3 seconds (High)?? 07/10/2022 06:20 ?? ENDOCRINE/TUMOR MARKER TSH 2.28 uIU/mL ()?? 07/09/2022 08:45 ? HEME OTHER Hold Blue Top SPECIMEN DISCARDED AFTER 4 HOURS. ()?? 07/09/2022 08:45 ? TOXICOLOGY/TDM Ethanol, Serum or Plasma NONE DETECTED mg/dL ()?? 07/09/2022 08:45 ? UA/URINALYSIS Appear/Color, Urine YELLOW ()?? 07/09/2022 11:40 Specific [place], Urine 1.021 ()?? 07/09/2022 11:40 pH, Urine 8.5 (High)?? 07/09/2022 11:40 Albumin, Urine 2+ (Abnormal)?? 07/09/2022 11:40 Glucose, Urine NEGATIVE ()?? 07/09/2022 11:40 Ketones, Urine NEGATIVE ()?? 07/09/2022 11:40 Bilirubin, Urine NEGATIVE ()?? 07/09/2022 11:40 Hemoglobin, Urine NEGATIVE ()?? 07/09/2022 11:40 Nitrite, Urine NEGATIVE ()?? 07/09/2022 11:40 Leukocyte, Urine NEGATIVE ()?? 07/09/2022 11:40 Urobilinogen NORMAL mg/dL ()?? 07/09/2022 11:40 WBC's, Urine 1 /HPF ()?? 07/09/2022 11:40 RBC's, Urine 1 /HPF ()?? 07/09/2022 11:40 Bacteria SLIGHT HPF (Abnormal)?? 07/09/2022 11:40 Mucus SLIGHT /LPF ()?? 07/09/2022 11:40 Hold Urine Culture Testing available 48 hours from time of collection. ()?? 07/09/2022 11:40 ?? VIROLOGY Influenza A PCR NEGATIVE ()?? 07/09/2022 08:55 Influenza B PCR NEGATIVE ()?? 07/09/2022 08:55 RSV PCR NEGATIVE ()?? 07/09/2022 08:55 COVID-19 PCR Specimen Source NASAL ()?? 07/09/2022 08:55 COVID-19 PCR Result NEGATIVE ()?? 07/09/2022 08:55 ? Imaging(s) ?CT Head/Brain W/O Contrast ?? 07/09/2022 10:07??by John CHANG [facility] ? FINDINGS: ?? Field Coil Winder view findings, lines and tubes: None. ?? BRAIN AND EXTRA-AXIAL SPACES: No parenchymal hemorrhage, midline shift, or mass effect. Herbert-white matter differentiation is wellpreserved. No acute infarct. ?? Ventricles, sulci, and basilar cisterns are normal. ?? No white matter lesions. ?? No subarachnoid hemorrhage. No subdural or epidural collection. ?? CALVARIUM, SKULL BASE, AND SOFT TISSUES: No fractures or suspicious bony lesions. ?? The paranasal sinuses and mastoid air cells are clear. ?? Visualized orbits and globes are intact. ?? The extracranial soft tissues are unremarkable. There are skin ce in the posterior right parietal scalp. ?? IMPRESSION: ?? No acute intracranial pathology. ?Chest 2 Views Frontal and Lat ?? 07/09/2022 09:32??by John CHANG, [facility] ? IMPRESSION: ?? No acute abnormality. ? 32_ minutes spent on discharge * Neris Lewis RN: PERFORM Event Display: Patient Education/Instruction Authored Date: [id number] Inpatient Adult Discharge Instructions [place] [id number] Name: LENKA RUVALCABA : 1975 Visit: 07/09/2022 12:25:00 Current Date: 07/11/2022 13:30 Account: [id number] Inpatient Adult Discharge Instructions We would like [...] and their families. Surveys are administered by [employer] ?? If further treatment with your primary care physician or another doctor is recommended, it is important for you to keep the appointment. Call your primary care physician or return to the Emergency Department immediately if your condition worsens, fails to improve, or new symptoms develop. If you need to find a doctor, you can call [facility] [employer] for a referral at [phone] or toll free at [phone]) or log in to [email or web address].. ?? You can view and manage your care through the patient portal or by using a health care eulogio of your choosing. Practice Management e-Tools is a website that allows you to securely view your medical information including your hospital discharge summary, office visit summaries, medications and follow-up visits. You can also request appointments, renew medications, and request access to your medical information using a health care eulogio of your choosing, or just ask a question. You can enroll at [email or web address] or register during your next office visit. You have been discharged from [facility], Patient Care Unit: S2. If you have any questions regarding these instructions after you leave, please call us and we will be happy to assist you. [facility] Your Care Team Attending Physician Dylan CHANG, Jakub Pineda Discharging Providers Dylan CHANG, Jakub Pineda Reason for Admission Vomiting, syncopal episodes, tremors, haematemesis Your Diagnosis Alcohol use with withdrawal Vomiting Anxiety Syncope Trauma Tests Performed Below is a partial list of the tests performed during your hospitalization. You may have had other tests and procedures not included in this list. Please discuss all test results with your provider. Alcohol Level Blood Urea Nitrogen BUN CBC CBC w/ Differential Comprehensive Metabolic Panel COVID-19, RSV, and Flu A/B, Rapid PCR Creatinine Electrolytes GLUCOSE POC HEPATIC FUNCTION PANEL HOLD BLUE TUBE Lipase Magnesium Level Phosphorus Level PT (INR) Troponin T Quant TSH with T4 Reflex (Adults Only) Urinalysis w/hold for Urine Culture CT Head/Brain W/O Contrast XR Chest 2 Views Frontal and Lat Primary Care Provider Pastor CHANG, Cody Advance Directive Health Care Proxy on File Yes - Health Care Proxy No qualifying data available. Discharge Vitals Temperature: 98.3 DegF Height: 175 cm Pulse Rate: 57 bpm Weight: 95 kg Respiratory Rate: 18 br/min Body Mass Index:??31.02 kg/m2??Critical Systolic Blood Pressure:??148 mm Hg??High Body surface area: 2.15 Diastolic Blood Pressure:??97 mm Hg??High ?? Oxygen Saturation: 95 % ?? Studies Pending All tests and labs ordered during this hospital stay have been completed unless listed below. Please discuss all pending results with your provider listed above in these instructions. ?? Add On Lab Order COVID-19 (2019 Novel Coronavirus) PCR What to do next Instructions From Your Doctor The ce to your head laceration need to be removed 7 days after they were placed. Please go to your primary care office or return to the ED for this. Discharge Orders You Need to Schedule the Following Appointments Follow Up with??Cody Baumann When??Within 1 week Where: [address] [place] [phone] (1) Discharge Medications LENKA RUVALCABA :1975 Visit Date:07/09/2022 Medications: Please continue your medications until treatment is completed or stopped by your provider. Medications not listed below should be discontinued. Discuss any questions related to medications with your provider. What How Much When Instructions Next Dose Changed Ondansetron (ondansetron 4 mg oral tablet, disintegrating) 1 tab(s) Oral 3 times a day as needed for Nausea & Vomiting Duration: 7 Days Pickup at [facility] Unchanged Acamprosate (acamprosate 333 mg oral delayed release tablet) 2 tab(s) Oral 3 times a day 07/11/2022 3PM Unchanged cariprazine (Vraylar 6 mg oral capsule) 1 capsule Oral Daily 07/12/2022 Unchanged Clonazepam (clonazePAM 0.5 mg oral tablet) 1 tab(s) Oral Every 12 hours Unchanged Folic Acid (folic acid 1 mg oral tablet) 1 tab(s) Oral Daily 07/12/2022 Unchanged Multivitamin (Daily Tiffanie oral tablet) 1 tab(s) Oral Daily 07/12/2022 Unchanged Pantoprazole (pantoprazole 40 mg oral delayed release tablet) 1 tab(s) Oral Daily Pickup at [facility] 07/12/2022 Unchanged Sucralfate (sucralfate 1 gm oral tablet) 1 tab(s) Oral 4 times a day Pickup at [facility] 07/11/2022 5PM Unchanged Thiamine (Vitamin B1 100 mg oral tablet) 1 tab(s) Oral Daily Duration: 14 Days 07/12/2022 Pharmacy Information [facility]: [address] [place] [address] [phone] Test Results Below is a partial list of the most recent Laboratory test results done prior to this discharge. You may have had other tests and procedures not included in this list. Please discuss all test resultswith your provider. Alcohol Level (07/09/2022) ???Ethanol, Serum or Plasma - NONE DETECTED Blood Urea Nitrogen (07/11/2022) ???BUN - 5 mg/dL BUN (07/10/2022) ???BUN - 4 mg/dL CBC (07/11/2022) ???WBC - 10.6 k/mm3???RBC - 4.68 m/mm3???Hgb - 14.6 Gm/dL???Hct - 43.2 %???MCV - 92.3 femtoliters???MCH - 31.2 pg???MCHC - 33.8 g/dL???Platelet Count - 193 k/mm3???RDW-SD - 42.0 femtoliters???MPV - 10.8 femtoliters???Nucleated RBC (Automated) - 0.0 #/100 WBC'S???Abs. NRBC - 0.0 k/mm3 CBC w/ Differential (07/10/2022) ???WBC - 8.7 k/mm3???RBC - 3.71 m/mm3???Hgb - 11.4 Gm/dL???Hct - 35.0 %???MCV - 94.3 femtoliters???MCH - 30.7 pg???MCHC - 32.6 g/dL???Platelet Count - 172 k/mm3???RDW-SD - 43.8 femtoliters???MPV - 11.1 femtoliters???Nucleated RBC (Automated) - 0.0 #/100 WBC'S???Abs. NRBC - 0.0 k/mm3???Abs. Neut - 6.5 k/mm3???Abs. Lymph - 1.3 k/mm3???Abs. Yancey - 0.7 k/mm3???Abs. Eo - 0.1 k/mm3???Abs. Baso - 0.1 k/mm3???Neut % - 74.4 %???Lymph % - 15.4 %???Yancey % - 8.0 %???Eos % - 1.4 %???Baso % - 0.6 %???Imm Gran - 0.2 %???Abs. Imm Gran - 0.0 k/mm3 Comprehensive Metabolic Panel (07/09/2022) ???Sodium - 140 mmol/L???Potassium - 3.8 mmol/L???Chloride - 99 mmol/L???Bicarbonate Level - 28 mmol/L???Anion Gap - 13???Glucose Level - 115 mg/dL???BUN - 7 mg/dL???Creatinine-Blood - 0.6 mg/dL???Estimated GFR Creatinine - 121 ML/MIN/1.73 M2???Calcium - 9.3 mg/dL???Protein, Total - 7.8 Gm/dL???Albu min - 4.8 Gm/dL???AG Ratio - 1.6???Alkaline Phosphatase - 116 units/L???AST (SGOT) - 92 units/L???ALT (SGPT) - 64 units/L???Bilirubin, Total - 1.0 mg/dL COVID-19, RSV, and Flu A/B, Rapid PCR (07/09/2022) ???Influenza A PCR - NEGATIVE???Influenza B PCR - NEGATIVE???RSV PCR - NEGATIVE???COVID-19 PCR Specimen Source - NASAL???COVID-19 PCR Result - NEGATIVE Creatinine (07/11/2022) ???Creatinine-Blood - 0.6 mg/dL???Estimated GFR Creatinine - 121 ML/MIN/1.73 M2 Electrolytes (07/11/2022) ???Sodium - 138 mmol/L???Potassium - 3.8 mmol/L???Chloride - 99 mmol/L???Bicarbonate Level - 25 mmol/L???Anion Gap - 14 GLUCOSE POC (07/09/2022) ???Glucose, POC - 112 mg/dL HEPATIC FUNCTION PANEL (07/10/2022) ???Protein, Total - 6.3 Gm/dL???Albumin - 3.8 Gm/dL???Alkaline Phosphatase - 98 units/L???AST (SGOT) - 64 units/L???ALT (SGPT) - 45 units/L???Bilirubin, Total - 1.5 mg/dL???Bilirubin, Direct - 0.4 mg/dL???Bilirubin, Indirect - 1.1 mg/dL HOLD BLUE TUBE (07/09/2022) ???Hold Blue Top - SPECIMEN DISCARDED AFTER 4 HOURS. Lipase (07/09/2022) ???Lipase - 20 units/L Magnesium Level (07/11/2022) ???Magnesium - 1.7 mg/dL Phosphorus Level (07/10/2022) ???Phosphorus - 2.8 mg/dL PT (INR) (07/10/2022) ???INR - 1.4???Protime (PT) - 14.3 seconds Troponin T Quant (07/09/2022) ? ?Troponin T Quant - <0.01 ng/mL TSH with T4 Reflex (Adults Only) (07/09/2022) ???TSH - 2.28 uIU/mL Urinalysis w/hold for Urine Culture (07/09/2022) ???Appear/Color, Urine - YELLOW???Specific [place], Urine - 1.021???pH, Urine - 8.5???Albumin, Urine - 2+???Glucose, Urine - NEGATIVE???Ketones, Urine - NEGATIVE???Bilirubin, Urine - NEGATIVE???Hemoglobin, Urine - NEGATIVE???Nitrite, Urine - NEGATIVE???Leukocyte, Urine - NEGATIVE???Urobilinogen - NORMAL???WBC's, Urine - 1 /HPF???RBC's, Urine - 1 /HPF???Bacteria - SLIGHT???Mucus - SLIGHT???Hold Urine Culture - Testing available 48 hours from time of collection. Allergies (NKA means No Known Allergies) NKA Problems Active Problems??(4) Bipolar disorder?? Chronic alcohol use?? Hepatic steatosis?? Obese class I?? Education Materials Below is the list of Educational Leaflet Providered with your Discharge Instructions. Alcoholism: Getting Help?? Valuables and Belongings I fully understand and agree that [facility] accepts no responsibility for all my [...] Review of Valuable and Belonging List: With patient Date for Pt to Sign Valuables/Belongings: 07/10/22 15:41:00 ?? Other Discharge Information ? Pulmonary Rehab Status?? Pulmonary Rehab Discharge [...] are strongly encouraged to quit. Please call [facility] at [phone] or [phone] ([phone]) or log in to [email or web address] for referrals to smoking cessation programs. ?? The National Suicide Prevention Hotline is available 19/03 if you or someone you know needs to find a reason to keep living. By calling 5-141-300-Measureful (9803) you'll be connected to a skilled, trained counselor at a crisis center in your area. INPATIENT DISCHARGE INSTRUCTIONS SIGNATURE PAGE LENKA RUVALCABA Location:[facility] Registration Date and Time:07/09/2022 12:25 EST Primary Care Physician: Pastor CHANG, Cody, LENKA JUAREZ, have received the above patient education materials/instructions and have verbalized understanding. If ambulance or transport services are being used I further acknowledge being givena choice of service. ?? If you need to contact me, please call me at this number: . Patient/Last Putter Away Name: Patient/Last Putter Away Signature: Relationship to Patient: Witness Name/Signature: Date: * Dylan CHANG, Jakub Pineda: PERFORM, SIGN, VERIFY Event Display: Patient Education Handout Authored Date: [id number] * Neris Lewis RN: PERFORM Event Display: Patient Education Leaflets Authored Date: [id number] Causes of Syncope ?? 63595 Causes of Syncope Syncope (fainting) has many causes. Sometimes it's not serious. In other cases, it's a sign of a heart problem. But treatment can help. How to say it [id number] ?? When syncope is not serious Most causes of syncope are not serious and may be related to: ??? Strong feelings, such as anxiety or fear. A nerve signal may briefly change your heart rate and lower your blood pressure too much. ??? Standing for too long. Standing may cause blood to pool in your legs. When this happens, your brain may not get all the blood it needs. ??? Standing up too fast. Your blood pressure may not adjust fast enough to changes in posture and may drop too low. Certain medicines can also cause this problem. Some medicines that can cause a drop in blood pressure include diuretics, blood pressure medicines, and medicines for chest pain. ??? Reaction to normal body functions. When you go to the bathroom,have gastrointestinal discomfort, upset stomach (nausea), or pain, your heart may have a natural reflex to slow down and lower blood pressure. This can result in syncope. This may also follow exercise, eating, laughter, weight lifting, or playing musical instruments like the trumpet or trombone. ?? When heart trouble causes syncope A heart problem can lower the amount of oxygen-rich blood that gets to the brain. Heart trouble canbe serious and even life-threatening if not treated. Some of these conditions include: ??? A slow heart rate. Electrical signals tell the chambers of the heart when to pump. But the signals may be slowed or blocked (heart block) as they travel on the heart???s electrical pathways. Thiscan be caused by aging, scarred heart tissue, or damage from heart disease. When the heart rate slows, not enough blood is pumped. ??? A fast heart rate. Some things can make the heart race. For instance, a heart attack??can create abnormal electrical signals. These signals can make the heart suddenly beat very fast. The heart pumps before the chambers can adequately fill with blood. So less blood gets to the brain and other parts of the body. Illegal drugs, certain medicines, heart disease, fanny inherited condition can also cause this. ??? A heart valve problem. Blood travels through the chambers of the heart as it pumps. Heart valves open and close to help move blood in the right direction. But a hardened or scarred valve may not open or close fully. As a result, less blood is pumped through the heart to the brain and body. Most often, syncope occurs when a person's aortic valve is narrowed and they do strenuous activity. ??? A heart muscle problem. Some people develop a thickened heart muscle that blocks blood flow out of the heart to the body (called hypertrophic cardiomyopathy). Being dehydrated and having this condition can raise the risk for syncope. ??? A cardiovascular problem. Blood clots in your lungs, increased blood pressure in the vessels in the lungs, or injury to the vessel [place] can also prevent proper flow of oxygenated blood to the brain. Whatever the cause of syncope, it's important to see your healthcare provider. You may need to be seen by a infantry assaultman or neurologist. If you have syncope and haven't been seen by a provider yet, it's important to: ??? Not drive ??? Not use heavy machinery ??? Not do activities where you could fall and hurt yourself ? Last Reviewed Date: 2021 ?? 7746-6955 [employer]. All rights reserved. This information is not intended as a substitute for professional medical care. Always follow your healthcare professional's instructions. ?? * Neris Lewis RN: PERFORM Event Display: Patient Education Leaflets Authored Date: [id number] What Is Syncope? ?? 44311 What Is Syncope? Syncope is also known as fainting or a blackout. It's an abrupt and short-term loss of consciousness and motor tone. It's often caused by a sudden drop in blood flow to the brain or a lack of oxygen to the brain. It's then followed by complete and often rapid spontaneous recovery. The heart pumps blood nonstop to the brain and the rest of the body. Understanding heart rate and blood pressure changes Your brain and body need a steady flow of oxygen-rich blood. Your heart rate and blood pressure change to keep that flow steady throughout all your activities. ??? The heart makes electrical signals that move through it on pathways. These signals set the heart rate. They also tell the heart when topump blood. ??? In response to your body???s needs, your brain may also trigger changes in your heart rate and blood pressure. Sensors in the body detect the amount of blood flow going to the brain and other parts of the body. If these sensors detect low blood flow, they signal the body to increasethe amount of fluid in the blood vessels??and increase the heart rate to provide more circulation. ??? The blood leaving the heart with each contraction supplies oxygen and nutrients as it flows in your brain. ?? Warning signs Syncope often happens suddenly. Warning signs include: ??? Dimmed, blackened, or tunnel vision ??? Lightheadedness ??? Sleepiness ??? Rapid heartbeat Some people may also feel nauseated or sweaty. But you may have no warning signs at all. After syncope, you get better quickly. But you may feel tired. Don't drive if you are having warning signs that you may faint. ?? Is it serious? Syncope is a common problem with many possible causes. Often these causes are not serious. For instance, syncope can be caused by standing for too long or sitting up too fast. In some cases, you may never faint again. But if you have syncope with a heart problem, it can be a warning sign of a more serious problem. For this reason, your healthcare provider may order several tests to look at heart function and rhythm. If you have had syncope, talk with your healthcare provider. In older adults, syncope may be a sign that a heart attack has happened. Don't delay seeking treatment. Even if the cause of syncope is not serious, there is a risk of injury from falling when you lose consciousness. When possible, finding a cause can reduce this risk. ?? Last Reviewed Date: 2021 ?? [id number] [employer]. All rights reserved. This information is not intended as a substitute for professional medical care. Always follow your healthcare professional's instructions. ?? * Neris Lewis RN: PERFORM Event Display: Patient Education Leaflets Authored Date: [id number] Acamprosate Delayed Release Oral Tablet ?? 98331-628 Acamprosate Delayed Release Oral Tablet Uses For treating alcohol dependence. ?? Instructions Swallow the medicine without crushing or chewing it. This medicine may be taken with or without food. Store at room temperature away from heat, light, and moisture. Do not keep in the bathroom. It is important that you keep taking each dose of this medicine on time even if you are feeling well. If you forget to take a dose on time, take it as soon as you remember. If it is almost time for thenext dose, do not take the missed dose. Return to your normal dosing schedule. Do not take 2 doses of this medicine at one time. Drug interactions can change how medicines work or increase risk for side effects. Tell your healthcare providers about all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
--- OUTSIDE RECORDS SUMMARY | 2023-07-02 16:08 | XMS_ITS | Continuity of Care Document ---
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 Name Role Phone Name Harman CHANG Primary Care Physician Encounter [place] Date(s): 08/25/22 - 08/29/[address] [address]- Encounter Diagnosis Alcohol abuse(Final) - 08/25/22 Alcohol withdrawal(Final) - 08/25/22 Ilda-Lomeli tear(Final) - 08/25/22 Discharge Disposition: Disch/Trans to IP Rehab or unit w/in Hos Attending Physician: Echo Mckeon MD Admitting Physician: Sam Das MD Referring Physician: Not on Staff, Referring MD Allergies, Adverse Reactions, Alerts No Known Allergies Immunizations Given and Recorded Vaccine Date Status Refusal Reason [id number] 12y+ bivalent booster vax 06/13/22 Recorded SARS-CoV-2 (COVID-19) mRNA-1273 vaccine 08/02/21 R ecorded SARS-CoV-2 (COVID-19) mRNA-1273 vaccine 01/26/21 R ecorded SARS-CoV-2 (COVID-19) mRNA-1273 vaccine 12/28/20 R ecorded tetanus/diphtheria/pertussis, acel(Tdap) 01/05/19 Given Medications acamprosate 333 mg oral delayed release tablet 2 tablet = 666 mg, By Mouth, 3 times a day, # 180 tablet, 1 Refills, Maintenance, 07/31/22 8:03:00 EST, Tablet, [facility], Partial fill upon patient request if the prescription is for a schedule II opioid drug., 176, cm, 07/30/22... Start Date: 07/31/22 Status: Ordered cholecalciferol 400 intl units oral capsule 1 capsule = 10 mcg, By Mouth, Daily, # 30 capsule, 0 Refills, Maintenance, 07/31/22 8:07:00 EST, Capsule, [facility], Partial fill upon patient request [...] opioid drug. Start Date: 08/28/22 Status: Ordered Florastor 250 mg oral capsule 1 capsule = 250 mg, By Mouth, 2 times a day, # 30 capsule, 0 Refills, Acute 10/26/22 8:08:00 EST, 07/31/22 8:07:00 EST, Capsule, [facility], Partial fill upon patient request if the prescription is for a schedule II opioid drug., 1... Start Date: 07/31/22 Stop Date: 10/26/22 Status: Ordered fluPHENAZine 2.5 mg oral tablet 3 tablet = 7.5 mg, By Mouth, Daily at bedtime, # 90 tablet, 0 Refills, Maintenance, 07/31/22 8:07:00 EST, Tablet, [facility], Partial fill upon patient request if the prescriptionis for a schedule II opioid drug., 176, cm, ... Start Date: 07/31/22 Status: Ordered folic acid 1 mg oral tablet 1 mg, 1, tablet, By Mouth, Daily, # 30 tablet, Refills 0, Tot. Refills 0, Maintenance, 07/31/22 8:04:00 EST, Route to Pharmacy Electronically, [facility], Partial fill upon patient request if the prescription is for a schedule II o... Start Date: 07/31/22 Status: Ordered multivitamin Multiple Vitamins oral tablet 1 tablet, By Mouth, Daily, # 30 tablet, 0 Refills, Maintenance, 07/31/22 8:05:00 EST, Tablet, [facility], Partial fill upon patient request [...] 07/31/22 8:05:00 EST, Route to Pharmacy Electronically, [facility], Partial fill upon patient request if the prescription is for a sche... Start Date: 07/31/22 Status: Ordered traZODone 50 mg oral tablet 50 mg, 1, tablet, By Mouth, Daily at bedtime, # 30 tablet, Refills 1, Tot. Refills 1, Maintenance, 07/31/22 8:07:00 EST, Route to Pharmacy Electronically, [facility], Partial fillupon patient request if the prescription is for a s... Start Date: 07/31/22 Status: Ordered Vitamin B1 100 mg oral tablet 100 mg, 1, tablet, By Mouth, Daily, # 30 tablet, Refills 0, Tot. Refills 0, Acute 11/08/22 8:06:00 EDT, 07/31/22 8:06:00 EST, Route to Pharmacy Electronically, [facility], Partialfill upon patient request if the prescription is fo... Start Date: 07/31/22 Stop Date: 11/08/22 Status: Ordered Vitamin C 500 mg oral tablet 1 tablet = 500 mg, By Mouth, Daily, # 30 tablet, 0 Refills, Maintenance, 07/31/22 8:10:00 EST, Tablet, [facility], Partial fill upon patient request [...] Exam Date Time Procedure Performing Provider Status 08/25/22 4:15 PM Chest Portable Makayla Franco; Aut h (Verified) Notes: (Chest Portable) Reason For Exam: Shortness of Breath RESULT: Chest Portable Chest Portable Hx of Present Illness: Pt has been depressed with SI but does not have a plan at this time. Pt had recent fall, and this morning he felt he had CP, dizziness, blurry vision with N V, states he had blood tinged vomit. Per Pt he has frequent falls. Hx of depression anxiety and bi; Reason: Shortness of Breath; Clinical Question(s): CHF COMPARISON: None. FINDINGS: LINES AND TUBES: None. LUNGS AND PLEURA: Clear lungs. Normal pulmonary vascularity. No pleural effusion. No pneumothorax. HEART, MEDIASTINUM AND ADEOLA: Borderline enlarged cardiac silhouette. Normal mediastinal and hilar contour. BONES AND SOFT TISSUES: No acute abnormality. IMPRESSION: No acute abnormality. Borderline cardiac silhouette. WSN: [id number] Ordering Physician: Atul Quarles Dictated By: David Guthrie MD Dictated Date/Time: 08/25/22 4:17 pm Reviewed By: David Guthrie MD Signed By: David Guthrie MD Signed Date/Time: 08/25/22 4:17 pm Transcribed By: KARI Transcribed Date/Time: 08/25/22 4:16 pm Vital Signs Most recent to oldest [Reference Range]: 1 2 3 Oxygen Saturation [94-100 %] 97 % (08/29/22 8:31 PM) 96 % (08/29/22 3:58 PM) 97 % (08/29/22 5:00 AM) Pulse Rate [55-90 bpm] 59 bpm (08/29/22 8:31 PM) 63 bpm (08/29/22 3:58 PM) 55 bpm (08/29/22 5:00 AM) Blood Pressure [90-138/55-84 mm Hg] 120/64mm Hg (08/29/22 8:31 PM) 127/93mm Hg (08/29/22 3:58 PM) 123/79mm Hg (08/29/22 5:00 AM) Respiratory Rate [16-30 br/min] 18 br/min (08/29/22 8:31 PM) 18 br/min (08/29/22 3:58 PM) 15 br/min *L* (08/29/22 5:00 AM) Temperature [96.8-100.4 DegF] 98.2 DegF (08/29/22 8:31 PM) 97 DegF (08/29/22 3:58 PM) 97.3 DegF (08/29/22 5:00 AM) Mode of Delivery (Oxygen) Room air (08/29/22 8:31 PM) Room air (08/29/22 3:58 PM) Room air (08/29/22 5:00 AM) Blood pressure sites Arm, right (08/29/22 8:31 PM) Arm, left (08/29/22 3:58 PM) Arm, right (08/29/22 5:00 AM) Temperature Route Oral (08/29/22 8:31 PM) Oral (08/29/22 3:58 PM) Oral (08/29/22 5:00 AM) Social History Social History Type Response Smoking Status Never (less than 100 in lifetime) entered on: 01/28/22 Sex Admission evaluation note * Jerry Nesbitt MD: MODIFY, PERFORM, MODIFY, MODIFY Event Display: Admission Note Authored Date: [id number] Patient: ??LENKA RUVALCABA ? Age:??47 Years?Sex:??Male?:??1975?? History of Present Illness 47-year-old male with history of alcohol dependence, alcohol withdrawal in the past, anxiety/depression, prior history of suicidal ideations presenting to the emergency department with multiple complaints including nausea, vomiting, hematemesis, anxiety, tremulousness, decreased p.o. intake, suicidal ideations. ?? Patient reports that he is dealing with a lot of stressors at home lately, he reports that at approximately 3 AM this morning he woke up with headache, palpitations, shortness of breath, severe anxiety, nausea.?? Reports that he had several episodes of vomiting some of which contained bright redblood.?? Denies any fever or chills, does also report having several episodes of diarrhea, also reports decreased p.o. intake.?? Denies any chest pain or shortness of breath.?? Patient reports that he is feeling quite depressed and feels like should not be left alone as he might hurt myself .?? Denies any homicidal ideations.?? Endorses compliance with medications.?? He does have a history of alcohol abuse however he is not very forthcoming with details regarding alcohol use, he reports that last intake was approximately 10 to 12 hours ago.?? Has not had any further hematemesis in the ED.?? Blood pressures are stable in the emergency department, hemoglobin is stable as well.?? COVID-19negative.?? Ethanol, cocaine, opiates screen negative.?? Received to 60 mg of IV phenobarbital as he was exhibiting signs and symptoms of alcohol withdrawal in the ED with a CIWA score of 12.?? Denies any fever or chills, denies any cough, rhinorrhea, no recent sick contacts, no dysuria. Review of Systems All systems are reviewed??and are negative except as noted above in the HPI. Objective Vital Signs?? Temperature: 98.8 DegF (08/25/22 15:15:00) Temperature Route: Oral (08/25/22 15:15:00) Pulse Rate:??54 bpm??Low (08/25/22 21:33:00) Respiratory Rate: 16 br/min (08/25/22 21:33:00) Systolic Blood Pressure: 128 mm Hg (08/25/22 21:33:00) Diastolic Blood Pressure:??94 mm Hg??High (08/25/22 21:33:00) Systolic Arterial Blood Pressure Line 2: 155 (08/25/22 15:05:00) Diastolic Arterial Blood Pressure Line 2: 99 (08/25/22 15:05:00) Oxygen Saturation: 99 % (08/25/22 15:05:00) Early Warning Score: 3 (08/25/22 21:07:33) ? Physical Exam General: Alert and oriented x4.?? No acute cardiopulmonary distress HEENT: Atraumatic, normocephalic, EOMI, PERRLA, moist mucosal membranes Neck: Supple, trachea midline. CVS: S1, S2 normal,??regular??rate and rhythm, no rubs, murmurs or gallops. ??No JVD, no pedal edema Respiratory: CTA bilaterally,??no wheezes, no rhonchi, no crackles. Abdomen: Soft, nontender, nondistended, normal bowel sounds,??no organomegaly Musculoskeletal: No deformities, normal range of motion. Neuro: Alert and oriented x4, no facial asymmetry, sensations intact, moving all extremities spontaneously. Psych: anxious, depressed mood, + SI, -HI, ??cooperative. Assessment/Plan ?47-year-old male with history of alcohol dependence, alcohol withdrawal in the past, anxiety/depression, prior history of suicidal ideations presenting to the emergency department with multiple complaints including nausea, vomiting, hematemesis, anxiety, tremulousness, decreased p.o. intake, suicidal ideations. ?? Alcohol use disorder Alcohol withdrawal -Continue with CIWA protocol, continue with thiamine, folate, multivitamins, pyridoxine, lorazepam per CIWA protocol.?? Social work consult requested.?? Continue with acamprosate. ?? Anxiety/depression Suicidal ideations -Psychiatry consultation requested.?? Maintain suicide precautions/constant charge auditor.?? Patient cannot leave AMA.?? Continue with home medications including trazodone, fluphenazine, clonazepam.?? Cariprazine is not on formulary and can be resumed upon discharge ?? Concern for GI bleeding Nausea/vomiting Hematemesis ?? -No abdominal pain on my exam, vitals are stable, hemoglobin is 14.6 and stable, no further episodes of hematemesis in the ED.??? Alcoholic gastritis versus Ilda-Lomeli tear.?? Lipase is within normal limits hence unlikely to be pancreatitis.?? AST mildly elevated to 50, total bilirubin mildly elevated to 1.6. -Clear liquids for now, ondansetron as needed for nausea and vomiting.?? Avoid NSAIDs, repeat H&H in a.m.?? IV pantoprazole 40 mg twice daily for now, continue with sucralfate which he takes at home.?? Continue with supportive management, continue to monitor hemodynamics closely ?? DVT prophylaxis: Pneumatic compression boots in the setting of suspected GI bleeding ?? CODE STATUS: Full code. Histories Allergies Allergies ?(Active and Proposed Allergies Only) NKA? (Severity: Unknown severity, Onset: Unknown) ? Past Medical History/Problem List Active Problems??(3) Bipolar disorder Chronic alcohol use Hepatic steatosis ? Past Surgical History none reported ? Social History Alcohol Details:??Use: Current. ??Frequency: Daily. ??Type: Liquor. ?? Exercise Details:??Self assessment: Excellent condition. Substance Abuse Details:??Use: Never. ?? Tobacco Details:??Use: Never (less than 100 in lifetime). Details:??Use: Never (less than 100 in lifetime). Electronic Cigarette/Vaping Details:??Electronic Cigarette Use: Never. ? Family History No family history??of premature CAD Medications Home Medications Acamprosate (acamprosate 333 mg oral delayed release tablet)?2?tab(s)?666?Milligram?By Mouth?3 times a day Ascorbic Acid (Vitamin C 500 mg oral tablet)?1?tab(s)?500?Milligram?By Mouth?Daily cariprazine (Vraylar 6 mg oral capsule)?1?capsule?6?Milligram?By Mouth?Daily Cholecalciferol (cholecalciferol 400 intl units oral capsule)?1?capsule?10?Microgram?By Mouth?Daily Clonazepam (clonazePAM 0.5 mg oral tablet)?1?tab(s)?0.5?Milligram?By Mouth?Every 12 hours Fluphenazine (fluPHENAZine 2.5 mg oral tablet)?3?tab(s)?7.5?Milligram?By Mouth?Daily at bedtime Folic Acid (folic acid 1 mg oral tablet)?1?Milligram?1?tablet?By Mouth?Daily Multivitamin (multivitamin Multiple Vitamins oral tablet)?1?tab(s)?By Mouth?Daily Pantoprazole (pantoprazole 40 mg oral delayed release tablet)?1?tab(s)?40?Milligram?By Mouth?Daily Saccharomyces Boulardii Lyo (Florastor 250 mg oral capsule)?1?capsule?250?Milligram?By Mouth?2 times a day Sucralfate (sucralfate 1 gm oral tablet)?1?gram?1?tablet?By Mouth?4 times a day Thiamine (Vitamin B1 100 mg oral tablet)?100?Milligram?1?tablet?By Mouth?Daily Trazodone (traZODone 50 mg oral tablet)?50?Milligram?1?tablet?By Mouth?Daily at bedtime ? Results Recent Labs BLOOD BANK Blood Type B Positive ()?? 08/25/2022 17:20 Antibody Screen Negative ()?? 08/25/2022 17:20 ?? BLOOD COUNT & DIFF WBC 7.4 k/mm3 ()?? 08/25/2022 15:40 RBC 4.67 m/mm3 (Low)?? 08/25/2022 15:40 Hgb 14.6 Gm/dL ()?? 08/25/2022 15:40 Hct 42.4 % ()?? 08/25/2022 15:40 MCV 90.8 femtoliters ()?? 08/25/2022 15:40 MCH 31.3 pg ()?? 08/25/2022 15:40 MCHC 34.4 g/dL ()?? 08/25/2022 15:40 Platelet Count 148 k/mm3 (Low)?? 08/25/2022 15:40 RDW-SD 42.0 femtoliters ()?? 08/25/2022 15:40 MPV 10.3 femtoliters ()?? 08/25/2022 15:40 Nucleated RBC (Automated) 0.0 #/100 WBC'S ()?? 08/25/2022 15:40 Abs. NRBC 0.0 k/mm3 ()?? 08/25/2022 15:40 Abs. Neut 6.0 k/mm3 ()?? 08/25/2022 15:40 Abs. Lymph 0.9 k/mm3 ()?? 08/25/2022 15:40 Abs. Leon 0.4 k/mm3 ()?? 08/25/2022 15:40 Abs. Eo 0.0 k/mm3 ()?? 08/25/2022 15:40 Abs. Baso 0.1 k/mm3 ()?? 08/25/2022 15:40 Neut % 81.0 % (High)?? 08/25/2022 15:40 Lymph % 12.0 % (Low)?? 08/25/2022 15:40 Leon % 5.9 % ()?? 08/25/2022 15:40 Eos % 0.0 % ()?? 08/25/2022 15:40 Baso % 0.8 % ()?? 08/25/2022 15:40 Imm Gran 0.3 % ()?? 08/25/2022 15:40 Abs. Imm Gran 0.0 k/mm3 ()?? 08/25/2022 15:40 ?? CHEM GENERAL Sodium 140 mmol/L ()?? 08/25/2022 15:40 Potassium 3.6 mmol/L ()?? 08/25/2022 15:40 Chloride 98 mmol/L ()?? 08/25/2022 15:40 Bicarbonate Level 28 mmol/L ()?? 08/25/2022 15:40 Anion Gap 14 ()?? 08/25/2022 15:40 Glucose Level 117 mg/dL (High)?? 08/25/2022 15:40 BUN 10 mg/dL ()?? 08/25/2022 15:40 Creatinine-Blood 0.6 mg/dL (Low)?? 08/25/2022 15:40 Estimated GFR Creatinine 123 ML/MIN/1.73 M2 ()?? 08/25/2022 15:40 Calcium 9.7 mg/dL ()?? 08/25/2022 15:40 Protein, Total 8.0 Gm/dL ()?? 08/25/2022 15:40 Albumin 4.8 Gm/dL ()?? 08/25/2022 15:40 AG Ratio 1.5 ()?? 08/25/2022 15:40 Alkaline Phosphatase 110 units/L ()?? 08/25/2022 15:40 Lipase 19 units/L ()?? 08/25/2022 15:40 AST (SGOT) 50 units/L (High)?? 08/25/2022 15:40 ALT (SGPT) 21 units/L ()?? 08/25/2022 15:40 Bilirubin, Total 1.6 mg/dL (High)?? 08/25/2022 15:40 ?? MISC. CHEMISTRY Hold Green Top SPECIMEN DISCARDED AFTER 1 WEEK ()?? 08/25/2022 15:40 Hold Gel Top SPECIMEN DISCARDED AFTER 1 WEEK ()?? 08/25/2022 15:40 ?? TOXICOLOGY/TDM Ethanol, Serum or Plasma NONE DETECTED mg/dL ()?? 08/25/2022 15:40 Cocaine Metabolite Screen, Urine NONE DETECTED ()?? 08/25/2022 15:17 Opiate Screen, Urine NONE DETECTED ()?? 08/25/2022 15:17 ?? UA/URINALYSIS Appear/Color, Urine YELLOW ()?? 08/25/2022 15:17 Specific [place], Urine 1.024 ()?? 08/25/2022 15:17 pH, Urine 8.5 (High)?? 08/25/2022 15:17 Albumin, Urine 3+ (Abnormal)?? 08/25/2022 15:17 Glucose, Urine NEGATIVE ()?? 08/25/2022 15:17 Ketones, Urine NEGATIVE ()?? 08/25/2022 15:17 Bilirubin, Urine NEGATIVE ()?? 08/25/2022 15:17 Hemoglobin, Urine NEGATIVE ()?? 08/25/2022 15:17 Nitrite, Urine NEGATIVE ()?? 08/25/2022 15:17 Leukocyte, Urine NEGATIVE ()?? 08/25/2022 15:17 Urobilinogen 4 mg/dL (Abnormal)?? 08/25/2022 15:17 WBC's, Urine <1 /HPF ()?? 08/25/2022 15:17 RBC's, Urine 2 /HPF ()?? 08/25/2022 15:17 Mucus SLIGHT /LPF ()?? 08/25/2022 15:17 Hold Urine Culture Testing available 48 hours from time of collection. ()?? 08/25/2022 15:17 ?? VIROLOGY COVID-19 by RT-PCR NEGATIVE ()?? 08/25/2022 18:08 ? EKG study * Event Display: ECG 12-Lead Authored Date: Please click on pdf link to open report * Event Display: ECG 12-Lead Authored Date: Ventricular Rate: 55 BPM Atrial Rate: 55 BPM P-R Interval: 158 ms QRS Duration: 90 ms Q-T Interval: 536 ms QTC Calculation(Bazett): 512 ms P [place]: 3 degrees R [place]: 38 degrees T [place]: 8 degrees Sinus bradycardia Prolonged QT Abnormal ECG When compared with ECG of 22-JUL-2022 21:14, Vent. rate has decreased BY 29 BPM Confirmed by JOELLEN KISER ([id number]) on 08/27/2022 10:54:32 AM [place]: JOELLEN KISER [facility] Progress note * Adilson Tyler RN: PERFORM, SIGN, VERIFY Event Display: Progress Note Hospital Authored Date: Patient: LENKA RUVALCABA Age: 47 years Sex: Male : 1975 Associated Diagnoses: None Author: Adilson Tyler RN Findings Narrative/Incidental Pt. transfered to [place] via stretcher. IV access removed per protocol, Catheter tip intact. Report given to both EMT and ESTELLE Celaya. Pt. discharged with personal belongings as well. . * Hannah Alcazar: PERFORM, SIGN, VERIFY Event Display: Progress Note Hospital Authored Date: Patient: LENKA RUVALCABA Age: 47 years Sex: Male : 1975 Associated Diagnoses: None Author: Hannah Alcazar Findings Problem Related to Alteration in Psychosocial : Alteration in Psychosocial Function/new 08/29/2022 13:00 EST Alteration in Psychosocial Related to Acute Alcohol Withdrawal Goals & Outcomes, Psychosocial Psychosocial support will be provided to Pt/S.O. as needed, Pt will identify stressors leading up to event, Pt will state importance of adhering to medication regime, Pt/caregiver will be offered appropriate resources & support, Pt/caregiver will express feelings/needs/fears /concerns, Pt/caregiver will maintain/obtain psychological stability Interventions, Psychosocial Assess psychosocial needs, Assess/monitor level of consciousness, Offersupport; discuss coping strategies, Provide a calm, supportive environment, Provide chances to express concerns/emotions/expectations BH Goals/Interventions, Psychosocial Yes Psychosocial, Problem Start 08/26/2022 19:38 Reviewed Plan with, Psychosocial Patient Patient Progression, Psychosocial Pt progressing according to plan . Narrative/Incidental Pt alert and oriented x4, mild headache present. Pt has R IV access. Pt skin is intact. Pt latest score on CIWA is a 7. Pt last BM was 08/28. Pt is waiting for placement in [facility]. Pt took all morning medications. Call kevin within reach, bed in lowest position, all needs met at this time. Pt is safe and comfortable. . * Linda CHANG, Echo: PERFORM Event Display: Progress Note Hospital Authored Date: [id number] Patient: ??LENKA RUVALCABA ? Age:??47 Years?Sex:??Male?:??1975?? Subjective ?Patient ??seen and examined today ?c/o one episode of vomiting? Review of Systems General: No fever, chills or rigors Cardiac: No Chest pain, No palpitations, No light headedness Respiratory: no Short of breath, no cough Abdomen:?? abdominal pain improving and now with one vomiting Nervous system: No headache, blurred vision, tingling or numbness or any weakness Objective Vital Signs?? Temperature: 97.3 DegF (08/29/22 05:00:00) Temperature Route: Oral (08/29/22 05:00:00) Pulse Rate: 55 bpm (08/29/22 05:00:00) Respiratory Rate:??15 br/min??Low (08/29/22 05:00:00) Systolic Blood Pressure: 123 mm Hg (08/29/22 05:00:00) Diastolic Blood Pressure: 79 mm Hg (08/29/22 05:00:00) Blood pressure sites: Arm, right (08/29/22 05:00:00) Mean Arterial Pressure: 91 mm Hg (08/28/22 14:19:00) Pulse Pressure: 75 mm Hg (08/28/22 14:19:00) Oxygen Saturation: 97 % (08/29/22 05:00:00) Mode of Delivery (Oxygen): Room air (08/29/22 05:00:00) Early Warning Score: 2 (08/29/22 05:28:26) ? Physical Exam ?? 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 No cranial nerve deficits appreciated Results Recent Labs VIROLOGY COVID-19 by RT-PCR NEGATIVE ()?? 08/28/2022 12:40 ? Assessment/Plan Diagnoses Alcohol abuse ??(F10.10) Alcohol use disorder, severe, dependence ??(F10.20) Alcohol withdrawal ??(F10.239) Major depressive disorder, recurrent episode, severe ??(F33.2) Ilda-Lomeli tear ??(K22.6) ?47-year-old male with history of alcohol dependence, alcohol withdrawal in the past, anxiety/depression, prior history of suicidal ideations presenting to the emergency department with multiple complaints including nausea, vomiting, hematemesis, anxiety, tremulousness, decreased p.o. intake, suicidal ideations. ?? Alcohol use disorder Alcohol withdrawal -Continue with [facility] protocol, continue with thiamine, folate, multivitamins, pyridoxine, lorazepam per [facility] protocol.?? Social work consult requested.?? Continue with acamprosate. as of 08/29- no signs of alcohol withdrawal. ?? Anxiety/depression Suicidal ideations> psych advised that they will contact crisis for psych bed search he cannot sign AMA ?? Continue with home medications including trazodone, fluphenazine, clonazepam.?? Cariprazine is not on formulary and can be resumed upon discharge psych advised no need for constant charge auditor medically clear- psych started bed search. ?? Abdominal pain: Nausea/vomiting Hematemesis: he c/o abdominal pain: suspect gastritis > as of 08/29- abdominal pain some what improved- but hadone episode of vomiting last night. s/p IV PPI- will change to oral pantaprazole. there is no concern of overt GI bleed ?? DVT prophylaxis: Pneumatic compression boots in the setting of suspected GI bleeding ?? CODE STATUS: Full code. ? OMN: ABDOMINAL PAIN, alcohol withdrawal TRANSFER TO [facility] WHEN BED AVAILABLE DC SUMMARY AVAILABLE. MED RECONCILIATION DONE- NEED TO PLACE DISCHARGE ORDER IF WE HAVE [facility] BED AVAILABLE TONIGHT Note * Linda CHANG, Echo: PERFORM Event Display: Discharge/Transfer Note Hospital Authored Date: [id number] Patient: ??LENKA RUVALCABA ? Age:??47 Years?Sex:??Male?:??1975?? Patient Information Discharge Location: 4 Primary Care Physician: Harman Vang MD Admit Date/Time: 08/25/22 18:17 Discharge Disposition Discharge Disposition: [facility] Facility[facility]Rehab Discharge Diagnosis Alcohol abuse (F10.10) Alcohol withdrawal (F10.239) Abdominal pain Suicidal ideation Depression _ Discharge Medications Acamprosate (acamprosate 333 mg oral delayed release tablet)?2?tab(s)?666?Milligram?By Mouth?3 times a day Ascorbic Acid (Vitamin C 500 mg oral tablet)?1?tab(s)?500?Milligram?By Mouth?Daily cariprazine (Vraylar 6 mg oral capsule)?1?capsule?6?Milligram?By Mouth?Daily Cholecalciferol (cholecalciferol 400 intl units oral capsule)?1?capsule?10?Microgram?By Mouth?Daily Clonazepam (clonazePAM 0.5 mg oral tablet)?1?tab(s)?0.5?Milligram?By Mouth?Every 12 hours?as needed?Anxiety Fluphenazine (fluPHENAZine 2.5 mg oral tablet)?3?tab(s)?7.5?Milligram?By Mouth?Daily at bedtime Folic Acid (folic acid 1 mg oral tablet)?1?Milligram?1?tablet?By Mouth?Daily Multivitamin (multivitamin Multiple Vitamins oral tablet)?1?tab(s)?By Mouth?Daily Pantoprazole (pantoprazole 40 mg oral delayed release tablet)?1?tab(s)?40?Milligram?By Mouth?Daily Saccharomyces Boulardii Lyo (Florastor 250 mg oral capsule)?1?capsule?250?Milligram?By Mouth?2 times a day Sucralfate (sucralfate 1 gm oral tablet)?1?gram?1?tablet?By Mouth?4 times a day Thiamine (Vitamin B1 100 mg oral tablet)?100?Milligram?1?tablet?By Mouth?Daily Trazodone (traZODone 50 mg oral tablet)?50?Milligram?1?tablet?By Mouth?Daily at bedtime ? Medications Started none Medications Discontinued none Doses Changed none PCP Follow-Up/Heads-Up f/u with psychiatry Objective Assessment and Plan ?47-year-old male with history of alcohol dependence, alcohol withdrawal in the past, anxiety/depression, prior history of suicidal ideations presenting to the emergency department with multiple complaints including nausea, vomiting, hematemesis, anxiety, tremulousness, decreased p.o. intake, suicidal ideations. ?? Alcohol use disorder Alcohol withdrawal -Treated with prn ativan and now symptoms improved. -Continue with CIWA protocol, continue with thiamine, folate, multivitamins, Continue with acamprosate. ?? Anxiety/depression Suicidal ideations> Continue with home medications including trazodone, fluphenazine, clonazepam and ??Cariprazine ?? 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 . Physical Exam ??Patient ??seen and examined today chest: b/l cta, heart:s1s2+, abdomen:s oft, bs+, non tender, neuro: aaox3, extremities: no edema abdominal ??pain improving. agreed to go to psych if needed psych advised that they will contact for [facility] Edison Gutierrez, DO>Psychiatry Follow-Up Appointments Added Follow Up ?Time Frame ?Comments Harman Name?2 weeks 32??minutes spent on discharge * Linda CHANG, Echo: PERFORM, SIGN, VERIFY Event Display: Patient Education Handout Authored Date: Portable XR Chest Views * [facility] , CIS S: TRANSCRIBE David Guthrie MD: VERIFY Event Display: Result: Authored Date: Chest Portable Hx of Present Illness: Pt has been depressed with SI but does not have a plan at this time. Pt had recent fall, and this morning he felt he had CP, dizziness, blurry vision with N V, states he had blood tinged vomit. Per Pt he has frequent falls. Hx of depression anxiety and bi; Reason: Shortness of Breath; Clinical Question(s): CHF COMPARISON: None. FINDINGS: LINES AND TUBES: None. LUNGS AND PLEURA: Clear lungs. Normal pulmonary vascularity. No pleural effusion. No pneumothorax. HEART, MEDIASTINUM AND ADEOLA: Borderline enlarged cardiac silhouette. Normal mediastinal and hilar contour. BONES AND SOFT TISSUES: No acute abnormality. IMPRESSION: No acute abnormality. Borderline cardiac silhouette. WSN: [id number] Ordering Physician: Atul Quarles Dictated By: David Guthrie MD Dictated Date/Time: 08/25/22 4:17 pm Reviewed By: David Guthrie MD Signed By: David Guthrie MD Signed Date/Time: 08/25/22 4:17 pm Transcribed By: KARI Transcribed Date/Time: 08/25/22 4:16 pm Patient Care team information Care Team Personnel Name: Yayo Gamboa Position: S RN Member Role: Primary Care Nurse Name: Lilly Van RN Position: S RN Member Role: Primary Care Nurse Name: Adilson Tyler RN Position: S RN Member Role: Primary Care Nurse Name: Francis Ritter RN Position: S RN Member Role: Primary Care Nurse Name: Misael Carty RN Position: S RN Member Role: Primary Care Nurse Name: Maurice Pathak RN Position: S RN Member Role: Primary Care Nurse Name: Elinor Iglesias Position: S RN Member Role: Primary Care Nurse Name: Patrice Rodriguez Position: [facility] RN Member Role: Primary Care Nurse Name: Reggie Jackson RN Position: [facility] RN Member Role: Primary Care Nurse Name: Rhonda De La O RN Position: [facility] RN Member Role: Primary Care Nurse Name: Harman Vang MD Position: [facility] Outreach Member Role: PCP Address: Address: [address] [place] [id number] Name: Maribeth George RN Position: [facility] RN Member Role: Primary Care Nurse Name: Rissa Chen RN Position: S RN Member Role: Primary Care Nurse Name: Neris Lewis RN Position: [facility] RN Member Role: Primary Care Nurse Name: Cecy Orona RN Position: [facility] RN Member Role: Primary Care Nurse Name: Veronica Howell RN Position: [facility] RN Member Role: Primary Care Nurse Name: Natalia Harris RN Position: [facility] RN Member Role: Primary Care Nurse Name: Abiola CONTE Attending Position: [facility] ED Medicine MD Name: Abbie Vargas RN Position: [facility] ED RN W/OE and Tasks Member Role: Patient Care Provider Name: Jerilyn Burton Position: [facility] TA Member Role: Patient Care Provider Name: Alfredo Cifuentes Position: [facility] ED TA [facility] Member Role: Help Desk Engineer Care Team Related Persons Name: PEG DONOVAN Address: home [place] Name: KELLY RIVERA Address: home [address] [place] [id number]
--- OUTSIDE RECORDS SUMMARY | 2023-07-02 16:08 | XMS_ITS | Continuity of Care Document ---
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 Date(s): 04/30/23 - 05/01/[address] [id number]- Discharge Disposition: A-D/C Home Attending Physician: Farhana Cruz MD Admitting Physician: Blank Rene MD Referring Physician: Not on Staff, Referring MD Allergies, Adverse Reactions, Alerts No Known Allergies Immunizations Given and Recorded Vaccine Date Status Refusal Reason [id number] 12y+ bivalent booster vax 06/13/22 Recorded SARS-CoV-2 [...] 0 Refills, Maintenance, 04/18/23 8:20:00 EDT, Tablet, [facility], Partial fill upon patient request if the prescription is for a schedule II opioid drug.... Start Date: 04/18/23 Status: Ordered cholecalciferol 400 intl units oral capsule 1 capsule = 10 mcg, By Mouth, Daily, # 30 capsule, 0 Refills, Maintenance, 07/31/22 8:07:00 EST, Capsule, [facility], Partial fill upon patient request if the prescription is for a schedule II opioid drug., 176, cm, 07/30/22 18:22:... Start Date: 07/31/22 Status: Ordered clonazePAM 0.5 mg oral tablet 1 tablet = 0.5 mg, By Mouth, Every 12 hours, PRN Anxiety, # 14 tablet, 0 Refills, Maintenance, 04/18/23 9:59:00 EDT, Tablet, [facility], Partial fill upon patient request if the prescription is for a schedule II opioid drug., 176, cm, 08... Start Date: 04/18/23 Stop Date: 04/25/23 Status: Ordered folic acid 1 mg oral tablet 1 mg, 1, tablet, By Mouth, Daily, # 30 tablet, Refills 0, Tot. Refills 0, Maintenance, 04/04/23 19:05:00 EDT, Route to Pharmacy Electronically, [facility], Partial fill upon patient request if the prescription is for a schedule II... Start Date: 04/04/23 Status: Ordered multivitamin Multiple Vitamins oral tablet 1 tablet, By Mouth, Daily, # 30 tablet, 0 Refills, Maintenance, 04/18/23 10:01:00 EDT, Tablet, [facility], Partial fill upon patient request if [...] 04/18/23 10:00:00 EDT, Route to Pharmacy Electronically, [facility], Partial fill upon patient request if the prescription is for a schedule... Start Date: 04/18/23 Status: Ordered thiamine 100 mg oral tablet 100 mg, 1, tablet, By Mouth, Daily, for 30 days, # 30 tablet, Refills 0, Tot. Refills 0, Acute 05/04/23 19:06:00 EDT, 04/04/23 19:06:00 EDT, Route to Pharmacy Electronically, [facility], Partial fill upon patient request if the pre... Start Date: 04/04/23 Stop Date: 05/04/23 Status: Ordered Vitamin C 500 mg oral tablet 1 tablet = 500 mg, By Mouth, Daily, # 30 tablet, 0 Refills, Maintenance, 07/31/22 8:10:00 EST, Tablet, [facility], Partial fill upon patient request [...] Range]: 1 2 3 Height 175 cm (05/01/23 11:48 AM) 175 cm (04/30/23 2:56 AM) 175 cm (04/30/23 1:16 AM) Weight 97.53 kg (05/01/23 11:48 AM) 97.53 kg (04/30/23 2:56 AM) 97.53 kg (04/30/23 1:16 AM) Oxygen Saturation [94-100 %] 98 % (05/01/23 5:38 PM) 96 % (05/01/23 4:13 PM) 96 % (05/01/23 12:39 PM) Pulse Rate [55-90 bpm] 70 bpm (05/01/23 5:38 PM) 71 bpm (05/01/23 4:13 PM) 73 bpm (05/01/23 12:39 PM) Body Mass Index [18.5-24.99 kg/m2] 31.85 kg/m2 *>HHI* (05/01/23 11:48 AM) 31.85 kg/m2 *>HHI* (04/30/23 2:56 AM) 31.85 kg/m2 *>HHI* (04/30/23 1:16 AM) Blood Pressure [90-138/55-84 mm Hg] 148/96mm Hg *H* (05/01/23 5:38 PM) 159/101mm Hg *H* (05/01/23 4:13 PM) 147/96mm Hg *H* (05/01/23 12:39 PM) Respiratory Rate [16-30 br/min] 17 br/min (05/01/23 5:38 PM) 18 br/min (05/01/23 4:13 PM) 14 br/min *L* (05/01/23 12:39 PM) Temperature [96.8-100.4 DegF] 98.1 DegF (05/01/23 11:48 AM) 98.4 DegF (05/01/23 5:00 AM) 98.2 DegF (05/01/23 12:05 AM) Mode of Delivery (Oxygen) Room air (05/01/23 5:38 PM) Room air (05/01/23 4:13 PM) Room air (05/01/23 12:39 PM) Blood pressure sites Arm, right (05/01/23 5:38 PM) Arm, right (05/01/23 12:39 PM) Arm, right (05/01/23 11:48 AM) Temperature Route Oral (05/01/23 11:48 AM) Oral (05/01/23 5:00 AM) Oral (05/01/23 12:05 AM) Dry Weight 97.53 kg (05/01/23 11:48 AM) 97.53 kg (04/30/23 2:56 AM) 97.53 kg (04/30/23 1:16 AM) Weight Obtained Via Standing scale (04/29/23 11:54 PM) Dry Weight Obtained Via Standing scale (04/29/23 11:54 PM) Social History Social History Type Response Smoking Status Never (less than 100 in lifetime) entered on: 01/28/22 Sex History and physical note * Jorje Ramirez DO: PERFORM Event Display: History and Physical Hospital Authored Date: [id number] Patient: ??LENKA RUVALCABA ? Age:??47 Years?Sex:??Male?:??1975?? Chief Complaint/Reason for Consultation Alcohol withdrawal History of Present Illness 47-year-old gentleman with a history of bipolar disorder??and alcohol dependence with prior??withdrawal seizures.?? Presents to the emergency department over concern of??withdrawal seizures again. ?? Myles?? is a vague historian. ??After receiving??benzodiazepines in the emergency department he fallsasleep??while I am talking to him.?? It also appears that he pretends to sleep at other times??when??further questions. ??Nonetheless,??states that??he started to??reduce his alcohol intake about a we ek ago. ??He states that he was??trying to??sip and smell hard apple??cider??to??avoid alcohol craving.?? Yesterday, he??woke??with??a tongue injury??and blood in his mouth. ??He was concerned??that he may have had a seizure??so he came to the emergency department for evaluation.?? He also endorses??dark-colored stools, but the frequency and duration??is vague.?? He is also vague about how much??alcohol he was drinking prior to this.?? Cider and shots. ?? He is hoping to get into??detox??and called??[facility]??was told that he needed to be referred from a hospital.?? He has never had??inpatientdetox in the past from what he can recall.?? He cannot recall ever going through any outpatient treatment programs. ??He has never tried??any??meetings such as Alcoholics Anonymous. ?? After benzodiazepines in the emergency department??he does not seem to have significant withdrawal symptoms at this time. Review of Systems Pertinent positive and negatives are noted in the history of?? present illness. Otherwise, a completed review of systems was completed and is negative. Objective Vital Signs?? Temperature: 97.8 DegF (04/29/23 23:54:00) Temperature Route: Oral (04/29/23 23:54:00) Pulse Rate:??54 bpm??Low (04/30/23 02:56:00) Respiratory Rate: 18 br/min (04/30/23 02:56:00) Systolic Blood Pressure:??139 mm Hg??High (04/30/23 02:56:00) Diastolic Blood Pressure:??86 mm Hg??High (04/30/23 02:56:00) Blood pressure sites: Arm, right (04/30/23 02:56:00) Mean Arterial Pressure: 104 mm Hg (04/30/23 02:56:00) Pulse Pressure: 53 mm Hg (04/30/23 02:56:00) Oxygen Saturation: 100 % (04/29/23 23:54:00) ? Physical Exam Constitutional: Alert. Well developed and well nourished. In no acute distress. Head: Normocephalic. Eyes: Pupils are equal, round and reactive to light. Extraocular muscles intact. No pallor or scleral icterus Ear, Nose and Throat: Mucous membranes moist. Trachea midline. Neck: Supple, Full range of motion.??No JVD or bruits. Respiratory:??Clear to auscultation. No wheezing or rhonchi.??No use of accessory muscles. Cardiovascular:??Rate regular. Rhythm regular. No murmurs, rubs or gallops. Gastrointestinal:??Abdomen soft, non-tender, non-distended. Normal bowel sounds. Genitourinary:??No costovertebral angle tenderness. Extremities: No lower extremity pitting edema. No cyanosis or clubbing. Neurologic:??AAOx3, Cranial nerves II-XII grossly intact. ??Not tremulous Skin:??No rash.?? Musculoskeletal:??No gross deformities on inspection. Heme/Lymphatics:??Palpation of neck reveals no swelling or tenderness of neck nodes.?? Psychiatric: Normal mood and affect. Assessment/Plan Diagnoses 1. ??Alcohol withdrawal ??(F10.939) 2. ??Melena ??(K92.1) ?? Assessment:??47-year-old gentleman with a history of bipolar disorder and alcohol dependence with prior withdrawal seizures. Presents to the emergency department over concern of withdrawal seizures again. ?? Alcohol withdrawal (F10.939):??Emergency department started him on lorazepam CIWA protocol. He seems to be doing very well. I will continue with this. ?? Melena (K92.1):??Unclear if this represents??auto digested blood from the tongue injury??versus alcoholic gastritis. We will give??twice daily PPI. I will trend hemoglobins.??If significantly dropping we can consult gastroenterology. ?? VTE Prophylaxis:??Low risk. Fully ambulatory ?VTE Prophylaxis Assessment:??Risk Level documented as Low Risk ?? Code Status:??FULL CODE ?Order Code Status:??Code Status Ordered ?? Discharge Planning:? Histories Allergies Allergies ?(Active and Proposed Allergies Only) NKA? (Severity: Unknown severity, Onset: Unknown) ? Past Medical History/Problem List Active Problems??(4) Alcohol dependence Bipolar disorder Hepatic steatosis History of seizure due to alcohol withdrawal ? Past Surgical History No surgery history [...] 100 mg oral tablet)?100?Milligram?1?tablet?By Mouth?Daily?for 30?Days ? Results Recent Labs BLOOD BANK Blood Type B Positive ()?? 04/30/2023 02:03 Antibody Screen Negative ()?? 04/30/2023 02:03 ?? BLOOD GAS pH, Venous 7.54 (High)?? 04/30/2023 02:10 ?? CHEM GENERAL Sodium 141 mmol/L ()?? 04/30/2023 02:10 Potassium 3.5 mmol/L (Low)?? 04/30/2023 02:10 Chloride 104 mmol/L ()?? 04/30/2023 02:10 Bicarbonate Level 23 mmol/L ()?? 04/30/2023 02:10 Anion Gap 14 ()?? 04/30/2023 02:10 Glucose Level 101 mg/dL (High)?? 04/30/2023 02:10 Beta Hydroxybutyrate 0.80 mmol/L (High)?? 04/30/2023 02:10 BUN 10 mg/dL ()?? 04/30/2023 02:10 Creatinine-Blood 0.6 mg/dL (Low)?? 04/30/2023 02:10 Estimated GFR Creatinine 119 ML/MIN/1.73 M2 ()?? 04/30/2023 02:10 Calcium 8.7 mg/dL ()?? 04/30/2023 02:10 Protein, Total 6.8 Gm/dL ()?? 04/30/2023 02:10 Albumin 4.1 Gm/dL ()?? 04/30/2023 02:10 AG Ratio 1.5 ()?? 04/30/2023 02:10 Alkaline Phosphatase 106 units/L ()?? 04/30/2023 02:10 Lipase 40 units/L ()?? 04/30/2023 02:10 AST (SGOT) 66 units/L (High)?? 04/30/2023 02:10 ALT (SGPT) 42 units/L (High)?? 04/30/2023 02:10 Bilirubin, Total 1.5 mg/dL (High)?? 04/30/2023 02:10 Lactate 0.9 mmol/L ()?? 04/30/2023 02:18 ?? HEME OTHER Hold Lavender Top SPECIMEN DISCARDED AFTER 24 HOURS. ()?? 04/30/2023 02:10 Hold Blue Top SPECIMEN DISCARDED AFTER 4 HOURS. ()?? 04/30/2023 02:10 ?? MISC. CHEMISTRY Hold Green Top SPECIMEN DISCARDED AFTER 1 WEEK ()?? 04/30/2023 02:10 ?? TOXICOLOGY/TDM Ethanol, Serum or Plasma NONE DETECTED mg/dL ()?? 04/30/2023 02:10 ?? URINE OTHER Est Creatinine Clearance 153.33 mL/min ()?? 04/30/2023 03:08 ?? VIROLOGY COVID-19 by RT-PCR NEGATIVE ()?? 04/30/2023 02:03 ? Hospital Progress note * Jacque Douglas RN: PERFORM, SIGN, VERIFY Event Display: Progress Note Hospital Authored Date: Patient: LENKA RUVALCABA Age: 47 years Sex: Male : 1975 Associated Diagnoses: None Author: Jacque Douglas RN Findings Evaluation Admission RN note: Patient describes trying to cut down on ETOH intake in light of a recent friend dying from ETOH related complications. Lenka describes that he has been assigned a success coach. Inocencia gone to AA meetings but does not like the confucianism aspect of those meetings. His PCP is Dr. Hammer. He referred several times that he feels remorse that he is still struggling with ETOH addiction and is actively trying to wean himself off ETOH. He reports vomiting and seizures due to withdrawal. 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 He would like to see a jerker to discuss nutritional supplements. He has HTN and has been using a BP monitor at home. He reports that his antipsychotic medications have been recently changed by his psychiatrist as his depression had been worsening prior to the change. He is now on acamprosate calcium, vraylar, clonazepam, protonix, sulcrafate, MVI, thiamine, vitamin c, folic acid, and a probiotic OTC. . * Kay Casas: PERFORM, SIGN, VERIFY Event Display: Progress Note Hospital Authored Date: Patient: LENKA RUVALCABA Age: 47 years Sex: Male : 1975 Associated Diagnoses: None Author: Kay Casas Findings Narrative/Incidental Behavioral Resource Clinician Note - Chart reviewed due to triggering of systems-generated psych consult per [place] Suicide Severity Scale on elevator technician assessment of suicidality. Patient stated, no when asked if ???wished to be ?? in the past month or had ???suicidal thoughts?? in the past month. Symptoms DO NOT warrant formal psych consult at this time. Please continue to assess fordepression and suicidal ideation, consider placing formal psychiatric consult if warranted. Education on symptoms of depression and when to seek help placed in pt's dc plan. . Note * Anthony CHANG, Farhana: PERFORM Event Display: Discharge/Transfer Note Hospital Authored Date: Patient: ??LENKA RUVALCABA ? Age:??47 Years?Sex:??Male?:??1975?? Patient Information [facility] Primary Care Physician: Harman Vang MD Admit Date/Time: 04/30/23 03:41 Discharge Disposition Discharge Disposition: Home: No Services Discharge Diagnosis Alcohol withdrawal (F10.939) Melena (K92.1) ?? _ Discharge Medications Acamprosate (acamprosate 333 [...] oral tablet)?100?Milligram?1?tablet?By Mouth?Daily?for 30?Days ? Medications Started non e Medications Discontinued none Doses Changed none Hospital Course 47-year-old gentleman with a history of bipolar disorder and alcohol dependence with prior withdrawal seizures. Presents to the emergency department over concern of withdrawal seizures again.?? patient was managed with c iwa protocol. this evening patient states he is feeling fine and due to personal reasons he needs to leave [facility].?? he is walking around in ed, dressed up and able to answer all orientation questions well. no tremor on exam. ? Objective Assessment and Plan ? Alcohol withdrawal - improved on CIWA protocol Thiamine FA?? counselled ?? Melena??- resolved reports last bm was yesterday and was brown no more black stools.? Hypomagnesemia Hypokalemia monitor and replace PRN ? Measurements?? Height: 175 cm (05/01/23) Weight: 97.53 kg (05/01/23) Dry Weight: 97.53 kg (05/01/23) Body Mass Index:??31.85 kg/m2??Critical (05/01/23) ? Vital Signs?? Temperature: 98.1 DegF (05/01/23 11:48:00) Temperature Route: Oral (05/01/23 11:48:00) Pulse Rate: 71 bpm (05/01/23 16:13:00) Respiratory Rate: 18 br/min (05/01/23 16:13:00) Systolic Blood Pressure:??159 mm Hg??High (05/01/23 16:13:00) Diastolic Blood Pressure:??101 mm Hg??High (05/01/23 16:13:00) Blood pressure sites: Arm, right (05/01/23 12:39:00) Mean Arterial Pressure: 116 mm Hg (05/01/23 11:48:00) Pulse Pressure: 51 mm Hg (05/01/23 12:39:00) Oxygen Saturation: 96 % (05/01/23 16:13:00) Mode of Delivery (Oxygen): Room air (05/01/23 16:13:00) Early Warning Score: 0 (05/01/23 16:17:58) ? . Physical Exam Constitutional: Alert, in no acute distress. Mental Status: Oriented to person, place and time. Eyes: Pupils are equal, round and reactive to light.?? Ear, Nose and Throat: Oropharynx clear, mucous membranes moist.?? Respiratory: Clear to auscultation No wheezing, rales or rhonchi. Cardiovascular: S1 S2 regular. Gastrointestinal: Abdomen soft, non-tender, non-distended. Neurologic: . No focal neurological deficits Moves all extremities spontaneously. Musculoskeletal: No Leg edema?? Consultants none Pending Results Hgb + Hct ordered on 04/30/2023 Hgb + Hct ordered on 04/30/2023 Patient Education Titles Depression: Tips to Help Yourself?? Depression?? Patient Instructions Please refrain from alcohol intake . ?? return to Ed if u notice black stools or blood in stool. Home Health Face to Face ^HomeHealthFTF Results Discharge Labs BLOOD BANK Blood Type B Positive ()?? 04/30/2023 02:03 Antibody Screen Negative ()?? 04/30/2023 02:03 ?? BLOOD COUNT & DIFF WBC 8.8 k/mm3 ()?? 05/01/2023 03:29 RBC 4.37 m/mm3 (Low)?? 05/01/2023 03:29 Hgb 13.9 Gm/dL ()?? 05/01/2023 03:29 Hct 40.4 % (Low)?? 05/01/2023 03:29 MCV 92.4 femtoliters ()?? 05/01/2023 03:29 MCH 31.8 pg ()?? 05/01/2023 03:29 MCHC 34.4 g/dL ()?? 05/01/2023 03:29 Platelet Count 176 k/mm3 ()?? 05/01/2023 03:29 RDW-SD 40.4 femtoliters ()?? 05/01/2023 03:29 MPV 10.3 femtoliters ()?? 05/01/2023 03:29 Nucleated RBC (Automated) 0.0 #/100 WBC'S ()?? 05/01/2023 03:29 Abs. NRBC 0.0 k/mm3 ()?? 05/01/2023 03:29 Abs. Neut 6.5 k/mm3 ()?? 05/01/2023 03:29 Abs. Lymph 1.5 k/mm3 ()?? 05/01/2023 03:29 Abs. Brooke 0.6 k/mm3 ()?? 05/01/2023 03:29 Abs. Eo 0.2 k/mm3 ()?? 05/01/2023 03:29 Abs. Baso 0.1 k/mm3 ()?? 05/01/2023 03:29 Neut % 73.2 % ()?? 05/01/2023 03:29 Lymph % 16.8 % ()?? 05/01/2023 03:29 Brooke % 6.5 % ()?? 05/01/2023 03:29 Eos % 2.2 % ()?? 05/01/2023 03:29 Baso % 0.8 % ()?? 05/01/2023 03:29 Imm Gran 0.5 % ()?? 05/01/2023 03:29 Abs. Imm Gran 0.0 k/mm3 ()?? 05/01/2023 03:29 ?? BLOOD GAS pH, Venous 7.54 (High)?? 04/30/2023 02:10 ? CHEM GENERAL Sodium 136 mmol/L ()?? 05/01/2023 03:29 Potassium 3.2 mmol/L (Low)?? 05/01/2023 03:29 Chloride 99 mmol/L ()?? 05/01/2023 03:29 Bicarbonate Level 24 mmol/L ()?? 05/01/2023 03:29 Anion Gap 13 ()?? 05/01/2023 03:29 Glucose Level 115 mg/dL (High)?? 05/01/2023 03:29 Beta Hydroxybutyrate 0.80 mmol/L (High)?? 04/30/2023 02:10 BUN 8 mg/dL ()?? 05/01/2023 03:29 Creatinine-Blood 0.7 mg/dL ()?? 05/01/2023 03:29 Estimated GFR Creatinine 118 ML/MIN/1.73 M2 ()?? 05/01/2023 03:29 Calcium 8.9 mg/dL ()?? 05/01/2023 03:29 Phosphorus 3.4 mg/dL ()?? 05/01/2023 03:29 Magnesium 1.3 mg/dL (Low)?? 05/01/2023 03:29 Protein, Total 6.9 Gm/dL ()?? 05/01/2023 03:29 Albumin 4.3 Gm/dL ()?? 05/01/2023 03:29 AG Ratio 1.5 ()?? 04/30/2023 02:10 Alkaline Phosphatase 102 units/L ()?? 05/01/2023 03:29 Lipase 40 units/L ()?? 04/30/2023 02:10 AST (SGOT) 111 units/L (High)?? 05/01/2023 03:29 ALT (SGPT) 60 units/L (High)?? 05/01/2023 03:29 Bilirubin, Total 1.7 mg/dL (High)?? 05/01/2023 03:29 Bilirubin, Direct 0.6 mg/dL (High)?? 05/01/2023 03:29 Bilirubin, Indirect 1.1 mg/dL (High)?? 05/01/2023 03:29 Lactate 0.9 mmol/L ()?? 04/30/2023 02:18 ?? HEME OTHER Hold Lavender Top SPECIMEN DISCARDED AFTER 24 HOURS. ()?? 04/30/2023 02:10 Hold Blue Top SPECIMEN DISCARDED AFTER 4 HOURS. ()?? 04/30/2023 02:10 ?? MISC. CHEMISTRY Hold Green Top SPECIMEN DISCARDED AFTER 1 WEEK ()?? 04/30/2023 02:10 ? TOXICOLOGY/TDM Ethanol, Serum or Plasma NONE DETECTED mg/dL ()?? 04/30/2023 02:10 ? URINE OTHER Est Creatinine Clearance 131.42 mL/min ()?? 05/01/2023 06:01 ? VIROLOGY COVID-19 by RT-PCR NEGATIVE ()?? 04/30/2023 02:03 ? Microbiology ?? COVID-19 (Novel Coronavirus), Rapid PCR?? Completed?? Source: Nasal Body Site: Nose Collected Dt/Tm: 04/30/2023 02:02 Last Updated Dt/Tm: 04/30/2023 02:58 ? _40 minutes spent on discharge * Wendy Alexis RN: PERFORM Event Display: Patient Education Leaflets Authored Date: [id number] Depression: Tips to Help Yourself ?? [id number] Depression: Tips to Help Yourself As your healthcare providers help treat your depression, you can also help yourself. Keep in mind that your illness affects you emotionally, physically, mentally, and socially. So full recovery will take time. Take care of your body and your soul, and be patient with yourself as you get better. Self-care ??? Educate yourself. Read about treatment and medicine options. If you have the energy, attend local conferences or support groups. Keep a list of useful websites and helpful books and usethem as needed. This illness is not your fault. Don???t blame yourself for your depression. ??? Manage early symptoms. If you notice symptoms returning, have triggers, or identify other factors that may lead to a depressive episode, get help as soon as possible. Ask trusted friends and family to monitor your behavior and let you know if they see anything of concern. ??? Work with your provider. Find a provider you can trust. Communicate honestly with that person. Share information on your treatment for depression and your reaction to medicines. You may need to try different medicines before finding the right one. ??? Be prepared for a crisis. Know what to do if you have a crisis. Keep the phone number of a crisis hotline handy. Know where your community's urgent care centers and the closest emergency department are. ??? Hold off on big decisions. Depression can cloud your judgment. So wait until you feel better before making major life decisions. These include changing jobs, moving, making an expensive purchase, or getting or . ??? Be patient. Recovering from depression is a process. Don???t be discouraged if it takes some time to feel better. ??? Keep it simple. Depression saps your energy and concentration. So you won???t be able to do all the things you used to do. Set small goals and do what you can. ??? Be with others. Don???t isolate yourself???you???ll only feel worse. Try to be with other people. And take part in fun activities when you can. Go to a movie, [employer] the [employer] (1BOG)game, confucianism service, or social event. Talk openly with people you can trust. And accept help when it???s offered. ?? Take care of your body People with depression often lose the desire to take care of themselves. That only makes their problems worse. During treatment and afterward, make a point to: ??? Exercise. It???s a great way to take care of your body. And studies have shown that exercise helps fight depression. Aim for 30 minutesof moderate activity a day. Walking in small blocks of time (5-10 minutes) is a good way to start, but anything that gets you moving (gardening, house cleaning) counts. ??? Not use drugs or alcohol. These may ease the pain in the short term. But they???ll only make your problems worse in the long run. ??? Get relief from stress. Ask your healthcare provider for relaxation exercises and techniquesto help ease stress. Consider activities like meditation, yoga, progressive muscle relaxation, or hayde chi. ??? Eat right. A balanced and healthy diet helps keep your body healthy. ??? Get adequate sleep. Aim for 8 hours per night. Too much or too little sleep can cause other physical and emotional problems. ?? Last Reviewed Date: 2021 ?? [employer]. All rights reserved. This information is not intended as a substitute for professional medical care. Always follow your healthcare professional's instructions. ?? * Wendy Alexis RN: PERFORM Event Display: Patient Education Leaflets Authored Date: [id number] Depression ?? [id number] Depression Depression is a very common mental health problem. It's not just a state of being unhappy or sad. It's a true disease. The cause seems to be linked to a change in chemicals that send signals in the brain. These things increase a person???s risk of depression: ??? A family history of depression, alcoholism, or suicide ??? Chronic illness ??? Chronic pain ???Migraine headaches ??? High emotional stress Depression may be easier to see in others. You may have a hard time seeing it in yourself. It can show in many physical and emotional ways. These include: ??? Loss of appetite ??? Overeating ??? Not being able to sleep ??? Sleeping too much ??? A lot of tiredness not linked to physical activity ??? Restlessness or irritability ??? Slowness of movement or speech ??? Feeling sad or withdrawn ??? Loss of interest in things you once enjoyed ??? Trouble??concentrating, remembering,??or making decisions ??? Thoughts of harming or killing yourself, or thoughts that life is not worth living ??? Low self-esteem The treatment for depression may include both medicine and psychotherapy. Antidepressants can ease symptoms. They can also make it easier for you to do daily tasks. Therapy can offer emotional support. It can also help you understand things that may be causing the depression. Home care ??? Ongoing care and support help people manage this disease. Find a healthcare provider and therapist who meet your needs. Get help when you feel like you may be getting ill. ??? Be kind to yourself. Make it a point to do things that you enjoy. This may be gardening, walking in nature, or going to a movie. Reward yourself for small successes. ??? Take care of your body. Eat a balanced diet. Eat foods low in saturated fat. Eat a lot of fruits and vegetables. Exercise at least 3 times a week for 30 minutes. Even mild to moderate exercise like brisk walking can make you feel better. ??? Take medicine as prescribed. Don't stop your medicine or change the dose unless you talk with your healthcare provider. ??? Once you start medicine, expect your symptoms to get better slowly. Depression will lift over time. It doesn't get better right away. Ask your healthcare provider how long it will take for a medicine to start working. ??? Don't share your medicine. Don???t use someone else's medicine. ??? Tell your healthcare providers all the medicines you take. This includes prescription and mmod-tmk-aeawtbo medicines. It includes vitamins and herbal supplements. Some supplements caninteract with medicines. They can cause dangerous side effects. Ask your pharmacist about medicine interactions when you have questions. ??? Don't make major decisions until you feel better. This incl udes things such as a job change, a divorce, or a marriage. ??? Don't drink alcohol. It can make depression worse. ??? Talk with your family and??trusted friends??about your feelings and thoughts.??Ask them to help you notice behavior changes early. You can then get help and, if needed, your medicine can be changed. ??? Talk with your healthcare provider if you are not getting better. They may change your medicine or have you try another treatment. ?? Follow-up care Follow up with your healthcare provider as advised. ?? Crisis care Call 988 if you have thoughts of harming yourself or others. When you call or text [phone], you will beconnected to trained crisis counselors. An online chat option is also available. [employer] is free and available 19/03. 988 counselors will work with 91 to help you get the care you need. Call 911 if you: ??? Have trouble breathing ??? Are??very confused ??? Feel very drowsy or have??trouble awakening ??? Faint ??? Have new chest pain that becomes more severe, lasts longer, or spreadsinto your shoulder, arm, neck, jaw, or back ?? When to get medical care Call your healthcare provider right away if any of these happen: ??? Your symptoms get worse ??? You have extreme depression, fear, anxiety, or anger toward yourself or others ??? You feel out of control ??? You feel that you may try to harm yourself or another ??? You hear voices other people don't hear ??? You see things other people don't see ??? You don't sleep or eat for 3 days in a row ??? Friends or family express concern over your behavior and ask you to get help ?? Last Reviewed Date: 2021 ?? [employer]. All rights reserved. This information is not intended as a substitute for professional medical care. Always follow your healthcare professional's instructions. ?? Patient Care team information Care Team Personnel Name: Yayo Gamboa RN Position: [facility] RN Member Role: Primary Care Nurse Name: Lilly Van RN Position: [facility] RN Member Role: Primary Care Nurse Name: Rissa Yadav RN Position: [facility] SN RN Member Role: Primary Care Nurse Name: Saul Fernandez RN Position: [facility] RN Member Role: Primary Care Nurse Name: Adilson Tyler RN Position: [facility] RN Supv Member Role: Primary Care Nurse Name: Gely Ceja RN Position: [facility] RN Member Role: Primary Care Nurse Name: Francis Ritter RN Position: [facility] RN Member Role: Primary Care Nurse Name: Misael Carty RN Position: [facility] RN Member Role: Primary Care Nurse Name: Maurice Pathak RN Position: [facility] RN Member Role: Primary Care Nurse Name: Elinor Iglesias Position: [facility] HMO Reviewer Member Role: Primary Care Nurse Name: Caitlin Melendez RN Position: [facility] RN Supv Member Role: Primary Care Nurse Name: Bozena Lora LPN Position: [facility] RN Member Role: Primary Care Nurse Name: Reggie Jackson RN Position: [facility] RN Member Role: Primary Care Nurse Name: Rhonda De La O RN Position: [facility] RN Member Role: Primary Care Nurse Name: Sugey Oreilly RN Position: [facility] ED RN W/OE and Tasks Member Role: Primary Care Nurse Name: Harman Vang MD Position: S Outreach Member Role: PCP Address: Address: [address] [place] [id number] Name: Uriel Reese RN Position: [facility] RN Member Role: Primary Care Nurse Name: Neris Lewis RN Position: [facility] RN Member Role: Primary Care Nurse Name: Darrell Parra RN Position: [facility] RN Member Role: Primary Care Nurse Name: Veronica Howell RN Position: [facility] RN Member Role: Primary Care Nurse Name: Natalia Harris RN Position: [facility] RN Member Role: Primary Care Nurse Name: Rhianonn Peña RN Position: [facility] RN Member Role: Primary Care Nurse Name: Abiola CONTE Attending Position: [facility] ED Medicine MD Name: Elo Borrero RN Position: [facility] ED RN W/OE and Tasks Member Role: Patient Care Provider Name: Sujatha Barron Position: [facility] ED RN W/OE and Tasks Member Role: Patient Care Provider Name: Yolanda Jacobs Position: [facility] ED TA [facility] Member Role: Teller Coordinator Care Team Related Persons Name: DONOVAN RUVALCABA Address: [place] [address] Name: KELLY RIVERA Address: home [address] [place] [id number]
--- OUTSIDE RECORDS SUMMARY | 2023-07-02 16:08 | XMS_ITS | Continuity of Care Document ---
Author Name Unknown Organization [facility] ter Address [address] [place] [id number]- Care Team Providers Care Radiologic Electronic Specialist Name Role Phone Cody Baumann MD Primary Care Physician Encounter [facility] [place](s): 07/08/22 - 07/08/[address] [address]- Encounter Diagnosis Head injury(Final) - 07/08/22 Discharge Disposition: A-D/C Home Attending Physician: Susie Crews MD Admitting Physician: Susie Crews MD Referring Physician: Not on Staff, Referring [...] 0 Refills, Maintenance, 04/02/21 8:44:00 EDT, Tablet, [id number], Partial fill upon patient request if the [...] 04/02/21 8:44:00 EDT, [id number], Partial fill upon patient request if the prescription is for a schedule II opio... Start Date: 04/02/21 Status: Ordered Vraylar 6 mg oral capsule 1 capsule = 6 mg, By Mouth, Daily, 0 Refills, Maintenance, 07/14/21 17:43:00 EST, Partial fill uponpatient request if the prescription is for a schedule II opioid drug. Start Date: 07/14/21 Status: Ordered Zofran 4 mg oral tablet 1 tablet = 4 mg, By Mouth, Every 8 hours, 0 Refills, Maintenance, 01/04/22 9:39:00 EDT, Partial fill upon patient request if the prescription is for a schedule II opioid drug. Start Date: 01/04/22 Status: Ordered Problem List Condition Confirmation Course Effective Dates Status Health [facility] Informant Bipolar disorder Confirmed Active Chronic alcohol use Confirmed Active Obese class I Confirmed Active Hepatic steatosis Confirmed Active Results Radiology Reports * Exam Date Time Procedure Performing Provider Status 07/08/22 2:10 AM Tibia/Fibula 2 Views Left Echo Valiente ra; Auth (Verified) Notes: (Tibia/Fibula 2 Views Left) Reason For Exam: with Pain;Trauma RESULT: Tibia/Fibula 2 Views Left Tibia/Fibula 2 Views Left Reason: Trauma; with Pain; Clinical Question(s): Fracture COMPARISON: Left ankle radiographs dated 07/08/2022 and left knee radiographs dated 05/05/2021. FINDINGS: No acute displaced fracture or dislocation. Unchanged appearance of a an ovoid ossification medial to the medial femoral condyle, likely sequela of prior trauma. Visualized joints are normal. Normal soft tissues. IMPRESSION: No acute displaced fracture. WSN: [id number] Ordering Physician: Gloria Marti Dictated By: Abbie Hays MD Dictated Date/Time: 07/08/22 6:32 am Reviewed By: Abbie Hays MD Signed By: Abbie Hays MD Signed Date/Time: 07/08/22 6:32 am Transcribed By: KARI Transcribed Date/Time: 07/08/22 6:31 am * Exam Date Time Procedure Performing Provider Status 07/08/22 2:10 AM Chest 2 Views Fronta l and Lat Odell Echo; Auth (Verified) Notes: (Chest 2 Views Frontal and Lat) Reason For Exam: Chest Pain;Other: RESULT: Chest 2 Views Frontal and Lat Chest 2 Views Frontal and Lat Reason: Other:; Chest Pain; Clinical Question(s): CHF COMPARISON: 02/10/2022. FINDINGS: LINES AND TUBES: None. LUNGS AND PLEURA: Clear lungs. Normal pulmonary vascularity. No pleural effusion. No pneumothorax. HEART, MEDIASTINUM AND ADEOLA: There is mild prominence of silhouette. BONES AND SOFT TISSUES: No acute abnormality. IMPRESSION: Stable mild prominence of the cardiomediastinal silhouette without evidence of pulmonary pathology. WSN: [id number] Ordering Physician: Gloria Marti Dictated By: Dian Lopez MD Dictated Date/Time: 07/08/22 7:25 am Reviewed By: Dian Lopez MD Signed By: Dian Lopez MD Signed Date/Time: 07/08/22 7:25 am Transcribed By: KARI Transcribed Date/Time: 07/08/22 4:11 am * Exam Date Time Procedure Performing Provider Status 07/08/22 2:10 AM Foot Min 3 Views Left CookEcho Ramirez; Auth (Verified) Notes: (Foot Min 3 Views Left) Reason For Exam: with Pain;Trauma RESULT: Foot Min 3 Views Left Foot Min 3 Views Left, 3 views Reason: Trauma; with Pain; Clinical Question(s): Fracture COMPARISON: None. FINDINGS: There is no evidence of acute fracture. There is calcaneal spurring at the attachment of the plantar fascia. There is mild degenerative changes at the first metatarsophalangeal joint with mild spurring. Normal soft tissues. IMPRESSION: There is no evidence of acute fracture or dislocation. WSN: [id number] Ordering Physician: Gloria Marti Dictated By: Dian Lopez MD Dictated Date/Time: 07/08/22 9:50 am Reviewed By: Dian Lopez MD Signed By: Dian Lopez MD Signed Date/Time: 07/08/22 9:50 am Transcribed By: KARI Transcribed Date/Time: 07/08/22 3:55 am * Exam Date Time Procedure Performing Provider Status 07/08/22 2:10 AM Ankle Min 3 Views Left Echo Bain; Auth (Verified) Notes: (Ankle Min 3 Views Left) Reason For Exam: with Pain;Trauma RESULT: Ankle Min 3 Views Left Ankle Min 3 Views Left Reason: Trauma; with Pain; Clinical Question(s): Fracture COMPARISON: None. FINDINGS: There is no evidence of acute fracture or dislocation. There is no evidence of osteoarthritic change. There is soft tissue swelling. IMPRESSION: Soft tissue swelling without evidence of acute fracture or dislocation. WSN: [id number] Ordering Physician: Gloria Marti Dictated By: Dian Lopez MD Dictated Date/Time: 07/08/22 7:24 am Reviewed By: Dian Lopez MD Signed By: Dian Lopez MD Signed Date/Time: 07/08/22 7:24 am Transcribed By: KARI Transcribed Date/Time: 07/08/22 3:53 am * Exam Date Time Procedure Performing Provider Status 07/08/22 2:[address] Lumbar Spine W/O Contrast Liban Blake; Auth (Verified) Notes: (CT Lumbar Spine W/O Contrast) Reason For Exam: Spine fracture, lumbar, traumatic;Other: RESULT: CT Lumbar Spine W/O Contrast CT Thoracic Spine W/O Contrast, CT Lumbar Spine W/O Contrast INDICATION: Trauma., Fracture/Dislocation TECHNIQUE: Noncontrast CT of the thoracic spine was performed. Bone and soft tissue algorithms werereconstructed along with coronal and sagittal computations. Weight-based protocol using automatic tube modulation was used to optimize exposure parameters. RADIATION DOSE PARAMETERS: CTDIvol Body: 43.00 mGy, DLP Body: 2439 mGy*cm. COMPARISON: Thoracic spine CT dated 12/15/[address] of the abdomen and pelvis dated 12/31/2021. FINDINGS: Spine: No fractures or bone lesion. Alignment is maintained. Multilevel small marginal osteophytes. Soft tissues: No acute abnormality in the paravertebral soft tissues. IMPRESSION: Normal CT of the thoracic and lumbar spine without contrast. I have personally reviewed the images and I agree with this report. WSN: [id number] Ordering Physician: Gloria Marti Dictated By: Ramon Kyle MD Dictated Date/Time: 07/08/22 5:10 am Reviewed By: Abbie Hays MD Signed By: Abbie Hays MD Signed Date/Time: 07/08/22 5:15 am Transcribed By: KARI Transcribed Date/Time: 07/08/22 3:12 am * Exam Date Time Procedure Performing Provider Status 07/08/22 2:[address] Thoracic Spine W/O Contrast Liban Blake; Auth (Verified) Notes: (CT Thoracic Spine W/O Contrast) Reason For Exam: Spine fracture, thoracic, traumatic;Other: RESULT: CT Thoracic Spine W/O Contrast CT Thoracic Spine W/O Contrast, CT Lumbar Spine W/O Contrast INDICATION: Trauma., Fracture/Dislocation TECHNIQUE: Noncontrast CT of the thoracic spine was performed. Bone and soft tissue algorithms werereconstructed along with coronal and sagittal computations. Weight-based protocol using automatic tube modulation was used to optimize exposure parameters. RADIATION DOSE PARAMETERS: CTDIvol Body: 43.00 mGy, DLP Body: 2439 mGy*cm. COMPARISON: Thoracic spine CT dated 12/15/[address] of the abdomen and pelvis dated 12/31/2021. FINDINGS: Spine: No fractures or bone lesion. Alignment is maintained. Multilevel small marginal osteophytes. Soft tissues: No acute abnormality in the paravertebral soft tissues. IMPRESSION: Normal CT of the thoracic and lumbar spine without contrast. I have personally reviewed the images and I agree with this report. WSN: [id number] Ordering Physician: Gloria Marti Dictated By: Ramon Kyle MD Dictated Date/Time: 07/08/22 5:10 am Reviewed By: Abbie Hays MD Signed By: Abbie Hays MD Signed Date/Time: 07/08/22 5:15 am Transcribed By: KARI Transcribed Date/Time: 07/08/22 3:12 am * Exam Date Time Procedure Performing Provider Status 07/08/22 2:[address] Cervical Spine W/O Contrast Liban Blake; Auth (Verified) Notes: (CT Cervical Spine W/O Contrast) Reason For Exam: Neck trauma, dangerous injury mechanism;Other: RESULT: CT Cervical Spine W/O Contrast CT Head/Brain W/O Contrast, CT Cervical Spine W/O Contrast INDICATION: Trauma. TECHNIQUE: Noncontrast head CT using axial technique was reconstructed in axial and coronal planes.Noncontrast spiral CT through the cervical spine was formatted in 3 planes. Automatic tube modulation was used for the cervical spine and iterative dose reconstruction was used for both the head and cervical spine to optimize scan parameters and image quality. CTDIvol Body: 18.10 mGy, DLP Body: 445 mGy*cm. CTDIvol Head: 41.40 mGy, DLP Head: 672 mGy*cm. COMPARISON: Head CT dated 01/30/[address] dated 12/31/2021. FINDINGS: [employer] Architect View Findings, Lines and Tubes: None. BRAIN AND EXTRA-AXIAL SPACES: No parenchymal [...] intact. The extracranial soft tissues are unremarkable. CERVICAL SPINE: No fracture. No acute osseous abnormalities. Normal alignment. No locked or perched facet. There is mild degenerative change with loss of intervertebral disc space height and anterior osteophytes at C6-7. OTHER BONES: No acute abnormality. CERVICAL SOFT TISSUES AND LUNG APICES: Normal soft tissues. Visualized lung apices are clear. IMPRESSION: No acute abnormality of the head or cervical spine. I have personally reviewed the images and I agree with this report. WSN: [id number] Ordering Physician: Gloria Marti Dictated By: Ramon Kyle MD Dictated Date/Time: 07/08/22 4:57 am Reviewed By: Abbie Hays MD Signed By: Abbie Hays MD Signed Date/Time: 07/08/22 5:02 am Transcribed By: KARI Transcribed Date/Time: 07/08/22 3:02 am * Exam Date Time Procedure Performing Provider Status 07/08/22 2:[address] Head/Brain W/O Contrast Hudson Blake marty; Auth (Verified) Notes: (CT Head/Brain W/O Contrast) Reason For Exam: Trauma RESULT: CT Head/Brain W/O Contrast CT Head/Brain W/O Contrast, CT Cervical Spine W/O Contrast INDICATION: Trauma. TECHNIQUE: Noncontrast head CT using axial technique was reconstructed in axial and coronal planes.Noncontrast spiral CT through the cervical spine was formatted in 3 planes. Automatic tube modulation was used for the cervical spine and iterative dose reconstruction was used for both the head and cervical spine to optimize scan parameters and image quality. CTDIvol Body: 18.10 mGy, DLP Body: 445 mGy*cm. CTDIvol Head: 41.40 mGy, DLP Head: 672 mGy*cm. COMPARISON: Head CT dated 01/30/[address] dated 12/31/2021. FINDINGS: [employer] Architect View Findings, Lines and Tubes: None. BRAIN AND EXTRA-AXIAL SPACES: No parenchymal [...] intact. The extracranial soft tissues are unremarkable. CERVICAL SPINE: No fracture. No acute osseous abnormalities. Normal alignment. No locked or perched facet. There is mild degenerative change with loss of intervertebral disc space height and anterior osteophytes at C6-7. OTHER BONES: No acute abnormality. CERVICAL SOFT TISSUES AND LUNG APICES: Normal soft tissues. Visualized lung apices are clear. IMPRESSION: No acute abnormality of the head or cervical spine. I have personally reviewed the images and I agree with this report. WSN: [id number] Ordering Physician: Gloria Marti Dictated By: Ramon Kyle MD Dictated Date/Time: 07/08/22 4:57 am Reviewed By: Abbie Hays MD Signed By: Abbie Hays MD Signed Date/Time: 07/08/22 5:02 am Transcribed By: KARI Transcribed Date/Time: 07/08/22 3:02 am Vital Signs Most recent to oldest [Reference Range]: 1 2 Oxygen Saturation [94-100 %] 94 % (07/08/22 6:49 AM) 95 % (07/08/22 12:51 AM) Pulse Rate [55-90 bpm] 68 bpm (07/08/22 6:49 AM) 62 bpm (07/08/22 12:51 AM) Blood Pressure [90-138/55-84 mm Hg] 95/5 0mm Hg (07/08/22 6:49 AM) 119/69mm Hg (07/08/22 12:51 AM) Respiratory Rate [16-30 br/min] 18 br/mi n (07/08/22 6:49 AM) 18 br/min (07/08/22 12:51 AM) Temperature [96.8-100.4 DegF] 98.5 DegF (07/08/22 12:51 AM) Mode of Delivery (Oxygen) Room air (07/08/22 6:49 AM) Room air (07/08/22 12:51 AM) Temperature Route Oral (07/08/22 12:51 AM) Social History Social History Type Response Smoking Status Never (less than 100 in lifetime) entered on: 01/28/[address] Cervical spine WO contrast * [employer]SP[employer] , CIS S: TRANSCRIBE Lis CHANG, Abbie M: VERIFY Anabella CHANG, Ramon L: SIGN Event Display: Result: Authored Date: [id number] CT Head/Brain W/O Contrast, CT Cervical Spine W/O Contrast INDICATION: Trauma. TECHNIQUE: Noncontrast head CT using axial technique was reconstructed in axial and coronal planes.Noncontrast spiral CT through the cervical spine was formatted in 3 planes. Automatic tube modulation was used for the cervical spine and iterative dose reconstruction was used for both the head and cervical spine to optimize scan parameters and image quality. CTDIvol Body: 18.10 mGy, DLP Body: 445 mGy*cm. CTDIvol Head: 41.40 mGy, DLP Head: 672 mGy*cm. COMPARISON: Head CT dated 01/30/[address] dated 12/31/2021. FINDINGS: [employer] Architect View Findings, Lines and Tubes: None. BRAIN AND EXTRA-AXIAL SPACES: No parenchymal [...] intact. The extracranial soft tissues are unremarkable. CERVICAL SPINE: No fracture. No acute osseous abnormalities. Normal alignment. No locked or perched facet. There is mild degenerative change with loss of intervertebral disc space height and anterior osteophytes at C6-7. OTHER BONES: No acute abnormality. CERVICAL SOFT TISSUES AND LUNG APICES: Normal soft tissues. Visualized lung apices are clear. IMPRESSION: No acute abnormality of the head or cervical spine. I have personally reviewed the images and I agree with this report. WSN: [id number] Ordering Physician: Gloria Marti Dictated By: Ramon Kyle MD Dictated Date/Time: 07/08/22 4:57 am Reviewed By: Abbie Hays MD Signed By: Abbie Hays MD Signed Date/Time: 07/08/22 5:02 am Transcribed By: CSRobles Transcribed Date/Time: 07/08/22 3:[address] Head WO contrast * [employer] , CIS S: TRANSCRIBE Abbie Hays MD: VERIFY Ramon Kyle MD: SIGN Event Display: Result: Authored Date: [id number] CT Head/Brain W/O Contrast, CT Cervical Spine W/O Contrast INDICATION: Trauma. TECHNIQUE: Noncontrast head CT using axial technique was reconstructed in axial and coronal planes.Noncontrast spiral CT through the cervical spine was formatted in 3 planes. Automatic tube modulation was used for the cervical spine and iterative dose reconstruction was used for both the head and cervical spine to optimize scan parameters and image quality. CTDIvol Body: 18.10 mGy, DLP Body: 445 mGy*cm. CTDIvol Head: 41.40 mGy, DLP Head: 672 mGy*cm. COMPARISON: Head CT dated 01/30/[address] dated 12/31/2021. FINDINGS: [employer] Architect View Findings, Lines and Tubes: None. BRAIN AND EXTRA-AXIAL SPACES: No parenchymal [...] intact. The extracranial soft tissues are unremarkable. CERVICAL SPINE: No fracture. No acute osseous abnormalities. Normal alignment. No locked or perched facet. There is mild degenerative change with loss of intervertebral disc space height and anterior osteophytes at C6-7. OTHER BONES: No acute abnormality. CERVICAL SOFT TISSUES AND LUNG APICES: Normal soft tissues. Visualized lung apices are clear. IMPRESSION: No acute abnormality of the head or cervical spine. I have personally reviewed the images and I agree with this report. WSN: [id number] Ordering Physician: Gloria Marti Dictated By: Ramon Kyle MD Dictated Date/Time: 07/08/22 4:57 am Reviewed By: Abbie Hays MD Signed By: Abbie Hays MD Signed Date/Time: 07/08/22 5:02 am Transcribed By: KARI Transcribed Date/Time: 07/08/22 3:[address] Lumbar spine WO contrast * [employer] , CIS S: TRANSCRIBE Abbie Hays MD: VERIFY Ramon Kyle MD: SIGN Event Display: Result: Authored Date: CT Thoracic Spine W/O Contrast, CT Lumbar Spine W/O Contrast INDICATION: Trauma., Fracture/Dislocation TECHNIQUE: Noncontrast CT of the thoracic spine was performed. Bone and soft tissue algorithms werereconstructed along with coronal and sagittal computations. Weight-based protocol using automatic tube modulation was used to optimize exposure parameters. RADIATION DOSE PARAMETERS: CTDIvol Body: 43.00 mGy, DLP Body: 2439 mGy*cm. COMPARISON: Thoracic spine CT dated 12/15/[address] of the abdomen and pelvis dated 12/31/2021. FINDINGS: Spine: No fractures or bone lesion. Alignment is maintained. Multilevel small marginal osteophytes. Soft tissues: No acute abnormality in the paravertebral soft tissues. IMPRESSION: Normal CT of the thoracic and lumbar spine without contrast. I have personally reviewed the images and I agree with this report. WSN: [id number] Ordering Physician: Gloria Marti Dictated By: Ramon Kyle MD Dictated Date/Time: 07/08/22 5:10 am Reviewed By: Abbie Hays MD Signed By: Abbie Hays MD Signed Date/Time: 07/08/22 5:15 am Transcribed By: KARI Transcribed Date/Time: 07/08/22 3:[address] Thoracic spine WO contrast * [employer] , CIS S: TRANSCRIBE Abbie Hays MD: VERIFY Ramon Kyle MD: SIGN Event Display: Result: Authored Date: [id number] CT Thoracic Spine W/O Contrast, CT Lumbar Spine W/O Contrast INDICATION: Trauma., Fracture/Dislocation TECHNIQUE: Noncontrast CT of the thoracic spine was performed. Bone and soft tissue algorithms werereconstructed along with coronal and sagittal computations. Weight-based protocol using automatic tube modulation was used to optimize exposure parameters. RADIATION DOSE PARAMETERS: CTDIvol Body: 43.00 mGy, DLP Body: 2439 mGy*cm. COMPARISON: Thoracic spine CT dated 12/15/[address] of the abdomen and pelvis dated 12/31/2021. FINDINGS: Spine: No fractures or bone lesion. Alignment is maintained. Multilevel small marginal osteophytes. Soft tissues: No acute abnormality in the paravertebral soft tissues. IMPRESSION: Normal CT of the thoracic and lumbar spine without contrast. I have personally reviewed the images and I agree with this report. WSN: [id number] Ordering Physician: Gloria Marti Dictated By: Ramon Kyle MD Dictated Date/Time: 07/08/22 5:10 am Reviewed By: Abbie Hays MD Signed By: Abbie Hays MD Signed Date/Time: 07/08/22 5:15 am Transcribed By: KARI Transcribed Date/Time: 07/08/22 3:12 am XR Tibia and Fibula - left 2 Views * [employer] , CIS S: TRANSCRIBE Abbie Hays MD: VERIFY Event Display: Result: Authored Date: [id number] Tibia/Fibula 2 Views Left Reason: Trauma; with Pain; Clinical Question(s): Fracture COMPARISON: Left ankle radiographs dated 07/08/2022 and left knee radiographs dated 05/05/2021. FINDINGS: No acute displaced fracture or dislocation. Unchanged appearance of a an ovoid ossification medial to the medial femoral condyle, likely sequela of prior trauma. Visualized joints are normal. Normal soft tissues. IMPRESSION: No acute displaced fracture. WSN: [id number] Ordering Physician: Gloria Marti Dictated By: Abbie Hays MD Dictated Date/Time: 07/08/22 6:32 am Reviewed By: Abbie Hays MD Signed By: Abbie Hays MD Signed Date/Time: 07/08/22 6:32 am Transcribed By: CSRobles Transcribed Date/Time: 07/08/22 6:31 am XR Ankle - left GE 3 Views * Yogi , CIS S: TRANSCRIBE Dian Lopez MD: VERIFY Event Display: Result: Authored Date: [id number] Ankle Min 3 Views Left Reason: Trauma; with Pain; Clinical Question(s): Fracture COMPARISON: None. FINDINGS: There is no evidence of acute fracture or dislocation. There is no evidence of osteoarthritic change. There is soft tissue swelling. IMPRESSION: Soft tissue swelling without evidence of acute fracture or dislocation. WSN: [id number] Ordering Physician: Gloria Marti Dictated By: Dian Lopez MD Dictated Date/Time: 07/08/22 7:24 am Reviewed By: Dian Lopez MD Signed By: Dian Lopez MD Signed Date/Time: 07/08/22 7:24 am Transcribed By: CSRobles Transcribed Date/Time: 07/08/22 3:53 am Note * RACQUELSPowerscritiera , CIS S: TRANSCRIDian Cordero MD: VERIFY Event Display: Result: Authored Date: [id number] Chest 2 Views Frontal and Lat Reason: Other:; Chest Pain; Clinical Question(s): CHF COMPARISON: 02/10/2022. FINDINGS: LINES AND TUBES: None. LUNGS AND PLEURA: Clear lungs. Normal pulmonary vascularity. No pleural effusion. No pneumothorax. HEART, MEDIASTINUM AND ADEOLA: There is mild prominence of silhouette. BONES AND SOFT TISSUES: No acute abnormality. IMPRESSION: Stable mild prominence of the cardiomediastinal silhouette without evidence of pulmonary pathology. WSN: [id number] Ordering Physician: Gloria Marti Dictated By: Dian Lopez MD Dictated Date/Time: 07/08/22 7:25 am Reviewed By: Dian Lopez MD Signed By: Dian Lopez MD Signed Date/Time: 07/08/22 7:25 am Transcribed By: KARI Transcribed Date/Time: 07/08/22 4:11 am XR Foot - left GE 3 Views * [employer] , CIS S: TRANSCRIBE Dian Lopez MD: VERIFY Event Display: Result: Authored Date: Foot Min 3 Views Left, 3 views Reason: Trauma; with Pain; Clinical Question(s): Fracture COMPARISON: None. FINDINGS: There is no evidence of acute fracture. There is calcaneal spurring at the attachment of the plantar fascia. There is mild degenerative changes at the first metatarsophalangeal joint with mild spurring. Normal soft tissues. IMPRESSION: There is no evidence of acute fracture or dislocation. WSN: [id number] Ordering Physician: Gloria Marti Dictated By: Dian Lopez MD Dictated Date/Time: 07/08/22 9:50 am Reviewed By: Dian Lopez MD Signed By: Dian Lopez MD Signed Date/Time: 07/08/22 9:50 am Transcribed By: KARI Transcribed Date/Time: 07/08/22 3:55 am Patient Care team information Care Team Personnel Name: Lilly Van RN Position: S RN Member Role: Primary Care Nurse Name: Francis Ritter RN Position: S RN Member Role: Primary Care Nurse Name: Misael Carty RN Position: S RN Member Role: Primary Care Nurse Name: Cody Baumann MD Position: S Outreach Member Role: PCP Address: Address: [address] [place] [address]- [place] Name: Patrice Rodriguez Position: [facility] RN Member Role: Primary Care Nurse Name: Reggie Jackson RN Position: [facility] RN Member Role: Primary Care Nurse Name: Rissa Chen RN Position: [facility] RN Member Role: Primary Care Nurse Name: Cecy Orona RN Position: [facility] RN Member Role: Primary Care Nurse Name: Veronica Howell RN Position: [facility] RN Member Role: Primary Care Nurse Name: Gloria Marti DO Position: [facility] Resident Member Role: ED Resident Address: Address: [address] [place] [address]- Name: Carol Lopez RN Position: [facility] ED RN W/OE and Tasks Member Role: Patient Care Provider Name: Susie Crews MD Position: [facility] ED Medicine MD Member Role: ED Attending Physician Address: Address: [address] [place] [id number]- Name: Celia Cordon Position: [facility] ED TA [facility] Care Team Related Persons Name: DONOVAN RUVALCABA Address: [facility] [place] [address] Name: KELLY RIVERA Address: home [address] [place] [id number]
--- OUTSIDE RECORDS SUMMARY | 2023-07-02 16:09 | XMS_ITS | Continuity of Care Document ---
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 Name Role Phone Name Harman CHANG Primary Care Physician [place] [facility] [place]23 - 04/01/[address] [address]- Attending Physician: Not on Staff, Attending MD Admitting Physician: Not on Staff, Admitting MD Referring Physician: Not on Staff, Referring MD Allergies, Adverse Reactions, Alerts No Known Allergies Immunizations Given and Recorded Vaccine Date Status Refusal Reason [id number] 12y+ bivalent booster vax 06/13/22 Recorded SARS-CoV-2 (COVID-19) mRNA-1273 vaccine 08/02/21 R ecorded SARS-CoV-2 (COVID-19) mRNA-1273 vaccine 01/26/21 R ecorded SARS-CoV-2 (COVID-19) mRNA-1273 vaccine 12/28/20 R ecorded tetanus/diphtheria/pertussis, acel(Tdap) 01/05/19 Given Medications acamprosate 333 mg oral delayed release tablet 2 tablet = 666 mg, By Mouth, 3 times a day, # 180 tablet, 1 Refills, Maintenance, 11/28/22 15:31:00EDT, Tablet, [id number], Partial fill upon patient request if the prescription is for a schedule II opioid drug., 175, cm, 11/27/22 10... Start Date: 11/28/22 Status: Ordered cholecalciferol 400 intl units oral capsule 1 capsule = 10 mcg, By Mouth, Daily, # 30 capsule, 0 Refills, Maintenance, 07/31/22 8:07:00 EST, Capsule, [facility], Partial fill upon patient request [...] 07/31/22 8:04:00 EST, Route to Pharmacy Electronically, [facility], Partial fill upon patient request if the prescription is for a schedule II o... Start Date: 07/31/22 Status: Ordered multivitamin Multiple Vitamins oral tablet 1 tablet, By Mouth, Daily, # 30 tablet, 0 Refills, Maintenance, 07/31/22 8:05:00 EST, Tablet, [facility], Partial fill upon patient request [...] 07/31/22 8:05:00 EST, Route to Pharmacy Electronically, [facility], Partial fill upon patient request if the prescription is for a sche... Start Date: 07/31/22 Status: Ordered thiamine 100 mg oral tablet 100 mg, 1, tablet, By Mouth, Daily, for 30 days, # 30 tablet, Refills 0, Tot. Refills 0, Acute 04/04/23 8:28:00 EDT, 03/05/23 8:28:00 EDT, Route to Pharmacy Electronically, [facility], Partial fill upon patient request if the prescriptio... Start Date: 03/05/23 Stop Date: 04/04/23 Status: Ordered Vitamin C 500 mg oral tablet 1 tablet = 500 mg, By Mouth, Daily, # 30 tablet, 0 Refills, Maintenance, 07/31/22 8:10:00 EST, Tablet, [facility], Partial fill upon patient request [...] use Confirmed Active Hepatic steatosis Confirmed Active Social History Social History Type Response Smoking Status Never (less than 100 in lifetime) entered on: 01/28/22 Sex Patient Care team information Care Team Personnel Name: Yayo Gamboa RN Position: [facility] RN Member Role: Primary Care Nurse Name: Lilly Van RN Position: S RN Member Role: Primary Care Nurse Name: Rissa Yadav RN Position: [facility] RN Member Role: Primary Care Nurse Name: Adilson Tyler RN Position: [facility] RN Supdaniel Member Role: Primary Care Nurse Name: Gely Ceja RN Position: S RN Member Role: Primary Care Nurse Name: Francis Ritter RN Position: [facility] RN Member Role: Primary Care Nurse Name: Misael Carty RN Position: [facility] RN Member Role: Primary Care Nurse Name: Maurice Pathak RN Position: [facility] RN Member Role: Primary Care Nurse Name: Caitlin Melendez RN Position: [facility] RN Radames Member Role: Primary Care Nurse Name: Bozena Lora LPN Position: [facility] RN Member Role: Primary Care Nurse Name: Reggie Jackson RN Position: [facility] RN Member Role: Primary Care Nurse Name: Rhonda De La O RN Position: [facility] RN Member Role: Primary Care Nurse Name: Harman Vang MD Position: [facility] Outreach Member Role: PCP Address: Address: [address] [place] [id number] Name: Neris Lewis RN Position: [facility] RN Member Role: Primary Care Nurse Name: Veronica Howell RN Position: [facility] RN Member Role: Primary Care Nurse Name: Natalia Harris RN Position: [facility] RN Member Role: Primary Care Nurse Name: Rhiannon Peña RN Position: [facility] RN Member Role: Primary Care Nurse Care Team Related Persons Name: DONOVAN RUVALCABA Address: [facility] [place] [address] Name: KELLY RIVERA Address: home [address] [place] [id number]
--- OUTSIDE RECORDS SUMMARY | 2023-07-02 16:09 | XMS_ITS | Continuity of Care Document ---
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 Name Role Phone Name Harman CHANG Primary Care Physician [phone] [place] [facility] [place] [id number] Date(s): 04/04/23 - 04/04/[address] [address]- Discharge Disposition: A-D/C Home Attending Physician: Vandana Vargas DO Admitting Physician: Vandana Vargas DO Referring Physician: Not on Staff, Referring MD Allergies, Adverse Reactions, Alerts No Known Allergies Immunizations Given and Recorded Vaccine Date Status Refusal Reason [id number] 12y+ bivalent booster vax 06/13/22 Recorded SARS-CoV-2 (COVID-19) mRNA-1273 vaccine 08/02/21 R ecorded SARS-CoV-2 (COVID-19) mRNA-1273 vaccine 01/26/21 R ecorded SARS-CoV-2 (COVID-19) mRNA-1273 vaccine 12/28/20 R ecorded tetanus/diphtheria/pertussis, acel(Tdap) 01/05/19 Given Medications acamprosate 333 mg oral delayed release tablet 2 tablet = 666 mg, By Mouth, 3 times a day, # 180 tablet, 1 Refills, Maintenance, 11/28/22 15:31:00EDT, Tablet, [id number], Partial fill upon patient request if the prescription is for a schedule II opioid drug., 175, cm, 11/27/22 10... Start Date: 11/28/22 Status: Ordered cholecalciferol 400 intl units oral capsule 1 capsule = 10 mcg, By Mouth, Daily, # 30 capsule, 0 Refills, Maintenance, 07/31/22 8:07:00 EST, Capsule, [facility], Partial fill upon patient request [...] 04/04/23 19:05:00 EDT, Route to Pharmacy Electronically, [facility], Partial fill upon patient request if the prescription is for a schedule II... Start Date: 04/04/23 Status: Ordered multivitamin Multiple Vitamins oral tablet 1 tablet, By Mouth, Daily, # 30 tablet, 0 Refills, Maintenance, 07/31/22 8:05:00 EST, Tablet, [facility], Partial fill upon patient request [...] 07/31/22 8:05:00 EST, Route to Pharmacy Electronically, [facility], Partial fill upon patient request if the prescription is for a sche... Start Date: 07/31/22 Status: Ordered thiamine 100 mg oral tablet 100 mg, 1, tablet, By Mouth, Daily, for 30 days, # 30 tablet, Refills 0, Tot. Refills 0, Acute 05/04/23 19:06:00 EDT, 04/04/23 19:06:00 EDT, Route to Pharmacy Electronically, [facility], Partial fill upon patient request if the pre... Start Date: 04/04/23 Stop Date: 05/04/23 Status: Ordered Vitamin C 500 mg oral tablet 1 tablet = 500 mg, By Mouth, Daily, # 30 tablet, 0 Refills, Maintenance, 07/31/22 8:10:00 EST, Tablet, [facility], Partial fill upon patient request [...] Exam Date Time Procedure Performing Provider Status 04/04/23 5:[address] Abd/Pelvis W/ IV Contrast Only Colon , Jenny; Auth (Verified) Notes: (CT Abd/Pelvis W/ IV Contrast Only) Reason For Exam: Difuse abdominal pain;Other: RESULT: CT Abd/Pelvis W/ IV Contrast Only CT Abd/Pelvis W/ IV Contrast Only Hx of Present Illness: CP, N V; Reason: Other:; Difuse abdominal pain; Clinical Question(s): Pancreatitis; Order Comment: TECHNIQUE: Spiral CT through the abdomen and pelvis with IV contrast formatted in 3 planes. 100 cc of Omnipaque 300 was administered intravenously. This study was performed without oral contrast. Weight-based protocol using automatic tube modulation was used to optimize exposure parameters. CTDIvol Body: 22.17 mGy, DLP Body: 1218 mGy*cm. COMPARISON: None. FINDINGS: Technical Sme View Findings, Lines and Tubes: None. Visualized Chest: Lung bases are clear. No pleural effusion. The heart is normal in size. No pericardial effusion. Diaphragm: Normal. Liver: Diffuse low-attenuation throughout the liver parenchyma consistent with mild hepatic steatosis. No evidence of mass. Gallbladder: No CT evidence of gallbladder pathology. Bile ducts: No biliary ductal dilation. Spleen: Normal. Pancreas: Normal. Adrenal glands: Normal. Kidneys and ureters: No hydronephrosis, stones, or suspicious masses. Bladder: Diffuse bladder wall thickening. Possible cystitis. Reproductive organs: Unremarkable. Stomach, small bowel, and large bowel: Normal. Appendix: Normal. Peritoneum and retroperitoneum: No ascites or pneumoperitoneum. No omental or mesenteric lesions. Lymph nodes: No enlarged lymph nodes. Blood vessels: Normal. No aneurysm. No evidence of venous thrombosis. Abdominal and pelvic wall: Unremarkable. Bones: L5-S1 disc bulging resulting L and moderate to severe spinal canal narrowing. IMPRESSION: Mild hepatic steatosis. Mild bladder wall thickening. Correlate clinically regarding cystitis. Moderate to severe disc bulge at L5-S1. This is likely similar to previous exam. No other acute abnormality identified. WSN: [id number] Ordering Physician: Alfredo Rizvi Dictated By: Quintin Delgado MD Dictated Date/Time: 04/04/23 6:08 pm Reviewed By: Quintin Delgado MD Signed By: Quintin Delgado MD Signed Date/Time: 04/04/23 6:08 pm Transcribed By: KARI Transcribed Date/Time: 04/04/23 5:50 pm Vital Signs Most recent to oldest [Reference Range]: 1 2 3 Height 175 cm (04/04/23 4:40 PM) 175 cm (04/04/23 1:11 PM) Oxygen Saturation [94-100 %] 98 % (8/9/23 6:50 PM) 100 % (04/04/23 4:42 PM) 100 % (04/04/23 1:11 PM) Pulse Rate [55-90 bpm] 63 bpm (04/04/23 6:50 PM) 60 bpm (04/04/23 4:42 PM) 55 bpm (04/04/23 1:11 PM) Blood Pressure [90-138/55-84 mm Hg] 144/103mm Hg *H* (04/04/23 6:50 PM) 139/103mm Hg *H* (04/04/23 4:42 PM) 136/89mm Hg (04/04/23 1:11 PM) Respiratory Rate [16-30 br/min] 20 br/min (04/04/23 6:50 PM) 18 br/min (04/04/23 4:42 PM) 18 br/min (04/04/23 1:11 PM) Temperature [96.8-100.4 DegF] 99.0 DegF (04/04/23 6:50 PM) 99.7 DegF (04/04/23 4:42 PM) 99.0 DegF (04/04/23 1:11 PM) Mode of Delivery (Oxygen) Room air (04/04/23 6:50 PM) Room air (04/04/23 4:42 PM) Room air (04/04/23 1:11 PM) Blood pressure sites Arm, left (04/04/23 6:50 PM) Arm, left (04/04/23 4:42 PM) Arm, left (04/04/23 1:11 PM) Temperature Route Oral (04/04/23 6:50 PM) Oral (04/04/23 4:42 PM) Oral (04/04/23 1:11 PM) Dry Weight 98 kg (04/04/23 4:40 PM) 98 kg (04/04/23 1:11 PM) Dry Weight Obtained Via Patient/family s tated (04/04/23 1:11 PM) Social History Social History Type Response Smoking Status Never (less than 100 in lifetime) entered on: 01/28/22 Sex EKG study * Event Display: ECG 12-Lead Authored Date: [id number] Please click on pdf link to open report * Event Display: ECG 12-Lead Authored Date: [id number] Ventricular Rate: 55 BPM Atrial Rate: 55 BPM P-R Interval: 160 ms QRS Duration: 94 ms Q-T Interval: 490 ms QTC Calculation(Bazett): 468 ms P Altha: 29 degrees R Altha: 21 degrees T Altha: 6 degrees Sinus bradycardia Otherwise normal ECG When compared with ECG of 03-APR-2023 12:33, No significant change was found Confirmed by JEY GUTHRIE MD ([id number]) on 04/04/2023 7:06:02 PM [employer]: JEY GUTHRIE MD Note * Spencer Escoto: PERFORM Event Display: Patient Education Leaflets Authored Date: [id number] Vomiting (Adult) ?? [id number] Vomiting (Adult) Vomiting is a common symptom that may be due to different causes. These include gastroenteritis (stomach flu), food poisoning, and gastritis. Other more serious causes of vomiting may be hard to diagnose early in the illness. That's why it's important to watch for the warning signs listed below. The main danger from repeated vomiting is dehydration. This is because of the loss of water and minerals from the body. When this occurs, your body fluids must be replaced. Home care ??? If symptoms are severe, rest at home for the next 24 hours. ??? Because your symptoms may be from an infection, wash your hands often and well. Use soap and clean, running water or alcohol-based gasoline catalyst operator to keep from spreading the infection to others. ??? Wash your hands for at least 20 seconds. Scrub all surfaces of your hands, including between your fingers and under your fingernails each time you wash. Humming the Happy Birthday song twice while you wash is an easy way to make sure you've washed for 20 seconds. ??? Wash your hands after using the toilet, before and after preparing food, before eating food, after changing a diaper, cleaning a wound, caring for a sick person, and blowing your nose, coughing, or sneezing. You should also wash your hands after caring for someone who is sick, touching pet food, or treats, and touching an animal, or animal waste. ??? You may use acetaminophen??or NSAID medicines such as ibuprofen or naproxen to control fever, unless another medicinewas prescribed. Talk with your provider before using these medicines if you have chronic liver or kidney disease or ever had a stomach ulcer or digestive bleeding. Never give aspirin to anyone younger than 18 who is ill with a fever. It may cause severe liver damage. Don't use NSAID medicines if you are already taking one for another condition such as arthritis or take aspirin for heart disease or after a stroke. ??? Don't use tobacco or drink alcohol. These may make your symptoms worse. If youhave trouble stopping either substance, ask your provider for treatment resources. ??? If medicinesfor vomiting were prescribed, take as directed. Tell your provider if they don't work within the expected time period. ??? Once vomiting stops, then follow these guidelines: During the first 12 to 24 hours, follow the diet below: ??? Fruit juices. Apple, grape juice, clear fruit drinks, and electrolyte replacement drinks. ??? Beverages. Water, soft drinks without caffeine; mineral water (plain or flavored), and decaffeinated tea and coffee. ??? Soups. Clear broth and bouillon. ??? Desserts. Plain gelatin, ice pops, and fruit juice bars. As you feel better, you may add 6 to 8 ounces of yogurt per day. During the next 24 hours you may add the following to the above: ??? Hot cereal, plain toast, bread, rolls, and crackers ??? Plain noodles, rice, mashed potatoes, and chicken noodle or rice soup ??? Unsweetened canned fruit such as applesauce, bananas. Don't have pineapple or citrus. ??? Limit caffeine and chocolate. No spices or seasonings except salt. During the next 24 hours: Gradually go back to your normal diet, as you feel better and your symptoms lessen. ?? Follow-up care Follow up with your healthcare provider as advised. ?? When to seek medical advice Call your healthcare provider right away if any of these occur: ??? Constant right-sided lower belly pain or increasing general belly pain ??? Continued vomiting (unable to keep liquids down) for 24 hours ??? Vomiting blood or what looks like coffee grounds ??? Swollen belly ??? Frequent diarrhea (more than 5 times a day), or blood (red or black color) or mucus in diarrhea ??? Peeing less than usual or extreme thirst ??? Weakness, dizziness, or fainting ??? Unusually drowsy or confused ??? Fever of 100.4??F (38??C) oral or higher, or as directed by your provider ??? Yellow color of the eyes or skin ??? Other symptoms get worse or you have new symptoms ?? Last Reviewed Date: 2021 ?? [employer]. All rights reserved. This information is not intended as a substitute for professional medical care. Always follow your healthcare professional's instructions. ?? * Maricruz VAUGHN, Spencer Restrepo: PERFORM Event Display: Patient Education Leaflets Authored Date: [id number] Alcohol Withdrawal ?? [id number] Alcohol Withdrawal Alcohol withdrawal often starts after [...] to find a local meeting place. ??? [employer] offers support to families of alcohol users. Go to the Al-Anon website at www.al-anon.org . ??? Residential alcohol detox programs are available. Search the internet for treatment centers [facility]. ?? Call 911 Call 911 if any [...] vomiting ?? Last Reviewed Date: 2021 ?? 2771-7135 [employer]. All rights reserved. This information is not intended as a substitute for professional medical care. Always follow your healthcare professional's instructions. ?? Patient Care team information Care Team Personnel Name: Yayo Gamboa RN Position: [facility] RN Member Role: Primary Care Nurse Name: Lilly Van RN Position: S RN Member Role: Primary Care Nurse Name: Rissa Yadav RN Position: [facility] SN RN Member Role: Primary Care Nurse Name: Adilson Tyler RN Position: [facility] RN Supv Member Role: Primary Care Nurse Name: Gely Ceja RN Position: [facility] RN Member Role: Primary Care Nurse Name: Francis Ritter RN Position: [facility] RN Member Role: Primary Care Nurse Name: Misael Carty RN Position: [facility] RN Member Role: Primary Care Nurse Name: Maurice Pathak RN Position: [facility] RN Member Role: Primary Care Nurse Name: Caitlin Melendez RN Position: [facility] RN Supv Member Role: Primary Care Nurse Name: Bozena Lora LPN Position: [facility] RN Member Role: Primary Care Nurse Name: Reggie Jackson RN Position: [facility] RN Member Role: Primary Care Nurse Name: Rhonda De La O RN Position: [facility] RN Member Role: Primary Care Nurse Name: Harman Vang MD Position: [facility] Outreach Member Role: PCP Address: Address: [address] [place] [address]- Name: Neris Lewis RN Position: [facility] RN Member Role: Primary Care Nurse Name: Veronica Howell RN Position: [facility] RN Member Role: Primary Care Nurse Name: Natalia Harris RN Position: [facility] RN Member Role: Primary Care Nurse Name: Rhiannon Peña RN Position: [facility] RN Member Role: Primary Care Nurse Name: Spencer Escoto Position: [facility] Associate Professional Member Role: ED Physician Time Clock Inspector Address: Address: [address] [place] [address] Emergency [place], [place] [address] Name: Angela Driver Position: [facility] ED RN W/OE and Tasks Member Role: Patient Care Provider Name: Vandana Vargas DO Position: [facility] Resident Member Role: Admitting Physician Address: Address: [address] [place] [address]- [place] Name: Dmitri CHANG, Alfredo Parks Position: [facility] Resident Member Role: ED Attending Physician Address: Address: [address] [place] [address]- Care Team Related Persons Name: DONOVAN RUVALCABA Address: home [facility] [place] [address] Name: KELLY RIVERA Address: home [address] [place] [id number]
--- OUTSIDE RECORDS SUMMARY | 2023-07-02 16:09 | XMS_ITS | Continuity of Care Document ---
Author Name Unknown Organization [facility] ter Address [address] [place] [id number]- Care Team Providers Care Health And Safety Tech Name Role Phone Name Harman CHANG Primary Care Physician [phone] Encounter [facility] [place] Date(s): 04/11/23 - 04/18/[address] [address]- Encounter Diagnosis Hematemesis(Final) - 04/12/23 Alcohol withdrawal(Final) - 04/12/23 Discharge Disposition: A-D/C Home Attending Physician: Aileen Gifford MD Admitting Physician: Guy Romo MD Referring Physician: Not on Staff, Referring MD Allergies, Adverse Reactions, Alerts No Known Allergies Immunizations Given and Recorded Vaccine Date Status Refusal Reason [id number] 12y+ bivalent booster vax 06/13/22 Recorded SARS-CoV-2 [...] 0 Refills, Maintenance, 04/18/23 8:20:00 EDT, Tablet, [facility], Partial fill upon patient request if the prescription is for a schedule II opioid drug.... Start Date: 04/18/23 Status: Ordered cholecalciferol 400 intl units oral capsule 1 capsule = 10 mcg, By Mouth, Daily, # 30 capsule, 0 Refills, Maintenance, 07/31/22 8:07:00 EST, Capsule, [facility], Partial fill upon patient request if the prescription is for a schedule II opioid drug., 176, cm, 07/30/22 18:22:... Start Date: 07/31/22 Status: Ordered clonazePAM 0.5 mg oral tablet 1 tablet = 0.5 mg, By Mouth, Every 12 hours, PRN Anxiety, # 14 tablet, 0 Refills, Maintenance, 04/18/23 9:59:00 EDT, Tablet, [facility], Partial fill upon patient request if the prescription is for a schedule II opioid drug., 176, cm, 08... Start Date: 04/18/23 Stop Date: 04/25/23 Status: Ordered folic acid 1 mg oral tablet 1 mg, 1, tablet, By Mouth, Daily, # 30 tablet, Refills 0, Tot. Refills 0, Maintenance, 04/04/23 19:05:00 EDT, Route to Pharmacy Electronically, [facility], Partial fill upon patient request if the prescription is for a schedule II... Start Date: 04/04/23 Status: Ordered multivitamin Multiple Vitamins oral tablet 1 tablet, By Mouth, Daily, # 30 tablet, 0 Refills, Maintenance, 04/18/23 10:01:00 EDT, Tablet, [facility], Partial fill upon patient request if [...] 04/18/23 10:00:00 EDT, Route to Pharmacy Electronically, [facility], Partial fill upon patient request if the prescription is for a schedule... Start Date: 04/18/23 Status: Ordered thiamine 100 mg oral tablet 100 mg, 1, tablet, By Mouth, Daily, for 30 days, # 30 tablet, Refills 0, Tot. Refills 0, Acute 05/04/23 19:06:00 EDT, 04/04/23 19:06:00 EDT, Route to Pharmacy Electronically, [facility], Partial fill upon patient request if the pre... Start Date: 04/04/23 Stop Date: 05/04/23 Status: Ordered Vitamin C 500 mg oral tablet 1 tablet = 500 mg, By Mouth, Daily, # 30 tablet, 0 Refills, Maintenance, 07/31/22 8:10:00 EST, Tablet, [facility], Partial fill upon patient request [...] Exam Date Time Procedure Performing Provider Status 04/11/23 8:[address] Cervical Spine W/O Contrast Qing Jeffries; Marvel (Verified) Notes: (CT Cervical Spine W/O Contrast) Reason For Exam: Neck trauma, dangerous injury mechanism;Other: RESULT: CT Cervical Spine W/O Contrast CT head without contrast CT cervical spine without contrast INDICATION/: Head and neck injury after syncopal episode. Rule out hemorrhage and fracture. COMPARISON: 04/03/2023 TECHNIQUE: Incremental CT scan through the head and spiral CT through the cervical spine without contrast, formatted in multiple planes. The cervical portion of the exam was performed with automatic exposure control. CTDIvol Body: 19.20 mGy, DLP Body: 521 mGy*cm. CTDIvol Head: 39.70 mGy, DLP Head: 672 mGy*cm. FINDINGS: CODE AND TEST CLERK VIEW FINDINGS: No unexpected findings. BRAIN: No parenchymal hemorrhage or swelling.. Herbert-white matter differentiation is well preserved. BASILAR CISTERNS: Normal. EXTRA-AXIAL SPACES: No subarachnoid, subdural or epidural hemorrhage. CALVARIUM, SKULL BASE AND SCALP: No bone lesions or fractures. Unremarkable soft tissues. CERVICO-OCCIPITAL JUNCTION: Intact. ODONTOID PROCESS and C1/2 ARTICULATION: 16 degrees leftward rotatory subluxation but otherwise normal. No fracture. Normal anterior atlantodental interval. LOWER CERVICAL SPINE: No fracture or malalignment. Mild to moderate C6-7 degenerative disc changes and left C6-7 bony foraminal stenosis. OTHER BONES: The portions of the clavicles, scapulas and upper ribs included on the exam are normal. CERVICAL SOFT TISSUES: Normal. No hematoma. LUNG APICES: Clear. No pneumothorax. IMPRESSION: 1. No hemorrhage or other acute intracranial process. 2. 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 3. C6-7 degenerative disc changes including left bony foraminal stenosis. WSN: [id number] Ordering Physician: Rosaura Reese Dictated By: Omid Montoya MD Dictated Date/Time: 04/11/23 8:35 pm Reviewed By: Omid Montoya MD Signed By: Omid Montoya MD Signed Date/Time: 04/11/23 8:35 pm Transcribed By: KARI Transcribed Date/Time: 04/11/23 8:30 pm * Exam Date Time Procedure Performing Provider Status 04/11/23 8:[address] Head/Brain W/O Contrast Farida Jeffries ei; Auth (Verified) Notes: (CT Head/Brain W/O Contrast) Reason For Exam: Trauma RESULT: CT Head/Brain W/O Contrast CT head without contrast CT cervical spine without contrast INDICATION/: Head and neck injury after syncopal episode. Rule out hemorrhage and fracture. COMPARISON: 04/03/2023 TECHNIQUE: Incremental CT scan through the head and spiral CT through the cervical spine without contrast, formatted in multiple planes. The cervical portion of the exam was performed with automatic exposure control. CTDIvol Body: 19.20 mGy, DLP Body: 521 mGy*cm. CTDIvol Head: 39.70 mGy, DLP Head: 672 mGy*cm. FINDINGS: CODE AND TEST CLERK VIEW FINDINGS: No unexpected findings. BRAIN: No parenchymal hemorrhage or swelling.. Herbert-white matter differentiation is well preserved. BASILAR CISTERNS: Normal. EXTRA-AXIAL SPACES: No subarachnoid, subdural or epidural hemorrhage. CALVARIUM, SKULL BASE AND SCALP: No bone lesions or fractures. Unremarkable soft tissues. CERVICO-OCCIPITAL JUNCTION: Intact. ODONTOID PROCESS and C1/2 ARTICULATION: 16 degrees leftward rotatory subluxation but otherwise normal. No fracture. Normal anterior atlantodental interval. LOWER CERVICAL SPINE: No fracture or malalignment. Mild to moderate C6-7 degenerative disc changes and left C6-7 bony foraminal stenosis. OTHER BONES: The portions of the clavicles, scapulas and upper ribs included on the exam are normal. CERVICAL SOFT TISSUES: Normal. No hematoma. LUNG APICES: Clear. No pneumothorax. IMPRESSION: 1. No hemorrhage or other acute intracranial process. 2. 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 3. C6-7 degenerative disc changes including left bony foraminal stenosis. WSN: [id number] Ordering Physician: Rosaura Reese Dictated By: Omid Montoya MD Dictated Date/Time: 04/11/23 8:35 pm Reviewed By: Omid Montoya MD Signed By: Omid Montoya MD Signed Date/Time: 04/11/23 8:35 pm Transcribed By: KARI Transcribed Date/Time: 04/11/23 8:30 pm * Exam Date Time Procedure Performing Provider Status 04/11/23 4:38 PM Chest 2 Views Frontal and Lat Brianna Wilson; Marvel (Verified) Notes: (Chest 2 Views Frontal and Lat) Reason For Exam: Chest Pain;Other: RESULT: Chest 2 Views Frontal and Lat Chest 2 Views Frontal and Lat Hx of Present Illness: Pt c o of chest pain x 1 month, vomiting, reports syncopal episode this am, etoh withdrawl. + tremors- wants to go to Detox; Reason: Other:; Chest Pain; Clinical Question(s): Other: COMPARISON: 02/27/2023 FINDINGS: LINES AND TUBES: None. LUNGS AND PLEURA: Clear lungs. Normal pulmonary vascularity. No pleural effusion. No pneumothorax. HEART, MEDIASTINUM AND ADEOLA: Heart is normal in size. Normal mediastinal and hilar contour. BONES AND SOFT TISSUES: No acute abnormality. IMPRESSION: No acute abnormality. WSN: [id number] Ordering Physician: Monica Ha Dictated By: Leah Gunter MD Dictated Date/Time: 04/11/23 4:45 pm Reviewed By: Leah Gunter MD Signed By: Leah Gunter MD Signed Date/Time: 04/11/23 4:45 pm Transcribed By: KARI Transcribed Date/Time: 04/11/23 4:43 pm Vital Signs Most recent to oldest [Reference Range]: 1 2 3 Height 176 cm (04/18/23 10:56 AM) 176 cm (04/17/23 7:46 AM) 176 cm (04/17/23 4:35 AM) Weight 97.8 kg (04/12/23 11:57 AM) 98 kg (04/12/23 6:24 AM) 98 kg (04/11/23 5:52 PM) Oxygen Saturation [94-100 %] 96 % (04/18/23 10:56 AM) 100 % (04/18/23 7:00 AM) 98 % (04/18/23 3:00 AM) Pulse Rate [55-90 bpm] 86 bpm (04/18/23 10:56 AM) 63 bpm (04/18/23 7:00 AM) 68 bpm (04/18/23 3:00 AM) Body Mass Index [18.5-24.99 kg/m2] 31.57 kg/m2 *>HHI* (04/12/23 11:57 AM) 31.64 kg/m2 *>HHI* (04/12/23 6:24 AM) 31.64 kg/m2 *>HHI* (04/11/23 5:52 PM) Blood Pressure [90-138/55-84 mm Hg] 141/80mm Hg *H* (04/18/23 10:56 AM) 123/88mm Hg (04/18/23 7:00 AM) 112/67mm Hg (04/18/23 3:00 AM) Respiratory Rate [16-30 br/min] 18 br/min (04/18/23 10:56 AM) 18 br/min (04/18/23 7:00 AM) 18 br/min (04/18/23 3:00 AM) Temperature [96.8-100.4 DegF] 98.0 DegF (04/18/23 10:56 AM) 98.2 DegF (04/18/23 7:00 AM) 98.4 DegF (04/18/23 3:00 AM) Mode of Delivery (Oxygen) Room air (04/18/23 10:56 AM) Room air (04/18/23 7:00 AM) Room air (04/18/23 3:00 AM) Blood pressure sites Arm, right (04/18/23 10:56 AM) Arm, right (04/18/23 7:00 AM) Arm, right (04/18/23 3:00 AM) Temperature Route Oral (04/18/23 10:56 AM) Oral (04/18/23 7:00 AM) Oral (04/18/23 3:00 AM) Dry Weight 97.5 kg (04/12/23 11:57 AM) 98 kg (04/12/23 6:24 AM) 98 kg (04/11/23 5:52 PM) Weight Obtained Via Patient/family state d (04/11/23 3:15 PM) Dry Weight Obtained Via Patient/family s tated (04/11/23 3:15 PM) Social History Social History Type Response Smoking Status Never (less than 100 in lifetime) entered on: 01/28/22 Sex Admission evaluation note * Susan NORIEGA Breezy José: MODIFY, MODIFY, MODIFY, MODIFY, MODIFY, MODIFY, MODIFY, MODIFY, MODIFY, MODIFY, MODIFY, MODIFY, MODIFY, MODIFY, MODIFY, MODIFY, MODIFY, MODIFY, MODIFY, MODIFY, MODIFY, MODIFY, PERFORM Event Display: Admission Note Authored Date: [id number] Patient: ??LENKA RUVALCABA ? Age:??47 Years?Sex:??Male?:??1975?? Chief Complaint/Reason for Consultation alcohol withdrawal and abd pain History of Present Illness 47-year-old male with PMH including alcohol use disorder, frequent admission for alcohol withdrawal, history of alcohol withdrawal seizure, anxiety, depression, bipolar disorder, history of suicidal ideation presenting to the ED for evaluation of reported vomiting bright red blood and alcohol withdrawal symptoms. ?? Upon initial evaluation in the ED, patient hemodynamically stable with temperature of 99, heart rate of 69, blood pressure at 184/108, saturating well on room air. CBC within normal limits.?? Electrolytes are within normal limits anion gap is 19, bicarb is 24, creatinine is 0.5, AST is 97, ALT 62, total bilirubin is 1.3, indirect bilirubin is 0.9, direct bili is 0.4, high 3 troponin is 8. Patientdid not appear to be in acute distress on arrival.?? However patient appeared to be withdrawing given he was tremulous with tongue fasciculations as well as diaphoretic.?? EKG obtained was nonischemic.?? Chest x-ray without any evidence of perforation and showed no acute abnormality.?? Patient had CT abdomen on 04/04 which showed mild hepatic steatosis and mild bladder wall thickening and correlateclinically regarding cystitis.?? Moderate to severe with disc bulge at L5-S1.?? CT abdomen was deferred at this time.?? CT head non contrast shows?? 1. No hemorrhage or other acute intracranial process. 2. 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 3. C6-7 degenerative disc changes including left bony foraminal stenosis.?? Inthe ED patient was given Zofran 4 mg, pantoprazole IV push 40 mg, phenobarbital 260 mg IV, and 1 L of LR. ?? Upon my evaluation, patient states that his last drink was 24 hours ago. Pt is a poor historian and unable to answer my questions directly. However from what I was able to gather from the pt states that??his last drink was about??24 hours ago around 1 AM. ??Patient reports that he drank half??a??nip??and was reporting that??he was??smelling??the alcohol to trick his body. ??Patient reports that at home??he was sitting on the couch when he was having??vomiting episodes??patient??said??he had at least less than 12??episodes of vomiting.?? A few of these episodes??consistent??with bright red blood.?? Patient also reports that in the morning his??vomit was also brown??and unclear??if he could identify coffee ground.?? Patient reports that??his abdominal pain??is??also generalized and constant and radiates to the chest into the back.?? Patient reports that he has also had??dark bowel movements??the past 2 months??and he is unable to??identify after??bowel movements are black and tarry.?? Patient reports that his most recent bowel movement was this morning??which was dark.?? Patient is also reporting numbness tingling in the hands and feet.?? Patient reports that when he was havinghis vomiting episodes he??felt dizzy??and lost balance and lost consciousness.?? Patient reports??no trauma to the head.?? Patient was unable to tell me how long he??lost his consciousness for. ??Patient was able to say that??after awakening he will went to open the door for EMS.?? When asked how much??alcohol he drinks a day??patient??would not answer the question directly??and did not quantify how much??he was drinking a day.?? Patient denies auditory hallucinations. ??Patient reports??blurryvision at this time. ??Patient reports??headache and eye pain bilaterally. Review of Systems Additional review of systems information:??All other systems reviewed and otherwise negative as mentioned above. Objective Measurements?? Height: 176 cm (04/11/23) Weight: 98 kg (04/11/23) Dry Weight: 98 kg (04/11/23) Body Mass Index:??31.64 kg/m2??Critical (04/11/23) ? Vital Signs?? Temperature: 99.3 DegF (04/11/23 17:52:00) Temperature Route: Oral (04/11/23 17:52:00) Pulse Rate: 61 bpm (04/11/23 21:01:00) Respiratory Rate: 18 br/min (04/11/23 21:01:00) Systolic Blood Pressure: 134 mm Hg (04/11/23 21:01:00) Diastolic Blood Pressure:??100 mm Hg??High (04/11/23 21:01:00) Blood pressure sites: Arm, left (04/11/23 19:03:00) Mean Arterial Pressure: 121 mm Hg (04/11/23 17:52:00) Pulse Pressure: 52 mm Hg (04/11/23 19:03:00) Oxygen Saturation: 99 % (04/11/23 21:01:00) Mode of Delivery (Oxygen): Room air (04/11/23 21:01:00) ? Physical Exam Constitutional: Alert, in no distress. Mental Status: Oriented to person, place and time. Head: Normocephalic. Eyes: Pupils are equal, round and reactive to light. Extraocular muscles intact. Ear, Nose and Throat: Oropharynx clear, mucous membranes moist. Ears and nose without masses, lesions or deformities. Trachea midline. Neck: Supple, Full range of motion. Respiratory: Clear to auscultation. No wheezing, rales or rhonchi. Cardiovascular: S1 S2 normal regular rate and rhythm. No murmurs, rubs or gallops. No JVD. No Peripheral edema. Gastrointestinal: Abdomen soft non-distended. Normal bowel sounds. No pulsatile mass. No hepatosplenomegaly. Tender throughout the abdomen. Neurologic: Cranial nerves II-XII grossly intact. No focal neurological deficits.??Moves all extremities spontaneously. Sensation intact bilaterally. Pt has weakness in lower extremities bilaterally but likely due to exhaustion as he describes. Skin: No rashes or lesions. No petechiae or purpura.?? Musculoskeletal: No cyanosis or clubbing. No gross deformities. Normal range of motion. Psychiatric: Normal mood and affect Assessment/Plan 47-year-old male with PMH including alcohol use disorder, frequent admission for alcohol withdrawal, history of alcohol withdrawal seizure, anxiety, depression, bipolar disorder, history of suicidal ideation presenting to the ED for evaluation of reported vomiting bright red blood and alcohol withdrawal symptoms. ?? Alcohol Withdrawal?? Hematemesis History of withdrawal seizures Transaminitis HTN No history of esophageal varices and no history of liver cirrhosis. Unclear??how much??patient drinks a day.?? Patient's last drink was 24 hours ago.?? Patient currently scoring??on CIWA scale at 5. Patient has not had any reported episode of hematemesis since being in the hospital. Can consider??GI consult if patient continues to have hematemesis or anemia.?? Patient's hemoglobinis stable at this time however we will continue to monitor. Hematemesis likely from??Ilda-Lomeli??tear.?? Chest x-ray??shows no evidence of??esophageal perforation. Patient loaded on phenobarbital in the??ED.?? We will continue CIWA protocol with Ativan. Hypertension likely in the setting of alcohol withdrawal.?? Transaminitis also likely??in the setting of alcohol??use disorder. ?? Plan - Clear Liquid diet advance as tolerated - PPI IV BID - continue to monitor H/H - Goal for Hb > 7 - Type and screen - consider consult GI if continues to have Hematemesis or anemia - CIWA protocol??with Ativan - 75/Cc an hour of LR?? - if systolic??BP??greater than 180??then consider??clonidine. -Zofran??IV 4 mg every 4 - Continue Sucralfate 1mg 4 times a day - Continue home Acamprosate -Continue thiamine -Continue folic acid -Continue??daily multivitamin ?? Chronic Medical Conditions Anxiety/ Bipolar/ Depression -patient is on cariprazine 6mg daily at home, medication not on formulary and will hold for now, please check with pharmacy if there is a substitute for this medication or if the patient should bring his home medication ? Quality Measures Code Status: Full DVT prophylaxis: SCDs Diet: clear liquid diet advance as tolerated ? Pt seen and discussed with Attending Dr. Romo ? Breezy Davis,??DO PGY-2 Internal Medicine Pager [phone]/ cortext? Histories Allergies Allergies ?(Active and Proposed Allergies Only) NKA? (Severity: Unknown severity, Onset: Unknown) ? Past Medical History/Problem List Active Problems??(4) Alcohol withdrawal Bipolar disorder Chronic alcohol use Hepatic steatosis ? Past Surgical History unable to obtain ? Social History Alcohol Details:??Use: Current. ??Frequency: [...] Details:??Electronic Cigarette Use: Never. ? Family History unable to obtain ? Medications Home Medications Acamprosate (acamprosate 333 [...] 100 mg oral tablet)?100?Milligram?1?tablet?By Mouth?Daily?for 30?Days ? Inpatient Medications Medications (8) Active SCHEDULED: (5) Folic Acid 1 mg Tablet (Folic Acid Tablet) ??1 mg, By Mouth, Daily Multivitamin Tablet ??1 tablet, By Mouth, Daily NaCl 0.9% Flush 3ml (NaCL 0.9% Flush) ??3 mL, IV Push, Every 8 hours Pyridoxine 50 mg Tablet (Pyridoxine Tablet) ??50 mg, By Mouth, Daily Thiamine 100 mg Tablet (Thiamine Tablet) ??100 mg, By Mouth, 2 times a day CONTINUOUS: (0) PRN: (3) Lorazepam 2 mg Inj Syringe (Ativan Inj) ??1 mg, IV Push Slowly, Every 2 hours Lorazepam 2 mg Inj Syringe (Ativan Inj) ??2 mg, IV Push Slowly, Every 2 hours Lorazepam 2 mg Inj Syringe (Ativan Inj) ??2 mg, IV Push Slowly, Every hour ? Results Recent Labs BLOOD COUNT & DIFF WBC 7.8 k/mm3 ()?? 04/11/2023 17:44 RBC 4.82 m/mm3 ()?? 04/11/2023 17:44 Hgb 15.3 Gm/dL ()?? 04/11/2023 17:44 Hct 45.1 % ()?? 04/11/2023 17:44 MCV 93.6 femtoliters ()?? 04/11/2023 17:44 MCH 31.7 pg ()?? 04/11/2023 17:44 MCHC 33.9 g/dL ()?? 04/11/2023 17:44 Platelet Count 196 k/mm3 ()?? 04/11/2023 17:44 RDW-SD 44.7 femtoliters ()?? 04/11/2023 17:44 MPV 9.9 femtoliters ()?? 04/11/2023 17:44 Nucleated RBC (Automated) 0.0 #/100 WBC'S ()?? 04/11/2023 17:44 Abs. NRBC 0.0 k/mm3 ()?? 04/11/2023 17:44 Abs. Neut 5.6 k/mm3 ()?? 04/11/2023 17:44 Abs. Lymph 1.1 k/mm3 ()?? 04/11/2023 17:44 Abs. Arenac 1.0 k/mm3 ()?? 04/11/2023 17:44 Abs. Eo 0.0 k/mm3 ()?? 04/11/2023 17:44 Abs. Baso 0.1 k/mm3 ()?? 04/11/2023 17:44 Neut % 72.2 % ()?? 04/11/2023 17:44 Lymph % 13.6 % (Low)?? 04/11/2023 17:44 Arenac % 12.9 % (High)?? 04/11/2023 17:44 Eos % 0.1 % ()?? 04/11/2023 17:44 Baso % 0.9 % ()?? 04/11/2023 17:44 Imm Gran 0.3 % ()?? 04/11/2023 17:44 Abs. Imm Gran 0.0 k/mm3 ()?? 04/11/2023 17:44 ?? CARDIAC High Sensitivity Troponin (HSTnT) 8 ng/L ()?? 04/11/2023 17:44 ?? CHEM GENERAL Sodium 141 mmol/L ()?? 04/11/2023 17:44 Potassium 3.8 mmol/L ()?? 04/11/2023 17:44 Chloride 98 mmol/L ()?? 04/11/2023 17:44 Bicarbonate Level 24 mmol/L ()?? 04/11/2023 17:44 Anion Gap 19 (High)?? 04/11/2023 17:44 Glucose Level 124 mg/dL (High)?? 04/11/2023 17:44 BUN 10 mg/dL ()?? 04/11/2023 17:44 Creatinine-Blood 0.5 mg/dL (Low)?? 04/11/2023 17:44 Estimated GFR Creatinine 127 ML/MIN/1.73 M2 ()?? 04/11/2023 17:44 Calcium 10.2 mg/dL ()?? 04/11/2023 17:44 Protein, Total 8.7 Gm/dL (High)?? 04/11/2023 17:44 Albumin 4.9 Gm/dL (High)?? 04/11/2023 17:44 Alkaline Phosphatase 119 units/L ()?? 04/11/2023 17:44 Lipase 42 units/L ()?? 04/11/2023 17:44 AST (SGOT) 97 units/L (High)?? 04/11/2023 17:44 ALT (SGPT) 62 units/L (High)?? 04/11/2023 17:44 Bilirubin, Total 1.3 mg/dL (High)?? 04/11/2023 17:44 Bilirubin, Direct 0.4 mg/dL (High)?? 04/11/2023 17:44 Bilirubin, Indirect 0.9 mg/dL (High)?? 04/11/2023 17:44 ?? HEME OTHER Hold Blue Top SPECIMEN DISCARDED AFTER 4 HOURS. ()?? 04/11/2023 17:44 ?? URINE OTHER Est Creatinine Clearance 186.36 mL/min ()?? 04/11/2023 18:33 ? * Guy Romo MD: PERFORM Event Display: Admission Note Authored Date: [id number] . Attending Attestation: I have seen and evaluated this patient.?? I have discussed the case and its management with the resident and agree with the findings and krista documented in the resident's note.?? I?? will continue to provide care to this patient till 7 AMof the admitting date.? 47-year-old male with a past medical history of alcohol use, frequent admission for alcohol withdrawal, anxiety, depression, bipolar disorder, hepatic steatosis who did come with a complaint of hematemesis and alcohol withdrawal syndrome.?? It could be a possibility of Ilda-Lomeli tear.?? We willcontinue with IV PPI.?? No concern of esophageal varices.?? Hemoglobin is stable.?? If there could be any drop in hemoglobin then will consider GI evaluation.?? We will continue with the CIWA score, thiamine, folic acid.?? 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 We will continue with gentle hydration.?? We we will Ativan for alcohol withdrawal and will give phenobarbitone as needed. * Guy Romo MD: PERFORM Event Display: Admission Note Authored Date: [id number] On clinical examination patient did not have any spine tenderness. * Guy Romo MD: PERFORM Event Display: Admission Note Authored Date: [id number] He has a history of alcohol withdrawal related seizure before.?? Today he was not sure whether he had a seizure or not.?? Abdominal pain is most likely due to alcohol induced gastritis.? * Antonietta Jones MD: PERFORM Event Display: Admission Note Authored Date: [id number] Patient was seen and examined in a.m. in the ER.?? Admitted earlier??this morning. H&P reviewed.?? Patient's hemoglobin stable at 14.3. Continued to complain of stomach pain, nausea.?? No further??hematemesis??today.?? Continued on IV fluid, clear liquid diet and IV PPI CIWA up to 9 this afternoon. ?? Continue??management as per assessment plan described in H&P EKG study * Event Display: EKG Authored Date: * Event Display: ECG 12-Lead Authored Date: Please click on pdf link to open report * Event Display: ECG 12-Lead Authored Date: Ventricular Rate: 79 BPM Atrial Rate: 79 BPM P-R Interval: 162 ms QRS Duration: 92 ms Q-T Interval: 418 ms QTC Calculation(Bazett): 479 ms P Blachly: 5 degrees R Blachly: 29 degrees T Blachly: 2 degrees Normal sinus rhythm Normal ECG When compared with ECG of 04-APR-2023 14:59, No significant change was found Confirmed by JEY GUTHRIE MD ([id number]) on 04/11/2023 9:09:06 PM [place]: JEY GUTHRIE MD Cardiology * Event Display: Cardiac Rhythm Strips Authored Date: Hospital Progress note * Sugey Oreilly RN: VERIFY, PERFORM, SIGN Event Display: Progress Note Hospital Authored Date: Patient: LENKA RUVALCABA [facility]: [id number] Age: 47 years Sex: Male : 1975 Associated Diagnoses: None Author: Sugey Oreilly RN Findings Problem Related to Alteration in Psychosocial : Alteration in Psychosocial Function/new 04/17/2023 19:00 EDT Alteration in Psychosocial Related to Acute Alcohol Withdrawal, Anxiety Goals & Outcomes, Psychosocial Psychosocial support will be provided to Pt/S.O. as needed, Pt will identify stressors leading up to event, Pt will state importance of adhering to medication regime, Pt/caregiver will be offered appropriate resources & support, Pt/caregiver will express feelings/needs/fears /concerns, Pt/caregiver will maintain/obtain psychological stability, Pt/caregiver will participate in coping skill counseling, Pt will be free from anxiety, Pt successfully withdraws with minimal side effects, Pt will be free from withdrawal symptoms, Pt will detoxify from substance, Pt will show motivation for recovery, Pt will verbalize ways to prevent relapse Interventions, Psychosocial Assess psychosocial needs, Provide a calm, supportive environment BH Goals/Interventions, Psychosocial Yes Psychosocial, Problem Start 04/12/2023 12:30 Reviewed Plan with, Psychosocial Patient Patient Progression, Psychosocial Pt progressing according to plan . Nursing Data Neurological Data. : Neurological Data. 04/17/2023 20:50 EDT Neurological Symptoms Other: n/t to feet Level of Consciousness Full Consciousness Orientated to person, place, time Person, Place, Time Facial Symmetry Intact Characteristics of Speech Clear and normal Strength LUE 5-Active movement against gravity & full resistance Strength RUE 5-Active movement against gravity & full resistance Strength LLE 5-Active movement against gravity & full resistance Strength RLE 5-Active movement against gravity & full resistance Tone LUE Normal Tone RUE Normal Tone LLE Normal Tone RLE Normal Movement LUE To command, Spontaneous Movement RUE To command, Spontaneous Movement LLE To command, Spontaneous Movement RLE To command, Spontaneous Gait Steady Tremors None Response Eye Opening Spontaneously Motor Response-Adult Obeys commands Verbal Response-Adult Oriented and converses Eliel Coma Score 15 Pain Interventions PRN medication, Repositioning, Rest Neuro WNL except Headache Severe Memory Intact Swallow - Neuro Normal . Evaluation patient alert and oriented x 3, very pleasant and cooperative. reports n/t to bilateral feet. remains on tele, NSR. ambulating independently throughout room, voiding in BR without issues. LS clear throughout, no SOB noted or reported. CIWA noted to be 10 (headache, tingling to feet and anxious). patient due for ativan 1mg IVP per CIWA protocol however would prefer to take Klonopin 1mg. Currently has 0.5mg ordered. Paged Dr. Shannan Jeffers, awaiting return call or orders. for full assesment, see biophysical in [facility]. will conitnue to monitor and follow plan of care. call kevin within reach, encouraged use.. * Jim MCCABE, Saul: VERIFY, PERFORM, SIGN Event Display: Progress Note Hospital Authored Date: [id number] Patient: LENKA RUVALCABA Age: 47 years Sex: Male : 1975 Associated Diagnoses: None Author: Jim MCCABE, Saul Findings Narrative/Incidental Patient having moderate withdrawal symptoms this morning requiring ativan dose. Symptoms have fadedthroughout today. Patient awake, alert, ambulating, showering, in good spirits. . Discharge Information Rehabilitation Discharge : Rehab Discharge Index 04/16/2023 9:26 EDT Comments on treatment indicated 47 y/o M presenting to the ED for evaluation of reported vomiting bright red blood and alcohol withdrawal symptoms. WBAT Skilled PT for therex, transfers, amb c SC, stairs. rec home Cane: distance 20-50 Distance pt will ambulate > 100 ft c SC Full chart review completed Yes Hospital course see comment Other findings Pt is a moderate complexity evaluation as circumstances leading to hospitalization impact POC and functional mobility . Plan of care PT Gait training, Transfer training, Therapeutic exercise, Functional Activities, Balance training, Neuromuscular education * David CHANG, Joey: PERFORM Event Display: Progress Note Hospital Authored Date: Patient: ??LENKA RUVALCABA ? Age:??47 Years?Sex:??Male?:??1975?? Subjective Patient currently day 5-6 of admission CIWA scoring slightly inconsistent at this time, jumping from 21 on 04/16/2023 at 9 PM to 2 at 11 PMthen jumps to 23 law office receptionist then back down to 1 etc. ?? When I had assessed the patient he is awake and alert doing well still has a headache Does appear diaphoretic and does have a slight tremor of hands and arms bilaterally However he is out of delirium tremens at this time and mental status much more alert with with intact sensorium ?? Patient likely needs 1 more day on CIWA scale and will be cleared for discharge tomorrow ?? Major Daily updates -Continue CIWA per protocol at this time Review of Systems As above Allergies Allergies ?(Active and Proposed Allergies Only) NKA? (Severity: Unknown severity, Onset: Unknown) ? Objective Vital Signs?? Temperature: 98.3 DegF (04/17/23 11:00:00) Temperature Route: Oral (04/17/23 11:00:00) Pulse Rate: 67 bpm (04/17/23 11:00:00) Respiratory Rate: 18 br/min (04/17/23 11:00:00) Systolic Blood Pressure: 127 mm Hg (04/17/23 11:00:00) Diastolic Blood Pressure: 78 mm Hg (04/17/23 11:00:00) Blood pressure sites: Arm, right (04/17/23 11:00:00) Mean Arterial Pressure: 74 mm Hg (04/17/23 07:46:00) Pulse Pressure: 49 mm Hg (04/17/23 11:00:00) Oxygen Saturation: 97 % (04/17/23 11:00:00) Mode of Delivery (Oxygen): Room air (04/17/23 11:00:00) Early Warning Score: 0 (04/17/23 12:34:46) ? Intake/Output? 04/11 23:40 04/17 07:00 04/16 07:00 04/15 07:00 04/14 07:00 ?? 04/17 13:20 04/17 13:20 04/17 06:59 04/16 06:59 04/15 06:59 Intake ? 4931 ?0 ?354 ? 1200 ?527 Output ? 4950 ?250 ?700 ?0 ?900 Net Total ?-19 ? -250 ? -346 ? 1200 ? -373 ? Urine Count ?4 ?0 ?1 ?3 ?0 ? Physical Exam Constitutional: Awake, alert, mild diaphoresis, no distress. Mental Status: Oriented to person, place and time. Head: Normocephalic. Eyes: Pupils are equal, round Ear, Nose and Throat: Oropharynx clear, mucous membranes moist. Neck: Supple, Full range of motion. Respiratory: Clear to auscultation. No wheezing or crackles Cardiovascular: S1 S2 regular. No murmurs Gastrointestinal: Abdomen soft, non-tender Genitourinary: No costovertebral angle tenderness. Neurologic: Moves all extremities spontaneously. Skin: No rashes Musculoskeletal: No gross deformities. Psychiatric: More animated today, less flattened _ Inpatient Medications Medications (15) Active SCHEDULED: (9) Ascorbic Acid 250 mg Tablet (Vitamin C 500 mg oral tablet) ??500 mg, By Mouth, Daily Folic Acid 1 mg Tablet (Folic Acid Tablet) ??1 mg, By Mouth, Daily Multivitamin Therapeutic / Minerals Tablet (Multivit Therapeutic/Minerals Tablet) ??1 tablet, By Mouth, Daily NaCl 0.9% Flush 3ml (NaCL 0.9% Flush) ??3 mL, IV Push, Every 8 hours Pantoprazole 40 mg EC Tablet (pantoprazole 40 mg oral delayed release tablet) ??40 mg, By Mouth, 2 times a day Pyridoxine 50 mg Tablet (Pyridoxine Tablet) ??50 mg, By Mouth, Daily Sucralfate 1 Gm Tablet (sucralfate 1 gm oral tablet) ??1 Gm, By Mouth, 4 times a day Thiamine 100 mg Tablet (Thiamine Tablet) ??100 mg, By Mouth, 2 times a day Vitamin D 400 IU Tablet (cholecalciferol 400 iu oral tablet) ??400 International_Units, By Mouth, Daily CONTINUOUS: (0) PRN: (6) Acetaminophen 325 mg Tablet (Tylenol 325 mg oral tablet) ??650 mg, By Mouth, Every 6 hours Clonazepam 0.5 mg Tablet (clonazePAM 0.5 mg oral tablet) ??0.5 mg, By Mouth, 2 times a day Lorazepam 2 mg Inj Syringe (Ativan Inj) ??1 mg, IV Push Slowly, Every 2 hours Lorazepam 2 mg Inj Syringe (Ativan Inj) ??2 mg, IV Push Slowly, Every 2 hours Lorazepam 2 mg Inj Syringe (Ativan Inj) ??2 mg, IV Push Slowly, Every hour Ondansetron 2mg/mL Inj (2mL Vial) (Zofran Inj) ??4 mg, IV Push, Every 4 hours ? Results Abnormal Labs ?? CHEM GENERAL ??Estimated GFR Creatinine ??117 ML/MIN/1.73 M2 () ??04/17/2023 04:34 ??Glucose, POC ??107 mg/dL (High) ??04/16/2023 21:47 ? HEME OTHER ??Hold Lavender Top ??SPECIMEN DISCARDED AFTER 24 HOURS. () ??04/17/2023 04:32 ? Note: Critical results are displayed in red. ? Assessment/Plan 47-year-old male with PMH including alcohol use disorder, frequent admission for alcohol withdrawal, history of alcohol withdrawal seizure, anxiety, depression, bipolar disorder, history of suicidal ideation presenting to the ED for evaluation of reported vomiting bright red blood and alcohol withdrawal symptoms. ?? Alcohol Withdrawal?? DT, resolved Hematemesis likely from n/v Ilda Lomeli, resolved History of withdrawal seizures Transaminitis 2/2 alcohol use, resolving HTN Alcoholic gastritis No history of esophageal varices and no history of liver cirrhosis. Patient has not had any reported episode of hematemesis since being in the hospital. Hematemesis likely from??Ilda-Lomeli??tear.?? Chest x-ray??shows no evidence of??esophageal perforation. Patient loaded on phenobarbital in the??ED.?? We will continue CIWA protocol with Ativan. Hypertension likely in the setting of alcohol withdrawal.?? Transaminitis also likely??in the setting of alcohol??use disorder, resolving PhenoBarb load 04/16/23 for worsening Sx and scoring as above, will autotitrate itself, DT resolved Currently Day?? 5-6 of CIWA protocol and since last drink, DT resolved but CIWA subjectively showing relatively high scores intermixed with low scores: jumping from 21 on 04/16/2023 at 9 PM to 2 at 11PM then jumps to 23 law office receptionist then back down to 1 etc. When I had assessed the patient 04/17/23 he is awake and alert doing well still has a headache Does appear diaphoretic and does have a slight tremor of hands and arms bilaterally However he is out of delirium tremens at this time and mental status much more alert with with intact sensorium Patient likely needs 1 more day on CIWA scale and will be cleared for discharge tomorrow Plan: - Regular Diet - cont PO PPI BID - CIWA, ativan prn per protocol [RN notified not to use ativan for anxiety] - Clonazepam PRN home dose for anxiety, not scheduled - Zofran PRN - Cont MTV, folic, thiamine - Monitor H/H - Social work consult for ETOH use; Pt has plenty of services with [facility] medical team.... - PT recc home no services, independent - Resume Campral once recover from withdrawal ?? Chronic Medical Conditions Anxiety/ Bipolar/ Depression -patient is on cariprazine 6mg daily at home, medication not on formulary and will hold for now, please check with pharmacy if there is a substitute for this medication or if the patient should bring his home medication Klonopin 0.5mg BID prn for anxiety, home dose ?? Quality Measures Code Status: Full DVT prophylaxis: SCDs Diet: advance to regular diet OMN: in active withdrawal ?? Joey Hernandez MD MedPeds PGY3 ?? Discussed w/??Dr. Gifford * Ирина CHANG [facility]: PERFORM Event Display: Progress Note Hospital Authored Date: I have seen and evaluated the patient on the day of service. I have discussed the case and its management with medical scheduler and I agree with assessment and plan as documented in resident's note Note * Salma Day RN: PERFORM Event Display: Discharge/Transfer Note Hospital Authored Date: Nursing Discharge Note Entered On: 04/18/2023 12:25 EDT Performed On: 04/18/2023 12:25 EDT by Salma Day RN Nursing Discharge Note 2 Discharge Time : 04/18/2023 12:18 EDT Discharge Level of Care at Discharge : Home/Alf/Foster Care Patient Left Unit Via : Ambulatory Patient Accompanied Off Unit with : Responsible adult DC Instructions Provided & Signed by Pt : Yes Patient Understands D/C Instructions : Yes Verbalized Understanding of D/C Plan By : Patient Patient Instructions Discharge Signed : Yes Did Pt have Specialty Bed or Wound Vac : No Shay MCCABE, Salma - 04/18/2023 12:25 EDT * Ирина CHANG, Aileen: MODIFY David CHANG, Joey: MODIFY, MODIFY David CHANG, Joey: MODIFY, PERFORM David CHANG, Joey: PERFORM Event Display: Discharge/Transfer Note Hospital Authored Date: [id number] Patient: ??LENKA RUVALCABA ? Age:??47 Years?Sex:??Male?:??1975?? Patient Information Discharge Location: W4 Primary Care Physician: Harman Vang MD Admit Date/Time: 04/11/23 23:40 Discharge Disposition Discharge Disposition: Home: No Services Discharge Diagnosis Alcohol Withdrawal DT, resolved Hematemesis likely from n/v Ilda Lomeli, resolved History of withdrawal seizures Transaminitis 2/2 alcohol use, resolving HTN Alcoholic gastritis Anxiety Bipolar Depression ?? _ Discharge Medications Acamprosate (acamprosate 333 [...] 100 mg oral tablet)?100?Milligram?1?tablet?By Mouth?Daily?for 30?Days ? No dose changes ?? New medications: - multivitamins ?? Refill for Klonipin for 7 days (home med) ? PCP Follow-Up/Heads-Up Pt here w/ DARRYL s/p Lorazepam FU as you see fit Has services for sobriety Continuing [facility] Course 47-year-old male with PMH including alcohol use disorder, frequent admission for alcohol withdrawal, history of alcohol withdrawal seizure, anxiety, depression, bipolar disorder, history of suicidal ideation presenting to the ED for evaluation of reported vomiting bright red blood and alcohol withdrawal symptoms. Had no more hematemesis, and is currently out of Alcohol withdrawal ?? Alcohol Withdrawal?? DT, resolved Hematemesis likely from n/v Ilda Lomeli, resolved History of withdrawal seizures Transaminitis 2/2 alcohol use, resolving HTN Alcoholic gastritis No history of esophageal varices and no history of liver cirrhosis. Patient has not had any reported episode of hematemesis since being in the hospital. Hematemesis likely from??Ilda-Lomeli??tear.?? Chest x-ray??shows no evidence of??esophageal perforation. Patient loaded on phenobarbital in the??ED.?? We will continue CIWA protocol with Ativan. Hypertension likely in the setting of alcohol withdrawal.?? Transaminitis also likely??in the setting of alcohol??use disorder, resolving PhenoBarb load 04/16/23 for worsening Sx and scoring as above, will autotitrate itself, DT resolved Currently Day?? 5-6 of CIWA protocol and since last drink, DT resolved but CIWA subjectively showing relatively high scores intermixed with low scores: jumping from 21 on 04/16/2023 at 9 PM to 2 at 11PM then jumps to 23 law office receptionist then back down to 1 etc. When I had assessed the patient 04/17/23 he is awake and alert doing well still has a headache Does appear diaphoretic and does have a slight tremor of hands and arms bilaterally However he is out of delirium tremens at this time and mental status much more alert with with intact sensorium Reccs: - Regular Diet - PPI daily - Clonazepam PRN home dose for anxiety - Pt has plenty of services with [facility] medical team.... - Resume Campral once recover from withdrawal ?? Chronic Medical Conditions Anxiety/ Bipolar/ Depression - patient is on cariprazine 6mg daily at home, resume Klonopin 0.5mg BID prn for anxiety, home dose ?? Objective . Physical Exam Constitutional: Awake, alert, No diaphoresis, no distress Mental Status: Oriented to person, place and time. Head: Normocephalic. Eyes: Pupils are equal, round Ear, Nose and Throat: Oropharynx clear, mucous membranes moist. Neck: Supple, Full range of motion. Respiratory: Clear to auscultation. No wheezing or crackles Cardiovascular: S1 S2 regular. No murmurs Gastrointestinal: Abdomen soft, non-tender Genitourinary: No costovertebral angle tenderness. Neurologic: Moves all extremities spontaneously. Skin: No rashes Musculoskeletal: No gross deformities. Psychiatric: Appropriate Consultants None Follow-Up Appointments Added Follow Up ?Time Frame ?Comments Name Harman CHANG?Please follow up with your PCP within 1-2 days Patient Instructions You came for alcohol intoxication and withdrawal you are now out of withdrawal We recommend you to - continue home campral - continue home klonipin - start a proton pump inhibitor daily to control your reflux ?? We wish you the best of luck 20??minutes spent on discharge ?? Joey Hernandez MD [facility] ?? Discussed w/ Dr. Gifford?? * Aileen Gifford MD: PERFORM Event Display: Discharge/Transfer Note Hospital Authored Date: I have seen and evaluated the patient on the day of service. I have discussed the case and its management with medical scheduler and I agree with assessment and plan as documented in resident's note Patient with no signs/ symptoms of alcohol withdrawal today, feels well and ready for discharge. Noconcerns today. Feels he has enough support at home * Salma Day RN: PERFORM Event Display: Patient Education/Instruction Authored Date: Inpatient Adult Discharge Instructions [address] [address] Name: LENKA RUVALCABA : 1975 Visit: 04/11/2023 23:40:00 Current Date: 04/18/2023 11:18 Account: [id number] Inpatient Adult Discharge Instructions We would like [...] and their families. Surveys are administered by [employer] ?? If further treatment with your primary care physician or another doctor is recommended, it is important for you to keep the appointment. Call your primary care physician or return to the Emergency Department immediately if your condition worsens, fails to improve, or new symptoms develop. If you need to find a doctor, you can call [facility] [employer] [facility] for a referral at [phone] or toll free at [phone] or log in to [email or web address].. ?? You can view and manage your care through the patient portal or by using a health care eulogio of your choosing. [email or web address] is a website that allows you to securely view your medical information including your hospital discharge summary, office visit summaries, medications and follow-up visits. You can also request appointments, renew medications, and request access to your medical information using a health care eulogio of your choosing, or just ask a question. You can enroll at [email or web address] or register during your next office visit. You have been discharged from [facility], Patient Care Unit: S3. If you have any questions regarding these instructions after you leave, please call us and we will be happy to assist you. [facility] Your Care Team Attending Physician Ирина CHANG, Aileen Consulting Providers Antonietta Jones MD Discharging Providers David CHANG, Joey Reason for Admission General medical Your Diagnosis Hematemesis Alcohol withdrawal Tests Performed Below is a partial list of the tests performed during your hospitalization. You may have had other tests and procedures not included in this list. Please discuss all test results with your provider. Basic Metabolic Panel BUN CBC CBC w/ Differential Comprehensive Metabolic Panel COVID-19 (Novel Coronavirus), Rapid PCR CREATININE GLUCOSE POC H + H HEPATIC FUNCTION PANEL High??Sensitivity??Troponin T Hold Blue Top Tube HOLD LAVENDER TUBE LIPASE Lytes Magnesium Level Phosphorus Level Type and Screen CT Cervical Spine W/O Contrast CT Head/Brain W/O Contrast XR Chest 2 Views Frontal and Lat Primary Care Provider Name Harman CHANG Advance Directive Health Care Proxy on File Yes - Health Care Proxy Discharge Vitals Temperature: 98 DegF Height: 176 cm Pulse Rate: 86 bpm Weight: 97.8 kg Respiratory Rate: 18 br/min Body Mass Index:??31.57 kg/m2??Critical Systolic Blood Pressure:??141 mm Hg??High Body surface area: 2.19 Diastolic Blood Pressure: 80 mm Hg ?? Oxygen Saturation: 96 % ?? Studies Pending All tests and labs ordered during this hospital stay have been completed unless listed below. Please discuss all pending results with your provider listed above in these instructions. ?? Add On Lab Order What to do next Instructions From Your Doctor You came for alcohol intoxication and withdrawal you are now out of withdrawal We recommend you to - continue home campral - continue home klonipin - start a proton pump inhibitor daily to control your reflux ?? We wish you the best of luck Discharge Orders You Need to Schedule the Following Appointments Follow Up with??Name Harman CHANG Why: Please follow up with your PCP within 1-2 days Where: ?? Discharge Medications LENKA RUVALCABA :1975 Visit Date:04/11/2023 Medications: Please continue your medications until treatment is completed or stopped by your provider. Medications not listed below should be discontinued. Discuss any questions related to medications with your provider. What How Much When Instructions Next Dose Changed Acamprosate (acamprosate 333 mg oral delayed release tablet) 2 tab(s) Oral 3 times a day PCP will provide Refills ?? Pickup at [facility] 3 as prescribed Changed Clonazepam (clonazePAM 0.5 mg oral tablet) 1 tab(s) Oral Every 12 hours as needed for Anxiety Duration: 7 Days Pickup at [place] [address] 04/18?? 10 PM if needed Unchanged Ascorbic Acid (Vitamin C 500 mg oral tablet) 1 tab(s) Oral Daily 04/19?? AM Unchanged cariprazine (Vraylar 6 mg oral capsule) 1 capsule Oral Daily as prescribed Unchanged Cholecalciferol (cholecalciferol 400 intl units oral capsule) 1 capsule Oral Daily 04/19?? AM Unchanged Durable Medical Equipment (Outpatient Physical Therapy.) See instructions Outpatient Physical Therapy. ?? Unchanged Folic Acid (folic acid 1 mg oral tablet) 1 tab(s) Oral Daily 04/19?? AM Unchanged Multivitamin (multivitamin Multiple Vitamins oral tablet) 1 tab(s) Oral Daily Pickup at [facility] 3 04/19?? AM Unchanged Ondansetron (Zofran ODT 4 mg oral tablet, disintegrating) 1 tab(s) Oral Every 8 hours as needed for as needed for nausea/vomiting as prescribed Unchanged Pantoprazole (pantoprazole 40 mg oral delayed release tablet) 1 tab(s) Oral Daily Pickup at [place] [address] 04/19?? AM Unchanged Sucralfate (sucralfate 1 gm oral tablet) 1 tab(s) Oral 4 times a day Pickup at [place] [address] 04/18 ??1?? PM Unchanged Thiamine (thiamine 100 mg oral tablet) 1 tab(s) Oral Daily Duration: 30 Days 04/19?? AM Pharmacy Information [facility] 3: [address] [place], [place] [id number] [phone] Test Results Below is a partial list of the most recent Laboratory test results done prior to this discharge. You may have had other tests and procedures not included in this list. Please discuss all test resultswith your provider. Est Creatinine Clearance - 133.11 mL/min (04/17/2023) Basic Metabolic Panel (04/18/2023) ???Sodium - 134 mmol/L???Potassium - 4.5 mmol/L???Chloride - 96 mmol/L???Bicarbonate Level - 26 mmol/L???Anion Gap - 12???Glucose Level - 93 mg/dL???BUN - 11 mg/dL???Creatinine-Blood - 0.7 mg/dL???Estimated GFR Creatinine - 116 ML/MIN/1.73 M2???Calcium - 9.4 mg/dL BUN (04/17/2023) ???BUN - 13 mg/dL CBC (04/18/2023) ???WBC - 8.8 k/mm3???RBC - 4.42 m/mm3???Hgb - 14.2 Gm/dL???Hct - 41.8 %???MCV - 94.6 femtoliters???MCH - 32.1 pg???MCHC - 34.0 g/dL???Platelet Count - 234 k/mm3???RDW-SD - 43.3 femtoliters???MPV - 10.9 femtoliters???Nucleated RBC (Automated) - 0.0 #/100 WBC'S???Abs. NRBC - 0.0 k/mm3 CBC w/ Differential (04/11/2023) ???WBC - 7.8 k/mm3???RBC - 4.82 m/mm3???Hgb - 15.3 Gm/dL???Hct - 45.1 %???MCV - 93.6 femtoliters???MCH - 31.7 pg???MCHC - 33.9 g/dL???Platelet Count - 196 k/mm3???RDW-SD - 44.7 femtoliters???MPV - 9.9 femtoliters???Nucleated RBC (Automated) - 0.0 #/100 WBC'S???Abs. NRBC - 0.0 k/mm3???Abs. Neut - 5.6 k/mm3???Abs. Lymph - 1.1 k/mm3???Abs. Arenac - 1.0 k/mm3???Abs. Eo - 0.0 k/mm3???Abs. Baso - 0.1 k/mm3???Neut % - 72.2 %???Lymph % - 13.6 %???[place]ac % - 12.9 %???Eos % - 0.1 %???Baso % - 0.9 %???Imm Gran - 0.3 %???Abs. Imm Gran - 0.0 k/mm3 Comprehensive Metabolic Panel (04/16/2023) ???Sodium - 134 mmol/L???Potassium - 3.9 mmol/L???Chloride - 98 mmol/L???Bicarbonate Level - 23 mmol/L???Anion Gap - 13???Glucose Level - 97 mg/dL???BUN - 13 mg/dL???Creatinine-Blood - 0.6 mg/dL???Estimated GFR Creatinine - 119 ML/MIN/1.73 M2???Calcium - 9.4 mg/dL???Protein, Total - 7.2 Gm/dL???Albu min - 4.3 Gm/dL???AG Ratio - 1.5???Alkaline Phosphatase - 93 units/L???AST (SGOT) - 134 units/L???ALT (SGPT) - 173 units/L???Bilirubin, Total - 1.3 mg/dL COVID-19 (Novel Coronavirus), Rapid PCR (04/12/2023) ???COVID-19 by RT-PCR - NEGATIVE CREATININE (04/17/2023) ???Creatinine-Blood - 0.7 mg/dL???Estimated GFR Creatinine - 117 ML/MIN/1.73 M2 GLUCOSE POC (04/16/2023) ???Glucose, POC - 107 mg/dL H + H (04/15/2023) ???Hgb - 15.8 Gm/dL???Hct - 46.0 % HEPATIC FUNCTION PANEL (04/11/2023) ???Protein, Total - 8.7 Gm/dL???Albumin - 4.9 Gm/dL???Alkaline Phosphatase - 119 units/L???AST (SGOT) - 97 units/L???ALT (SGPT) - 62 units/L???Bilirubin, Total - 1.3 mg/dL???Bilirubin, Direct - 0.4 mg/dL???Bilirubin, Indirect - 0.9 mg/dL High??Sensitivity??Troponin T (04/11/2023) ???High Sensitivity Troponin (HSTnT) - 8 ng/L Hold Blue Top Tube (04/11/2023) ???Hold Blue Top - SPECIMEN DISCARDED AFTER 4 HOURS. HOLD LAVENDER TUBE (04/17/2023) ???Hold Lavender Top - SPECIMEN DISCARDED AFTER 24 HOURS. LIPASE (04/11/2023) ???Lipase - 42 units/L Lytes (04/17/2023) ???Sodium - 136 mmol/L???Potassium - 4.3 mmol/L???Chloride - 100 mmol/L???Bicarbonate Level - 25 mmol/L???Anion Gap - 11 Magnesium Level (04/18/2023) ???Magnesium - 1.9 mg/dL Phosphorus Level (04/12/2023) ???Phosphorus - 3.5 mg/dL Type and Screen (04/12/2023) ???Blood Type - B Positive???Antibody Screen - Negative Allergies (NKA means No Known Allergies) NKA Problems Active Problems??(4) Alcohol withdrawal?? Bipolar disorder?? Chronic alcohol use?? Hepatic steatosis?? Education Materials Below is the list of Educational Leaflet Providered with your Discharge Instructions. Alcohol Withdrawal?? Valuables and Belongings I fully understand and agree that [facility] accepts no responsibility for all my [...] witness Date for Pt to Sign Valuables/Belongings: 04/18/23 10:56:00 ?? Other Discharge Information ? Pulmonary Rehab [...] are strongly encouraged to quit. Please call [facility] [employer] Link at [phone] or [phone] ([phone]) or log in to [email or web address] for referrals to smoking cessation programs. ?? 981 Suicide & Crisis Lifeline is available 19/03 if you or someone you know needs to find a reason to keep living. By calling 931 you'll be connected to a skilled, trained counselor at a crisis center in your area. INPATIENT DISCHARGE INSTRUCTIONS SIGNATURE PAGE LENKA RUVALCABA Location:[facility] Registration Date and Time:04/11/2023 23:40 EDT Primary Care Physician: Harman Vang MD, Attending Physician: Aileen Gifford MD, I LENKA RUVALCABA, have received the above patient education materials/instructions and have verbalized understanding. If ambulance or transport services are being used I further acknowledge being givena choice of service. ?? If you need to contact me, please call me at this number: . Patient/Health Specialist Name: Patient/Health Specialist Signature: Relationship to Patient: Witness Name/Signature: Date: * Salma Day RN: PERFORM Event Display: Patient Education Leaflets Authored Date: [id number] Alcohol Withdrawal ?? [id number] Alcohol Withdrawal Alcohol withdrawal often starts after [...] to find a local meeting place. ??? [employer] [facility] [employer] offers support to families of alcohol users. Go to the [employer] website at www.[email or web address] . ??? Residential alcohol detox programs are available. Search the internet for treatment centers inst. [facility]. ?? Call 911 Call 911 if any [...] vomiting ?? Last Reviewed Date: 2021 ?? 2045-8229 [employer]. All rights reserved. This information is not intended as a substitute for professional medical care. Always follow your healthcare professional's instructions. ?? Patient Care team information Care Team Personnel Name: Yayo Gamboa RN Position: S RN Member Role: Primary Care Nurse Name: Lilly Van RN Position: S RN Member Role: Primary Care Nurse Name: Rissa Yadav RN Position: [facility] RN Member Role: Primary Care Nurse Name: Saul Fernandez RN Position: S RN Member Role: Primary Care Nurse Name: Adilson Tyler RN Position: [facility] RN Supv Member Role: Primary Care Nurse Name: Gely Ceja RN Position: [facility] RN Member Role: Primary Care Nurse Name: Francis Ritter RN Position: [facility] RN Member Role: Primary Care Nurse Name: Misael Carty RN Position: [facility] RN Member Role: Primary Care Nurse Name: Maurice Pathak RN Position: [facility] RN Member Role: Primary Care Nurse Name: Elinor Iglesias Position: [facility] HMO Reviewer Member Role: Primary Care Nurse Name: Caitlin Melendez RN Position: [facility] RN Supv Member Role: Primary Care Nurse Name: Bozena Lora LPN Position: [facility] RN Member Role: Primary Care Nurse Name: Reggie Jackson RN Position: [facility] RN Member Role: Primary Care Nurse Name: Rhonda De La O RN Position: [facility] RN Member Role: Primary Care Nurse Name: Sugey Oreilly RN Position: [facility] RN Member Role: Primary Care Nurse Name: Harman Vang MD Position: [facility] Outreach Member Role: PCP Address: Address: [address] [place] [address] Name: Uriel Reese RN Position: [facility] RN Member Role: Primary Care Nurse Name: Neris Lewis RN Position: [facility] RN Member Role: Primary Care Nurse Name: Darrell Parra RN Position: [facility] RN Member Role: Primary Care Nurse Name: Veronica Howell RN Position: [facility] RN Member Role: Primary Care Nurse Name: Natalia Harris RN Position: [facility] RN Member Role: Primary Care Nurse Name: Rhiannon Peña RN Position: [facility] RN Member Role: Primary Care Nurse Name: Abiola CONTE Attending Position: [facility] ED Medicine Name: Daina Ko RN Position: [facility] ED RN W/OE and Tasks Member Role: Patient Care Provider Name: Maya Tran Position: [facility] ED TA [facility] Member Role: [employer] Name: Jennifer Quintanilla Position: [facility] ED TA [facility] Member Role: Patient Care Provider Name: Chrissy Jacob Position: [facility] ED OA Charge Member Role: ED Associate Care Team Related Persons Name: PEGDONOVAN NGUYEN Address: [place] [address] Name: KELLY RIVERA Address: home [facility] [address]
--- NOTE | 2023-07-02 17:47 | MHC.RECOVSUP ---
Addendum entered by Temo Brown 07/03/23 11:22: Pt has been accepted to [facility] ordered to pick pt up at 1pm. Original Note: Met with pt in ED14 who is here for MICHELLE. At this time pt is still intoxicated but reports taking 2 shots this morning and yesterday before seizing and ending up here. Pt would like ATS at this time, however there are no beds at this time. If pt is still here in the morning another bed search will be made.
[2023-07-02 18:01] VITALS: BP 106/63; PULSE 69; RESP 17; O2SAT 96
--- NOTE | 2023-07-02 18:02 | PC.NURSE ---
pt sleeping on stretcher in no apparent distress. pt is intoxicated and is sleeping off alcohol. rr even/unlabored. pt on monitor. VSS. no tachycardia. no signs of withdrawal aaron. call kevin within pt reach. plan of care ongoing.
[2023-07-02] MEDS: PHENobarbitaL sodium 130 MG/ML VIAL IM Q3Hx2 315.9 MG IM (19:11)
--- NOTE | 2023-07-02 19:23 | PC.NURSE ---
report given to ETSELLE Borrego
--- NOTE | 2023-07-02 19:34 | PC.NURSE ---
Pt resting comfortably at this time. pt medicated per MAR, pt anxious and states he is scared to . thinks someone is going to come off him while her is asleep. this RN attempted to reassure pt that he is safe and we will keep a close eye on him
[2023-07-02] MEDS: 0.9 % Sodium Chloride 1,000 ML 999 ML IV (20:03)
[2023-07-02] MEDS: ondansetron HCL 4 MG/2 ML VIAL IVPUSH (20:03)
--- NOTE | 2023-07-02 20:14 | PC.NURSE ---
pt c/o nausea, MD aware. medicated per MAR. IVF started
[2023-07-02 20:48] VITALS: BP 117/70; PULSE 65; RESP 18; TEMP 36.8; O2SAT 98
--- NOTE | 2023-07-02 21:03 | MHC.EDTECH ---
patient vomited so bed changed
--- NOTE | 2023-07-02 22:20 | PC.NURSE ---
pt awake and alert, requesting juice. pt tolerated well. said he is feeling a little better, vision is less blurry
[2023-07-02] MEDS: chlordiazePOXIDE HCl 25 MG CAPSULE PO (22:52)
[2023-07-02 22:54] VITALS: BP 120/60; PULSE 74; RESP 18; O2SAT 94
[2023-07-03] VITALS (8 sets, daily range): BP systolic 112–156; BP diastolic 64–111; PULSE 66–81; RESP 16–18; TEMP 36.6–36.7; O2SAT 97–99
--- NOTE | 2023-07-03 06:21 | PC.NURSE ---
pt awake now, requesting juice and the commode for BM. techs assisted pt to commode. pt btb, sitting up drinking juice. c/o headache and nausea. aware
[2023-07-03] MEDS: Ondansetron ODT 4 MG TAB.RAPDIS TRANSLINGU (06:38)
[2023-07-03] MEDS: Acetaminophen 325 MG TABLET 975 MG PO (06:38)
--- NOTE | 2023-07-03 07:21 | PC.NURSE ---
patient resting in bed, respirations equal and unlabored. patient shows no signs of distress
--- NOTE | 2023-07-03 08:50 | PC.NURSE ---
PT TRANSFERRED TO THE POD FROM MAIN TO BED 4. PT IS AMB (I) GAIT STEADY.
--- NOTE | 2023-07-03 10:30 | PC.NURSE ---
PT C/O SLIGHT DIZZINESS AND SLIGHT TREMORS NOTED PT GIVEN A WALKER AMB (I) TO THE BATHROOM AND BTB.
--- NOTE | 2023-07-03 10:45 | PC.NURSE ---
PT SEEN BY BLAS (KENDRA). PT AWARE OF PLAN OF CARE. PT IS SPEAKING WITH DOMINIQUE ODONNELL FOR INTAKE.
[2023-07-03] MEDS: chlordiazePOXIDE HCl 25 MG CAPSULE PO (11:08)
== END 2023-07-03 12:58 | disposition home or self-care (01) ==
PROVIDERS: Emergency Provider Student in an Organized Health Care Education/Training Program
DX: F10.220 Alcohol dependence with intoxication, uncomplicated (principal); F20.9 Schizophrenia, unspecified; F10.251 Alcohol dependence with alcohol-induced psychotic disorder with hallucinations; Y90.8 Blood alcohol level of 240 mg/100 ml or more; R51.9 Headache, unspecified; R06.00 Dyspnea, unspecified; K70.9 Alcoholic liver disease, unspecified; Z79.899 Other long term (current) drug therapy; F41.9 Anxiety disorder, unspecified; F32.9 Major depressive disorder, single episode, unspecified; F12.90 Cannabis use, unspecified, uncomplicated
CPT/HCPCS: 36415; 80053; 80307; 83690; 85025; 96361; 96372; 96374; 99285; J2405; J2560

== ENCOUNTER 2023-07-23 12:58 | Outpatient (REF) | payer OTHER, SELFPAY ==
[2023-07-23 16:14] LABS: Appearance Urine Turbid; Color Urine Orange; Glucose Urine UA Negative (Negative); Leukocyte Esterase Urine Negative (Negative); Nitrite Urine Positive (Negative); PH 5.5 (5.0-9.0); Specific Gravity - Urine >= 1.030 (1.005-1.025); UMIC TRIGGER UACC YES; Urine Blood Negative (Negative); Urine Ketones Negative (Negative); Urine Protein Trace mg/dL (Neg-Trace)
[2023-07-23 16:16] LABS: Bacteria Urine None Seen (None Seen); Hyaline Casts Urine 0-2 /LPF (0-2); RBC Urine 0-2 /HPF (0-2); Squamous Epithelial Cell Urine 0-2 /HPF (0-2); UACC Culture Trigger YES; WBC Urine 0-5 /HPF (0-5)
[2023-07-23 16:20] LABS: MANUAL DIFF FLAG NO
[2023-07-23 16:24] LABS: Basophils Absolute Auto 0.1 X10*3/uL (0.0-0.2); Basophils Percent Auto 0.7 % (0-2); Eosinophils Absolute Auto 0.4 X10*3/uL (0.0-0.4); Eosinophils Percent Auto 3.1 % (0-4); Hematocrit 39.3 % (42.0-52.0); Hemoglobin 13.4 g/dl (14.0-18.0); Imm Gran Abs Auto 0.05 X10*3/uL (0.00-0.03); Imm Gran Pct Auto 0.4 % (0.0-0.4); Lymphocytes Absolute Auto 2.5 X10*3/uL (1.2-4.9); Lymphocytes Percent Auto 20.9 % (20-40); Mean Corpuscular HGB Conc 34.1 g/dl (31.0-36.0); Mean Corpuscular Hemoglobin 31.2 pg (27.0-33.0); Mean Corpuscular Volume 91.4 fL (80.0-98.0); Mean Platelet Volume 11.7 fL (9.4-12.4); Neutrophils Absolute Auto 8.1 x10*3/uL (2.0-8.3); Neutrophils Percent Auto 66.9 % (45-73); Platelet Count 193 X10*3/uL (160-400); Red Cell Distribution Width 13.1 % (11.0-16.0); White Blood Count 12.1 X10*3/uL (4.8-10.8)
[2023-07-23 16:31] LABS: Estimated Average Glucose 105 mg/dL; Hemoglobin A1c % 5.3 % (<6.0)
[2023-07-23 16:39] LABS: Alanine Aminotransferase 78 U/L (0-40); Albumin Level 4.5 g/dL (3.5-5.0); Alkaline Phosphatase 90 U/L (39-117); Anion Gap 12 (12-20); Aspartate Amino Transferase 93 U/L (5-37); Bilirubin Direct 0.5 mg/dL (0.0-0.5); Bilirubin Total 1.2 mg/dL (0.0-1.0); Blood Urea Nitrogen 15 mg/dL (9-16); Calcium 9.2 mg/dL (8.4-10.2); Carbon Dioxide 27 mmol/L (22-29); Chloride 105 mmol/L (96-108); Estimated Glomerular Filt Rate > 60; Glucose Random 88 mg/dL (60-115); Iron 65 mcg/dL (45-160); Magnesium 1.9 mg/dL (1.6-2.6); Percent Iron Saturation 20 % (15-50); Potassium 3.4 mmol/L (3.3-5.1); Sodium 141 mmol/L (135-145); Total Iron Binding Capacity 332 mcg/dL (228-428); Total Protein 8.1 g/dL (6.5-8.0); Unsaturated Iron Binding 267 ug/dL
[2023-07-23 16:55] LABS: TSH reflex Free T4 1.42 uIU/mL (0.32-4.0)
[2023-07-23 17:09] LABS: Folate 15.2 ng/mL (> or = 4.0); Vitamin B12 1070 pg/mL (200-900)
[2023-07-23 17:20] LABS: Creatinine Urine 483.93 mg/dL; Microalbum/Creatinine Ratio Ur 4.9 ug/mg cr (<30)
[2023-07-24 02:09] LABS: CT PCR NOT DETECTED (Not Detect.); NG PCR NOT DETECTED (Not Detect.)
[2023-07-24 07:44] LABS: Syphilis Screen Nonreactive (Nonreactive)
[2023-07-24 07:49] LABS: HBS Num1 55.12 mIU/mL (0-7.99); HBc Num1 0.16 S/CO (0.00-0.79); HIV AB/AG Nonreactive (Nonreactive); HIV Num 1 0.05 S/CO (0.00-0.99); Hepatitis B Core Antibody Nonreactive (Nonreactive); ~HepC Num1 0.11 S/CO (0.00-0.79); ~Hepatitis B Surface Antibody REACTIVE (Nonreactive); ~Hepatitis C Antibody Nonreactive (Nonreactive)
== END 2023-07-23 12:59 | disposition home or self-care (01) ==
LOC: HO.HHCL 12:58
PROVIDERS: Internal Medicine Geriatric Medicine; Visit Provider Student in an Organized Health Care Education/Training Program
DX: Z11.4 Encounter for screening for human immunodeficiency virus [HIV] (principal); R07.9 Chest pain, unspecified; R32 Unspecified urinary incontinence; F10.10 Alcohol abuse, uncomplicated; Z20.2 Contact with and (suspected) exposure to infections with a predominantly sexual mode of transmission; Z13.0 Encounter for screening for diseases of the blood and blood-forming organs and certain disorders involving the immune mechanism; Z13.1 Encounter for screening for diabetes mellitus; Z13.29 Encounter for screening for other suspected endocrine disorder
CPT/HCPCS: 0353U; 36415; 80048; 80076; 81001; 82043; 82570; 82607; 82746; 83036; 83540; 83735; 84443; 85025; 86704; 86706; 86780; 86803; 87086; 87389

== ENCOUNTER 2023-08-07 15:59 | Inpatient (IN) | payer OTHER, SELFPAY ==
[2023-08-07] MEDS: Naloxone HCl Nasal 4 MG SPRAY NOSTRILALT (16:02)
[2023-08-07] MEDS: Naloxone HCl Nasal 4 MG SPRAY 8 MG NOSTRILALT (16:06)
[2023-08-07 16:10] VITALS: BP 111/61; BP 130/84; PULSE 73; PULSE 80; RESP 10; O2SAT 94; O2SAT 95; BMI 32.1
[2023-08-07 16:11] LABS: Glucose, Whole Blood 117 mg/dL (60-115)
--- NOTE | 2023-08-07 16:11 | ECG_ITS ---
Test Reason : OVERDOSE Blood Pressure : / mmHG Vent. Rate : 073 BPM Atrial Rate : 073 BPM P-R Int : 176 ms QRS Dur : 100 ms QT Int : 424 ms P-R-T Axes : 021 014 -01 degrees QTc Int : 467 ms Normal sinus rhythm Normal ECG When compared with ECG of 24-MAY-2023 18:37, No significant change was found Referred By: Monica Zafar Electronically Signed By:Enrico Rosenberg
[2023-08-07 16:19] VITALS: RESP 8
--- NOTE | 2023-08-07 16:20 | ED.OVERDOSE ---
HPI - Overdose General Chief Complaint: Overdose Stated Complaint: SI,06/05 chest pain & headache Time Seen by Provider: 08/07/23 16:11 Source: patient Mode of arrival: EMS Limitations: no limitations History of Present Illness HPI Narrative: Patient comes to emergency room from [facility]. Patient made SI statements. Prior to arrival to arrival to the emergency room, patient became unresponsive. Patient received 12 mg intranasal Narcan, patient had good results. Patient woke up immediately after the 3rd dose. Patient reports EtOH. Denies any drug use. Patient came in complaining of chest pain. Of note, EMS reported that they received benzodiazepines p.o. prior to arrival. EMS provided the patient benzos. Related Data Home Medications Medication Instructions Recorded Confirmed cariprazine 6 mg capsule (Vraylar) 1 cap PO DAILY 06/28/22 07/02/23 clonazepam 0.5 mg tablet 0.5 tab PO Q12H PRN Anxiety 06/28/22 07/02/23 folic acid 1 mg tablet 1 tab PO DAILY 06/28/22 07/02/23 ondansetron 4 mg disintegrating 8 mg PO Q12H PRN Nausea And 06/28/22 07/02/23 tablet Vomiting acamprosate 333 mg tablet,delayed 666 mg PO TID 07/02/23 07/02/23 release ascorbic acid (vitamin C) 500 mg 500 mg PO DAILY 07/02/23 07/02/23 tablet (Vitamin C) multivitamin-iron 9 mg-folic acid 1 tab PO DAILY 07/02/23 07/02/23 400 mcg-calcium and minerals tablet (High Potency Multivitamin (w-iron)) Allergies Allergy/AdvReac Type Severity Reaction Status Date / Time No Known Allergies Allergy Verified 08/07/23 16:19 Review of Systems Review of Systems: Constitutional : No Weight loss, No Fever, No Chills, No Night Sweats, No Fatigue, No Malaise ENT/Mouth : No Hearing loss, No Ear Pain, No Nasal Congestion, No Sinus Pain, No Hoarseness, No sore throat, No Rhinorrhea, No Swallowing Difficulty Eyes: No Eye Pain, No Swelling, No Redness, No Foreign Body, No Discharge, No Vision Changes Cardiovascular : Complaining of chest Pain, No SOB, No Dyspnea on Exertion, No Orthopnea, No Edema, No Palpitations Respiratory : No Cough, No Sputum, No Wheezing, No Smoke Exposure, No Dyspnea Gastrointestinal : No Nausea, No Vomiting, No Diarrhea, No Constipation, No abdominal Pain, No Hematochezia, No Melena Genitourinary : no irregular bleeding, No Dysuria, No Urinary Frequency, No Hematuria, No Urinary Incontinence, No Urgency, No Flank Pain, No Urinary Flow Changes, No Hesitancy Musculoskeletal : No joint pain, No Myalgias, No Joint Swelling Skin : No Skin Lesions, No rash Neuro : No Weakness, No Numbness, No Paresthesias, No Loss of Consciousness, No Dizziness, No Headache Psych : No Anxiety/Panic, No Depression, No SI/HI/AH/VH, admits to alcohol abuse Heme/Lymph: No Bruising, No Bleeding,No Lymphadenopathy Endocrine : No Polyuria, No Polydipsia, No Temperature Intolerance [facility] Past Medical History Medical History Alcoholic liver disease Schizo affective schizophrenia Anxiety Acid reflux Depression Family History Family History Mother No problems noted. Father No problems noted. Mother No problems noted. 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 Oriented X3. No acute distress. Eyes: On arrival, pinpoint pupils, normal pupils after Narcan. Pupils equal, round and reactive to light. ENT: Pharynx normal. Neck: Normal inspection. Neck supple. No lymph nodes noted. No crepitus CVS: Normal heart rate and rhythm. Pulses normal. Normal S1 and S2 Respiratory: No respiratory distress. Breath sounds normal. No Wheezing. No rales Abdomen: Soft and nontender. No rigidity. No distention. Skin: Skin warm and dry. Normal skin color. Normal skin turgor. Extremities: No lower extremity edema. No Lacerations. No Rash Neuro: Oriented X 3. No motor deficit. No sensory deficit. Moving all extremities. No slurred speech. CN 2 through 12 grossly intact Psych: calm, cooperative, normal affect Course Course Course Narrative: -patient reacted well to Narcan. Patient likely overdosed prior to arrival either with his own medications/street drugs or benzodiazepine given by EMS. -interpretation of labs, troponin is negative, at baseline elevated. Patient no longer has chest pain now he is awake, alert and oriented x3 -my interpretation of EKG: Normal sinus rhythm, heart rate 73, no ST segment depression elevation, nonspecific T-wave inversion in lead 3, QTC 467. Urine toxicology positive for barbiturates, benzodiazepines and marijuana. ETOH level 291 Medications Administered Discontinued Medications Generic Name Dose Route Start Last Admin Trade Name Joaquimq PRN Reason Stop Dose Admin Acetaminophen 650 mg 08/07/23 20:33 08/07/23 20:50 Acetaminophen 325 Mg Tablet PO 08/07/23 20:34 650 mg ONCE ONE Administration Naloxone HCl 8 mg 08/07/23 16:11 08/07/23 16:06 Naloxone Hcl Nasal 4 Mg [place] NOSTRILALT 08/07/23 16:12 8 mg ONCE ONE Administration Naloxone HCl 4 mg 08/07/23 16:13 08/07/23 16:02 Naloxone Hcl Nasal 4 Mg [place] NOSTRILALT 08/07/23 16:14 4 mg ONCE ONE Administration Ondansetron HCl 4 mg 08/07/23 20:46 08/07/23 20:50 Ondansetron Odt 4 Mg Tab.Rapdis TRANSLINGU 08/07/23 20:47 4 mg ONCE ONE Administration Medical Decision Making Medical Decision Making [facility] Narrative: -my interpretation of labs: Hematology at baseline, chemistry shows no abnormalities, troponin 31.0 which is patient's baseline -patient is off accident now, saturating 98% on room air. Patient is in the Behavioral Health POD waiting to be seen by the care team Differential Diagnosis Differential Diagnoses: The differential diagnosis associated with the presentation includes (Anxiety, depression, suicide attempt, accidental overdose) Admission/Observation Consideration of admission/observation: Escalation of care including admission/observation considered (Patient is on a Section 12, waiting to be seen by the care team to determine patient's disposition) Lab Data MDM Lab Attestation statement: I reviewed the patient's lab results. 08/07/23 16:22 08/07/23 16:22 Labs: Lab Results 08/07/23 08/07/23 08/07/23 Range/Units 16:07 16:22 18:02 WBC 6.6 (4.8-10.8) X10*3/uL RBC 3.90 L (4.60-5.80) X10*6/uL Hgb 12.2 L (14.0-18.0) g/dl Hct 36.3 L (42.0-52.0) % MCV 93.1 (80.0-98.0) fL MCH 31.3 (27.0-33.0) pg MCHC 33.6 (31.0-36.0) g/dl RDW 13.9 (11.0-16.0) % Plt Count 186 (160-400) X10*3/uL MPV 10.3 (9.4-12.4) fL Immature Gran % (Auto) 0.2 (0.0-0.4) % Neut % (Auto) 41.8 L (45-73) % Lymph % (Auto) 46.9 H (20-40) % [place] % (Auto) 7.9 (2-11) % Eos % (Auto) 2.1 (0-4) % Baso % (Auto) 1.1 (0-2) % Lymph # (Auto) 3.1 (1.2-4.9) X10*3/uL [place] # (Auto) 0.5 (0.1-1.2) X10*3/uL Eos # (Auto) 0.1 (0.0-0.4) X10*3/uL Baso # (Auto) 0.1 (0.0-0.2) X10*3/uL Abs Immat Gran (auto) 0.01 (0.00-0.03) X10*3/uL Absolute Neuts (auto) 2.8 (2.0-8.3) x10*3/uL Absolute Nucleated RBC 0.000 (0.0-0.012) X10*3/uL Nucleated RBC % (auto) 0.0 (0.0-0.2) /100WBC PT 12.5 (11.1-13.3) SEC INR 1.0 (0.9-1.1) Sodium 143 (135-145) mmol/L Potassium 3.4 (3.3-5.1) mmol/L Chloride 104 (96-108) mmol/L Carbon Dioxide 25 (22-29) mmol/L Anion Gap 17 (12-20) BUN 14 (9-16) mg/dL Creatinine 0.70 (0.5-1.4) mg/dL Estim Creat Clear Calc 176.5 Estimated GFR > 60 POC Glucose 117 H (60-115) mg/dL Random Glucose 105 (60-115) mg/dL Calcium 8.8 (8.4-10.2) mg/dL Magnesium 1.7 (1.6-2.6) mg/dL Total Bilirubin 0.2 (0.0-1.0) mg/dL Direct Bilirubin 0.2 (0.0-0.5) mg/dL AST 40 H (5-37) U/L ALT 35 (0-40) U/L Alkaline Phosphatase 92 (39-117) U/L Troponin I High Sens 31.0 (<3.5-35.0) ng/L B-Natriuretic Peptide 25 (<100) pg/mL Total Protein 7.5 (6.5-8.0) g/dL Albumin 4.1 (3.5-5.0) g/dL Urine Color Yellow Urine Appearance Clear Urine pH 5.5 (5.0-9.0) Ur Specific [place] 1.020 (1.005-1.025) Urine Protein Negative (Neg-Trace) mg/dL Urine Glucose (UA) Negative (Negative) mg/dL Urine Ketones Negative (Negative) mg/dL Urine Blood Negative (Negative) Urine Nitrite Negative (Negative) Ur Leukocyte Esterase Negative (Negative) Salicylates < 5.0 L (15-30) mg/dL Urine Opiates Screen Not Detected (Not Detect) Urine Fentanyl Screen Not Detected (Not Detect) Acetaminophen < 3 (<30) mcg/mL Ur Barbiturates Screen POSITIVE H (Not Detect) Ur Phencyclidine Scrn Not Detected (Not Detect) Ur Amphetamines Screen Not Detected (Not Detect) U Benzodiazepines Scrn POSITIVE H (Not Detect) Urine Cocaine Screen Not Detected (Not Detect) U Marijuana (THC) Screen POSITIVE H (Not Detect) Ethyl Alcohol 291 mg/dL Independent Interpretation I performed an independent interpretation of an: EKG (As above) Discharge Plan Discharge Clinical Impression: Drug overdose, Suicidal ideation Patient Disposition: Still a Patient Prescriptions: No Action clonazepam 0.5 mg tablet 0.5 tab PO Q12H PRN (Reason: Anxiety) folic acid 1 mg tablet 1 tab PO DAILY ondansetron 4 mg tablet,disintegrating 8 mg PO Q12H PRN (Reason: Nausea And Vomiting) Vraylar 6 mg capsule 1 cap PO DAILY ascorbic acid (vitamin C) [Vitamin C] 500 mg tablet 500 mg PO DAILY acamprosate 333 mg tablet,delayed release (DR/EC) 666 mg PO TID High Potency Multivit (w-iron) 9 mg iron-400 mcg tablet 1 tab PO DAILY
[2023-08-07 16:27] LABS: MANUAL DIFF FLAG NO
[2023-08-07 16:32] LABS: Basophils Absolute Auto 0.1 X10*3/uL (0.0-0.2); Basophils Percent Auto 1.1 % (0-2); Eosinophils Absolute Auto 0.1 X10*3/uL (0.0-0.4); Eosinophils Percent Auto 2.1 % (0-4); Hematocrit 36.3 % (42.0-52.0); Hemoglobin 12.2 g/dl (14.0-18.0); Imm Gran Abs Auto 0.01 X10*3/uL (0.00-0.03); Imm Gran Pct Auto 0.2 % (0.0-0.4); Lymphocytes Absolute Auto 3.1 X10*3/uL (1.2-4.9); Lymphocytes Percent Auto 46.9 % (20-40); Mean Corpuscular HGB Conc 33.6 g/dl (31.0-36.0); Mean Corpuscular Hemoglobin 31.3 pg (27.0-33.0); Mean Corpuscular Volume 93.1 fL (80.0-98.0); Mean Platelet Volume 10.3 fL (9.4-12.4); Monocytes Absolute Auto 0.5 X10*3/uL (0.1-1.2); Monocytes Percent Auto 7.9 % (2-11); Neutrophils Absolute Auto 2.8 x10*3/uL (2.0-8.3); Neutrophils Percent Auto 41.8 % (45-73); Platelet Count 186 X10*3/uL (160-400); Red Cell Distribution Width 13.9 % (11.0-16.0); White Blood Count 6.6 X10*3/uL (4.8-10.8)
[2023-08-07 16:34] LABS: Prothrombin Time 12.5 SEC (11.1-13.3)
[2023-08-07 16:44] LABS: Alanine Aminotransferase 35 U/L (0-40); Albumin Level 4.1 g/dL (3.5-5.0); Alkaline Phosphatase 92 U/L (39-117); Anion Gap 17 (12-20); Aspartate Amino Transferase 40 U/L (5-37); Bilirubin Direct 0.2 mg/dL (0.0-0.5); Bilirubin Total 0.2 mg/dL (0.0-1.0); Blood Urea Nitrogen 14 mg/dL (9-16); Calcium 8.8 mg/dL (8.4-10.2); Carbon Dioxide 25 mmol/L (22-29); Chloride 104 mmol/L (96-108); Creatinine Clr Calc Pharmacy 176.5; Estimated Glomerular Filt Rate > 60; Ethanol 291 mg/dL; Glucose Random 105 mg/dL (60-115); Magnesium 1.7 mg/dL (1.6-2.6); Potassium 3.4 mmol/L (3.3-5.1); Sodium 143 mmol/L (135-145); Total Protein 7.5 g/dL (6.5-8.0)
[2023-08-07 16:46] LABS: Acetaminophen LAB < 3 mcg/mL (<30); Salicylate < 5.0 mg/dL (15-30)
[2023-08-07 16:49] LABS: B Type Natriuretic Peptide 25 pg/mL (<100)
[2023-08-07 18:18] VITALS: BP 110/79; PULSE 66; RESP 18; TEMP 36.6; O2SAT 95
[2023-08-07 18:27] LABS: Appearance Urine Clear; Color Urine Yellow; Glucose Urine UA Negative (Negative); Leukocyte Esterase Urine Negative (Negative); Nitrite Urine Negative (Negative); PH 5.5 (5.0-9.0); Urine Blood Negative (Negative); Urine Ketones Negative (Negative); Urine Protein Negative (Neg-Trace)
[2023-08-07 18:33] LABS: Amphetamine Screen Urine Not Detected (Not Detect); Barbiturates, Urine POSITIVE (Not Detect); Benzodiazepines Screen Urine POSITIVE (Not Detect); Cannabinoid Screen Urine POSITIVE (Not Detect); Cocaine Screen Urine Not Detected (Not Detect); Fentanyl, urine Not Detected (Not Detect); Opiate Screen Urine Not Detected (Not Detect); Phencyclidine Screen Urine Not Detected (Not Detect)
[2023-08-07 19:37] VITALS: BP 104/66; PULSE 66; RESP 17; O2SAT 98
[2023-08-07] MEDS: Ondansetron ODT 4 MG TAB.RAPDIS TRANSLINGU (20:50)
[2023-08-07] MEDS: Acetaminophen 325 MG TABLET 650 MG PO (20:50)
[2023-08-08 01:08] VITALS: BP 156/102; PULSE 70; RESP 17; TEMP 36.8; O2SAT 97
[2023-08-08 05:05] VITALS: BP 150/87; PULSE 74; RESP 18; TEMP 36.7
[2023-08-08] MEDS: Ondansetron ODT 4 MG TAB.RAPDIS TRANSLINGU (11:41)
[2023-08-08] MEDS: chlordiazePOXIDE HCl 5 MG CAPSULE 10 MG PO (11:41)
[2023-08-08] MEDS: Acetaminophen 325 MG TABLET 650 MG PO (14:12)
--- NOTE | 2023-08-08 16:50 | MHC.CARE ---
A statewide dual diagnosis inpatient bedsearch was completed with the following results: [facility], [facility], [facility], [place] and [facility] were called. Only [facility] had beds and referral was sent over at approx 1100. CARE Team follows up with [facility] at 1653 and they no longer have a dual bed. CARE Team will complete mental status update this evening.
[2023-08-08 17:35] VITALS: PULSE 70; RESP 16
--- NOTE | 2023-08-08 17:42 | PC.NURSE ---
Randell in bed for most of the shift. Reporting really bad withdrawal symptoms and is requesting benzodiazepine medication. MD consulted and 10mg Librium ordered with 4mg Zofran. CIIWA 10. Very tremulous with nurse at bedside but when asked to hold still to obtain VS and when handed a cup of water PT able to control tremor and it was not visible. Appetite fair and PT ate 100% of lunch. At one point requested a walker to ambulate but does not use one at baseline and gait appears steady. PT reporting he needs it to help with the really bad withdrawals . PT encouraged to walk slowly and alert staff to any dizzy or weak feeling. Tylenol given for headache.
--- NOTE | 2023-08-08 19:18 | PC.NURSE ---
patient appears to remain at rest at present came out to get remote within 10 minutes of being assessed by care team, requested ice water. patient appears in no distress.
--- NOTE | 2023-08-08 19:20 | PC.NURSE ---
seems to specifiically mention patient having symptoms in front of staff, and flattering statements about staff...
--- NOTE | 2023-08-08 19:22 | PC.NURSE ---
patient makes sure he mentions the tbi (daily) and also mentions how they used 3 or 4 narcans on me yesterday (patient absent of opiates) as if to reinforce that he's really a sick individual.
[2023-08-08 20:42] VITALS: BP 137/91; PULSE 58; RESP 18; TEMP 36.6; O2SAT 97
[2023-08-09] MEDS: LORazepam 1 MG TABLET 2 MG PO (04:09)
[2023-08-09 06:30] VITALS: BP 134/85; PULSE 56; RESP 17; TEMP 37.3; O2SAT 96
[2023-08-09 09:17] LABS: COVID-19 Test Negative (Negative); IDNOW Serial# BCCEAD1C
--- NOTE | 2023-08-09 14:34 | PC.NURSE ---
Randell was OOB this shift and took a shower. No medications given or requested. Appetite good. No behavioral control issues. Advocating for inpatient level of care. Will be going to M5 this evening.
[2023-08-09 14:36] VITALS: RESP 18
[2023-08-09 17:50] VITALS: BMI 28.3
[2023-08-09 17:53] VITALS: BP 163/104; PULSE 65; RESP 16; TEMP 36.3; O2SAT 95
[2023-08-09] MEDS: Acetaminophen 325 MG TABLET 650 MG PO (18:42)
[2023-08-09] MEDS: LORazepam 1 MG TABLET PO ×2 (18:42→21:07)
[2023-08-09] MEDS: hydrOXYzine HCL 25 MG TABLET PO (18:44)
[2023-08-09] MEDS: Ondansetron ODT 4 MG TAB.RAPDIS TRANSLINGU (18:50)
[2023-08-09] MEDS: amLODIPine Besylate 2.5 MG TABLET PO (18:51)
--- NOTE | 2023-08-09 19:11 | PC.ADMIT ---
PT ARRIVED ON THE UNIT AT 1750 VIA W/C AND WAS TRANSFERRED FROM [facility] ED. PT WAS BROUGHT TO ED VIA AMBULANCE FROM [facility] D/T AN OVERDOSE THAT REQUIRED THREE DOSES OF NARCAN TO REVIVE HIM. PT DENIES DRUG USE AT THAT TIME. HE STATES THAT HE ONLY ABUSES ALCOHOL, WHICH HE WAS INTRODUCED TO AT THE AGE OF 11. I GUESS THAT'S WHY I HAVE SUCH A STRUGGLE WITH IT . DURING ADMISSION ASSESSMENT, PT STATED THAT HE ALWAYS HAS A HEADACHE WHICH IS WORSENED BY LIGHT, D/T A FORMER HEAD INJURY. PT ARRIVED ON UNIT IN [facility]. ALL VISIBLE SKIN IN TACT. PT MAKES GOOD EYE CONTACT AND HAS NORMAL VOLUME AND TONE TO HIS SPEECH. PT STATES THAT HE ONLY HAS AH WHEN HE IS DETOXING. UPON VS CHECK, DIASTOLIC BP WAS 105-ATIVAN 1MG AND AMLODIPINE BOTH PROVIDED. PT DENIES SI AT THIS TIME. PT DENIES HI/VH. PT IS FUTURE THINKING, SITING THAT HE WOULD LIKE TO GET CLEAN AND STAY CLEAN . PT WAS CALM, PLEASANT AND COOPERATIVE DURING ADMISSION PROCESS. PT IS UNSURE ABOUT HAVING A FLU VACCINE THIS YEAR-STATES HE WOULD LIKE ONE IF HE HASN'T HAD ONE YET.
[2023-08-09] MEDS: Acamprosate Calcium 333 MG TABLET.DR 666 MG PO (21:07)
[2023-08-09] MEDS: Lurasidone HCl 40 MG TABLET PO (21:08)
[2023-08-10] MEDS: Acamprosate Calcium 333 MG TABLET.DR 666 MG PO ×3 (08:23→20:40)
[2023-08-10] MEDS: Thiamine HCL 100 MG TABLET PO (08:23)
[2023-08-10] MEDS: amLODIPine Besylate 2.5 MG TABLET PO (08:24)
[2023-08-10] MEDS: Folic Acid 1 MG TABLET PO (08:24)
[2023-08-10] MEDS: Multivitamin TABLET 1 TAB PO (08:24)
[2023-08-10 08:30] VITALS: BP 120/79; PULSE 66; RESP 16; TEMP 36.6; O2SAT 98
[2023-08-10] MEDS: LORazepam 1 MG TABLET 2 MG PO ×2 (08:31→12:49)
[2023-08-10 09:16] LABS: Cholesterol 248 mg/dL (<200); HDL Cholesterol 44 mg/dL (>40); LDL Cholesterol Calculated 174 mg/dL (<100); Triglycerides 154 mg/dL (<150)
[2023-08-10 09:31] LABS: Free T4 (Free Thyroxine) 0.86 ng/dL (0.71-1.85)
[2023-08-10] MEDS: Divalproex Sodium 250 MG TABLET.DR PO ×2 (12:28→20:29)
[2023-08-10] MEDS: Acetaminophen 325 MG TABLET 650 MG PO (12:49)
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
[2023-08-10 16:31] VITALS: BP 126/91; PULSE 69; TEMP 36.3; O2SAT 97
[2023-08-10] MEDS: LORazepam 1 MG TABLET 3 MG PO ×2 (16:58→21:01)
[2023-08-10] MEDS: Ondansetron ODT 4 MG TAB.RAPDIS TRANSLINGU (16:58)
[2023-08-10] MEDS: Ibuprofen 800 MG TABLET PO (20:29)
[2023-08-10] MEDS: Melatonin 3 MG TABLET 6 MG PO (20:30)
[2023-08-10] MEDS: Lurasidone HCl 40 MG TABLET PO (20:41)
[2023-08-10] MEDS: traZODone HCL 50 MG TABLET PO (20:41)
[2023-08-10] MEDS: Gabapentin 300 MG CAPSULE PO (21:00)
[2023-08-11] MEDS: LORazepam 1 MG TABLET 3 MG PO (03:01)
[2023-08-11 08:00] VITALS: BP 118/70; PULSE 60; RESP 16; TEMP 36.8; O2SAT 96
[2023-08-11] MEDS: Thiamine HCL 100 MG TABLET PO (08:44)
[2023-08-11] MEDS: amLODIPine Besylate 2.5 MG TABLET PO (08:45)
[2023-08-11] MEDS: Divalproex Sodium 250 MG TABLET.DR PO ×2 (08:45→21:16)
[2023-08-11] MEDS: LORazepam 1 MG TABLET 2 MG PO ×3 (08:45→19:45)
[2023-08-11] MEDS: Multivitamin TABLET 1 TAB PO (08:45)
[2023-08-11] MEDS: Gabapentin 600 MG TABLET 300 MG PO ×3 (08:45→20:55)
[2023-08-11] MEDS: Folic Acid 1 MG TABLET PO (08:45)
[2023-08-11] MEDS: Acamprosate Calcium 333 MG TABLET.DR 666 MG PO ×3 (08:45→20:55)
--- NOTE | 2023-08-11 08:51 | P.PNPSI_ITS ---
Subjective Subjective Date of Service: 08/11/23 Reason For Visit: Schizoaffective d/o, s/p suicide attempt, alcoho Interim History: met with patient; discussed with team Patient pleasant and cooperative on approach but lying in bed, saying he feels very uncomfortable due to withdrawal symptoms. Tubing Drier had started gabapentin to help with symptoms to which he said it has been making a difference. Patient said he is not much up for talking now but appreciates the help received. Mental Status Exam Mental Status Exam Narrative: Pt is alert and oriented; behavior is cooperative, friendly and calm; patient is discomfort from alcohol withdrawal; dressed in hospital attire, clean shaven; mood is described as not good and affect congruent, wincing; eye contact limited; Speech is quiet and soft; psychomotor retardation present; thought process is organized and goal directed; Thought content is on feeling with withdrawal, tx; otherwise pertinent to relevant topics; no delusional thoughts expressed; not express any SI/HI. There is no evidence of perceptual disturbance. Patients insight and judgment impaired Diagnostics Vital Signs (24Hr): Vital Signs - 24 hr 08/10/23 16:31 Temperature 97.3 F Pulse Rate 69 Blood Pressure 126/91 H Pulse Oximetry 97 Oxygen Delivery Method Room Air BMI result Body Mass Index 28.3 Labs 08/07/23 16:22 08/07/23 16:22 Labs: Laboratory Results - last 48 hr 08/09/23 08/10/23 08:58 08:23 Magnesium 2.0 Triglycerides 154 H Cholesterol 248 H LDL Cholesterol, Calc 174 H HDL Cholesterol 44 Free T4 0.86 COVID-19 ([facility]) Negative COVID-19 Clin Com See Note Medications Medications Current Medications Acamprosate (Acamprosate Calcium 333 Mg Tablet.) 666 mg PO TID [facility] Last Admin: 08/11/23 08:45 Dose: 666 mg Acetaminophen (Acetaminophen 325 Mg Tablet) 650 mg PO Q6H PRN PRN Reason: Headache/Pain Mild Scale (1-3) Last Admin: 08/10/23 12:49 Dose: 650 mg Al Hydroxide/Mg Hydroxide (Magnesium Hydrox/Alum Hydrox 30 Ml Oral.Susp) 30 ml PO Q6H PRN PRN Reason: Heartburn/Nausea Amlodipine Besylate (Amlodipine Besylate 2.5 Mg Tablet) 2.5 mg PO DAILY [facility]; Protocol Last Admin: 08/11/23 08:45 Dose: 2.5 mg Divalproex Sodium (Divalproex Sodium 250 Mg Tablet.Dr) 250 mg PO BID [facility] Last Admin: 08/11/23 08:45 Dose: 250 mg Folic Acid (Folic Acid 1 Mg Tablet) 1 mg PO DAILY [facility] Last Admin: 08/11/23 08:45 Dose: 1 mg Gabapentin (Gabapentin 600 Mg Tablet) 300 mg PO TID [facility] Last Admin: 08/11/23 08:45 Dose: 300 mg Hydroxyzine HCl (Hydroxyzine Hcl 25 Mg Tablet) 25 mg PO Q6H PRN PRN Reason: Anxiety Last Admin: 08/09/23 18:44 Dose: 25 mg Ibuprofen (Ibuprofen 800 Mg Tablet) 800 mg PO Q8H PRN PRN Reason: Headache Last Admin: 08/10/23 20:29 Dose: 800 mg Lorazepam (Lorazepam 1 Mg Tablet) 1 mg PO Q2H PRN PRN Reason: CIWA 6-11 Last Admin: 08/09/23 21:07 Dose: 1 mg Lorazepam (Lorazepam 1 Mg Tablet) 2 mg PO Q2H PRN PRN Reason: ciwa 12-15 Last Admin: 08/11/23 08:45 Dose: 2 mg Lorazepam (Lorazepam 1 Mg Tablet) 3 mg PO Q2H PRN PRN Reason: CIWA >15 and call provider Last Admin: 08/11/23 03:01 Dose: 3 mg Lurasidone HCl (Lurasidone Hcl 40 Mg Tablet) 40 mg PO BEDTIME [facility] Last Admin: 08/10/23 20:41 Dose: 40 mg Magnesium Hydroxide (Milk Of Magnesia 30 Ml Oral.Susp) 30 ml PO DAILY PRN PRN Reason: Constipation Melatonin (Melatonin 3 Mg Tablet) 6 mg PO BEDTIME PRN PRN Reason: Sleep Last Admin: 08/10/23 20:30 Dose: 6 mg Multivitamins/Vitamin C (Multivitamin Tablet) 1 tab PO DAILY [facility] Last Admin: 08/11/23 08:45 Dose: 1 tab Ondansetron HCl (Ondansetron Odt 4 Mg Tab.Rapdis) 4 mg TRANSLINGU Q8H PRN PRN Reason: Nausea Last Admin: 08/10/23 16:58 Dose: 4 mg Thiamine HCl (Thiamine Hcl 100 Mg Tablet) 100 mg PO DAILY [facility] Last Admin: 08/11/23 08:44 Dose: 100 mg Trazodone HCl (Trazodone Hcl 50 Mg Tablet) 50 mg PO BEDTIME MRX1 PRN PRN Reason: Insomnia Last Admin: 08/10/23 20:41 Dose: 50 mg Allergies Allergies Allergy/AdvReac Type Severity Reaction Status Date / Time No Known Allergies Allergy Verified 08/07/23 16:19 Assessment & Plan Assessment & Plan (1) Drug overdose: Status: Acute Code(s): T50.901A - Poisoning by unspecified drugs, medicaments and biological substances, accidental (unintentional), initial encounter (2) Suicidal ideation: Status: Acute Code(s): R45.851 - Suicidal ideations (3) Alcohol use disorder, severe, dependence: Status: Acute Code(s): F10.20 - Alcohol dependence, uncomplicated (4) Schizoaffective disorder, bipolar type: Status: Acute Code(s): F25.0 - Schizoaffective disorder, bipolar type (5) PTSD (post-traumatic stress disorder): Status: Acute Code(s): F43.10 - Post-traumatic stress disorder, unspecified Plan 48 yo male, hx of schizoaffective disorder, bipolar type, PTSD, alcohol use disorder-severe,dependence and polysubstance use disorder presents for detox, re-establishment of medications and medical care. Hospital course: 08/11 patient remains in withdrawal; reviewed CIWA scores and they remain elevated; started patient on gabapentin 300 mg t.i.d. for withdrawal with plan to taper off; discuss this with patient who agrees Plan: Continue CIWA with Ativan p.r.n. Started gabapentin 300 mg t.i.d.; will at some point taper off Obtain further neuro history as pt clears from detox, possible neuro consult. Ativan detox, MVI, Thiamine, Folate. Hold Antabuse Continue Campral, Amlodipine, Latuda Depakote 250 mg bid Melatonin 6 mg HS prn Patient educated on: diagnosis and medical condition Informed Consent: understands and further education needed Reason for continued inpatient stay Substantial Risk for: inability to function Time Spent With Patient Time: Total time managing care of this patient today ____ minutes.
[2023-08-11] MEDS: Ibuprofen 800 MG TABLET PO (12:55)
[2023-08-11] MEDS: Ondansetron ODT 4 MG TAB.RAPDIS TRANSLINGU ×2 (12:56→20:56)
[2023-08-11] MEDS: Acetaminophen 325 MG TABLET 650 MG PO ×2 (15:07→20:54)
[2023-08-11 18:00] VITALS: BP 127/82; PULSE 105; RESP 20; TEMP 36.1; O2SAT 99
[2023-08-11] MEDS: traZODone HCL 50 MG TABLET PO (20:56)
[2023-08-11] MEDS: Lurasidone HCl 40 MG TABLET PO (20:56)
[2023-08-11] MEDS: hydrOXYzine HCL 25 MG TABLET PO (20:56)
[2023-08-12] MEDS: Multivitamin TABLET 1 TAB PO (08:34)
[2023-08-12] MEDS: Thiamine HCL 100 MG TABLET PO (08:34)
[2023-08-12] MEDS: amLODIPine Besylate 2.5 MG TABLET PO (08:34)
[2023-08-12] MEDS: Divalproex Sodium 250 MG TABLET.DR PO ×2 (08:35→20:27)
[2023-08-12] MEDS: Acamprosate Calcium 333 MG TABLET.DR 666 MG PO ×3 (08:36→20:27)
[2023-08-12] MEDS: Gabapentin 600 MG TABLET 300 MG PO ×2 (08:36→14:49)
[2023-08-12] MEDS: Folic Acid 1 MG TABLET PO (08:36)
[2023-08-12 08:40] VITALS: BP 106/55; PULSE 59; RESP 16; TEMP 37; O2SAT 98
[2023-08-12] MEDS: Ibuprofen 800 MG TABLET PO ×2 (10:08→20:29)
--- NOTE | 2023-08-12 10:20 | P.PNPSI_ITS ---
Subjective Subjective Date of Service: 08/12/23 Reason For Visit: Schizoaffective d/o, s/p suicide attempt, alcoho Interim History: met with patient; discussed with team Patient reports that he continues to feel withdrawal symptoms but that they are definitely getting better. He did get the flu shot yesterday and thinks he is feeling some residual side effects. He denies any AVH and says currently he does not have any SI. Patient said that he has a history of TBIs and has been having daily headaches since May. Discussed options and patient agrees to try Topamax after reviewing risks/side effects including risk of kidney stones which patient said he has never had. Patient also said he was prescribed Antabuse which he has never tried but says he very much needs and wants to start it soon. Discussed high cholesterol lft's ok Diagnostics Vital Signs (24Hr): Vital Signs - 24 hr 08/11/23 18:00 08/12/23 08:40 Temperature 97 F 98.6 F Pulse Rate 105 H 59 Respiratory Rate 20 16 Blood Pressure 127/82 106/55 L Pulse Oximetry 99 98 Oxygen Delivery Method Room Air Room Air BMI result Body Mass Index 28.3 Labs 08/07/23 16:22 08/07/23 16:22 Medications Medications Current Medications Acamprosate (Acamprosate Calcium 333 Mg Tablet.) 666 mg PO TID [facility] Last Admin: 08/12/23 08:36 Dose: 666 mg Acetaminophen (Acetaminophen 325 Mg Tablet) 650 mg PO Q6H PRN PRN Reason: Headache/Pain Mild Scale (1-3) Last Admin: 08/11/23 20:54 Dose: 650 mg Al Hydroxide/Mg Hydroxide (Magnesium Hydrox/Alum Hydrox 30 Ml Oral.Susp) 30 ml PO Q6H PRN PRN Reason: Heartburn/Nausea Amlodipine Besylate (Amlodipine Besylate 2.5 Mg Tablet) 2.5 mg PO DAILY [facility]; Protocol Last Admin: 08/12/23 08:34 Dose: 2.5 mg Divalproex Sodium (Divalproex Sodium 250 Mg Tablet.) 250 mg PO BID [facility] Last Admin: 08/12/23 08:35 Dose: 250 mg Folic Acid (Folic Acid 1 Mg Tablet) 1 mg PO DAILY [facility] Last Admin: 08/12/23 08:36 Dose: 1 mg Gabapentin (Gabapentin 600 Mg Tablet) 300 mg PO TID [facility] Last Admin: 08/12/23 08:36 Dose: 300 mg Hydroxyzine HCl (Hydroxyzine Hcl 25 Mg Tablet) 25 mg PO Q6H PRN PRN Reason: Anxiety Last Admin: 08/11/23 20:56 Dose: 25 mg Ibuprofen (Ibuprofen 800 Mg Tablet) 800 mg PO Q8H PRN PRN Reason: Headache Last Admin: 08/12/23 10:08 Dose: 800 mg Lorazepam (Lorazepam 1 Mg Tablet) 1 mg PO Q2H PRN PRN Reason: CIWA 6-11 Last Admin: 08/12/23 10:08 Dose: 1 mg Lorazepam (Lorazepam 1 Mg Tablet) 2 mg PO Q2H PRN PRN Reason: ciwa 12-15 Last Admin: 08/11/23 19:45 Dose: 2 mg Lorazepam (Lorazepam 1 Mg Tablet) 3 mg PO Q2H PRN PRN Reason: CIWA >15 and call provider Last Admin: 08/11/23 03:01 Dose: 3 mg Lurasidone HCl (Lurasidone Hcl 40 Mg Tablet) 40 mg PO BEDTIME [facility] Last Admin: 08/11/23 20:56 Dose: 40 mg Magnesium Hydroxide (Milk Of Magnesia 30 Ml Oral.Susp) 30 ml PO DAILY PRN PRN Reason: Constipation Melatonin (Melatonin 3 Mg Tablet) 6 mg PO BEDTIME PRN PRN Reason: Sleep Last Admin: 08/10/23 20:30 Dose: 6 mg Multivitamins/Vitamin C (Multivitamin Tablet) 1 tab PO DAILY [facility] Last Admin: 08/12/23 08:34 Dose: 1 tab Ondansetron HCl (Ondansetron Odt 4 Mg Tab.Rapdis) 4 mg TRANSLINGU Q8H PRN PRN Reason: Nausea Last Admin: 08/11/23 20:56 Dose: 4 mg Thiamine HCl (Thiamine Hcl 100 Mg Tablet) 100 mg PO DAILY [facility] Last Admin: 08/12/23 08:34 Dose: 100 mg Trazodone HCl (Trazodone Hcl 50 Mg Tablet) 50 mg PO BEDTIME MRX1 PRN PRN Reason: Insomnia Last Admin: 08/11/23 20:56 Dose: 50 mg Allergies Allergies Allergy/AdvReac Type Severity Reaction Status Date / Time No Known Allergies Allergy Verified 08/07/23 16:19 Assessment & Plan Assessment & Plan (1) Drug overdose: Status: Acute Code(s): T50.901A - Poisoning by unspecified drugs, medicaments and biological substances, accidental (unintentional), initial encounter (2) Suicidal ideation: Status: Acute Code(s): R45.851 - Suicidal ideations (3) Alcohol use disorder, severe, dependence: Status: Acute Code(s): F10.20 - Alcohol dependence, uncomplicated (4) Schizoaffective disorder, bipolar type: Status: Acute Code(s): F25.0 - Schizoaffective disorder, bipolar type (5) PTSD (post-traumatic stress disorder): Status: Acute Code(s): F43.10 - Post-traumatic stress disorder, unspecified Plan 48 yo male, hx of schizoaffective disorder, bipolar type, PTSD, alcohol use disorder-severe,dependence and polysubstance use disorder presents for detox, re-establishment of medications and medical care. Hospital course: 08/11 patient remains in withdrawal; reviewed CIWA scores and they remain elevated; started patient on gabapentin 300 mg t.i.d. for withdrawal with plan to taper off; discuss this with patient who agrees 08/12Patient reports that he continues to feel withdrawal symptoms but that they are definitely getting better. He did get the flu shot yesterday and thinks he is feeling some residual side effects. He denies any AVH and says currently he does not have any SI. Patient said that he has a history of TBIs and has been having daily headaches since May. Discussed options and patient agrees to try Topamax after reviewing risks/side effects including risk of kidney stones which patient said he has never had. Patient also said he was prescribed Antabuse which he has never tried but says he very much needs and wants to start it soon. Plan: Continue CIWA with Ativan p.r.n. Start Topamax 25 mg daily for chronic daily headache following TBI Continue gabapentin 300 mg t.i.d.; will at some point taper off Obtain further neuro history as pt clears from detox, possible neuro consult. Ativan detox, MVI, Thiamine, Folate. Hold Antabuse Continue Campral, Amlodipine, Latuda Depakote 250 mg bid Melatonin 6 mg HS prn Patient educated on: diagnosis, medication risk/benefits, substance abuse and medical condition Informed Consent: understands Reason for continued inpatient stay Substantial Risk for: inability to function Time Spent With Patient Time: Total time managing care of this patient today ____ minutes.
[2023-08-12] MEDS: LORazepam 1 MG TABLET 2 MG PO ×3 (10:33→20:29)
[2023-08-12] MEDS: Topiramate 25 MG TABLET PO (13:06)
[2023-08-12] MEDS: LORazepam 1 MG TABLET PO (13:06)
[2023-08-12] MEDS: Acetaminophen 325 MG TABLET 650 MG PO (16:41)
[2023-08-12] MEDS: Ondansetron ODT 4 MG TAB.RAPDIS TRANSLINGU (16:41)
[2023-08-12 16:45] VITALS: BP 115/69; PULSE 70; RESP 16; TEMP 36.7; O2SAT 97
[2023-08-12] MEDS: Lurasidone HCl 40 MG TABLET PO (20:28)
[2023-08-12] MEDS: hydrOXYzine HCL 25 MG TABLET PO (20:28)
[2023-08-12] MEDS: Melatonin 3 MG TABLET 6 MG PO (20:29)
[2023-08-12] MEDS: traZODone HCL 50 MG TABLET PO (20:29)
[2023-08-13 08:35] VITALS: BP 104/58; PULSE 62; RESP 18; TEMP 36.6; O2SAT 96
[2023-08-13] MEDS: LORazepam 1 MG TABLET 3 MG PO ×2 (09:30→21:04)
[2023-08-13] MEDS: Acamprosate Calcium 333 MG TABLET.DR 666 MG PO ×3 (09:31→21:03)
[2023-08-13] MEDS: Folic Acid 1 MG TABLET PO (09:31)
[2023-08-13] MEDS: amLODIPine Besylate 2.5 MG TABLET PO (09:32)
[2023-08-13] MEDS: Topiramate 25 MG TABLET PO (09:32)
[2023-08-13] MEDS: Thiamine HCL 100 MG TABLET PO (09:32)
[2023-08-13] MEDS: Divalproex Sodium 250 MG TABLET.DR PO ×2 (09:32→21:03)
[2023-08-13] MEDS: Multivitamin TABLET 1 TAB PO (09:32)
--- NOTE | 2023-08-13 09:51 | P.PNPSI_ITS ---
Subjective Subjective Date of Service: 08/13/23 Reason For Visit: Schizoaffective d/o, s/p suicide attempt, alcoho Subjective Notes: Conditional Voluntary Interim History: Reviewed with Dr. Medeiros. Patient reports feeling depressed and anxious today. Pt stated, I have a headache that won't go away because of my head trauma . Patient is long winded in his responses to questions. pt reports he has not been sleeping well. denies SI/HI/VH/AH. Medication Compliance: Yes Review of Systems Constitutional: Reports as per HPI Eyes: Reports as per HPI Reports as per HPI Cardiovascular: Reports as per HPI Respiratory: Reports as per HPI Gastrointestinal: Reports as per HPI Genitourinary: Reports as per HPI Musculoskeletal: Reports as per HPI Skin/Breast: Reports as per HPI Reports as per HPI Psychiatric: Reports as per HPI Endocrine: Reports as per HPI Hematologic/Lymphatic: Reports as per HPI Allergic/Immunologic: Reports as per HPI Mental Status Exam Mental Status Exam Narrative: Pt is alert and oriented; behavior is cooperative and calm; dressed in casual attire; mood is described as depressed and anxious ; eye contact appropriate; Speech is normal rate, volume and prosody and not pressured; thought process is organized and goal directed; Thought content is on tx, circumstantial; otherwise pertinent to relevant topics and without any delusional content, paranoid ideations or grandiosity; denies SI/HI. There is no evidence of perceptual disturbance. Diagnostics Vital Signs (24Hr): Vital Signs - 24 hr 08/12/23 16:45 Temperature 98.1 F Pulse Rate 70 Respiratory Rate 16 Blood Pressure 115/69 Pulse Oximetry 97 Oxygen Delivery Method Room Air BMI result Body Mass Index 28.3 Labs 08/07/23 16:22 08/07/23 16:22 Medications Medications Current Medications Acamprosate (Acamprosate Calcium 333 Mg Tablet.) 666 mg PO TID [facility] Last Admin: 08/13/23 09:31 Dose: 666 mg Acetaminophen (Acetaminophen 325 Mg Tablet) 650 mg PO Q6H PRN PRN Reason: Headache/Pain Mild Scale (1-3) Last Admin: 08/12/23 16:41 Dose: 650 mg Al Hydroxide/Mg Hydroxide (Magnesium Hydrox/Alum Hydrox 30 Ml Oral.Susp) 30 ml PO Q6H PRN PRN Reason: Heartburn/Nausea Amlodipine Besylate (Amlodipine Besylate 2.5 Mg Tablet) 2.5 mg PO DAILY [facility]; Protocol Last Admin: 08/13/23 09:32 Dose: 2.5 mg Divalproex Sodium (Divalproex Sodium 250 Mg Tablet.Dr) 250 mg PO BID [facility] Last Admin: 08/13/23 09:32 Dose: 250 mg Folic Acid (Folic Acid 1 Mg Tablet) 1 mg PO DAILY [facility] Last Admin: 08/13/23 09:31 Dose: 1 mg Gabapentin (Gabapentin 600 Mg Tablet) 300 mg PO TID [facility] Stop: 08/13/23 15:00 Last Admin: 08/12/23 20:27 Dose: Not Given Gabapentin (Gabapentin 300 Mg Capsule) 300 mg PO BID [facility] Hydroxyzine HCl (Hydroxyzine Hcl 25 Mg Tablet) 25 mg PO Q6H PRN PRN Reason: Anxiety Last Admin: 08/12/23 20:28 Dose: 25 mg Ibuprofen (Ibuprofen 800 Mg Tablet) 800 mg PO Q8H PRN PRN Reason: Headache Last Admin: 08/12/23 20:29 Dose: 800 mg Lorazepam (Lorazepam 1 Mg Tablet) 1 mg PO Q2H PRN PRN Reason: CIWA 6-11 Last Admin: 08/12/23 13:06 Dose: 1 mg Lorazepam (Lorazepam 1 Mg Tablet) 2 mg PO Q2H PRN PRN Reason: ciwa 12-15 Last Admin: 08/12/23 20:29 Dose: 2 mg Lorazepam (Lorazepam 1 Mg Tablet) 3 mg PO Q2H PRN PRN Reason: CIWA >15 and call provider Last Admin: 08/13/23 09:30 Dose: 3 mg Lurasidone HCl (Lurasidone Hcl 40 Mg Tablet) 40 mg PO BEDTIME [facility] Last Admin: 08/12/23 20:28 Dose: 40 mg Magnesium Hydroxide (Milk Of Magnesia 30 Ml Oral.Susp) 30 ml PO DAILY PRN PRN Reason: Constipation Melatonin (Melatonin 3 Mg Tablet) 6 mg PO BEDTIME PRN PRN Reason: Sleep Last Admin: 08/12/23 20:29 Dose: 6 mg Multivitamins/Vitamin C (Multivitamin Tablet) 1 tab PO DAILY [facility] Last Admin: 08/13/23 09:32 Dose: 1 tab Ondansetron HCl (Ondansetron Odt 4 Mg Tab.Rapdis) 4 mg TRANSLINGU Q8H PRN PRN Reason: Nausea Last Admin: 08/12/23 16:41 Dose: 4 mg Thiamine HCl (Thiamine Hcl 100 Mg Tablet) 100 mg PO DAILY [facility] Last Admin: 08/13/23 09:32 Dose: 100 mg Topiramate (Topiramate 25 Mg Tablet) 25 mg PO DAILY [facility] Last Admin: 08/13/23 09:32 Dose: 25 mg Trazodone HCl (Trazodone Hcl 50 Mg Tablet) 50 mg PO BEDTIME MRX1 PRN PRN Reason: Insomnia Last Admin: 08/12/23 20:29 Dose: 50 mg Allergies Allergies Allergy/AdvReac Type Severity Reaction Status Date / Time No Known Allergies Allergy Verified 08/07/23 16:19 Assessment & Plan Assessment & Plan (1) Schizoaffective disorder, bipolar type: Status: Acute Code(s): F25.0 - Schizoaffective disorder, bipolar type (2) PTSD (post-traumatic stress disorder): Status: Acute Code(s): F43.10 - Post-traumatic stress disorder, unspecified (3) Drug overdose: Status: Acute Code(s): T50.901A - Poisoning by unspecified drugs, medicaments and biological substances, accidental (unintentional), initial encounter (4) Suicidal ideation: Status: Acute Code(s): R45.851 - Suicidal ideations (5) Alcohol use disorder, severe, dependence: Status: Acute Code(s): F10.20 - Alcohol dependence, uncomplicated Plan 48 yo male, hx of schizoaffective disorder, bipolar type, PTSD, alcohol use disorder-severe,dependence and polysubstance use disorder presents for detox, re-establishment of medications and medical care. Hospital course: 08/11 patient remains in withdrawal; reviewed CIWA scores and they remain elevated; started patient on gabapentin 300 mg t.i.d. for withdrawal with plan to taper off; discuss this with patient who agrees 08/12Patient reports that he continues to feel withdrawal symptoms but that they are definitely getting better. He did get the flu shot yesterday and thinks he is feeling some residual side effects. He denies any AVH and says currently he does not have any SI. Patient said that he has a history of TBIs and has been having daily headaches since May. Discussed options and patient agrees to try Topamax after reviewing risks/side effects including risk of kidney stones which patient said he has never had. Patient also said he was prescribed Antabuse which he has never tried but says he very much needs and wants to start it soon. 08/13: Patient reports feeling depressed and anxious today. Pt stated, I have a headache that won't go away because of my head trauma . Patient is long winded in his responses to questions. pt reports he has not been sleeping well. denies SI/HI/VH/AH. Continue current tx plan. Plan: Continue CIWA with Ativan p.r.n. Start Topamax 25 mg daily for chronic daily headache following TBI Continue gabapentin 300 mg t.i.d.; will at some point taper off Obtain further neuro history as pt clears from detox, possible neuro consult. Ativan detox, MVI, Thiamine, Folate. Hold Antabuse Continue Campral, Amlodipine, Latuda Depakote 250 mg bid Melatonin 6 mg HS prn Patient educated on: diagnosis, medication risk/benefits, substance abuse and therapeutic strategies Informed Consent: understands Reason for continued inpatient stay Substantial Risk for: med/psych decompensation Time Spent With Patient Time: Total time managing care of this patient today _30___ minutes.
[2023-08-13] MEDS: Gabapentin 300 MG CAPSULE PO ×2 (14:08→21:03)
[2023-08-13] MEDS: Gabapentin 600 MG TABLET 300 MG PO (16:06)
[2023-08-13] MEDS: LORazepam 1 MG TABLET 2 MG PO (16:13)
[2023-08-13 16:20] VITALS: BP 107/70; PULSE 69; RESP 16; TEMP 36.9; O2SAT 99
[2023-08-13] MEDS: Lurasidone HCl 40 MG TABLET PO (21:03)
[2023-08-13] MEDS: Acetaminophen 325 MG TABLET 650 MG PO (21:08)
[2023-08-13] MEDS: Melatonin 3 MG TABLET 6 MG PO (21:08)
[2023-08-13] MEDS: traZODone HCL 50 MG TABLET PO (21:08)
[2023-08-14] MEDS: Ibuprofen 800 MG TABLET PO ×2 (06:14→16:18)
[2023-08-14] MEDS: hydrOXYzine HCL 25 MG TABLET PO ×2 (06:14→16:19)
--- NOTE | 2023-08-14 06:41 | PC.NURSE ---
pt signed a 3 day notice on sunday08/14/23. up on sunday08/17/23.
[2023-08-14 08:20] VITALS: BP 118/66; PULSE 65; RESP 18; TEMP 36.9; O2SAT 95
[2023-08-14] MEDS: LORazepam 1 MG TABLET PO ×2 (09:09→12:08)
[2023-08-14] MEDS: amLODIPine Besylate 2.5 MG TABLET PO (09:09)
[2023-08-14] MEDS: Thiamine HCL 100 MG TABLET PO (09:10)
[2023-08-14] MEDS: Divalproex Sodium 250 MG TABLET.DR PO ×2 (09:10→21:48)
[2023-08-14] MEDS: Acamprosate Calcium 333 MG TABLET.DR 666 MG PO ×3 (09:10→21:47)
[2023-08-14] MEDS: Multivitamin TABLET 1 TAB PO (09:10)
[2023-08-14] MEDS: Folic Acid 1 MG TABLET PO (09:10)
[2023-08-14] MEDS: Topiramate 25 MG TABLET PO (09:16)
--- NOTE | 2023-08-14 09:32 | HO.PSYCHPN ---
Subjective Subjective Date of Service: 08/14/23 Reason For Visit: Schizoaffective d/o, s/p suicide attempt, alcoho Subjective Notes: Conditional Voluntary Interim History: Reviewed with Dr. Medeiros. Calm, cooperative, friendly. Circumstantial. Patient reports feeling depressed ; pt stated, I'm depressed about everything in my life . Patient reports he feels his withdrawal symptoms are decreasing. Continues on CIWA. 3 day up on 08/17/23. denies SI/HI. Medication Compliance: Yes Review of Systems Constitutional: Reports as per HPI Eyes: Reports as per HPI Reports as per HPI Cardiovascular: Reports as per HPI Respiratory: Reports as per HPI Gastrointestinal: Reports as per HPI Genitourinary: Reports as per HPI Musculoskeletal: Reports as per HPI Skin/Breast: Reports as per HPI Reports as per HPI Psychiatric: Reports as per HPI Endocrine: Reports as per HPI Hematologic/Lymphatic: Reports as per HPI Allergic/Immunologic: Reports as per HPI Mental Status Exam Mental Status Exam Narrative: Pt is alert and oriented; behavior is cooperative and calm; dressed in casual attire; mood is described as depressed and anxious ; eye contact appropriate; Speech is normal rate, volume and prosody and not pressured; thought process is organized and goal directed; Thought content is on tx, circumstantial; otherwise pertinent to relevant topics and without any delusional content, paranoid ideations or grandiosity; denies SI/HI. There is no evidence of perceptual disturbance. Diagnostics Vital Signs (24Hr): Vital Signs - 24 hr 08/13/23 16:20 Temperature 98.5 F Pulse Rate 69 Respiratory Rate 16 Blood Pressure 107/70 Pulse Oximetry 99 Oxygen Delivery Method Room Air BMI result Body Mass Index 28.3 Labs 08/07/23 16:22 08/07/23 16:22 Medications Medications Current Medications Acamprosate (Acamprosate Calcium 333 Mg Tablet.) 666 mg PO TID [facility] Last Admin: 08/14/23 09:10 Dose: 666 mg Acetaminophen (Acetaminophen 325 Mg Tablet) 650 mg PO Q6H PRN PRN Reason: Headache/Pain Mild Scale (1-3) Last Admin: 08/13/23 21:08 Dose: 650 mg Al Hydroxide/Mg Hydroxide (Magnesium Hydrox/Alum Hydrox 30 Ml Oral.Susp) 30 ml PO Q6H PRN PRN Reason: Heartburn/Nausea Amlodipine Besylate (Amlodipine Besylate 2.5 Mg Tablet) 2.5 mg PO DAILY [facility]; Protocol Last Admin: 08/14/23 09:09 Dose: 2.5 mg Divalproex Sodium (Divalproex Sodium 250 Mg Tablet.Dr) 250 mg PO BID [facility] Last Admin: 08/14/23 09:10 Dose: 250 mg Folic Acid (Folic Acid 1 Mg Tablet) 1 mg PO DAILY [facility] Last Admin: 08/14/23 09:10 Dose: 1 mg Gabapentin (Gabapentin 300 Mg Capsule) 300 mg PO BID [facility] Stop: 08/14/23 21:00 Last Admin: 08/13/23 21:03 Dose: 300 mg Gabapentin (Gabapentin 300 Mg Capsule) 300 mg PO DAILY [facility] Hydroxyzine HCl (Hydroxyzine Hcl 25 Mg Tablet) 25 mg PO Q6H PRN PRN Reason: Anxiety Last Admin: 08/14/23 06:14 Dose: 25 mg Ibuprofen (Ibuprofen 800 Mg Tablet) 800 mg PO Q8H PRN PRN Reason: Headache Last Admin: 08/14/23 06:14 Dose: 800 mg Lorazepam (Lorazepam 1 Mg Tablet) 1 mg PO Q2H PRN PRN Reason: CIWA 6-11 Last Admin: 08/14/23 09:09 Dose: 1 mg Lorazepam (Lorazepam 1 Mg Tablet) 2 mg PO Q2H PRN PRN Reason: ciwa 12-15 Last Admin: 08/13/23 16:13 Dose: 2 mg Lorazepam (Lorazepam 1 Mg Tablet) 3 mg PO Q2H PRN PRN Reason: CIWA >15 and call provider Last Admin: 08/13/23 21:04 Dose: 3 mg Lurasidone HCl (Lurasidone Hcl 40 Mg Tablet) 40 mg PO BEDTIME [facility] Last Admin: 08/13/23 21:03 Dose: 40 mg Magnesium Hydroxide (Milk Of Magnesia 30 Ml Oral.Susp) 30 ml PO DAILY PRN PRN Reason: Constipation Melatonin (Melatonin 3 Mg Tablet) 6 mg PO BEDTIME PRN PRN Reason: Sleep Last Admin: 08/13/23 21:08 Dose: 6 mg Multivitamins/Vitamin C (Multivitamin Tablet) 1 tab PO DAILY [facility] Last Admin: 08/14/23 09:10 Dose: 1 tab Ondansetron HCl (Ondansetron Odt 4 Mg Tab.Rapdis) 4 mg TRANSLINGU Q8H PRN PRN Reason: Nausea Last Admin: 08/12/23 16:41 Dose: 4 mg Thiamine HCl (Thiamine Hcl 100 Mg Tablet) 100 mg PO DAILY [facility] Last Admin: 08/14/23 09:10 Dose: 100 mg Topiramate (Topiramate 25 Mg Tablet) 25 mg PO DAILY [facility] Last Admin: 08/14/23 09:16 Dose: 25 mg Trazodone HCl (Trazodone Hcl 50 Mg Tablet) 50 mg PO BEDTIME MRX1 PRN PRN Reason: Insomnia Last Admin: 08/13/23 21:08 Dose: 50 mg Allergies Allergies Allergy/AdvReac Type Severity Reaction Status Date / Time No Known Allergies Allergy Verified 08/07/23 16:19 Assessment & Plan Assessment & Plan (1) Schizoaffective disorder, bipolar type: Status: Acute Code(s): F25.0 - Schizoaffective disorder, bipolar type (2) PTSD (post-traumatic stress disorder): Status: Acute Code(s): F43.10 - Post-traumatic stress disorder, unspecified (3) Drug overdose: Status: Acute Code(s): T50.901A - Poisoning by unspecified drugs, medicaments and biological substances, accidental (unintentional), initial encounter (4) Suicidal ideation: Status: Acute Code(s): R45.851 - Suicidal ideations (5) Alcohol use disorder, severe, dependence: Status: Acute Code(s): F10.20 - Alcohol dependence, uncomplicated Plan 48 yo male, hx of schizoaffective disorder, bipolar type, PTSD, alcohol use disorder-severe,dependence and polysubstance use disorder presents for detox, re-establishment of medications and medical care. Hospital course: 08/11 patient remains in withdrawal; reviewed CIWA scores and they remain elevated; started patient on gabapentin 300 mg t.i.d. for withdrawal with plan to taper off; discuss this with patient who agrees 08/12Patient reports that he continues to feel withdrawal symptoms but that they are definitely getting better. He did get the flu shot yesterday and thinks he is feeling some residual side effects. He denies any AVH and says currently he does not have any SI. Patient said that he has a history of TBIs and has been having daily headaches since May. Discussed options and patient agrees to try Topamax after reviewing risks/side effects including risk of kidney stones which patient said he has never had. Patient also said he was prescribed Antabuse which he has never tried but says he very much needs and wants to start it soon. 08/13: Patient reports feeling depressed and anxious today. Pt stated, I have a headache that won't go away because of my head trauma . Patient is long winded in his responses to questions. pt reports he has not been sleeping well. denies SI/HI/VH/AH. Continue current tx plan. 08/14: Calm, cooperative, friendly. Circumstantial. Patient reports feeling depressed ; pt stated, I'm depressed about everything in my life . Patient reports he feels his withdrawal symptoms are decreasing. Continues on CIWA. 3 day up on 08/17/23. denies SI/HI. Neuro consult placed for chronic headaches. Plan: Continue CIWA with Ativan p.r.n. Start Topamax 25 mg daily for chronic daily headache following TBI Continue gabapentin 300 mg t.i.d.; will at some point taper off Obtain further neuro history as pt clears from detox, possible neuro consult. Ativan detox, MVI, Thiamine, Folate. Hold Antabuse Continue Campral, Amlodipine, Latuda Depakote 250 mg bid Melatonin 6 mg HS prn Patient educated on: diagnosis, medication risk/benefits, substance abuse, therapeutic strategies and medical condition Informed Consent: understands Reason for continued inpatient stay Substantial Risk for: med/psych decompensation Time Spent With Patient Time: Total time managing care of this patient today _30___ minutes.
[2023-08-14] MEDS: Gabapentin 300 MG CAPSULE PO ×2 (11:38→21:48)
[2023-08-14 15:55] VITALS: BP 110/71; PULSE 67; TEMP 37
[2023-08-14] MEDS: LORazepam 1 MG TABLET 3 MG PO (16:19)
[2023-08-14 21:40] VITALS: BP 104/75; PULSE 73; TEMP 36.9
[2023-08-14] MEDS: Lurasidone HCl 40 MG TABLET PO (21:48)
[2023-08-14] MEDS: Melatonin 3 MG TABLET 6 MG PO (21:49)
[2023-08-14] MEDS: traZODone HCL 50 MG TABLET PO (21:49)
[2023-08-14] MEDS: Acetaminophen 325 MG TABLET 650 MG PO (22:02)
[2023-08-14] MEDS: Mupirocin 2 % Oint 22 GM TUBE 1 APPL TOPICAL (22:03)
[2023-08-15] MEDS: amLODIPine Besylate 2.5 MG TABLET PO (09:12)
[2023-08-15] MEDS: Divalproex Sodium 250 MG TABLET.DR PO ×2 (09:12→21:16)
[2023-08-15] MEDS: Topiramate 25 MG TABLET PO (09:13)
[2023-08-15] MEDS: Acamprosate Calcium 333 MG TABLET.DR 666 MG PO ×3 (09:13→21:17)
[2023-08-15] MEDS: Folic Acid 1 MG TABLET PO (09:13)
[2023-08-15] MEDS: Gabapentin 300 MG CAPSULE PO (09:13)
[2023-08-15] MEDS: Multivitamin TABLET 1 TAB PO (09:13)
[2023-08-15] MEDS: Thiamine HCL 100 MG TABLET PO (09:13)
[2023-08-15 09:20] VITALS: BP 109/59; PULSE 59; RESP 16; TEMP 36.9; O2SAT 95
--- NOTE | 2023-08-15 11:00 | HO.PSYCHPN ---
Subjective Subjective Date of Service: 08/15/23 Reason For Visit: Schizoaffective d/o, s/p suicide attempt, alcoho Subjective Notes: Conditional Voluntary and 3 Day Healthcare Proxy: No Guardianship: No Medical Problems Affecting Mental Status: No Interim History: Three day notice to 08/17. Pt improved, feeling improved, feeling prepared to return to OP team- [facility], [facility] and case mgt. Discussed his plan, returning to [facility] and Antabuse and following up with [facility] PCP for neuro follow up along with Dr. Tineo. 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 Long discussion of Antabuse and possible adverse effects. Medication Compliance: Yes Side effects from medications: No Attending Groups: Intermittent Review of Systems Acute medical concerns: No Medical Review of Systems: unchanged Review of Systems Review of Systems Yes all other systems are reviewed and are negative (pt denies) Mental Status Exam Mental Status Exam Patient Appearance: Appropriate Patient Orientation: Person, Place, Time and Situation Level of Consciousness: Alert Patient Behavior: Appropriate, Talkative and Good Eye Contact Mood Description: Appropriate Affect Description: Appropriate Patient Cognition Impaired: No Ability to Follow Directions: Good Speech Pattern: Spontaneous Speech Memory Description: Intact and Episodic Impaired Hallucinations: None Delusions: Not Present Thought Process: Goal Oriented Thought Content: positive for Goal Oriented Depressive Symptoms: Increased Anxiety Judgement: Good Diagnostics Vital Signs (24Hr): Vital Signs - 24 hr 08/14/23 15:55 08/14/23 21:40 08/15/23 09:20 Temperature 98.6 F 98.5 F 98.5 F Pulse Rate 67 73 59 Respiratory Rate 16 Blood Pressure 110/71 104/75 109/59 L Pulse Oximetry 95 Oxygen Delivery Method Room Air BMI result Body Mass Index 28.3 Labs 08/07/23 16:22 08/07/23 16:22 Medications Medications Current Medications Acamprosate (Acamprosate Calcium 333 Mg Tablet.) 666 mg PO TID [facility] Last Admin: 08/15/23 09:13 Dose: 666 mg Acetaminophen (Acetaminophen 325 Mg Tablet) 650 mg PO Q6H PRN PRN Reason: Headache/Pain Mild Scale (1-3) Last Admin: 08/14/23 22:02 Dose: 650 mg Al Hydroxide/Mg Hydroxide (Magnesium Hydrox/Alum Hydrox 30 Ml Oral.Susp) 30 ml PO Q6H PRN PRN Reason: Heartburn/Nausea Amlodipine Besylate (Amlodipine Besylate 2.5 Mg Tablet) 2.5 mg PO DAILY [facility]; Protocol Last Admin: 08/15/23 09:12 Dose: 2.5 mg Divalproex Sodium (Divalproex Sodium 250 Mg Tablet.Dr) 250 mg PO BID [facility] Last Admin: 08/15/23 09:12 Dose: 250 mg Folic Acid (Folic Acid 1 Mg Tablet) 1 mg PO DAILY [facility] Last Admin: 08/15/23 09:13 Dose: 1 mg Gabapentin (Gabapentin 300 Mg Capsule) 300 mg PO DAILY [facility] Last Admin: 08/15/23 09:13 Dose: 300 mg Hydrocortisone (Hydrocortisone 1 % Cream 28.35 Gm Tube) 1 appl TOPICAL Q6H PRN; Protocol PRN Reason: Itching Hydroxyzine HCl (Hydroxyzine Hcl 25 Mg Tablet) 25 mg PO Q6H PRN PRN Reason: Anxiety Last Admin: 08/14/23 16:19 Dose: 25 mg Ibuprofen (Ibuprofen 800 Mg Tablet) 800 mg PO Q8H PRN PRN Reason: Headache Last Admin: 08/14/23 16:18 Dose: 800 mg Lorazepam (Lorazepam 1 Mg Tablet) 1 mg PO Q2H PRN PRN Reason: CIWA 6-11 Last Admin: 08/14/23 12:08 Dose: 1 mg Lorazepam (Lorazepam 1 Mg Tablet) 2 mg PO Q2H PRN PRN Reason: ciwa 12-15 Last Admin: 08/13/23 16:13 Dose: 2 mg Lorazepam (Lorazepam 1 Mg Tablet) 3 mg PO Q2H PRN PRN Reason: CIWA >15 and call provider Last Admin: 08/14/23 16:19 Dose: 3 mg Lurasidone HCl (Lurasidone Hcl 40 Mg Tablet) 40 mg PO BEDTIME [facility] Last Admin: 08/14/23 21:48 Dose: 40 mg Magnesium Hydroxide (Milk Of Magnesia 30 Ml Oral.Susp) 30 ml PO DAILY PRN PRN Reason: Constipation Melatonin (Melatonin 3 Mg Tablet) 6 mg PO BEDTIME PRN PRN Reason: Sleep Last Admin: 08/14/23 21:49 Dose: 6 mg Multivitamins/Vitamin C (Multivitamin Tablet) 1 tab PO DAILY [facility] Last Admin: 08/15/23 09:13 Dose: 1 tab Mupirocin (Mupirocin 2 % Oint 22 Gm Tube) 1 appl TOPICAL TID [facility]; Protocol Stop: 08/24/23 20:59 Last Admin: 08/15/23 09:13 Dose: Not Given Ondansetron HCl (Ondansetron Odt 4 Mg Tab.Rapdis) 4 mg TRANSLINGU Q8H PRN PRN Reason: Nausea Last Admin: 08/12/23 16:41 Dose: 4 mg Thiamine HCl (Thiamine Hcl 100 Mg Tablet) 100 mg PO DAILY [facility] Last Admin: 08/15/23 09:13 Dose: 100 mg Topiramate (Topiramate 25 Mg Tablet) 25 mg PO DAILY [facility] Last Admin: 08/15/23 09:13 Dose: 25 mg Trazodone HCl (Trazodone Hcl 50 Mg Tablet) 50 mg PO BEDTIME MRX1 PRN PRN Reason: Insomnia Last Admin: 08/14/23 21:49 Dose: 50 mg Allergies Allergies Allergy/AdvReac Type Severity Reaction Status Date / Time No Known Allergies Allergy Verified 08/07/23 16:19 Assessment & Plan Assessment & Plan (1) Schizoaffective disorder, bipolar type: Status: Acute Code(s): F25.0 - Schizoaffective disorder, bipolar type (2) PTSD (post-traumatic stress disorder): Status: Acute Code(s): F43.10 - Post-traumatic stress disorder, unspecified (3) Drug overdose: Status: Acute Code(s): T50.901A - Poisoning by unspecified drugs, medicaments and biological substances, accidental (unintentional), initial encounter (4) Suicidal ideation: Status: Acute Code(s): R45.851 - Suicidal ideations (5) Alcohol use disorder, severe, dependence: Status: Acute Code(s): F10.20 - Alcohol dependence, uncomplicated Plan 48 yo male, hx of schizoaffective disorder, bipolar type, PTSD, alcohol use disorder-severe,dependence and polysubstance use disorder presents for detox, re-establishment of medications and medical care. Hospital course: 08/11 patient remains in withdrawal; reviewed CIWA scores and they remain elevated; started patient on gabapentin 300 mg t.i.d. for withdrawal with plan to taper off; discuss this with patient who agrees 08/12Patient reports that he continues to feel withdrawal symptoms but that they are definitely getting better. He did get the flu shot yesterday and thinks he is feeling some residual side effects. He denies any AVH and says currently he does not have any SI. Patient said that he has a history of TBIs and has been having daily headaches since May. Discussed options and patient agrees to try Topamax after reviewing risks/side effects including risk of kidney stones which patient said he has never had. Patient also said he was prescribed Antabuse which he has never tried but says he very much needs and wants to start it soon. 08/13: Patient reports feeling depressed and anxious today. Pt stated, I have a headache that won't go away because of my head trauma . Patient is long winded in his responses to questions. pt reports he has not been sleeping well. denies SI/HI/VH/AH. Continue current tx plan. 08/14: Calm, cooperative, friendly. Circumstantial. Patient reports feeling depressed ; pt stated, I'm depressed about everything in my life . Patient reports he feels his withdrawal symptoms are decreasing. Continues on CIWA. 3 day up on 08/17/23. denies SI/HI. Neuro consult placed for chronic headaches. 08/15: Discharge 08/17 to return to OP care. Plan: Continue CIWA with Ativan p.r.n. Start Topamax 25 mg daily for chronic daily headache following TBI Continue gabapentin 300 mg t.i.d.; will at some point taper off Obtain further neuro history as pt clears from detox, possible neuro consult. Ativan detox, MVI, Thiamine, Folate. Hold Antabuse Continue Campral, Amlodipine, Latuda Depakote 250 mg bid Melatonin 6 mg HS prn Patient educated on: therapeutic strategies Informed Consent: understands Reason for continued inpatient stay Substantial Risk for: med/psych decompensation Time Spent With Patient Time: Total time managing care of this patient today ____ minutes.
[2023-08-15 18:00] VITALS: BP 124/76; TEMP 36.6; O2SAT 96
[2023-08-15] MEDS: traZODone HCL 50 MG TABLET PO (21:16)
[2023-08-15] MEDS: Atorvastatin Calcium 10 MG TABLET PO (21:16)
[2023-08-15] MEDS: LORazepam 1 MG TABLET 2 MG PO (21:16)
[2023-08-15] MEDS: Ibuprofen 800 MG TABLET PO (21:17)
[2023-08-15] MEDS: Melatonin 3 MG TABLET 6 MG PO (21:18)
[2023-08-15] MEDS: Lurasidone HCl 40 MG TABLET PO (21:18)
[2023-08-15] MEDS: hydrOXYzine HCL 25 MG TABLET PO (21:24)
[2023-08-16] MEDS: Gabapentin 300 MG CAPSULE PO (09:18)
[2023-08-16] MEDS: Acamprosate Calcium 333 MG TABLET.DR 666 MG PO ×3 (09:18→21:22)
[2023-08-16] MEDS: Disulfiram 250 MG TABLET PO (09:18)
[2023-08-16] MEDS: Topiramate 25 MG TABLET PO (09:18)
[2023-08-16] MEDS: Divalproex Sodium 250 MG TABLET.DR PO ×2 (09:18→21:23)
[2023-08-16] MEDS: Folic Acid 1 MG TABLET PO (09:18)
[2023-08-16] MEDS: amLODIPine Besylate 2.5 MG TABLET PO (09:18)
[2023-08-16] MEDS: Multivitamin TABLET 1 TAB PO (09:18)
[2023-08-16] MEDS: Thiamine HCL 100 MG TABLET PO (09:19)
[2023-08-16 09:27] VITALS: BP 106/60; PULSE 63; RESP 16; TEMP 36.5; O2SAT 99
[2023-08-16 09:45] VITALS: BMI 28.8
[2023-08-16] MEDS: Ibuprofen 800 MG TABLET PO (14:40)
--- NOTE | 2023-08-16 15:06 | HO.PSYCHPN ---
Subjective Subjective Date of Service: 08/16/23 Reason For Visit: Schizoaffective d/o, s/p suicide attempt, alcoho Interim History: Preparing for discharge. Plans to return to [facility] and [facility]. Three day notice remains in effect Pt reports he is feeling prepared to discharge Medication Compliance: Yes Attending Groups: Intermittent Review of Systems Acute medical concerns: No Review of Systems Review of Systems Yes all other systems are reviewed and are negative Mental Status Exam Mental Status Exam Patient Appearance: Appropriate Patient Orientation: Person, Place, Time and Situation Level of Consciousness: Alert Patient Behavior: Appropriate, Talkative and Good Eye Contact Mood Description: Appropriate Affect Description: Appropriate Patient Cognition Impaired: No Ability to Follow Directions: Good Speech Pattern: Spontaneous Speech Memory Description: Intact and Episodic Impaired Hallucinations: None Delusions: Not Present Thought Process: Goal Oriented Thought Content: positive for Goal Oriented Depressive Symptoms: Increased Anxiety Judgement: Good Diagnostics Vital Signs (24Hr): Vital Signs - 24 hr 08/15/23 18:00 08/16/23 09:27 Temperature 97.8 F 97.7 F Pulse Rate 63 Respiratory Rate 16 Blood Pressure 124/76 106/60 Pulse Oximetry 96 99 Oxygen Delivery Method Room Air Room Air BMI result Body Mass Index 28.8 Labs 08/07/23 16:22 08/07/23 16:22 Medications Medications Current Medications Acamprosate (Acamprosate Calcium 333 Mg Tablet.Dr) 666 mg PO TID [facility] Last Admin: 08/16/23 14:38 Dose: 666 mg Acetaminophen (Acetaminophen 325 Mg Tablet) 650 mg PO Q6H PRN PRN Reason: Headache/Pain Mild Scale (1-3) Last Admin: 08/14/23 22:02 Dose: 650 mg Al Hydroxide/Mg Hydroxide (Magnesium Hydrox/Alum Hydrox 30 Ml Oral.Susp) 30 ml PO Q6H PRN PRN Reason: Heartburn/Nausea Amlodipine Besylate (Amlodipine Besylate 2.5 Mg Tablet) 2.5 mg PO DAILY [facility]; Protocol Last Admin: 08/16/23 09:18 Dose: 2.5 mg Atorvastatin Calcium (Atorvastatin Calcium 10 Mg Tablet) 10 mg PO BEDTIME [facility] Last Admin: 08/15/23 21:16 Dose: 10 mg Disulfiram (Disulfiram 250 Mg Tablet) 250 mg PO DAILY [facility] Last Admin: 08/16/23 09:18 Dose: 250 mg Divalproex Sodium (Divalproex Sodium 250 Mg Tablet.Dr) 250 mg PO BID [facility] Last Admin: 08/16/23 09:18 Dose: 250 mg Folic Acid (Folic Acid 1 Mg Tablet) 1 mg PO DAILY [facility] Last Admin: 08/16/23 09:18 Dose: 1 mg Gabapentin (Gabapentin 300 Mg Capsule) 300 mg PO DAILY [facility] Last Admin: 08/16/23 09:18 Dose: 300 mg Hydrocortisone (Hydrocortisone 1 % Cream 28.35 Gm Tube) 1 appl TOPICAL Q6H PRN; Protocol PRN Reason: Itching Hydroxyzine HCl (Hydroxyzine Hcl 25 Mg Tablet) 25 mg PO Q6H PRN PRN Reason: Anxiety Last Admin: 08/15/23 21:24 Dose: 25 mg Ibuprofen (Ibuprofen 800 Mg Tablet) 800 mg PO Q8H PRN PRN Reason: Headache Last Admin: 08/16/23 14:40 Dose: 800 mg Lorazepam (Lorazepam 1 Mg Tablet) 1 mg PO Q2H PRN PRN Reason: CIWA 6-11 Last Admin: 08/14/23 12:08 Dose: 1 mg Lurasidone HCl (Lurasidone Hcl 40 Mg Tablet) 40 mg PO BEDTIME [facility] Last Admin: 08/15/23 21:18 Dose: 40 mg Magnesium Hydroxide (Milk Of Magnesia 30 Ml Oral.Susp) 30 ml PO DAILY PRN PRN Reason: Constipation Melatonin (Melatonin 3 Mg Tablet) 6 mg PO BEDTIME PRN PRN Reason: Sleep Last Admin: 08/15/23 21:18 Dose: 6 mg Multivitamins/Vitamin C (Multivitamin Tablet) 1 tab PO DAILY [facility] Last Admin: 08/16/23 09:18 Dose: 1 tab Mupirocin (Mupirocin 2 % Oint 22 Gm Tube) 1 appl TOPICAL TID [facility]; Protocol Stop: 08/24/23 20:59 Last Admin: 08/16/23 14:41 Dose: Not Given Ondansetron HCl (Ondansetron Odt 4 Mg Tab.Rapdis) 4 mg TRANSLINGU Q8H PRN PRN Reason: Nausea Last Admin: 08/12/23 16:41 Dose: 4 mg Thiamine HCl (Thiamine Hcl 100 Mg Tablet) 100 mg PO DAILY [facility] Last Admin: 08/16/23 09:19 Dose: 100 mg Topiramate (Topiramate 25 Mg Tablet) 25 mg PO DAILY [facility] Last Admin: 08/16/23 09:18 Dose: 25 mg Trazodone HCl (Trazodone Hcl 50 Mg Tablet) 50 mg PO BEDTIME MRX1 PRN PRN Reason: Insomnia Last Admin: 08/15/23 21:16 Dose: 50 mg Allergies Allergies Allergy/AdvReac Type Severity Reaction Status Date / Time No Known Allergies Allergy Verified 08/07/23 16:19 Assessment & Plan Assessment & Plan (1) Schizoaffective disorder, bipolar type: Status: Acute Code(s): F25.0 - Schizoaffective disorder, bipolar type (2) PTSD (post-traumatic stress disorder): Status: Acute Code(s): F43.10 - Post-traumatic stress disorder, unspecified (3) Drug overdose: Status: Resolved Code(s): T50.901A - Poisoning by unspecified drugs, medicaments and biological substances, accidental (unintentional), initial encounter (4) Suicidal ideation: Status: Resolved Code(s): R45.851 - Suicidal ideations (5) Alcohol use disorder, severe, dependence: Status: Acute Code(s): F10.20 - Alcohol dependence, uncomplicated Plan 48 yo male, hx of schizoaffective disorder, bipolar type, PTSD, alcohol use disorder-severe,dependence and polysubstance use disorder presents for detox, re-establishment of medications and medical care. Hospital course: 08/11 patient remains in withdrawal; reviewed CIWA scores and they remain elevated; started patient on gabapentin 300 mg t.i.d. for withdrawal with plan to taper off; discuss this with patient who agrees 08/12Patient reports that he continues to feel withdrawal symptoms but that they are definitely getting better. He did get the flu shot yesterday and thinks he is feeling some residual side effects. He denies any AVH and says currently he does not have any SI. Patient said that he has a history of TBIs and has been having daily headaches since May. Discussed options and patient agrees to try Topamax after reviewing risks/side effects including risk of kidney stones which patient said he has never had. Patient also said he was prescribed Antabuse which he has never tried but says he very much needs and wants to start it soon. 08/13: Patient reports feeling depressed and anxious today. Pt stated, I have a headache that won't go away because of my head trauma . Patient is long winded in his responses to questions. pt reports he has not been sleeping well. denies SI/HI/VH/AH. Continue current tx plan. 08/14: Calm, cooperative, friendly. Circumstantial. Patient reports feeling depressed ; pt stated, I'm depressed about everything in my life . Patient reports he feels his withdrawal symptoms are decreasing. Continues on CIWA. 3 day up on 08/17/23. denies SI/HI. Neuro consult placed for chronic headaches. 08/16/23: Discharge 08/17. Plan: Continue CIWA with Ativan p.r.n. Start Topamax 25 mg daily for chronic daily headache following TBI Continue gabapentin 300 mg t.i.d.; will at some point taper off Obtain further neuro history as pt clears from detox, possible neuro consult. Ativan detox, MVI, Thiamine, Folate. Hold Antabuse Continue Campral, Amlodipine, Latuda Depakote 250 mg bid Melatonin 6 mg HS prn Patient educated on: medication risk/benefits and therapeutic strategies Informed Consent: understands Reason for continued inpatient stay Substantial Risk for: rapid decompensation Time Spent With Patient Time: Total time managing care of this patient today ____ minutes.
[2023-08-16] MEDS: LORazepam 1 MG TABLET PO ×2 (16:06→21:28)
[2023-08-16] MEDS: Atorvastatin Calcium 10 MG TABLET PO (21:22)
[2023-08-16] MEDS: Lurasidone HCl 40 MG TABLET PO (21:23)
[2023-08-16] MEDS: traZODone HCL 50 MG TABLET PO (21:27)
[2023-08-16] MEDS: hydrOXYzine HCL 25 MG TABLET PO (21:27)
[2023-08-16] MEDS: Melatonin 3 MG TABLET 6 MG PO (21:29)
[2023-08-16] MEDS: Acetaminophen 325 MG TABLET 650 MG PO (21:29)
[2023-08-16 22:10] VITALS: BP 135/92; PULSE 70; TEMP 36.9; O2SAT 97
[2023-08-17] MEDS: Multivitamin TABLET 1 TAB PO (10:11)
[2023-08-17] MEDS: Gabapentin 300 MG CAPSULE PO (10:11)
[2023-08-17] MEDS: Folic Acid 1 MG TABLET PO (10:11)
[2023-08-17] MEDS: Thiamine HCL 100 MG TABLET PO (10:11)
[2023-08-17] MEDS: amLODIPine Besylate 2.5 MG TABLET PO (10:11)
[2023-08-17] MEDS: Acamprosate Calcium 333 MG TABLET.DR 666 MG PO (10:11)
[2023-08-17] MEDS: Disulfiram 250 MG TABLET PO (10:11)
[2023-08-17] MEDS: Divalproex Sodium 250 MG TABLET.DR PO (10:11)
[2023-08-17] MEDS: Topiramate 25 MG TABLET PO (10:12)
[2023-08-17 10:22] VITALS: BP 123/72; PULSE 66; RESP 18; TEMP 36.7; O2SAT 96
--- NOTE | 2023-08-17 10:25 | PM.PSYDC ---
DS: Providers Provider Date of Service: 08/17/23 Date of admission: 08/09/23 17:24 Date of discharge: 08/17/23 Primary care physician: Unknown Physician Admitting clinician: Clemencia Dyson Attending physician on admission: Dk Medeiros Consults: 08/14/23 14:53 Consult to Neurology Routine Consulting Provider: [facility] Reason for consultation: Chronic headaches Attending physician on discharge: Dk Medeiros Discharging clinician: Clemencia Dyson DS: Diagnosis Discharge Diagnosis (1) Schizoaffective disorder, bipolar type: Status: Acute (2) PTSD (post-traumatic stress disorder): Status: Acute (3) Drug overdose: Status: Resolved (4) Suicidal ideation: Status: Resolved (5) Alcohol use disorder, severe, dependence: Status: Acute DS: Medications Discharge Medications Home Medications: Previous Rx's Medication Instructions Recorded acamprosate 333 mg tablet,delayed 666 mg (2 x 333 mg) PO TID #180 08/16/23 release tabs amlodipine 2.5 mg tablet 2.5 mg PO QAM #30 tabs 08/16/23 atorvastatin 10 mg tablet 10 mg PO BEDTIME #30 tabs 08/16/23 disulfiram 250 mg tablet 500 mg (2 x 250 mg) PO DAILY #60 08/16/23 tabs divalproex 250 mg tablet,delayed 250 mg PO BID #60 tabs 08/16/23 release folic acid 1 mg tablet 1 mg PO DAILY #30 tabs 08/16/23 gabapentin 300 mg capsule 300 mg PO DAILY #30 caps 08/16/23 hydrocortisone 1 % topical cream 1 appl topical Q6H PRN Itching #1 08/16/23 units hydroxyzine HCl 25 mg tablet 25 mg PO Q6H PRN Anxiety #60 tabs 08/16/23 ibuprofen 800 mg tablet 800 mg PO Q8H PRN Headache #30 tabs 08/16/23 lurasidone 40 mg tablet 40 mg PO QPM #30 tabs 08/16/23 melatonin 5 mg tablet 5 mg PO BEDTIME #30 tabs 08/16/23 multivitamin (Daily-Tiffanie tablet) 1 tab PO DAILY #30 tabs 08/16/23 mupirocin 2 % topical ointment 1 appl topical TID #1 units 08/16/23 ondansetron 4 mg disintegrating 4 mg translingual Q8H PRN Nausea 08/16/23 tablet #60 tabs thiamine mononitrate (vit B1) 100 100 mg PO DAILY #30 tabs 08/16/23 mg tablet topiramate 25 mg tablet 25 mg PO DAILY #30 tabs 08/16/23 trazodone 50 mg tablet 50 mg PO BEDTIME MRX1 PRN Insomnia 08/16/23 #60 tabs Mental Status Exam Mental Status Exam Patient Appearance: Appropriate Patient Orientation: Person, Place, Time and Situation Level of Consciousness: Alert Patient Behavior: Appropriate, Talkative and Good Eye Contact Mood Description: Appropriate Affect Description: Appropriate Patient Cognition Impaired: No Ability to Follow Directions: Good Speech Pattern: Spontaneous Speech Memory Description: Intact and Episodic Impaired Hallucinations: None Delusions: Not Present Thought Process: Goal Oriented Thought Content: positive for Goal Oriented Depressive Symptoms: Increased Anxiety Judgement: Good DS: Summary Hospital Course Hospital Course: Admission to adult psychiatry for exacerbation of schizoaffective disorder, bipolar type, alcohol use disorder, PTSD. Medications were evaluated and adjusted. Pt was able to benefit from some [facility] offerings for treatment. He discharges on a three day notice and will return to [facility] and [facility] through [facility] care management. Status at Discharge Functional status at discharge: independent ambulation Overall status at discharge: patient is progressing back to baseline Time Spent with Patient Time attestation: Total time managing care of this patient today ____ minutes. Time spent: Greater than 30 minutes Discharge Plan Discharge Anticipated Discharge Date/Time: 08/17/23 12:00 Patient Disposition: Home, Self-Care Discharge Diagnosis: PTSD Schizoaffective Disorder, Bipolar Type Alcohol Use Disorder-severe, dependence Referrals: Addictions Physician: Dr. Tineo ([facility]) [Other] - 08/21/23 10:00 am (Appointment is in person at [facility]) PCP: Dr. Harman Vang ([facility]) [Other] - 09/06/23 10:00 am (Appointment is in person at [facility]) Psychiatric Prescriber:Geoffrey Quigley ([facility]) [Other] - 09/11/23 11:00 am (Appointment is in person at [facility]) CCA Product Marketer:Salma Nogueira ([facility]) [Other] - 1 Week (Call Salma to follow up and as needed for support or with any questions/needs ) Jean Palmer MD [Physician] - 09/06/23 3:30 pm (Appointment is at the office here within [facility]. Enter the hospital through the Main Entrance and take elevators D or E to the 4th floor: their office is to the right off the elevator, all the way at the end of the [address]) Discharge Medications: New divalproex 250 mg Tablet,Delayed Release (Dr/Ec) 250 mg PO BID Qty: 60 0RF trazodone 50 mg Tablet 50 mg PO BEDTIME MRX1 PRN (Reason: Insomnia) Qty: 60 0RF atorvastatin 10 mg Tablet 10 mg PO BEDTIME Qty: 30 0RF ibuprofen 800 mg Tablet 800 mg PO Q8H PRN (Reason: Headache) Qty: 30 0RF topiramate 25 mg Tablet 25 mg PO DAILY Qty: 30 0RF gabapentin 300 mg Capsule 300 mg PO DAILY Qty: 30 0RF hydroxyzine HCl 25 mg Tablet 25 mg PO Q6H PRN (Reason: Anxiety) Qty: 60 0RF ondansetron 4 mg Tablet,Disintegrating 4 mg translingual Q8H PRN (Reason: Nausea) Qty: 60 0RF hydrocortisone 1 % Cream 1 appl topical Q6H PRN (Reason: Itching) Qty: 1 0RF Protocol: Apply to: Apply to: HANDS folic acid 1 mg Tablet 1 mg PO DAILY Qty: 30 0RF mupirocin 2 % Ointment 1 appl topical TID Qty: 1 0RF Protocol: Apply to: Apply to: HANDS multivitamin [Daily-Tiffanie] Tablet 1 tab PO DAILY Qty: 30 0RF thiamine mononitrate (vit B1) 100 mg Tablet 100 mg PO DAILY Qty: 30 0RF Continued amlodipine 2.5 mg tablet 2.5 mg PO QAM Qty: 30 0RF disulfiram 250 mg tablet 500 mg PO DAILY Qty: 60 0RF acamprosate 333 mg tablet,delayed release (DR/EC) 666 mg PO TID Qty: 180 0RF melatonin 5 mg tablet 5 mg PO BEDTIME Qty: 30 0RF lurasidone 40 mg tablet 40 mg PO QPM Qty: 30 0RF Discharge Orders: Discharge Order (Routine); Ordered 08/17/23 Ordered By: Clemencia Dyson Diet: Advance to usual diet Activity on Discharge: As tolerated Stand Alone Forms: Patient Portal Discharge page, Community Support Care Plan Goals: Mood and Behavioral Stabilization Work on Sobriety Health Concerns: Mood and Behavioral Stabilization Sobriety Plan of Treatment: Attend scheduled appointments Take medications as directed Assessment: Discharge on a three day notice. Discharge Date/Time: 08/17/23 11:00
== END 2023-08-17 11:00 | disposition home or self-care (01) | DRG 885 ==
LOC: HO.ED 21:09 → HO.PM5 08-09 17:29
PROVIDERS: Student in an Organized Health Care Education/Training Program; Admitting Provider Psychiatry & Neurology Psychiatry; Emergency Provider Emergency Medicine; Visit Provider Clinical Nurse Specialist Psychiatric/Mental Health, Adult
DX: F25.0 Schizoaffective disorder, bipolar type (principal); F10.239 Alcohol dependence with withdrawal, unspecified; T50.902A Poisoning by unspecified drugs, medicaments and biological substances, intentional self-harm, initial encounter; F19.90 Other psychoactive substance use, unspecified, uncomplicated; F43.10 Post-traumatic stress disorder, unspecified; Z20.822 Contact with and (suspected) exposure to COVID-19; Z87.820 Personal history of traumatic brain injury; Y90.8 Blood alcohol level of 240 mg/100 ml or more; Z79.899 Other long term (current) drug therapy
CPT/HCPCS: 36415; 80048; 80061; 80076; 80143; 80179; 80307; 81003; 82947; 83735; 83880; 84439; 84484; 85025; 85610; 87635; 90686; 93005; 99285; S9485

== ENCOUNTER → 2023-08-07 16:11 | Outpatient (BNV) | payer OTHER, SELFPAY | PROVIDERS: Emergency Provider Emergency Medicine; Visit Provider Internal Medicine Cardiovascular Disease | DX: R07.9 Chest pain, unspecified (principal) | CPT/HCPCS: 93010 ==

== ENCOUNTER → 2023-08-09 17:24 | Outpatient (BNV) | payer OTHER, SELFPAY | PROVIDERS: Admitting Provider Psychiatry & Neurology Psychiatry; Emergency Provider Emergency Medicine; Visit Provider Clinical Nurse Specialist Psychiatric/Mental Health, Adult | DX: F25.0 Schizoaffective disorder, bipolar type (principal); F43.11 Post-traumatic stress disorder, acute; T50.901A Poisoning by unspecified drugs, medicaments and biological substances, accidental (unintentional), initial encounter; R45.851 Suicidal ideations; F10.20 Alcohol dependence, uncomplicated | CPT/HCPCS: 90792; 99231; 99232; 99238 ==

== ENCOUNTER 2023-10-04 12:05 | Emergency (ER) | payer OTHER, SELFPAY ==
--- NOTE | ~2023-10-04 | CT_ITS ---
Lamination: Chest and CT brain without IV contrast. Clinical indications: Cough, EtOH and multiple falls. COMPARISON: CT brain 05/16/2023. TECHNIQUE: 5 mm thin axial and reformatted 2 mm thin sagittal and coronal images of brain were obtained without contrast. DLP [id number]. This CT examination was performed using dose optimization technique as appropriate, variously including the following: Automated exposure control Adjustment of MA and/or KV according to patient size(this includes techniques or standardized protocols for targeted exams where dose is matched to indication/reason for exam; extremities or head. Use of iterative reconstruction techniques. Chest one view. FINDINGS: Chest x-ray: The lungs are well-expanded and clear of acute process. The heart size and pulmonary vascularity is normal. There is mild spondylosis of dorsal spine. No aggressive lytic or sclerotic process seen. Brain: No acute intra-axial, extra-axial bleed, masses or midline shift. There is no acute infarction in evolution. The disla to white matter differentiation is maintained normal. The lateral ventricles are symmetrical in size and configuration without enlargement. No abnormality seen in the posterior fossa. Bone windows reveal no calvarial abnormality. There is no scalp soft tissue abnormality. Bilateral paranasal sinuses and mastoid air cells are well aerated. CT/CT head/brain wo IV con IMPRESSION: 1. Unremarkable chest x-ray. 2. Unremarkable CT brain exam.
--- NOTE | 2023-10-04 12:08 | ECG_ITS ---
Test Reason : CP Blood Pressure : / mmHG Vent. Rate : 062 BPM Atrial Rate : 062 BPM P-R Int : 152 ms QRS Dur : 088 ms QT Int : 486 ms P-R-T Axes : -21 032 010 degrees QTc Int : 493 ms Normal sinus rhythm Prolonged QT Abnormal ECG When compared with ECG of 07-AUG-2023 16:16, QT has lengthened Referred By: Generic ED Physician Electronically Signed By:DONNIE SHETH
[2023-10-04 12:23] VITALS: BP 145/94; BP 165/100; PULSE 65; PULSE 72; RESP 19; TEMP 36.5; O2SAT 98; BMI 70.0
--- NOTE | 2023-10-04 12:24 | ED.CHESTPAIN ---
HPI - Chest Pain General Chief Complaint: ETOH/Substance Use Stated Complaint: CP PER EMS Time Seen by Provider: 10/04/23 13:13 Related Data Previous Rx's Medication Instructions Recorded acamprosate 333 mg tablet,delayed 666 mg (2 x 333 mg) PO TID #180 08/16/23 release tabs amlodipine 2.5 mg tablet 2.5 mg PO QAM #30 tabs 08/16/23 atorvastatin 10 mg tablet 10 mg PO BEDTIME #30 tabs 08/16/23 disulfiram 250 mg tablet 500 mg (2 x 250 mg) PO DAILY #60 08/16/23 tabs divalproex 250 mg tablet,delayed 250 mg PO BID #60 tabs 08/16/23 release folic acid 1 mg tablet 1 mg PO DAILY #30 tabs 08/16/23 gabapentin 300 mg capsule 300 mg PO DAILY #30 caps 08/16/23 hydrocortisone 1 % topical cream 1 appl topical Q6H PRN Itching #1 08/16/23 units hydroxyzine HCl 25 mg tablet 25 mg PO Q6H PRN Anxiety #60 tabs 08/16/23 ibuprofen 800 mg tablet 800 mg PO Q8H PRN Headache #30 tabs 08/16/23 lurasidone 40 mg tablet 40 mg PO QPM #30 tabs 08/16/23 melatonin 5 mg tablet 5 mg PO BEDTIME #30 tabs 08/16/23 multivitamin (Daily-Tiffanie tablet) 1 tab PO DAILY #30 tabs 08/16/23 mupirocin 2 % topical ointment 1 appl topical TID #1 units 08/16/23 ondansetron 4 mg disintegrating 4 mg translingual Q8H PRN Nausea 08/16/23 tablet #60 tabs thiamine mononitrate (vit B1) 100 100 mg PO DAILY #30 tabs 08/16/23 mg tablet topiramate 25 mg tablet 25 mg PO DAILY #30 tabs 08/16/23 trazodone 50 mg tablet 50 mg PO BEDTIME MRX1 PRN Insomnia 08/16/23 #60 tabs Allergies Allergy/AdvReac Type Severity Reaction Status Date / Time No Known Allergies Allergy Verified 08/07/23 16:19 [facility] Past Medical History Medical History PTSD (post-traumatic stress disorder) Schizoaffective disorder, bipolar type Alcohol use disorder, severe, dependence Alcoholic liver disease Schizo affective schizophrenia Anxiety Acid reflux Depression Family History Family History Mother No problems noted. Father No problems noted. Mother No problems noted. 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 Blood noted in vomit. Trouble tolerating PO. Began shaking and hasn't been able to stop. Thought he was withdrawing from alcohol as he hasn't had ETOH in 2 days, tried to drink alcohol today but vomited right after. Typically drinks daily but has been trying to cut down. Has gone through withdrawl in the past. Tremors at rest, reports floaters in his vision. Denies hallucinations. Reports rhinorrhea and chills. Hasn't taken his temperature. Seen in urgent care prior to arrival. Brought to ED by EMS CIWA 12 Head injury from an ETOH seizure in the past. Has not taken any of his HTN meds in 3 weeks. Medications Administered Discontinued Medications Generic Name Dose Route Start Last Admin Trade Name Freq PRN Reason Stop Dose Admin Sodium Chloride 1,000 mls @ 999 mls/hr 10/04/23 13:23 10/04/23 14:50 Ns IVCONT 10/04/23 14:23 Infused .Q1H1M ONE Infusion Lorazepam 2 mg 10/04/23 13:26 10/04/23 13:44 Lorazepam 1 Mg Tablet PO 10/04/23 13:27 2 mg ONCE ONE Administration Magnesium Oxide 400 mg 10/04/23 15:24 10/04/23 15:37 Magnesium Oxide 400 Mg Tablet PO 10/04/23 15:25 400 mg ONCE ONE Administration Pantoprazole Sodium 80 mg 10/04/23 13:25 10/04/23 13:44 Pantoprazole Sodium 40 Mg/10 Ml Vial IVPUSH 10/04/23 13:26 80 mg ONCE ONE Administration Medical Decision Making Lab Data 10/04/23 13:34 10/04/23 13:34 Labs: Lab Results 10/04/23 10/04/23 10/04/23 Range/Units 12:43 13:34 15:43 WBC 6.0 7.2 (4.8-10.8) X10*3/uL RBC 5.14 D 4.91 (4.60-5.80) X10*6/uL Hgb 15.7 D 15.2 (14.0-18.0) g/dl Hct 45.1 D 43.1 (42.0-52.0) % MCV 87.7 87.8 (80.0-98.0) fL MCH 30.5 31.0 (27.0-33.0) pg MCHC 34.8 35.3 (31.0-36.0) g/dl RDW 12.7 13.0 (11.0-16.0) % Plt Count 300 D 294 (160-400) X10*3/uL MPV 9.7 9.6 (9.4-12.4) fL Immature Gran % (Auto) 0.2 0.3 (0.0-0.4) % Neut % (Auto) 62.4 64.6 (45-73) % Lymph % (Auto) 25.5 22.7 (20-40) % Finney % (Auto) 10.4 11.1 H (2-11) % Eos % (Auto) 0.2 0.1 (0-4) % Baso % (Auto) 1.3 1.2 (0-2) % Lymph # (Auto) 1.5 1.6 (1.2-4.9) X10*3/uL Finney # (Auto) 0.6 0.8 (0.1-1.2) X10*3/uL Eos # (Auto) 0.0 0.0 (0.0-0.4) X10*3/uL Baso # (Auto) 0.1 0.1 (0.0-0.2) X10*3/uL Abs Immat Gran (auto) 0.01 0.02 (0.00-0.03) X10*3/uL Absolute Neuts (auto) 3.8 4.7 (2.0-8.3) x10*3/uL Absolute Nucleated RBC 0.000 0.000 (0.0-0.012) X10*3/uL Nucleated RBC % (auto) 0.0 0.0 (0.0-0.2) /100WBC PT 13.3 (11.1-13.3) SEC INR 1.1 (0.9-1.1) D-Dimer High Sensitivty < 150 NG/ML Sodium 143 141 (135-145) mmol/L Potassium 3.9 3.6 (3.3-5.1) mmol/L Chloride 104 104 (96-108) mmol/L Carbon Dioxide 21 L 25 (22-29) mmol/L Anion Gap 22 H 16 (12-20) BUN 13 13 (9-16) mg/dL Creatinine 0.75 0.75 (0.5-1.4) mg/dL Estim Creat Clear Calc 221.1 221.1 Estimated GFR > 60 > 60 Random Glucose 92 96 (60-115) mg/dL Calcium 9.5 D 9.2 (8.4-10.2) mg/dL Magnesium 1.5 L (1.6-2.6) mg/dL Total Bilirubin 1.2 H 1.3 H (0.0-1.0) mg/dL Direct Bilirubin 0.5 (0.0-0.5) mg/dL AST 96 H 89 H (5-37) U/L ALT 73 H 69 H (0-40) U/L Alkaline Phosphatase 85 79 (39-117) U/L Troponin I High Sens 44.1 H 32.0 (<3.5-35.0) ng/L B-Natriuretic Peptide 18 (<100) pg/mL Total Protein 8.7 H 8.0 (6.5-8.0) g/dL Albumin 4.8 4.4 (3.5-5.0) g/dL Lipase 13 (8-78) U/L Stool Occult Blood NEGATIVE (NEGATIVE) Ethyl Alcohol 18 mg/dL COVID-19 ([facility]KOLAS) Negative (Negative) COVID-19 Clin Com See Note Influenza Type A (REBECA) Negative (Negative) Influenza Type B (REBECA) Negative (Negative) Influenza A & B Note See Note Discharge Plan Discharge Clinical Impression: Chronic chest pain, Chronic fatigue Patient Disposition: Home, Self-Care Instructions: Chest Pain (ED), Fatigue (ED) Additional Instructions: Please follow-up with your primary care physician tomorrow. If you have any worsening or new symptoms, please return to the emergency room or call 911 Prescriptions: No Action divalproex 250 mg Tablet,Delayed Release (Dr/Ec) 250 mg PO BID Qty: 60 0RF trazodone 50 mg Tablet 50 mg PO BEDTIME MRX1 PRN (Reason: Insomnia) Qty: 60 0RF atorvastatin 10 mg Tablet 10 mg PO BEDTIME Qty: 30 0RF ibuprofen 800 mg Tablet 800 mg PO Q8H PRN (Reason: Headache) Qty: 30 0RF topiramate 25 mg Tablet 25 mg PO DAILY Qty: 30 0RF gabapentin 300 mg Capsule 300 mg PO DAILY Qty: 30 0RF hydroxyzine HCl 25 mg Tablet 25 mg PO Q6H PRN (Reason: Anxiety) Qty: 60 0RF ondansetron 4 mg Tablet,Disintegrating 4 mg translingual Q8H PRN (Reason: Nausea) Qty: 60 0RF hydrocortisone 1 % Cream 1 appl topical Q6H PRN (Reason: Itching) Qty: 1 0RF Protocol: Apply to: Apply to: HANDS folic acid 1 mg Tablet 1 mg PO DAILY Qty: 30 0RF mupirocin 2 % Ointment 1 appl topical TID Qty: 1 0RF Protocol: Apply to: Apply to: HANDS multivitamin [Daily-Tiffanie] Tablet 1 tab PO DAILY Qty: 30 0RF thiamine mononitrate (vit B1) 100 mg Tablet 100 mg PO DAILY Qty: 30 0RF amlodipine 2.5 mg tablet 2.5 mg PO QAM Qty: 30 0RF disulfiram 250 mg tablet 500 mg PO DAILY Qty: 60 0RF acamprosate 333 mg tablet,delayed release (DR/EC) 666 mg PO TID Qty: 180 0RF melatonin 5 mg tablet 5 mg PO BEDTIME Qty: 30 0RF lurasidone 40 mg tablet 40 mg PO QPM Qty: 30 0RF Interventions: ED Discharge Assessment Last Done: 10/04/23 17:07 Discharge Date/Time: 10/04/23 17:15
[2023-10-04 12:51] LABS: MANUAL DIFF FLAG NO
[2023-10-04 12:52] LABS: Basophils Absolute Auto 0.1 X10*3/uL (0.0-0.2); Basophils Percent Auto 1.3 % (0-2); Eosinophils Percent Auto 0.2 % (0-4); Hematocrit 45.1 % (42.0-52.0); Hemoglobin 15.7 g/dl (14.0-18.0); Imm Gran Abs Auto 0.01 X10*3/uL (0.00-0.03); Imm Gran Pct Auto 0.2 % (0.0-0.4); Lymphocytes Absolute Auto 1.5 X10*3/uL (1.2-4.9); Lymphocytes Percent Auto 25.5 % (20-40); Mean Corpuscular HGB Conc 34.8 g/dl (31.0-36.0); Mean Corpuscular Hemoglobin 30.5 pg (27.0-33.0); Mean Corpuscular Volume 87.7 fL (80.0-98.0); Mean Platelet Volume 9.7 fL (9.4-12.4); Monocytes Absolute Auto 0.6 X10*3/uL (0.1-1.2); Monocytes Percent Auto 10.4 % (2-11); Neutrophils Absolute Auto 3.8 x10*3/uL (2.0-8.3); Neutrophils Percent Auto 62.4 % (45-73); Platelet Count 300 X10*3/uL (160-400); Red Blood Count 5.14 X10*6/uL (4.60-5.80); Red Cell Distribution Width 12.7 % (11.0-16.0)
[2023-10-04 13:06] LABS: Ethanol 18 mg/dL
[2023-10-04 13:09] VITALS: BP 155/95; PULSE 62; RESP 18; TEMP 36.8; O2SAT 99
[2023-10-04 13:09] LABS: Alanine Aminotransferase 73 U/L (0-40); Albumin Level 4.8 g/dL (3.5-5.0); Alkaline Phosphatase 85 U/L (39-117); Anion Gap 22 (12-20); Aspartate Amino Transferase 96 U/L (5-37); Bilirubin Total 1.2 mg/dL (0.0-1.0); Blood Urea Nitrogen 13 mg/dL (9-16); Calcium 9.5 mg/dL (8.4-10.2); Carbon Dioxide 21 mmol/L (22-29); Chloride 104 mmol/L (96-108); Creatinine Clr Calc Pharmacy 221.1; Estimated Glomerular Filt Rate > 60; Glucose Random 92 mg/dL (60-115); Potassium 3.9 mmol/L (3.3-5.1); Sodium 143 mmol/L (135-145); Total Protein 8.7 g/dL (6.5-8.0)
[2023-10-04 13:14] LABS: COVID-19 Test Negative (Negative); IDNOW Serial# 08D9AD1C
[2023-10-04 13:15] LABS: Troponin-I High Sensitivity 44.1 ng/L (<3.5-35.0)
[2023-10-04 13:17] LABS: IDNOW Serial# 152EDE1D; Influenza A Negative (Negative); Influenza B2 Negative (Negative)
--- NOTE | 2023-10-04 13:26 | ED_ITS ---
HPI - General Adult General Chief complaint: ETOH/Substance Use Stated complaint: CP PER EMS Time Seen by Provider: 10/04/23 13:13 Source: patient Mode of arrival: EMS Limitations: no limitations History of Present Illness HPI narrative: Patient comes to the emergency room via ambulance from home. Patient states that for the last 2 days he has been having dizziness, described as room spinning. Patient states that he admits to drink alcohol frequently. Today noted that he was vomiting blood. Patient states that he is known to have alcoholic gastritis and takes omeprazole. Patient states that he feels a bit shaky. However, patient states that he has gone through alcohol withdrawal and he does not feel that he is withdrawing at this time. Patient states he tried drinking alcohol today, tried few sips and then had to spit it out due to nausea. Last large alcoholic drink was approximately 48 hours ago. Patient also complaining of chronic chest pain on the left side of the chest that has been present for about 6 months, complaining of shortness of breath for several months. Patient states that he had a fall yesterday. Related Data Previous Rx's Medication Instructions Recorded acamprosate 333 mg tablet,delayed 666 mg (2 x 333 mg) PO TID #180 08/16/23 release tabs amlodipine 2.5 mg tablet 2.5 mg PO QAM #30 tabs 08/16/23 atorvastatin 10 mg tablet 10 mg PO BEDTIME #30 tabs 08/16/23 disulfiram 250 mg tablet 500 mg (2 x 250 mg) PO DAILY #60 08/16/23 tabs divalproex 250 mg tablet,delayed 250 mg PO BID #60 tabs 08/16/23 release folic acid 1 mg tablet 1 mg PO DAILY #30 tabs 08/16/23 gabapentin 300 mg capsule 300 mg PO DAILY #30 caps 08/16/23 hydrocortisone 1 % topical cream 1 appl topical Q6H PRN Itching #1 08/16/23 units hydroxyzine HCl 25 mg tablet 25 mg PO Q6H PRN Anxiety #60 tabs 08/16/23 ibuprofen 800 mg tablet 800 mg PO Q8H PRN Headache #30 tabs 08/16/23 lurasidone 40 mg tablet 40 mg PO QPM #30 tabs 08/16/23 melatonin 5 mg tablet 5 mg PO BEDTIME #30 tabs 12/21/23 multivitamin (Daily-Tiffanie tablet) 1 tab PO DAILY #30 tabs 08/16/23 mupirocin 2 % topical ointment 1 appl topical TID #1 units 08/16/23 ondansetron 4 mg disintegrating 4 mg translingual Q8H PRN Nausea 08/16/23 tablet #60 tabs thiamine mononitrate (vit B1) 100 100 mg PO DAILY #30 tabs 08/16/23 mg tablet topiramate 25 mg tablet 25 mg PO DAILY #30 tabs 08/16/23 trazodone 50 mg tablet 50 mg PO BEDTIME MRX1 PRN Insomnia 08/16/23 #60 tabs Allergies Allergy/AdvReac Type Severity Reaction Status Date / Time No Known Allergies Allergy Verified 08/07/23 16:19 Review of Systems 2 Review of Systems: Constitutional : No Weight loss, No Fever, No Chills, No Night Sweats, complaining of generalized malaise ENT/Mouth : No Hearing loss, No Ear Pain, No Nasal Congestion, No Sinus Pain, No Hoarseness, No sore throat, No Rhinorrhea, No Swallowing Difficulty Eyes: No Eye Pain, No Swelling, No Redness, No Foreign Body, No Discharge, No Vision Changes Cardiovascular : Complaining of chronic left-sided Chest Pain, No SOB, complaining of Dyspnea on Exertion, No Orthopnea, No Edema, No Palpitations Respiratory : No Cough, No Sputum, No Wheezing, No Smoke Exposure, No Dyspnea Gastrointestinal : Complaining of nausea and vomiting blood, No Diarrhea, No Constipation, complaining of epigastric burning sensation, No Hematochezia, No Melena Genitourinary : no irregular bleeding, No Dysuria, No Urinary Frequency, No Hematuria, No Urinary Incontinence, No Urgency, No Flank Pain, No Urinary Flow Changes, No Hesitancy Musculoskeletal : No joint pain, No Myalgias, No Joint Swelling Skin : No Skin Lesions, No rash Neuro : No Weakness, No Numbness, No Paresthesias, No Loss of Consciousness, No Dizziness, No Headache Psych : No Anxiety/Panic, No Depression, No SI/HI/AH/VH, admits to drinking alcohol heavily every few days Heme/Lymph: No Bruising, No Bleeding,No Lymphadenopathy Endocrine : No Polyuria, No Polydipsia, No Temperature Intolerance PMFSH Past Medical History Medical History PTSD (post-traumatic stress disorder) Schizoaffective disorder, bipolar type Alcohol use disorder, severe, dependence Alcoholic liver disease Schizo affective schizophrenia Anxiety Acid reflux Depression Family History Family History Mother No problems noted. Father No problems noted. Mother No problems noted. 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 Oriented X3. Very anxious Eyes: Pupils equal, round and reactive to light. ENT: Pharynx normal. Neck: Normal inspection. Neck supple. No lymph nodes noted. No crepitus CVS: Normal heart rate and rhythm. Pulses normal. Normal S1 and S2 Respiratory: No respiratory distress. Breath sounds normal. No Wheezing. No rales , oxygen saturation 99% on room air Abdomen: Soft and nontender. No rigidity. No distention. Digital rectal exam: No stool present Skin: Skin warm and clammy Normal skin color. Normal skin turgor. Extremities: No lower extremity edema. No Lacerations. No Rash Neuro: Oriented X 3. No motor deficit. No sensory deficit. Moving all extremities. No slurred speech. CN 2 through 12 grossly intact Psych: calm, cooperative, very anxious Course Course Course Narrative: -all of patient's labs and imaging pending -patient receiving IV fluids, p.o. lorazepam, IV Protonix -at this time, there is no evidence of GI bleed. Patient is not vomiting either. Medications Administered Discontinued Medications Generic Name Dose Route Start Last Admin Trade Name Corin PRN Reason Stop Dose Admin Sodium Chloride 1,000 mls @ 999 mls/hr 10/04/23 13:23 10/04/23 14:50 Ns IVCONT 10/04/23 14:23 Infused .Q1H1M ONE Infusion Lorazepam 2 mg 10/04/23 13:26 10/04/23 13:44 Lorazepam 1 Mg Tablet PO 10/04/23 13:27 2 mg ONCE ONE Administration Magnesium Oxide 400 mg 10/04/23 15:24 10/04/23 15:37 Magnesium Oxide 400 Mg Tablet PO 10/04/23 15:25 400 mg ONCE ONE Administration Pantoprazole Sodium 80 mg 10/04/23 13:25 10/04/23 13:44 Pantoprazole Sodium 40 Mg/10 Ml Vial IVPUSH 10/04/23 13:26 80 mg ONCE ONE Administration Medical Decision Making Medical Decision Making MDM Narrative: -my interpretation of labs: Normal hematology and chemistry, normal BNP, D-dimer negative, LFTs chronically elevated, mild, ETOH mildly positive, 18, magnesium 1.3, given p.o. magnesium. Occult blood negative, PT INR 1.1. Patient has not vomited in the ED. Troponin 1. 44.1, we will repeat a 2nd troponin, patient has chronic chest pain for 6 months. D-dimer negative -my interpretation of head CT: No intracranial bleed -patient is calm, cooperative, patient's blood pressure is a bit elevated, normal heart rate, appearance patient is calm. Patient does not seem to be withdrawing from alcohol. Patient states that he does not feel like he is withdrawing from alcohol either. -troponin 2 is negative, troponins flat, patient states that he feels much better. Seems that patient was having significant anxiety. Explains that prior to arrival he went to urgent care complaining of URI symptoms, his girlfriend who was with him had a panic attack and a syncopal episode, brought to the emergency room as well. Patient states that that triggered his anxiety as well. -at this time, patient states he feels well and ready for discharge. -vitals stable, no signs of alcohol withdrawal Differential Diagnosis Differential Diagnoses: The differential diagnosis associated with the presentation includes (Chronic chest pain, ACS, alcohol intoxication, alcohol withdrawal) Admission/Observation Consideration of admission/observation: Escalation of care including admission/observation considered (Given patient's history and presentation, patient considered) Lab Data MDM Lab Attestation statement: I reviewed the patient's lab results. 10/04/23 13:34 10/04/23 13:34 Labs: Lab Results 10/04/23 10/04/23 10/04/23 Range/Units 12:43 13:34 15:43 WBC 6.0 7.2 (4.8-10.8) X10*3/uL RBC 5.14 D 4.91 (4.60-5.80) X10*6/uL Hgb 15.7 D 15.2 (14.0-18.0) g/dl Hct 45.1 D 43.1 (42.0-52.0) % MCV 87.7 87.8 (80.0-98.0) fL MCH 30.5 31.0 (27.0-33.0) pg MCHC 34.8 35.3 (31.0-36.0) g/dl RDW 12.7 13.0 (11.0-16.0) % Plt Count 300 D 294 (160-400) X10*3/uL MPV 9.7 9.6 (9.4-12.4) fL Immature Gran % (Auto) 0.2 0.3 (0.0-0.4) % Neut % (Auto) 62.4 64.6 (45-73) % Lymph % (Auto) 25.5 22.7 (20-40) % Emanuel % (Auto) 10.4 11.1 H (2-11) % Eos % (Auto) 0.2 0.1 (0-4) % Baso % (Auto) 1.3 1.2 (0-2) % Lymph # (Auto) 1.5 1.6 (1.2-4.9) X10*3/uL Emanuel # (Auto) 0.6 0.8 (0.1-1.2) X10*3/uL Eos # (Auto) 0.0 0.0 (0.0-0.4) X10*3/uL Baso # (Auto) 0.1 0.1 (0.0-0.2) X10*3/uL Abs Immat Gran (auto) 0.01 0.02 (0.00-0.03) X10*3/uL Absolute Neuts (auto) 3.8 4.7 (2.0-8.3) x10*3/uL Absolute Nucleated RBC 0.000 0.000 (0.0-0.012) X10*3/uL Nucleated RBC % (auto) 0.0 0.0 (0.0-0.2) /100WBC PT 13.3 (11.1-13.3) SEC INR 1.1 (0.9-1.1) D-Dimer High Sensitivty < 150 NG/ML Sodium 143 141 (135-145) mmol/L Potassium 3.9 3.6 (3.3-5.1) mmol/L Chloride 104 104 (96-108) mmol/L Carbon Dioxide 21 L 25 (22-29) mmol/L Anion Gap 22 H 16 (12-20) BUN 13 13 (9-16) mg/dL Creatinine 0.75 0.75 (0.5-1.4) mg/dL Estim Creat Clear Calc 221.1 221.1 Estimated GFR > 60 > 60 Random Glucose 92 96 (60-115) mg/dL Calcium 9.5 D 9.2 (8.4-10.2) mg/dL Magnesium 1.5 L (1.6-2.6) mg/dL Total Bilirubin 1.2 H 1.3 H (0.0-1.0) mg/dL Direct Bilirubin 0.5 (0.0-0.5) mg/dL AST 96 H 89 H (5-37) U/L ALT 73 H 69 H (0-40) U/L Alkaline Phosphatase 85 79 (39-117) U/L Troponin I High Sens 44.1 H 32.0 (<3.5-35.0) ng/L B-Natriuretic Peptide 18 (<100) pg/mL Total Protein 8.7 H 8.0 (6.5-8.0) g/dL Albumin 4.8 4.4 (3.5-5.0) g/dL Lipase 13 (8-78) U/L Stool Occult Blood NEGATIVE (NEGATIVE) Ethyl Alcohol 18 mg/dL COVID-19 ([facility]KOLAS) Negative (Negative) COVID-19 Clin Com See Note Influenza Type A (REBECA) Negative (Negative) Influenza Type B (REBECA) Negative (Negative) Influenza A & B Note See Note Independent Interpretation I performed an independent interpretation of an: Plain X-Ray (My interpretation of chest x-ray: No infiltrates, no rib fractures) and CT Scan Radiology Impression Discussion of test interpretation with radiology: I have reviewed the radiologist's reading. Radiologist Impression: FINDINGS: Chest x-ray: The lungs are well-expanded and clear of acute process. The heart size and pulmonary vascularity is normal. There is mild spondylosis of dorsal spine. No aggressive lytic or sclerotic process seen. Brain: No acute intra-axial, extra-axial bleed, masses or midline shift. There is no acute infarction in evolution. The disla to white matter differentiation is maintained normal. The lateral ventricles are symmetrical in size and configuration without enlargement. No abnormality seen in the posterior fossa. Bone windows reveal no calvarial abnormality. There is no scalp soft tissue abnormality. Bilateral paranasal sinuses and mastoid air cells are well aerated. CT/CT head/brain wo IV con IMPRESSION: 1. Unremarkable chest x-ray. 2. Unremarkable CT brain exam. Critical Care Time Critical Care Time Critical Care Time: Yes Total Critical Care Time: 45 Attestation: I have personally provided critical care time. Time includes review of lab data, radiology results, discussion with consultants, and monitoring for potential decompensation. Intervention performed as documented. Discharge Plan Discharge Clinical Impression: Chronic chest pain, Chronic fatigue Patient Disposition: Home, Self-Care Instructions: Chest Pain (ED), Fatigue (ED) Additional Instructions: Please follow-up with your primary care physician tomorrow. If you have any worsening or new symptoms, please return to the emergency room or call 911 Prescriptions: No Action divalproex 250 mg Tablet,Delayed Release (Dr/Ec) 250 mg PO BID Qty: 60 0RF trazodone 50 mg Tablet 50 mg PO BEDTIME MRX1 PRN (Reason: Insomnia) Qty: 60 0RF atorvastatin 10 mg Tablet 10 mg PO BEDTIME Qty: 30 0RF ibuprofen 800 mg Tablet 800 mg PO Q8H PRN (Reason: Headache) Qty: 30 0RF topiramate 25 mg Tablet 25 mg PO DAILY Qty: 30 0RF gabapentin 300 mg Capsule 300 mg PO DAILY Qty: 30 0RF hydroxyzine HCl 25 mg Tablet 25 mg PO Q6H PRN (Reason: Anxiety) Qty: 60 0RF ondansetron 4 mg Tablet,Disintegrating 4 mg translingual Q8H PRN (Reason: Nausea) Qty: 60 0RF hydrocortisone 1 % Cream 1 appl topical Q6H PRN (Reason: Itching) Qty: 1 0RF Protocol: Apply to: Apply to: HANDS folic acid 1 mg Tablet 1 mg PO DAILY Qty: 30 0RF mupirocin 2 % Ointment 1 appl topical TID Qty: 1 0RF Protocol: Apply to: Apply to: HANDS multivitamin [Daily-Tiffanie] Tablet 1 tab PO DAILY Qty: 30 0RF thiamine mononitrate (vit B1) 100 mg Tablet 100 mg PO DAILY Qty: 30 0RF amlodipine 2.5 mg tablet 2.5 mg PO QAM Qty: 30 0RF disulfiram 250 mg tablet 500 mg PO DAILY Qty: 60 0RF acamprosate 333 mg tablet,delayed release (DR/EC) 666 mg PO TID Qty: 180 0RF melatonin 5 mg tablet 5 mg PO BEDTIME Qty: 30 0RF lurasidone 40 mg tablet 40 mg PO QPM Qty: 30 0RF
[2023-10-04 13:40] LABS: MANUAL DIFF FLAG NO
[2023-10-04 13:43] LABS: OBS Int Ctl Valid YES; OBS1 NEGATIVE (NEGATIVE)
[2023-10-04] MEDS: Pantoprazole Sodium 40 MG/10 ML VIAL 80 MG IVPUSH (13:44)
[2023-10-04] MEDS: 0.9 % Sodium Chloride 1,000 ML 999 ML IVCONT (13:44)
[2023-10-04] MEDS: LORazepam 1 MG TABLET 2 MG PO (13:44)
[2023-10-04 13:50] LABS: Basophils Absolute Auto 0.1 X10*3/uL (0.0-0.2); Basophils Percent Auto 1.2 % (0-2); Eosinophils Percent Auto 0.1 % (0-4); Hematocrit 43.1 % (42.0-52.0); Hemoglobin 15.2 g/dl (14.0-18.0); INTERNATIONAL NORM RATIO 1.1 (0.9-1.1); Imm Gran Abs Auto 0.02 X10*3/uL (0.00-0.03); Imm Gran Pct Auto 0.3 % (0.0-0.4); Lymphocytes Absolute Auto 1.6 X10*3/uL (1.2-4.9); Lymphocytes Percent Auto 22.7 % (20-40); Mean Corpuscular HGB Conc 35.3 g/dl (31.0-36.0); Mean Corpuscular Volume 87.8 fL (80.0-98.0); Mean Platelet Volume 9.6 fL (9.4-12.4); Monocytes Absolute Auto 0.8 X10*3/uL (0.1-1.2); Monocytes Percent Auto 11.1 % (2-11); Neutrophils Absolute Auto 4.7 x10*3/uL (2.0-8.3); Neutrophils Percent Auto 64.6 % (45-73); Platelet Count 294 X10*3/uL (160-400); Prothrombin Time 13.3 SEC (11.1-13.3); Red Blood Count 4.91 X10*6/uL (4.60-5.80); White Blood Count 7.2 X10*3/uL (4.8-10.8)
[2023-10-04 13:55] LABS: Alanine Aminotransferase 69 U/L (0-40); Albumin Level 4.4 g/dL (3.5-5.0); Alkaline Phosphatase 79 U/L (39-117); Anion Gap 16 (12-20); Aspartate Amino Transferase 89 U/L (5-37); Bilirubin Direct 0.5 mg/dL (0.0-0.5); Bilirubin Total 1.3 mg/dL (0.0-1.0); Blood Urea Nitrogen 13 mg/dL (9-16); Calcium 9.2 mg/dL (8.4-10.2); Carbon Dioxide 25 mmol/L (22-29); Chloride 104 mmol/L (96-108); Creatinine Clr Calc Pharmacy 221.1; D Dimer High Sensitivity < 150 NG/ML; Estimated Glomerular Filt Rate > 60; Glucose Random 96 mg/dL (60-115); Lipase 13 U/L (8-78); Magnesium 1.5 mg/dL (1.6-2.6); Potassium 3.6 mmol/L (3.3-5.1); Sodium 141 mmol/L (135-145)
[2023-10-04 14:00] LABS: B Type Natriuretic Peptide 18 pg/mL (<100)
[2023-10-04 15:32] VITALS: BP 159/103; PULSE 74; RESP 17; TEMP 37.1; O2SAT 98
[2023-10-04] MEDS: Magnesium Oxide 400 MG TABLET PO (15:37)
--- NOTE | 2023-10-04 15:48 | PC.NURSE ---
PT laying in bed, resting, offers no complaints at this time. Second Troponin sent to lab. Plan of care on going.
--- NOTE | 2023-10-04 16:36 | MHC.EDTECH ---
Brought patient cranberry juice and a warm blanket.
--- NOTE | 2023-10-04 16:37 | MHC.EDTECH ---
Nurse aware patient at this time unable to do orthostatic vitals due to poor coordination.
[2023-10-04 16:54] VITALS: BP 140/89; PULSE 65; RESP 16; O2SAT 97
== END 2023-10-04 17:15 | disposition home or self-care (01) ==
PROVIDERS: Nurse Practitioner Family; Emergency Provider Emergency Medicine; PCP Internal Medicine Geriatric Medicine
DX: G89.29 Other chronic pain (principal); R07.9 Chest pain, unspecified; R53.82 Chronic fatigue, unspecified; R06.02 Shortness of breath; Z11.52 Encounter for screening for COVID-19; Z79.899 Other long term (current) drug therapy
CPT/HCPCS: 36415; 70450; 71045; 80048; 80053; 80076; 80307; 82272; 83690; 83735; 83880; 84484; 85025; 85379; 85610; 87502; 87635; 93005; 96361; 96374; 99284; 99285; C9113

== ENCOUNTER → 2023-10-04 12:08 | Outpatient (BNV) | payer OTHER, SELFPAY | PROVIDERS: Emergency Provider Emergency Medicine; PCP Internal Medicine Geriatric Medicine; Visit Provider Internal Medicine | DX: I45.81 Long QT syndrome (principal) | CPT/HCPCS: 93010 ==

== ENCOUNTER 2023-11-22 14:44 | Outpatient (REF) | payer OTHER, SELFPAY | END 2023-11-22 14:45 | disposition home or self-care (01) | LOC: HO.HHCL 14:44 | PROVIDERS: Visit Provider Student in an Organized Health Care Education/Training Program | DX: Z13.88 Encounter for screening for disorder due to exposure to contaminants (principal) | CPT/HCPCS: 36415 ==

== ENCOUNTER 2023-11-23 12:07 | Outpatient (REF) | payer OTHER, SELFPAY ==
[2023-11-29 06:49] LABS: Vitamin B1 57 nmol/L (8-30)
== END 2023-11-23 12:08 | disposition home or self-care (01) ==
LOC: HO.HHCL 12:07
PROVIDERS: Visit Provider Student in an Organized Health Care Education/Training Program
DX: F10.90 Alcohol use, unspecified, uncomplicated (principal)
CPT/HCPCS: 36415; 84425

== ENCOUNTER 2024-02-08 11:41 | Outpatient (REF) | payer OTHER, SELFPAY ==
[2024-02-08 12:25] LABS: Ammonia 56 umol/L (13-55)
== END 2024-02-08 11:42 | disposition home or self-care (01) ==
LOC: HO.LAB 11:41
PROVIDERS: PCP Internal Medicine; Visit Provider Internal Medicine
DX: R19.7 Diarrhea, unspecified (principal); K76.0 Fatty (change of) liver, not elsewhere classified
CPT/HCPCS: 36415; 82140

== ENCOUNTER 2024-02-19 12:55 | Emergency (ER) | payer OTHER, SELFPAY ==
--- NOTE | ~2024-02-19 | XR_ITS ---
EXAMINATION: XR CHEST 2 VIEW CLINICAL INFORMATION: Chest pain COMPARISON: 10/04/2023 TECHNIQUE: PA and lateral views of the chest obtained. FINDINGS: The lungs are clear. There are no pleural effusions. The cardiomediastinal silhouette is normal. XR/XR chest 2V IMPRESSION: No acute cardiopulmonary disease.
--- NOTE | 2024-02-19 13:01 | ECG_ITS ---
Test Reason : CHEST PAIN Blood Pressure : / mmHG Vent. Rate : 049 BPM Atrial Rate : 049 BPM P-R Int : 170 ms QRS Dur : 096 ms QT Int : 536 ms P-R-T Axes : -11 019 004 degrees QTc Int : 484 ms Sinus bradycardia Prolonged QT Abnormal ECG When compared with ECG of 04-OCT-2023 12:20, No significant change was found Referred By: Generic ED Physician Electronically Signed By:MONICA GARCIA MD
[2024-02-19 13:13] VITALS: BP 136/94; BP 160/100; PULSE 53; PULSE 60; RESP 20; TEMP 37.2; O2SAT 98; O2SAT 99; BMI 27.4
--- NOTE | 2024-02-19 13:14 | ED_ITS ---
HPI - General Adult General Chief complaint: General Medical Stated complaint: L CP,HIGH BP 173/104 PER EMS Time Seen by Provider: 02/19/24 13:59 Source: patient and old records reviewed Mode of arrival: ambulatory Limitations: no limitations History of Present Illness ED Provider: MINDI SANCHEZ narrative: 48 yo male with PMH of PTSD, schizoaffective disorder, alcohol abuse, anxiety, depression, acid reflux, HTN, HLD here with c/o eating something yesterday then developing chills chest burning weakness n/v all night that has improved no diarrhea. No sick contacts, travel, abx use. He feels overwhelmed and is also looking for VNA help. He is hoping to get into a day program and needs a t spot test as well. MD complaint: n/v, chest pain, anxiety Onset (ago): day(s) (early this AM middle of night) Location: chest Radiation: non-radiation Severity: moderate Quality: burning Pain Consistency: intermittent Relieving factors: none Exacerbating factors: eating Associated symptoms: headaches, loss of appetite, malaise, nausea/vomiting and weakness Treatments prior to arrival: none Related Data Previous Rx's ?Medication ?Instructions ?Recorded acamprosate 333 mg tablet,delayed 666 mg (2 x 333 mg) PO TID #180 08/16/23 release tabs amlodipine 2.5 mg tablet 2.5 mg PO QAM #30 tabs 08/16/23 atorvastatin 10 mg tablet 10 mg PO BEDTIME #30 tabs 08/16/23 disulfiram 250 mg tablet 500 mg (2 x 250 mg) PO DAILY #60 08/16/23 tabs divalproex 250 mg tablet,delayed 250 mg PO BID #60 tabs 08/16/23 release folic acid 1 mg tablet 1 mg PO DAILY #30 tabs 08/16/23 gabapentin 300 mg capsule 300 mg PO DAILY #30 caps 08/16/23 hydrocortisone 1 % topical cream 1 appl topical Q6H PRN Itching #1 08/16/23 units hydroxyzine HCl 25 mg tablet 25 mg PO Q6H PRN Anxiety #60 tabs 08/16/23 ibuprofen 800 mg tablet 800 mg PO Q8H PRN Headache #30 tabs 08/16/23 lurasidone 40 mg tablet 40 mg PO QPM #30 tabs 12/21/23 melatonin 5 mg tablet 5 mg PO BEDTIME #30 tabs 08/16/23 multivitamin (Daily-Tiffanie tablet) 1 tab PO DAILY #30 tabs 08/16/23 mupirocin 2 % topical ointment 1 appl topical TID #1 units 08/16/23 ondansetron 4 mg disintegrating 4 mg translingual Q8H PRN Nausea 08/16/23 tablet #60 tabs thiamine mononitrate (vit B1) 100 100 mg PO DAILY #30 tabs 08/16/23 mg tablet topiramate 25 mg tablet 25 mg PO DAILY #30 tabs 08/16/23 trazodone 50 mg tablet 50 mg PO BEDTIME MRX1 PRN Insomnia 08/16/23 #60 tabs Allergies Allergy/AdvReac Type Severity Reaction Status Date / Time No Known Allergies Allergy Verified 02/19/24 13:15 Review of Systems 2 Review of Systems: Constitutional : No Weight loss, No Fever, No Chills ENT/Mouth : No sore throat, No Rhinorrhea Eyes: No Swelling, No Redness Cardiovascular : pos Chest Pain, No SOB, NoEdema Respiratory : No Cough, No Sputum, No Wheezing Gastrointestinal : Positive Nausea, Positive Vomiting, no Diarrhea, no abdominal Pain, No Hematochezia, No Melena Genitourinary : No Dysuria, No Urinary Frequency, No Hematuria, No Urgency Musculoskeletal : No joint pain, No Myalgias, No Joint Swelling Skin : No Skin Lesions, No rash Neuro : No Weakness, No Numbness, No Dizziness, No Headache Psych : pos Anxiety/Panic, No Depression All other systems reviewed and are negative. [facility] Past Medical History Attestation statement: The following information was validated with the patient. Source: old records reviewed Medical History PTSD (post-traumatic stress disorder) Schizoaffective disorder, bipolar type Alcohol use disorder, severe, dependence Alcoholic liver disease Schizo affective schizophrenia Anxiety Acid reflux Depression Family History Family History Mother No problems noted. Father No problems noted. Mother No problems noted. 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 Oriented X3. No acute distress. anxious talking a lot about many different things but speech is fluent and coherent Eyes: Pupils equal, round and reactive to light. ENT: Pharynx normal. Neck: Normal inspection. Neck supple. CVS: Normal heart rate and rhythm. Pulses normal. Respiratory: No respiratory distress. Breath sounds normal. Abdomen: Soft and nontender. Skin: Skin warm and dry. Normal skin color. Normal skin turgor. Extremities: No lower extremity edema. No calf ttp Neuro: Oriented X 3. No motor deficit. No sensory deficit. Course Course Course Narrative: This is a rapid medical exam performed by Sarabjit Osei NP: Additional HPI, ROS, PE not included below will be deferred to primary provider. Patient is a 48-year-old male with history of PTSD, szhizoaffective disorder, alcohol use disorder, anxiety and depression, HTN presenting to the ED with complaint of high blood pressure, left sided chest pain. Feeling overwhelmed with taking his medications and managing his care. Previously had VNA services to help with his meds. Nausea and vomiting last night. Plan: EKG, labs, urine drug screen and ethanol Medications Administered Discontinued Medications Generic Name Dose Route Start Last Admin Trade Name Freq PRN Reason Stop Dose Admin Famotidine 20 mg 02/19/24 14:36 02/19/24 15:27 Famotidine/Pf 20 Mg/2 Ml Vial IVPUSH 02/19/24 14:37 20 mg ONCE ONE Administration Sodium Chloride 500 mls @ 500 mls/hr 02/19/24 14:36 02/19/24 15:26 Ns IV 02/19/24 15:35 500 mls/hr .Q1H ONE Administration Medical Decision Making Medical Decision Making [facility] Narrative: 48 yo male with PMH of PTSD, schizoaffective disorder, alcohol abuse, anxiety, depression, acid reflux, HTN, HLD here with c/o not feeling well last night then with chest pains that are burning feeling weak and dizzy n/v and just not good - at this time seems viral or food toxicity atypical for ACS will obtain basic labs, trop x 2, he is PERC negative no suggest of pain consistent with dissection, IVF and pepcid/zofran ordered. I did ask CM about VNA and to help find his cane. Differential Diagnosis Differential Diagnoses: The differential diagnosis associated with the presentation includes anxiety, gastritis, viral syndrome Admission/Observation Consideration of admission/observation: Escalation of care including admission/observation considered trop at baseline, CXR negative labs at baseline can be managed as outpatient CM notes father has cane and he has [facility] and they are working on VNA and day program Lab Data [facility] Lab Attestation statement: I reviewed the patient's lab results. LFTs at baseline 02/19/24 13:26 02/19/24 13:26 Labs: Lab Results 02/19/24 02/19/24 Range/Units 13:26 15:19 WBC 5.8 (4.8-10.8) X10*3/uL RBC 4.71 (4.60-5.80) X10*6/uL Hgb 14.9 (14.0-18.0) g/dl Hct 42.2 (42.0-52.0) % MCV 89.6 (80.0-98.0) fL MCH 31.6 (27.0-33.0) pg MCHC 35.3 (31.0-36.0) g/dl RDW 13.1 (11.0-16.0) % Plt Count 244 (160-400) X10*3/uL MPV 9.4 (9.4-12.4) fL Immature Gran % (Auto) 0.3 (0.0-0.4) % Neut % (Auto) 71.1 (45-73) % Lymph % (Auto) 16.9 L (20-40) % [place] % (Auto) 10.5 (2-11) % Eos % (Auto) 0.2 (0-4) % Baso % (Auto) 1.0 (0-2) % Lymph # (Auto) 1.0 L (1.2-4.9) X10*3/uL [place] # (Auto) 0.6 (0.1-1.2) X10*3/uL Eos # (Auto) 0.0 (0.0-0.4) X10*3/uL Baso # (Auto) 0.1 (0.0-0.2) X10*3/uL Abs Immat Gran (auto) 0.02 (0.00-0.03) X10*3/uL Absolute Neuts (auto) 4.1 (2.0-8.3) x10*3/uL Absolute Nucleated RBC 0.000 (0.0-0.012) X10*3/uL Nucleated RBC % (auto) 0.0 (0.0-0.2) /100WBC PT 12.8 (11.1-13.3) SEC INR 1.1 (0.9-1.1) Sodium 139 (135-145) mmol/L Potassium 4.1 (3.3-5.1) mmol/L Chloride 99 (96-108) mmol/L Carbon Dioxide 26 (22-29) mmol/L Anion Gap 18 (12-20) BUN 10 (9-16) mg/dL Creatinine 0.76 (0.5-1.4) mg/dL Estim Creat Clear Calc 116.2 Estimated GFR > 60 Random Glucose 83 (60-115) mg/dL Calcium 9.8 D (8.4-10.2) mg/dL Magnesium 1.7 (1.6-2.6) mg/dL Total Bilirubin 1.4 H (0.0-1.0) mg/dL AST 64 H (5-37) U/L ALT 52 H (0-40) U/L Alkaline Phosphatase 85 (39-117) U/L Troponin I High Sens 36.4 H 33.8 (<3.5-35.0) ng/L Total Protein 8.6 H (6.5-8.0) g/dL Albumin 4.7 (3.5-5.0) g/dL Lipase 20 (8-78) U/L Ethyl Alcohol < 10 mg/dL Independent Interpretation I performed an independent interpretation of an: EKG and Plain X-Ray (normal ) Interpretation: Rate: 49 Rhythm: sinus bradycardia [place]: normal Normal P waves. Normal PRANEETH. Normal QRS complex. ST T wave : no BINTA, inverted t waves V1 and III qTC: 484 prior studies: The study has been interpreted contemporaneously by me. . Radiology Impression Discussion of test interpretation with radiology: I have reviewed the radiologist's reading. External Record Review External record reviewed: Inpatient record Prescription Management I considered prescription management with: Other Discharge Plan Discharge Clinical Impression: Atypical chest pain Nausea & vomiting Qualifiers: Vomiting type: unspecified Qualified Code(s): R11.2 - Nausea with vomiting, unspecified Patient Disposition: Home, Self-Care Instructions: Chest Pain (ED), Acute Nausea and Vomiting (ED) Additional Instructions: bland diet and stay hydrated labs at baseline and reassuring follow up with your doctor chest xray normal your cane is at your dad's house return for any worsening symptoms or concerns please follow up on the portal regarding SARS and t spot test Prescriptions: No Action divalproex 250 mg Tablet,Delayed Release (Dr/Ec) 250 mg PO BID Qty: 60 0RF trazodone 50 mg Tablet 50 mg PO BEDTIME MRX1 PRN (Reason: Insomnia) Qty: 60 0RF atorvastatin 10 mg Tablet 10 mg PO BEDTIME Qty: 30 0RF ibuprofen 800 mg Tablet 800 mg PO Q8H PRN (Reason: Headache) Qty: 30 0RF topiramate 25 mg Tablet 25 mg PO DAILY Qty: 30 0RF gabapentin 300 mg Capsule 300 mg PO DAILY Qty: 30 0RF hydroxyzine HCl 25 mg Tablet 25 mg PO Q6H PRN (Reason: Anxiety) Qty: 60 0RF ondansetron 4 mg Tablet,Disintegrating 4 mg translingual Q8H PRN (Reason: Nausea) Qty: 60 0RF hydrocortisone 1 % Cream 1 appl topical Q6H PRN (Reason: Itching) Qty: 1 0RF Protocol: Apply to: Apply to: HANDS folic acid 1 mg Tablet 1 mg PO DAILY Qty: 30 0RF mupirocin 2 % Ointment 1 appl topical TID Qty: 1 0RF Protocol: Apply to: Apply to: HANDS multivitamin [Daily-Tiffanie] Tablet 1 tab PO DAILY Qty: 30 0RF thiamine mononitrate (vit B1) 100 mg Tablet 100 mg PO DAILY Qty: 30 0RF amlodipine 2.5 mg tablet 2.5 mg PO QAM Qty: 30 0RF disulfiram 250 mg tablet 500 mg PO DAILY Qty: 60 0RF acamprosate 333 mg tablet,delayed release (DR/EC) 666 mg PO TID Qty: 180 0RF melatonin 5 mg tablet 5 mg PO BEDTIME Qty: 30 0RF lurasidone 40 mg tablet 40 mg PO QPM Qty: 30 0RF Print Language: Slovak
[2024-02-19 13:32] LABS: MANUAL DIFF FLAG NO
[2024-02-19 13:36] LABS: Basophils Absolute Auto 0.1 X10*3/uL (0.0-0.2); Eosinophils Percent Auto 0.2 % (0-4); Hematocrit 42.2 % (42.0-52.0); Hemoglobin 14.9 g/dl (14.0-18.0); Imm Gran Abs Auto 0.02 X10*3/uL (0.00-0.03); Imm Gran Pct Auto 0.3 % (0.0-0.4); Lymphocytes Percent Auto 16.9 % (20-40); Mean Corpuscular HGB Conc 35.3 g/dl (31.0-36.0); Mean Corpuscular Hemoglobin 31.6 pg (27.0-33.0); Mean Corpuscular Volume 89.6 fL (80.0-98.0); Mean Platelet Volume 9.4 fL (9.4-12.4); Monocytes Absolute Auto 0.6 X10*3/uL (0.1-1.2); Monocytes Percent Auto 10.5 % (2-11); Neutrophils Absolute Auto 4.1 x10*3/uL (2.0-8.3); Neutrophils Percent Auto 71.1 % (45-73); Platelet Count 244 X10*3/uL (160-400); Red Blood Count 4.71 X10*6/uL (4.60-5.80); Red Cell Distribution Width 13.1 % (11.0-16.0); White Blood Count 5.8 X10*3/uL (4.8-10.8)
[2024-02-19 13:43] LABS: INTERNATIONAL NORM RATIO 1.1 (0.9-1.1); Prothrombin Time 12.8 SEC (11.1-13.3)
[2024-02-19 13:57] LABS: Troponin-I High Sensitivity 36.4 ng/L (<3.5-35.0)
[2024-02-19 13:59] LABS: Alanine Aminotransferase 52 U/L (0-40); Albumin Level 4.7 g/dL (3.5-5.0); Alkaline Phosphatase 85 U/L (39-117); Anion Gap 18 (12-20); Aspartate Amino Transferase 64 U/L (5-37); Bilirubin Total 1.4 mg/dL (0.0-1.0); Blood Urea Nitrogen 10 mg/dL (9-16); Calcium 9.8 mg/dL (8.4-10.2); Carbon Dioxide 26 mmol/L (22-29); Chloride 99 mmol/L (96-108); Creatinine Clr Calc Pharmacy 116.2; Estimated Glomerular Filt Rate > 60; Ethanol < 10 mg/dL; Glucose Random 83 mg/dL (60-115); Magnesium 1.7 mg/dL (1.6-2.6); Potassium 4.1 mmol/L (3.3-5.1); Sodium 139 mmol/L (135-145); Total Protein 8.6 g/dL (6.5-8.0)
[2024-02-19 14:14] VITALS: BP 137/96; PULSE 60; RESP 16; O2SAT 98
[2024-02-19 15:24] VITALS: BP 143/86; PULSE 56; RESP 14; TEMP 36.9; O2SAT 99
[2024-02-19] MEDS: 0.9 % Sodium Chloride 500 ML IV (15:26)
[2024-02-19] MEDS: Famotidine/PF 20 MG/2 ML VIAL IVPUSH (15:27)
[2024-02-19 15:45] LABS: Troponin-I High Sensitivity 33.8 ng/L (<3.5-35.0)
--- NOTE | 2024-02-19 16:03 | MHC.CM.ED ---
Received notification from Dr Heredia that patient requires assistance at home with medication compliance. Patient is active with [facility]. Spoke with Marialuisa at [facility]. Patient had an appointment at [facility] today to arrange services. Patient's cane was also delivered to his father's house. Dr Heredia aware. Continue to monitor for d/c needs.
[2024-02-19 16:13] LABS: Lipase 20 U/L (8-78)
[2024-02-19 16:51] VITALS: BP 147/81; PULSE 52; RESP 18; TEMP 36.9; O2SAT 99
[2024-02-22 07:19] LABS: TS Negative Control Passed; TS Panel A 1; TS Panel B 0; TS Positive Control Passed; TSpotTB Negative (Negative)
== END 2024-02-19 16:53 | disposition home or self-care (01) ==
PROVIDERS: Registered Nurse Emergency; Emergency Provider Emergency Medicine; PCP Internal Medicine Geriatric Medicine
DX: R07.89 Other chest pain (principal); R11.2 Nausea with vomiting, unspecified; I10 Essential (primary) hypertension; M25.50 Pain in unspecified joint; R51.9 Headache, unspecified; Z79.899 Other long term (current) drug therapy; Z51.81 Encounter for therapeutic drug level monitoring
CPT/HCPCS: 36415; 71046; 80053; 80307; 83690; 83735; 84484; 85025; 85610; 86481; 93005; 96374; 99284; 99285

== ENCOUNTER → 2024-02-19 13:01 | Outpatient (BNV) | payer OTHER, SELFPAY | PROVIDERS: Emergency Provider Emergency Medicine; PCP Internal Medicine Geriatric Medicine; Visit Provider Internal Medicine Cardiovascular Disease | DX: R07.9 Chest pain, unspecified (principal); R00.1 Bradycardia, unspecified; R94.31 Abnormal electrocardiogram [ECG] [EKG] | CPT/HCPCS: 93010 ==

== ENCOUNTER 2024-03-18 10:00 | Outpatient (RCR) | payer OTHER, SELFPAY | END 2024-05-30 15:21 | disposition home or self-care (01) | LOC: HO.PT 10:00 | PROVIDERS: PCP Internal Medicine Geriatric Medicine; Visit Provider Internal Medicine Geriatric Medicine | DX: R26.9 Unspecified abnormalities of gait and mobility (principal) | CPT/HCPCS: 97110; 97162; 97530; 97535 ==

== ENCOUNTER 2024-03-24 12:42 | Emergency (ER) | payer OTHER, SELFPAY ==
--- NOTE | ~2024-03-24 | XR_ITS ---
EXAMINATION: XR CHEST CLINICAL INFORMATION: Chest pain. COMPARISON: 02/19/2024 TECHNIQUE: 2 views of the chest were obtained. FINDINGS: The lungs are well expanded. No focal consolidation. No pleural effusion. Cardiac silhouette is within normal limits. XR/XR chest 2V IMPRESSION: No acute abnormality.
[2024-03-24 12:43] VITALS: BP 118/64; PULSE 55; RESP 20; TEMP 36.6; O2SAT 97; BMI 34.2
--- NOTE | 2024-03-24 12:44 | ED_ITS ---
HPI - Chest Pain General Chief Complaint: Chest Pain Stated Complaint: Chest Pain Sent By Dr Vang Time Seen by Provider: 03/24/24 19:24 Source: patient Mode of arrival: ambulatory Limitations: no limitations History of Present Illness ED Provider: MINDI SANCHEZ narrative: 48 yo male with PMH of PTSD, schizoaffective disorder, alcohol abuse, anxiety, depression, acid reflux, HTN, HLD here with c/o wanting to know how to take his medications. He was sent for low HR and chronic chest pain but he has no dizziness, dyspnea or nausea. He is asking to leave he states he has this all the time but he needs the metoprolol addressed. No fevers, cough, change in his chest pain. He is taking metoprolol 50mg BID. His doctor sent him for management of the bradycardia - no documentation of hypotension. MD complaint: chest pain Onset (ago): year(s) Timing of current episode: constant Prior episodes: Yes Onset: during rest and during exertion Pain location: substernal Pain radiation: none Severity: mild Quality: tightness Relieving factors: nothing Exacerbating factors: nothing Context: other (chronic) Treatment prior to arrival: none Related Data Previous Rx's ?Medication ?Instructions ?Recorded acamprosate 333 mg tablet,delayed 666 mg (2 x 333 mg) PO TID #180 08/16/23 release tabs amlodipine 2.5 mg tablet 2.5 mg PO QAM #30 tabs 08/16/23 atorvastatin 10 mg tablet 10 mg PO BEDTIME #30 tabs 08/16/23 disulfiram 250 mg tablet 500 mg (2 x 250 mg) PO DAILY #60 08/16/23 tabs divalproex 250 mg tablet,delayed 250 mg PO BID #60 tabs 08/16/23 release folic acid 1 mg tablet 1 mg PO DAILY #30 tabs 08/16/23 gabapentin 300 mg capsule 300 mg PO DAILY #30 caps 08/16/23 hydrocortisone 1 % topical cream 1 appl topical Q6H PRN Itching #1 08/16/23 units hydroxyzine HCl 25 mg tablet 25 mg PO Q6H PRN Anxiety #60 tabs 08/16/23 ibuprofen 800 mg tablet 800 mg PO Q8H PRN Headache #30 tabs 08/16/23 lurasidone 40 mg tablet 40 mg PO QPM #30 tabs 08/16/23 melatonin 5 mg tablet 5 mg PO BEDTIME #30 tabs 08/16/23 multivitamin (Daily-Tiffanie tablet) 1 tab PO DAILY #30 tabs 08/16/23 mupirocin 2 % topical ointment 1 appl topical TID #1 units 08/16/23 ondansetron 4 mg disintegrating 4 mg translingual Q8H PRN Nausea 08/16/23 tablet #60 tabs thiamine mononitrate (vit B1) 100 100 mg PO DAILY #30 tabs 08/16/23 mg tablet topiramate 25 mg tablet 25 mg PO DAILY #30 tabs 08/16/23 trazodone 50 mg tablet 50 mg PO BEDTIME MRX1 PRN Insomnia 08/16/23 #60 tabs metoprolol succinate 25 mg 25 mg PO DAILY #30 tabs 03/24/24 tablet,extended release 24 hr (Toprol XL) Allergies Allergy/AdvReac Type Severity Reaction Status Date / Time No Known Allergies Allergy Verified 03/24/24 12:48 Review of Systems 2 Review of Systems: Constitutional : No Weight loss, No Fever, No Chills ENT/Mouth : No sore throat, No Rhinorrhea Eyes: No Eye Pain, No Swelling Cardiovascular : pos Chest Pain,no SOB, no Dyspnea on Exertion, No Orthopnea, No Edema, No Palpitations Respiratory : No Cough, No Sputum Gastrointestinal : no Nausea, No Vomiting, No Diarrhea, No abdominal Pain, No Hematochezia, No Melena Genitourinary : No Dysuria, No Urinary Frequency Musculoskeletal : No joint pain, No Myalgias, No Joint Swelling Skin : No Skin Lesions, No rash Neuro : No Weakness, No Numbness, No Dizziness, No Headache All other systems reviewed and are negative [facility] Past Medical History Attestation statement: The following information was validated with the patient. Source: old records reviewed Medical History PTSD (post-traumatic stress disorder) Schizoaffective disorder, bipolar type Alcohol use disorder, severe, dependence Alcoholic liver disease Schizo affective schizophrenia Anxiety Acid reflux Depression Family History Family History Mother No problems noted. Father No problems noted. Mother No problems noted. 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 Oriented X3. No acute distress. Eyes: Pupils equal, round and reactive to light. ENT: Pharynx normal. Neck: Normal inspection. Neck supple. CVS: bradycardic heart rate and rhythm. Pulses normal. Respiratory: No respiratory distress. Breath sounds normal. Abdomen: Soft and nontender. Skin: Skin warm and dry. Normal skin color. Normal skin turgor. Extremities: No lower extremity edema. No calf ttp Neuro: Oriented X 3. No motor deficit. No sensory deficit. Course Course Course Narrative: This is an RME: Additional HPI, ROS, PE not included below will be deferred to primary provider. RME assessment and note performed by: Mary Rajan PA-C This is a 48 y/o M, with a hx of PTSD, chronic migraines, schizoaffective disorder, who presents to the ER with complaints of left chest pain x 1 year. Pain has been constant x 1 year. Endorsing palpitations. Pain can range in severity at times. Pain kept him up last night which is prompted him to come into the ER. Plan: Labs, EKG, CXR Medical Decision Making Medical Decision Making MDM Narrative: 48 yo male with PMH of PTSD, schizoaffective disorder, alcohol abuse, anxiety, depression, acid reflux, HTN, HLD here with c/o chronic chest pain that has no change from priors. He notes he has issues with medications and someone is coming tomorrow to monitor his meds. He has low magnesium is aware but refuses IV repletion states it is chronic. His EKG other than sinus bradycardia this is no BINTA and trop is at baseline. He has no dizziness or low BP to suggest symptoms from his beta angel but I am going to decrease his metoprolol from 50mg BID to Toprol 25mg XL. He is asking to leave. Differential Diagnosis Differential Diagnoses: The differential diagnosis associated with the presentation includes lyte abnormality, atypical chest pain Admission/Observation Consideration of admission/observation: Escalation of care including admission/observation considered wants to leave, stable for DC chronic complaints Lab Data [facility] Lab Attestation statement: I reviewed the patient's lab results. 03/24/24 13:00 03/24/24 13:00 Labs: Lab Results 03/24/24 Range/Units 13:00 WBC 9.0 (4.8-10.8) X10*3/uL RBC 4.57 L (4.60-5.80) X10*6/uL Hgb 14.5 (14.0-18.0) g/dl Hct 41.1 L (42.0-52.0) % MCV 89.9 (80.0-98.0) fL MCH 31.7 (27.0-33.0) pg MCHC 35.3 (31.0-36.0) g/dl RDW 12.3 (11.0-16.0) % Plt Count 249 (160-400) X10*3/uL MPV 10.7 (9.4-12.4) fL Immature Gran % (Auto) 0.2 (0.0-0.4) % Neut % (Auto) 58.1 (45-73) % Lymph % (Auto) 27.3 (20-40) % [place] % (Auto) 10.2 (2-11) % Eos % (Auto) 3.0 (0-4) % Baso % (Auto) 1.2 (0-2) % Lymph # (Auto) 2.5 (1.2-4.9) X10*3/uL [place] # (Auto) 0.9 (0.1-1.2) X10*3/uL Eos # (Auto) 0.3 (0.0-0.4) X10*3/uL Baso # (Auto) 0.1 (0.0-0.2) X10*3/uL Abs Immat Gran (auto) 0.02 (0.00-0.03) X10*3/uL Absolute Neuts (auto) 5.2 (2.0-8.3) x10*3/uL Absolute Nucleated RBC 0.000 (0.0-0.012) X10*3/uL Nucleated RBC % (auto) 0.0 (0.0-0.2) /100WBC Sodium 139 (135-145) mmol/L Potassium 3.8 (3.3-5.1) mmol/L Chloride 105 (96-108) mmol/L Carbon Dioxide 24 (22-29) mmol/L Anion Gap 14 (12-20) BUN 12 (9-16) mg/dL Creatinine 0.81 (0.5-1.4) mg/dL Estim Creat Clear Calc 130.5 Estimated GFR > 60 Random Glucose 105 (60-115) mg/dL Calcium 9.6 (8.4-10.2) mg/dL Magnesium 1.4 L* (1.6-2.6) mg/dL Total Bilirubin 1.1 H (0.0-1.0) mg/dL Direct Bilirubin 0.4 (0.0-0.5) mg/dL AST 52 H (5-37) U/L ALT 65 H (0-40) U/L Alkaline Phosphatase 79 (39-117) U/L Troponin I High Sens 27.4 (<3.5-35.0) ng/L Total Protein 7.8 (6.5-8.0) g/dL Albumin 4.4 (3.5-5.0) g/dL Lipase 28 (8-78) U/L Influenza Type A (PCR) NEGATIVE (Negative) Influenza Type B (PCR) NEGATIVE (Negative) RSV RNA Qual (PCR) NEGATIVE (Negative) SARS-CoV-2 RNA (RT-PCR) NEGATIVE (Negative) Independent Interpretation I performed an independent interpretation of an: EKG and Plain X-Ray (normal ) Interpretation: Rate: 44 Rhythm: sinus bradycardia [place]: normal Normal P waves. Normal PRANEETH. Normal QRS complex. ST T wave : no BINTA qTC: normal prior studies: chronic sinus bradycardia The study has been interpreted contemporaneously by me. . Radiology Impression Discussion of test interpretation with radiology: I have reviewed the radiologist's reading. External Record Review External record reviewed: Outpatient record Prescription Management I considered prescription management with: Other Discharge Plan Discharge Clinical Impression: Atypical chest pain, Hypomagnesemia, Bradycardia, sinus Patient Disposition: Home, Self-Care Instructions: Chest Pain (ED), Bradycardia (ED), Hypomagnesemia (ED) Additional Instructions: follow up with your doctors return for any worsening symptoms STOP METOPROLOL 50MG TWICE A DAY AND SWITCH TO TOPROL 25MG DAILY PLEASE MONITOR HEART RATE. Prescriptions: New metoprolol succinate [Toprol XL] 25 mg tablet extended release 24 hr 25 mg PO DAILY Qty: 30 0RF No Action divalproex 250 mg Tablet,Delayed Release (Dr/Ec) 250 mg PO BID Qty: 60 0RF trazodone 50 mg Tablet 50 mg PO BEDTIME MRX1 PRN (Reason: Insomnia) Qty: 60 0RF atorvastatin 10 mg Tablet 10 mg PO BEDTIME Qty: 30 0RF ibuprofen 800 mg Tablet 800 mg PO Q8H PRN (Reason: Headache) Qty: 30 0RF topiramate 25 mg Tablet 25 mg PO DAILY Qty: 30 0RF gabapentin 300 mg Capsule 300 mg PO DAILY Qty: 30 0RF hydroxyzine HCl 25 mg Tablet 25 mg PO Q6H PRN (Reason: Anxiety) Qty: 60 0RF ondansetron 4 mg Tablet,Disintegrating 4 mg translingual Q8H PRN (Reason: Nausea) Qty: 60 0RF hydrocortisone 1 % Cream 1 appl topical Q6H PRN (Reason: Itching) Qty: 1 0RF Protocol: Apply to: Apply to: HANDS folic acid 1 mg Tablet 1 mg PO DAILY Qty: 30 0RF mupirocin 2 % Ointment 1 appl topical TID Qty: 1 0RF Protocol: Apply to: Apply to: HANDS multivitamin [Daily-Tiffanie] Tablet 1 tab PO DAILY Qty: 30 0RF thiamine mononitrate (vit B1) 100 mg Tablet 100 mg PO DAILY Qty: 30 0RF amlodipine 2.5 mg tablet 2.5 mg PO QAM Qty: 30 0RF disulfiram 250 mg tablet 500 mg PO DAILY Qty: 60 0RF acamprosate 333 mg tablet,delayed release (DR/EC) 666 mg PO TID Qty: 180 0RF melatonin 5 mg tablet 5 mg PO BEDTIME Qty: 30 0RF lurasidone 40 mg tablet 40 mg PO QPM Qty: 30 0RF Print Language: Gambian
--- NOTE | 2024-03-24 12:47 | ECG_ITS ---
Test Reason : chest pain Blood Pressure : / mmHG Vent. Rate : 044 BPM Atrial Rate : 044 BPM P-R Int : 178 ms QRS Dur : 092 ms QT Int : 498 ms P-R-T Axes : 027 033 014 degrees QTc Int : 425 ms Marked sinus bradycardia Abnormal ECG When compared with ECG of 19-FEB-2024 13:06, QT has shortened Referred By: Mary Rajan Electronically Signed By:Enrico Rosenberg
[2024-03-24 13:05] LABS: MANUAL DIFF FLAG NO
[2024-03-24 13:07] LABS: Basophils Absolute Auto 0.1 X10*3/uL (0.0-0.2); Basophils Percent Auto 1.2 % (0-2); Eosinophils Absolute Auto 0.3 X10*3/uL (0.0-0.4); Hematocrit 41.1 % (42.0-52.0); Hemoglobin 14.5 g/dl (14.0-18.0); Imm Gran Abs Auto 0.02 X10*3/uL (0.00-0.03); Imm Gran Pct Auto 0.2 % (0.0-0.4); Lymphocytes Absolute Auto 2.5 X10*3/uL (1.2-4.9); Lymphocytes Percent Auto 27.3 % (20-40); Mean Corpuscular HGB Conc 35.3 g/dl (31.0-36.0); Mean Corpuscular Hemoglobin 31.7 pg (27.0-33.0); Mean Corpuscular Volume 89.9 fL (80.0-98.0); Mean Platelet Volume 10.7 fL (9.4-12.4); Monocytes Absolute Auto 0.9 X10*3/uL (0.1-1.2); Monocytes Percent Auto 10.2 % (2-11); Neutrophils Absolute Auto 5.2 x10*3/uL (2.0-8.3); Neutrophils Percent Auto 58.1 % (45-73); Platelet Count 249 X10*3/uL (160-400); Red Blood Count 4.57 X10*6/uL (4.60-5.80); Red Cell Distribution Width 12.3 % (11.0-16.0)
[2024-03-24 13:29] LABS: Alanine Aminotransferase 65 U/L (0-40); Albumin Level 4.4 g/dL (3.5-5.0); Alkaline Phosphatase 79 U/L (39-117); Anion Gap 14 (12-20); Aspartate Amino Transferase 52 U/L (5-37); Bilirubin Direct 0.4 mg/dL (0.0-0.5); Bilirubin Total 1.1 mg/dL (0.0-1.0); Blood Urea Nitrogen 12 mg/dL (9-16); Calcium 9.6 mg/dL (8.4-10.2); Carbon Dioxide 24 mmol/L (22-29); Chloride 105 mmol/L (96-108); Creatinine Clr Calc Pharmacy 130.5; Estimated Glomerular Filt Rate > 60; Glucose Random 105 mg/dL (60-115); Lipase 28 U/L (8-78); Magnesium 1.4 mg/dL (1.6-2.6); Potassium 3.8 mmol/L (3.3-5.1); Sodium 139 mmol/L (135-145); Total Protein 7.8 g/dL (6.5-8.0)
[2024-03-24 13:32] LABS: Troponin-I High Sensitivity 27.4 ng/L (<3.5-35.0)
[2024-03-24 13:45] LABS: Influenza A PCR NEGATIVE (Negative); Influenza B PCR NEGATIVE (Negative); Resp Syncy Virus RNA Qual PCR NEGATIVE (Negative); SARS COV2 PCR INHOUSE NEGATIVE (Negative)
--- NOTE | 2024-03-24 20:06 | PC.NURSE ---
pt refused magnesium and stated he just wanted help understanding his home medications and wants to leave ED. MD called to bedside. per MD only changes to home meds metoprolol only 25mg daily, pt educated and verbalizes understanding. pt reports he has f/u with pcp tomorrow am to help sort home meds. pt reports cp is at his usual and denies sob/n/v/d at this time. pt ambulatory with steady gait. denies further concerns questions.
[2024-03-24 20:08] VITALS: BP 148/98; PULSE 51; RESP 20; TEMP 36.8; O2SAT 98
== END 2024-03-24 20:09 | disposition home or self-care (01) ==
PROVIDERS: Physician Assistant Medical; Emergency Provider Emergency Medicine; PCP Internal Medicine Geriatric Medicine
DX: R07.89 Other chest pain (principal); E83.42 Hypomagnesemia; R00.1 Bradycardia, unspecified; Z79.899 Other long term (current) drug therapy; Z03.818 Encounter for observation for suspected exposure to other biological agents ruled out
CPT/HCPCS: 0241U; 36415; 71046; 80048; 80076; 83690; 83735; 84484; 85025; 93005; 99283

== ENCOUNTER → 2024-03-24 12:47 | Outpatient (BNV) | payer OTHER, SELFPAY | PROVIDERS: Emergency Provider Emergency Medicine; PCP Internal Medicine Geriatric Medicine; Visit Provider Internal Medicine Cardiovascular Disease | DX: R07.9 Chest pain, unspecified (principal); R94.31 Abnormal electrocardiogram [ECG] [EKG] | CPT/HCPCS: 93010 ==

== ENCOUNTER 2024-05-28 11:51 | Outpatient (REF) | payer OTHER, SELFPAY ==
[2024-05-28 14:15] LABS: Cholesterol 180 mg/dL (<200); HDL Cholesterol 40 mg/dL (>40); LDL Cholesterol Calculated 116 mg/dL (<100); Triglycerides 121 mg/dL (<150)
== END 2024-05-28 11:52 | disposition home or self-care (01) ==
LOC: HO.HHCL 11:51
PROVIDERS: Visit Provider Internal Medicine Geriatric Medicine
DX: R07.9 Chest pain, unspecified (principal)
CPT/HCPCS: 36415; 80061

== ENCOUNTER → 2024-07-10 10:42 | Outpatient (REF) | payer OTHER, SELFPAY ==
--- NOTE | 2024-07-10 10:46 | CA_ITS ---
Transthoracic Echocardiogram Patient (Last, First, Middle): Randell Grey G Gender: Male Date of : 1975 Age: 48 Procedure Date: 07/10/2024 Procedure Type: Transthoracic Echocardiogram Location: OP Height: 175.26 cm Weight: 99.79 kg BSA: 2.15 m2 Heart Rate: bpm BP: 124 / 92 mmHg Central Supply Worker: JOSHUA Referring MD: Harman Vang MD 3D Artist: Peña Bustos MD Symptoms: R06.01 ORTHOPNEA , BLOUTN, LEG EDEMA Study Quality: Fair ECG Rhythm: Sinus Conclusions: - 1. Normal LV ejection fraction of 60 65% 2. Normal cardiac valvular Dopplers 3. Upper limits of normal ascending aortic size at 3.6 cm 4. No gross pericardial effusion Findings Left Ventricle Normal left ventricular size, thickness, and systolic function. The visually estimated ejection fraction is between 60-65%. Spectral Doppler is indicative of a normal filling pattern. E/E prime ratio is <8, consistent with normal filling pressures. Right Ventricle Normal right ventricular cavity size and systolic function. Atria The left atrium is likely dilated. There is no evidence of interatrial shunt. The right atrium is normal in size. Aortic Valve Normal aortic valve structure and function. There is no aortic valve stenosis. There is no aortic valve regurgitation. Mitral Valve Normal mitral valve structure and function. There is trace mitral valve regurgitation. There is no mitral valve stenosis. Pulmonic Valve The pulmonic valve was not well visualized. Tricuspid Valve Likely normal tricuspid valve structure and function. Tricuspid regurgitation envelope is inadequate for calculation of right ventricular systolic pressure. Great Vessels All visible segments of the aorta are normal in size. The pulmonary artery was not well visualized. There is no dilatation of the ascending aorta measuring 3.60 cm. Venous The inferior vena cava is normal in size and collapses greater than 50% with inspiration. Pericardium/Pleural There is no evidence of pericardial effusion. Prior Study Comparison No prior study available for comparison. Measurements 2D Linear Measurements IVSd: 1.08 0.6-0.9/0.6-1.0 cm LVIDd: 5.86 3.9-5.3/4.2-5.9 cm LVIDd Index: 2.73 2.4-3.2/2.2-3.1 cm/m2 LVIDs: 3.88 2.0-3.6 cm LVPWd: 0.92 0.7-1.1 cm LA Diam: 4.00 2.7-3.8/3.0-4.0 cm LAIDs Index: 1.86 1.5-2.3 cm/m2 LV Mass: 296.31 67-162/88-224 g LV Mass Index: 137.82 43-95/49-115 g/m2 LVOT Diam: 2.10 3.0+(-)1.3 cm 2D Systolic Function EF 4C: 63.00 >55% EF 2C: 65.90 >55% EF BiP: 65.20 >55% Mitral Valve MV Pk E: 0.84 MV PK A: 0.75 MV Decel Time: 230.00 E/A: 1.10 E'Lateral: 9.03 E'Medial: 6.53 E/E' Med: 12.80 E/E' Lat: 9.30 PHT: 68.00 MVA PHT: 3.24 Decel Dodge: 3.63 Aortic Valve AoV Pk Best: 1.29 AoV Mn Best: 0.91 AoV VTI: 0.35 AoV Pk Grad: 7.00 Aov Mn Grad: 4.00 MALINA Cont.VTI: 2.49 LVOT LVOT Pk Best: 1.04 LVOT Mn Best: 0.65 LVOT VTI: 0.25 LVOT Pk Grad: 4.00 LVOT Mn Grad: 2.00 LVOT Diam: 2.10 LVOT Area: 3.46 Diastolic Function MV Pk E: 0.84 MV Pk A: 0.75 E/A: 1.10 E'Medial: 6.53 E/E' Med: 12.80 E' Laterial: 9.03 E/E' Lat: 9.30 Right Ventricle TAPSE (mm): 23.50 TVS' Best: 16.00 Tricuspid Valve RA Press: 3.00 Great Vessels Aorta Sinus of Valsalva: 3.53 2.0-3.5 cm Ao Asc: 3.60 2.1-3.4 cm Updated in Other Vendor System with Status of Final Peña Bustos MD electronically signed on 07/10/2024 12:52:20 PM with status of Final
--- NOTE | 2024-07-10 10:54 | ECG_ITS ---
Test Reason : leg edema, orthopnea quick Blood Pressure : / mmHG Vent. Rate : 053 BPM Atrial Rate : 053 BPM P-R Int : 162 ms QRS Dur : 092 ms QT Int : 492 ms P-R-T Axes : 066 056 026 degrees QTc Int : 461 ms Sinus bradycardia Otherwise normal ECG When compared with ECG of 24-MAR-2024 12:47, No significant change was found Referred By: Scotty Lopez Electronically Signed By:Enrico Rosenberg
== END ==
LOC: HO.CARD 10:42
PROVIDERS: PCP Internal Medicine Geriatric Medicine; Visit Provider Internal Medicine Geriatric Medicine
DX: R06.01 Orthopnea (principal)
CPT/HCPCS: 93005; 93306

== ENCOUNTER → 2024-07-10 10:46 | Outpatient (BNV) | payer OTHER, SELFPAY | PROVIDERS: PCP Internal Medicine Geriatric Medicine; Visit Provider Internal Medicine Cardiovascular Disease | DX: R06.01 Orthopnea (principal) | CPT/HCPCS: 93010; 93306 ==